=== PATIENT | female | born 1945 | race African-American/Black ===

== ENCOUNTER 2017-09-03 15:18 | Observation (INO) | payer OTHER ==
--- NOTE | 2017-09-03 15:23 | PDOC ---
Rapid Medical Evaluation Time Seen by Provider: 09/03/17 15:22 Medical Evaluation: Allergies Allergy/AdvReac Type Severity Reaction Status Date / Time morphine Allergy Verified 09/03/17 15:20 09/03/17 15:22 I have performed a brief in-person evaluation of this patient. The patient presents with a chief complaint of: slurred speech x 2 weeks? "but only early in the mornings when she jumps out of bed", no hx of stroke, PCP Neghassi Pertinent physical exam findings: A&O x 3, slightly slurred speech but acting at baseline per family I have ordered the following: labs The patient will proceed to the ED for further evaluation. Discharge Disposition - Diagnosis Slurred speech - Referrals - Patient Instructions - Post Discharge Activity
--- NOTE | 2017-09-03 15:45 | PDOC ---
History of Present Illness - General Chief Complaint: CVA/TIA Stated Complaint: FALL/ RT FOOT INJURY Time Seen by Provider: 09/03/17 15:22 - History of Present Illness Initial Comments: 09/03/17 16:14 Ms. Vaz is a 72 yo female w/ pmh of HTN and schizophrenia who presents for evaluation of 2 week history of slurred speech and increased falls. Per daughter who is with her there are no new changes in medications or supplements but patient has had recent unsteadyness and fallen twice. Denies any head injury but reports that she has had recent left leg weakness as well. 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 The patient denies chest pain, shortness of breath, headache and dizziness. Denies fever, chills, nausea, vomit, diarrhea and constipation. Denies dysuria, frequency, urgency and hematuria. Allergies: Morphine NIH Stroke Scale - Last Known Well Date/Time & Onset Date Last Known Well: 08/20/17 Time Last Known Well: 08:00 - Initial Evaluation Level of consciousness: Alert Ask patient the month and their age: Answers both correctly Ask patient to open & close eyes; make fist and let go: Obeys both correctly Best gaze (horizontal eye movement): Normal Visual field testing: No visual field loss Facial paresis (Show teeth/raise eyebrows/close eyes tight): Normal symmetrical movement Motor Function: Left Arm: Normal Motor Function: Right Arm: Normal (extends arm 90 (or 45) degrees for 10 seconds without drift Motor Function: Left Leg: Normal (extends leg 30 degrees for 5 seconds without drift) Motor Function: Right Leg: Drift Limb Ataxia: No ataxia Sensory(Use pinprick test arms,legs,trunk,face/side to side): Normal Best language (Describe picture, name items, read sentences): No Aphasia Dysarthria (read several words): Mild to moderate slurring of words Extinction and Inattention: No abnormality - Total Score NIH Stroke Scale Score: 2 Past History - Past Medical History Allergies/Adverse Reactions: Allergies Allergy/AdvReac Type Severity Reaction Status Date / Time morphine Allergy Verified 09/03/17 15:20 Home Medications: Ambulatory Orders Atenolol [Tenormin -] 25 mg PO DAILY 04/17/14 Haloperidol Decanoate [Haldol Decanoate (Long-Acting) -] 0 mg IM MONTHLY Hydrochlorothiazide [Hctz -] 25 mg PO DAILY 04/17/14 Quetiapine Fumarate [Seroquel -] 400 mg PO HS 04/17/14 COPD: No HTN: Yes Psychiatric Problems: Yes (ANXIETY) - Suicide/Smoking/Psychosocial Hx Smoking History: Current every day smoker Have you smoked in the past 12 months: Yes Number of Cigarettes Smoked Daily: 20 Information on smoking cessation initiated: Yes 'Breaking Loose' booklet given: 09/03/17 Hx Alcohol Use: No Drug/Substance Use Hx: No Substance Use Type: None Review of Systems - Review of Systems Comments:: 09/03/17 16:45 GENERAL/CONSTITUTIONAL: No fever or chills. No weakness. HEAD, EYES, EARS, NOSE AND THROAT: No change in vision. No ear pain or discharge. No sore throat. CARDIOVASCULAR: No chest pain or shortness of breath RESPIRATORY: No cough, wheezing, or hemoptysis. GASTROINTESTINAL: No nausea, vomiting, diarrhea or constipation. GENITOURINARY: No dysuria, frequency, or change in urination. MUSCULOSKELETAL: No joint or muscle swelling or pain. No neck or back pain. SKIN: No rash NEUROLOGIC: +Slurred speech with recent right leg weakness as described. No headache, vertigo, loss of consciousness ENDOCRINE: No increased thirst. No abnormal weight change HEMATOLOGIC/LYMPHATIC: No anemia, easy bleeding, or history of blood clots. ALLERGIC/IMMUNOLOGIC: No hives or skin allergy. *Physical Exam - Vital Signs Last Vital Signs Temp Pulse Resp BP Pulse Ox 98.1 F 62 18 103/64 100 09/03/17 15:22 09/03/17 15:22 09/03/17 15:22 09/03/17 15:22 09/03/17 15:22 - Physical Exam Comments: 09/03/17 16:45 GENERAL: Awake, alert, and fully oriented, in no acute distress HEAD: No signs of trauma, normocephalic, atraumatic EYES: PERRLA, EOMI, sclera anicteric, conjunctiva clear ENT: Auricles normal inspection, hearing grossly normal, nares patent, oropharynx clear without exudates. Moist mucosa NECK: Normal ROM, supple, no lymphadenopathy, JVD, or masses LUNGS: No distress, speaks full sentences, clear to auscultation bilaterally HEART: Regular rate and rhythm, normal S1 and S2, no murmurs, rubs or gallops, peripheral pulses normal and equal bilaterally. ABDOMEN: Soft, nontender, normoactive bowel sounds. No guarding, no rebound. No masses EXTREMITIES: Normal inspection, Normal range of motion, no edema. No clubbing or cyanosis. NEUROLOGICAL: +Speech slurred. Patient RLE weaker than left. Cranial nerves II through XII grossly intact. No focal sensorimotor deficits SKIN: Warm, Dry, normal turgor, no rashes or lesions noted. ED Treatment Course - LABORATORY CBC & Chemistry Diagram: 09/03/17 16:00 09/03/17 15:47 Medical Decision Making - Medical Decision Making 09/03/17 16:47 Ms. Vaz is a 72 yo female w/ pmh as described who presents for evaluation of slurred speech and right leg weakness. 09/03/17 18:23 Patient worked up as 2 week old stroke, labs/imaging drawn accordingly. Head CT negative, no concern for acute process at this time. Patient noted to have hypokalemia, acute renal failure, elevated troponins and elevated Creatinine kinase. Patient admitted to med/surg for further evaluation for ARF, hypokalemia , slurred speech. *DC/Admit/Observation/Transfer Diagnosis at time of Disposition: Slurred speech, Hypokalemia Acute renal failure Qualifiers: Acute renal failure type: unspecified Qualified Code(s): N17.9 - Acute kidney failure, unspecified - Discharge Dispostion Admit: Yes - Referrals Referrals: Vincent Saucedo MD [Primary Care Provider] - - Patient Instructions - Post Discharge Activity
[2017-09-03 16:05] LABS: INR 1.14 (0.82-1.09); PROTHROMBIN TIME (PATIENT) 12.9 SEC (9.98-11.88)
[2017-09-03 16:14] LABS: BASO % 1.5 % (0-2.0); EOS % 3.3 % (0-4.5); HEMATOCRIT 34.7 % (32.4-45.2); LYMPH % 21.3 % (8-40); MCH 32.6 pg (25.7-33.7); MCHC 34.6 g/dl (32.0-36.0); MEAN CELL VOLUME 94.2 fl (80-96); MEAN PLT VOLUME 8.4 fl (7.5-11.1); MONO % 6.8 % (3.8-10.2); NEUT % 67.1 % (42.8-82.8); PLATELET COUNT 238 K/MM3 (134-434); RBC 3.68 M/mm3 (3.60-5.2); WHITE BLOOD COUNT 6.4 K/mm3 (4.0-10.0)
[2017-09-03 16:26] LABS: ALBUMIN 3.3 g/dl (3.4-5.0); ANION GAP 4 (8-16); BILIRUBIN,TOTAL 0.2 mg/dL (0.2-1.0); BLOOD UREA NITROGEN 24 mg/dL (7-18); CALCIUM 8.8 mg/dL (8.5-10.1); CHLORIDE 109 mmol/L (98-107); CO2 27 mmol/L (21-32); CREATININE 1.6 mg/dL (0.55-1.02); GLUCOSE,RANDOM 141 mg/dL (74-106); POTASSIUM 3.3 mmol/L (3.5-5.1); SGOT/AST 26 U/L (15-37); SGPT/ALT 14 U/L (12-78); SODIUM 140 mmol/L (136-145); TOT PROT 6.8 g/dl (6.4-8.2)
[2017-09-03 16:27] LABS: ALK PHOS 71 U/L (45-117)
[2017-09-03] MEDS ORDERED: SODIUM CHLORIDE 1,000 ML IV SCH (16:30)
--- NOTE | 2017-09-03 16:44 | PDOC ---
Attending Attestation - Resident Resident Name: Christiano Munroe - ED Attending Attestation I have performed the following: I have examined & evaluated the patient, The case was reviewed & discussed with the resident, I agree w/resident's findings & plan, Exceptions are as noted - HPI HPI: 09/03/17 16:39 72 yo F with h/o DM, schizophrenia , htn here with c/o worsenin am slurring of speech x 2 weeks. thought maybe due to medication side effect. has had in the past when haldol or seroquel doses were too high. slurring in worse in am on awakening. but pt has had 2 falls in last week. now c/o mild right hip pain and right foot pain. was recommende to walk with a walker recently which she is here with today. additional history per her daughter at bedside who feels speech is currently at baseline, but has been worse last few mornings. pt andrey si hi or ah. no cp no f/c. no blair. no ho prior stroke. - Physicial Exam PE: 09/03/17 16:41 awake alert lungs clear bilaterally. heart rrr no mrg abd soft nt nd. skin warm and dry. nuero CN II - XII . upper ext strenth 5/5. lower ext 4/5 right leg , left leg 5/5. speech, mild slurring ends of word, pt is adentulous. - Medical Decision Making 09/03/17 16:43 differential: infection, electrolyte abnormality, anemia, ich or cva, toxic effect medications other tox causea ( pt denies etoh or other narcotic or drug use). plan ct head. xray foot and hip r//o traumatic injury, labs ekg, reassess. Heart Score/ECG Review #1 ECG reviewed & interpreted by me at: 16:55 General ECG Interpretation: Sinus Rhythm, Normal Intervals, No acute ischemic changes Compared to previous ECG there are: Other (sinus bradycardia 54 . no change comparison 04/17/14) NIH Stroke Scale - Initial Evaluation Level of consciousness: Alert Ask patient the month and their age: Answers both correctly Ask patient to open & close eyes; make fist and let go: Obeys both correctly Best gaze (horizontal eye movement): Normal Visual field testing: No visual field loss Facial paresis (Show teeth/raise eyebrows/close eyes tight): Normal symmetrical movement Motor Function: Left Arm: Normal Motor Function: Right Arm: Normal (extends arm 90 (or 45) degrees for 10 seconds without drift Motor Function: Left Leg: Normal (extends leg 30 degrees for 5 seconds without drift) Motor Function: Right Leg: Drift Limb Ataxia: No ataxia Sensory(Use pinprick test arms,legs,trunk,face/side to side): Normal Best language (Describe picture, name items, read sentences): No Aphasia Dysarthria (read several words): Mild to moderate slurring of words Extinction and Inattention: No abnormality - Total Score NIH Stroke Scale Score: 2
[2017-09-03 17:09] LABS: URINE APPEARANCE SLCLOUDY; URINE BILIRUBIN NEGATIVE (<2.0 mg/dL); URINE BLOOD NEGATIVE (NEGATIVE); URINE COLOR YELLOW; URINE GLUCOSE (UA) NEGATIVE (NEGATIVE); URINE KETONE NEGATIVE (NEGATIVE); URINE LEUK ESTERASE NEGATIVE (NEGATIVE); URINE NITRITE NEGATIVE (NEGATIVE); URINE PROTEIN NEGATIVE (NEGATIVE); URINE UROBILINOGEN NEGATIVE mg/dL (0.2-1.0)
[2017-09-03 17:35] LABS: ACETAMINOPHEN < 2.000 ug/mL; SALICYLATE 33.943 mg/dL
[2017-09-03 18:47] LABS: COCAINE, UR NEGATIVE ng/ml (CUTOFF=300); METHADONE, UR NEGATIVE ng/ml (CUTOFF=300); OPIATES, URI NEGATIVE ng/ml (CUTOFF=300); PHENCYCLIDINE,URINE NEGATIVE ng/ml (CUTOFF=25); URINE AMPHETAMINES NEGATIVE ng/ml (CUTOFF=500); URINE BARBITURATES NEGATIVE ng/ml (CUTOFF=200); URINE BENZODIAZEPINES NEGATIVE ng/ml (CUTOFF=200)
--- NOTE | 2017-09-03 19:52 | HP ---
CHIEF COMPLAINT: chronic pain and chronic weakness in right lower limb PCP: haile rubio [phone] HISTORY OF PRESENT ILLNESS: 72 y/o f with pmh of schizophrenia, htn, hld, came to hospital because of chronic pain in her right thigh and ankle( from 3 week). 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 They also did her blood work 2 week ago which showed increase creatinine ( patient aware of it) ask them to drink plenty of water and follow up on september 16. Patient also states that when some ones wakes her up in middle of her sleep she gets slurred speech but it gets better after few minutes. Patient also states that she has weakness in her right leg form 6-7 months. Denies any new numbness or weakness. Denies chest pain, sob, palpitations, headache. Denies abnormal body movements. denies seizure like activity Also reports that she use to walk with her back flexed because use to think some one is siting on her back. Patient reports X ray of her back was done in her doctor office which was normal and was advised to walk with walker. Denies change in weight. Does report when she stands suddenly she gets lightheaded In Er labs showed trponemia with red. Daughter states that patient is at her base line. Call was placed to Dr banuelos office, talked to web communications specialist doctor but he cannot access the record so don't know her base line creatinine. ER course was notable for: (1)cbc, cmp, hld (2)ekg bradycardia with first degree heart block. (3)ct head, xray of Recent Travel: no PAST MEDICAL HISTORY: schisophrenia, htn, hld PAST SURGICAL HISTORY:no Social History: Smoking:no Alcohol:no Drugs: no Family History: Allergies morphine Allergy (Verified 09/03/17 15:20) HOME MEDICATIONS: Home Medications Medication Instructions Recorded Atenolol [Tenormin -] 25 mg PO DAILY 04/17/14 Haloperidol Decanoate [Haldol 0 mg IM MONTHLY 04/17/14 Decanoate (Long-Acting) -] Hydrochlorothiazide [Hctz -] 25 mg PO DAILY 04/17/14 Quetiapine Fumarate [Seroquel -] 400 mg PO HS 04/17/14 REVIEW OF SYSTEMS CONSTITUTIONAL: Absent: fever, chills, diaphoresis, generalized weakness, malaise, loss of appetite, HEENT: Absent: rhinorrhea, nasal congestion, throat pain, throat swelling, difficulty swallowing, mouth swelling, ear pain, eye pain, visual changes CARDIOVASCULAR: Absent: chest pain, syncope, palpitations, irregular heart rate, lightheadedness , RESPIRATORY: Absent: cough, shortness of breath, dyspnea with exertion, orthopnea, wheezing, stridor, hemoptysis GASTROINTESTINAL: Absent: abdominal pain, abdominal distension, nausea, vomiting, diarrhea, constipation, melena, hematochezia GENITOURINARY: Absent: dysuria, frequency, urgency, hesitancy, hematuria, flank pain, genital pain MUSCULOSKELETAL: as above HEMATOLOGIC/IMMUNOLOGIC: Absent: easy bleeding, easy bruising, ENDOCRINE: Absent: unexplained weight gain, unexplained weight loss, NEUROLOGIC: Absent: headache, focal weakness or paresthesias, dizziness, unsteady gait, PSYCHIATRIC: Absent: anxiety, depression, suicidal or homicidal ideation, hallucinations. PHYSICAL EXAMINATION Vital Signs - 24 hr 09/03/17 15:22 Temperature 98.1 F Pulse Rate 62 Respiratory 18 Rate Blood Pressure 103/64 O2 Sat by Pulse 100 Oximetry (%) GENERAL: Awake, alert, and fully oriented, in no acute distress. HEAD: Normal with no signs of trauma. EYES: Pupils equal, round and reactive to light, extraocular movements intact, EARS, NOSE, THROAT:oropharynx clear without exudates. DRy mucous membranes. NECK: Normal range of motion, JVD, or masses. LUNGS: Breath sounds equal, clear to auscultation bilaterally. No wheezes, and no crackles. No accessory muscle use. HEART: Regular rate and rhythm, normal S1 and S2 without murmur, ABDOMEN: Soft, nontender, not distended, normoactive bowel sounds, no guarding, no rebound, no masses. MUSCULOSKELETAL: Normal range of motion at all joints. UPPER EXTREMITIES: 2+ pulses, warm, well-perfused. No cyanosis. No clubbing. No peripheral edema. LOWER EXTREMITIES: 2+ pulses, warm, well-perfused. No calf tenderness. mild edema on right ankle, tory present on right ankle, no tenderness on palpation. NEUROLOGICAL: Cranial nerves II-XII intact. Normal speech. power in b/l upper limb 5/5, power in left lower limb 5/5, power in right upper limb 5/5 ( but slightly lessss than left) PSYCHIATRIC: Cooperative. Good eye contact. SKIN: Warm, dry, Laboratory Results - last 24 hr 09/03/17 09/03/17 09/03/17 15:47 15:47 16:00 WBC 6.4 D RBC 3.68 D Hgb 12.0 D Hct 34.7 D MCV 94.2 MCH 32.6 MCHC 34.6 RDW 16.0 H D Plt Count 238 D MPV 8.4 Neutrophils % 67.1 Lymphocytes % 21.3 D Monocytes % 6.8 Eosinophils % 3.3 D Basophils % 1.5 PT with INR 12.90 H INR 1.14 Sodium 140 Potassium 3.3 L Chloride 109 H Carbon Dioxide 27 Anion Gap 4 L BUN 24 H Creatinine 1.6 H Creat Clearance w eGFR 31.60 Random Glucose 141 H Calcium 8.8 Total Bilirubin 0.2 D AST 26 ALT 14 Alkaline Phosphatase 71 Creatine Kinase Troponin I Total Protein 6.8 Albumin 3.3 L Triglycerides Cholesterol Total LDL Cholesterol HDL Cholesterol Urine Color Urine Appearance Urine pH Ur Specific [place] Urine Protein Urine Glucose (UA) Urine Ketones Urine Blood Urine Nitrite Urine Bilirubin Urine Urobilinogen Ur Leukocyte Esterase Salicylates Opiates Screen Methadone Screen Acetaminophen Barbiturate Screen Phencyclidine Screen Ur Amphetamines Screen MDMA (Ecstasy) Screen Benzodiazepines Screen Cocaine Screen U Marijuana (THC) Screen 09/03/17 09/03/17 09/03/17 16:25 16:28 16:28 WBC RBC Hgb Hct MCV MCH MCHC RDW Plt Count MPV Neutrophils % Lymphocytes % Monocytes % Eosinophils % Basophils % PT with INR INR Sodium Potassium Chloride Carbon Dioxide Anion Gap BUN Creatinine Creat Clearance w eGFR Random Glucose Calcium Total Bilirubin AST ALT Alkaline Phosphatase Creatine Kinase 235 H Troponin I 0.12 H Total Protein Albumin Triglycerides 145 Cholesterol 266 H Total LDL Cholesterol 193 H HDL Cholesterol 39 L Urine Color Yellow Urine Appearance Slcloudy Urine pH 5.0 Ur Specific [place] 1.023 Urine Protein Negative Urine Glucose (UA) Negative Urine Ketones Negative Urine Blood Negative Urine Nitrite Negative Urine Bilirubin Negative Urine Urobilinogen Negative Ur Leukocyte Esterase Negative Salicylates 33.943 Opiates Screen Methadone Screen Acetaminophen < 2.000 Barbiturate Screen Phencyclidine Screen Ur Amphetamines Screen MDMA (Ecstasy) Screen Benzodiazepines Screen Cocaine Screen U Marijuana (THC) Screen 09/03/17 16:45 WBC RBC Hgb Hct MCV MCH MCHC RDW Plt Count MPV Neutrophils % Lymphocytes % Monocytes % Eosinophils % Basophils % PT with INR INR Sodium Potassium Chloride Carbon Dioxide Anion Gap BUN Creatinine Creat Clearance w eGFR Random Glucose Calcium Total Bilirubin AST ALT Alkaline Phosphatase Creatine Kinase Troponin I Total Protein Albumin Triglycerides Cholesterol Total LDL Cholesterol HDL Cholesterol Urine Color Urine Appearance Urine pH Ur Specific [place] Urine Protein Urine Glucose (UA) Urine Ketones Urine Blood Urine Nitrite Urine Bilirubin Urine Urobilinogen Ur Leukocyte Esterase Salicylates Opiates Screen Negative Methadone Screen Negative Acetaminophen Barbiturate Screen Negative Phencyclidine Screen Negative Ur Amphetamines Screen Negative MDMA (Ecstasy) Screen Negative Benzodiazepines Screen Negative Cocaine Screen Negative U Marijuana (THC) Screen Negative ASSESSMENT/PLAN:72 y/o f with pmh of schizophrenia, htn, hld, came to hospital because of chronic pain in her right thigh and ankle( from 3 week). In hospital found to have troponemia and red. Troponemia likely demand ischemia, or decrease clearance because of red. trend troponin repeat ekg in morning. echo cardiac monitoring monitor vitals monitor electrolytes. started on aspirin 81mg daily. TIA ( less likely) has chronic slurred speech and weakness from 6 months. Daughter reported that she is at her base line. ECHO Carotid Doppler started on statin and aspirin. Repeated fall; likely due to orthostatic hypotension, or from abnormal walking posture. no weakness appreciated in b/l lower or upper limbs. recently started walking with walker physical therapy consult. Fall risk precautions. orthostatic vitals IV fluid. 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 pain control with tylenol. ct head; no acute pathology RED: likely prerenal patient is not on NSAID, use to take anacin( aspirin + caffein) IV fluid monitor creatnine avoid nephrotoxic drugs urine electrolytes, cr: pro, renal usg hold hydrochlorthiazide HLD daughter states she was started on medication in july but patient is not complaint. started on lipitor 40. HTN monitor. home meds. schizoprenia continue home meds Hypokalemia kcl 40meq po given repeat in am. fluid: NS 100ml/hr electrolyte; repeat in am nutrition low cholesterol diet. dvt pro; patinet ambulatory. Gi pro: not required medication list confirmed from [facility] haloperidol 100mg once a month IM dispo: tele obs Visit type - Emergency Visit Emergency Visit: Yes ED Registration Date: 09/03/17 Care time: The patient presented to the Emergency Department on the above date and was hospitalized for further evaluation of their emergent condition. - New Patient This patient is new to me today: Yes Date on this admission: 09/03/17 - Critical Care Critical Care patient: No Hospitalist Screening - Colonoscopy Questionnaire Colonoscopy Questionnaire: Colonoscopy Questionnaire - Patient: 50 - 75 years old and never had a screening colonoscopy: Unknown History of colon or rectal polyps, or CA: Unknown History of IBD, Crohn's disease or UC: Unknown History of abdominal radiation therapy as a child: Unknown - Relative: 1 with colon or rectal CA, or polyps at age 60 or younger: Unknown Colon or rectal CA diagnosed at age 45 or younger: Unknown Multiple relatives with colon or rectal CA: Unknown - Outcome: Screening Result: Negative Screen
[2017-09-03] MEDS: SODIUM CHLORIDE 1,000 ML IV SCH (20:00)
[2017-09-03] MEDS ORDERED: ACETAMINOPHEN 325 MG TABLET (FP) PO PRN (20:13)
[2017-09-03] MEDS ORDERED: POTASSIUM CHLORIDE ORAL LIQUID 20 MEQ/15 ML PO ONE (20:15)
[2017-09-03] MEDS ORDERED: POTASSIUM CHLORIDE ORAL LIQUID 20 MEQ/15 ML ONE (20:19)
--- NOTE | 2017-09-03 21:38 | PN ---
Teaching Attending Note Name of Resident: Avtar Hamilton ATTENDING PHYSICIAN STATEMENT I saw and evaluated the patient. Chart, data, imaging reviewed. I reviewed the resident's note and discussed the case with the resident. I agree with the resident's findings and plan as documented. SUBJECTIVE: 72 y/o f with pmh of schizophrenia, htn, hld, with history recent falls and newly acquired walker, comes to hospital after granddaughter noticed slurred speech and was concerned. 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 She c/o soreness in her thighs b/l. No dizziness, but does c/o some chronic numbness in her right fingers for several months. Head CT in ER was unremarkable for intracranial insults. She denied any chest pain or shortness of breath. OBJECTIVE: Last Vital Signs Temp Pulse Resp BP Pulse Ox 98.1 F 68 18 133/52 97 09/03/17 15:22 09/03/17 20:30 09/03/17 15:22 09/03/17 20:29 09/03/17 20:30 General -aaox3, nad, nontoxic, heent -at, CN 3-12 grossly intact , perrla neck -supple, no masses cv-s1+s2+ rrr chest- cta b/l ex - right ankle swollen, no tenderness on palpation, some ecchymosis Neuro- no focal weakness noted, moves all extremities Abnormal Lab Results 09/03/17 09/03/17 09/03/17 15:47 15:47 16:00 RDW 16.0 H D PT with INR 12.90 H Potassium 3.3 L Chloride 109 H Anion Gap 4 L BUN 24 H Creatinine 1.6 H Random Glucose 141 H Creatine Kinase Troponin I Albumin 3.3 L Cholesterol Total LDL Cholesterol HDL Cholesterol 09/03/17 16:28 RDW PT with INR Potassium Chloride Anion Gap BUN Creatinine Random Glucose Creatine Kinase 235 H Troponin I 0.12 H Albumin Cholesterol 266 H Total LDL Cholesterol 193 H HDL Cholesterol [address] -no acute intracranial insults EKG- 2st degree heart block, nsr ASSESSMENT AND PLAN: 72yo woman with slurred speech and right b/l thigh pain. R/o CVA, low likelihood. #TIA/ R/o CVA- right finger numbness, slurred speech - chronic, less likely CVA , head CT with no acute findings. -admit to tele/obs -transthoracic echo -b/l carotid duplex -ASA 81mg daily -statin -neuro evaluation -consider to repeat head CT in 24hrs #KAREN vs CKD- normal cr in 2013 -urine lyes -urine osm -serum osm -renal U/S -avoid nephrotoxic meds -i/o , daily weights #Right ankle swelling -will f/u xray report to r/o fracture #Elevated trop- unlikely acs, may be from karen, no chest pain or shortness of breath, EKG unremarkable -tele monitoring -trend trop -will f/u echo #frequent falls -bed rest -PT evaluation -DVT ppx- heparin sc
[2017-09-03] MEDS ORDERED: ATORVASTATIN CA 40 MG TABLET (FP) PO SCH (22:00)
[2017-09-03] MEDS ORDERED: ATORVASTATIN CA 80 MG TABLET (FP) PO SCH (22:00)
[2017-09-03] MEDS: ATORVASTATIN CA 40 MG TABLET (FP) PO SCH ×2 (23:00→23:35)
[2017-09-03] MEDS: QUEtiapine FUMARATE 200 MG TABLET PO SCH (23:35)
[2017-09-04 00:08] VITALS: BMI 35.9
[2017-09-04 08:30] LABS: RATIO URIN PROTEIN/URIN CREAT 0.1 MG/DL
[2017-09-04 08:51] LABS: ANION GAP 8 (8-16); BLOOD UREA NITROGEN 26 mg/dL (7-18); CALCIUM 9.1 mg/dL (8.5-10.1); CHLORIDE 108 mmol/L (98-107); CO2 26 mmol/L (21-32); CREATININE 1.6 mg/dL (0.55-1.02); GLUCOSE,RANDOM 115 mg/dL (74-106); POTASSIUM 3.3 mmol/L (3.5-5.1); SODIUM 142 mmol/L (136-145)
--- NOTE | 2017-09-04 09:50 | EKG ---
Test Reason : Blood Pressure : / mmHG Vent. Rate : 054 BPM Atrial Rate : 054 BPM P-R Int : 212 ms QRS Dur : 096 ms QT Int : 438 ms P-R-T Axes : 084 -08 -04 degrees QTc Int : 415 ms SINUS BRADYCARDIA WITH 1ST DEGREE A-V BLOCK OTHERWISE NORMAL ECG WHEN COMPARED WITH ECG OF 17-APR-2014 18:13, [place] INTERVAL HAS INCREASED VENT. RATE HAS DECREASED BY 68 BPM NON-SPECIFIC CHANGE IN ST SEGMENT IN LATERAL LEADS T WAVE AMPLITUDE HAS DECREASED IN ANTERIOR LEADS Confirmed by BRADLEY ANDUJAR, RUDI ([id number]) on 09/04/2017 9:49:59 AM Referred By: Confirmed By:RUDI HUERTA MD
[2017-09-04] MEDS: HEPARIN NA (PORCINE) 5,000 UNITS/ML 1ML VIAL SQ SCH ×2 (10:24→22:05)
[2017-09-04] MEDS: ASPIRIN 81 MG CHEWABLE TABLETS PO SCH (10:24)
[2017-09-04] MEDS: ATENOLOL 25 MG TABLET (FP) PO SCH ×2 (10:24→10:26)
[2017-09-04] MEDS ORDERED: POTASSIUM CHLORIDE ORAL LIQUID 20 MEQ/15 ML PO ONE (12:57)
--- NOTE | 2017-09-04 13:01 | PN ---
Progress Note (short form) - Note Progress Note: states she is fine and wants to go home. says her voice was slurred yesterday because she was sleeping when her daughter came over. that her speech has been slurred for 6 months ago. also states she has felt weak in the R side since then and may have caused her to fall a few weeks ago which she subsequently developed foot swelling. saw a assemblyman or woman which told her it was ok but no imaging was done. denies Cp, SOB, fever, chills, blurred vision or speech Current Medications Generic Name Dose Route Start Last Admin Trade Name Freq PRN Reason Stop Dose Admin Acetaminophen 650 mg 09/03/17 20:13 Tylenol - PO Q6H PRN PAIN LEVEL 1-5 Aspirin 81 mg 09/04/17 10:00 09/04/17 10:24 Asa - PO 81 mg DAILY GABY Administration Atenolol 25 mg 09/04/17 10:00 09/04/17 10:26 Tenormin - PO Not Given DAILY GABY Atorvastatin Calcium 40 mg 09/03/17 22:00 09/03/17 23:00 Lipitor - PO Not Given HS GABY Heparin Sodium (Porcine) 5,000 unit 09/04/17 10:00 09/04/17 10:24 Heparin - SQ Not Given BID GABY Sodium Chloride 1,000 mls @ 100 mls/hr 09/03/17 19:45 09/03/17 20:00 Normal Saline - IV 100 mls/hr ASDIR GABY Administration Quetiapine Fumarate 400 mg 09/03/17 22:00 09/03/17 23:35 Seroquel - PO 400 mg HS GABY Administration Last Vital Signs Temp Pulse Resp BP Pulse Ox 97.7 F 66 18 103/48 97 09/04/17 06:00 09/04/17 06:00 09/04/17 06:00 09/04/17 06:00 09/04/17 02:16 General NAD, slurred speech CV S1 S2 RRR no murmur/rub/gallop no carotid bruit Lungs CTA B/L no wheezing/rlaes/rhonchi Abdomen soft NT/ND Extremities swelling limited to R foot unable to move digits 2+ pulses Neuro slurred speech rest of CN II-XII grossly intact. no pronator drift. negative dysmetria. strength and sensation grossly intact B/L UE. 1/5 RLE 25 LLE sensation grossly intact. gait testing deferred CBCD WBC 6.4 K/mm3 (4.0-10.0) D 09/03/17 16:00 RBC 3.68 M/mm3 (3.60-5.2) D 09/03/17 16:00 Hgb 12.0 GM/dL (10.7-15.3) D 09/03/17 16:00 Hct 34.7 % (32.4-45.2) D 09/03/17 16:00 MCV 94.2 fl (80-96) 09/03/17 16:00 MCHC 34.6 g/dl (32.0-36.0) 09/03/17 16:00 RDW 16.0 % (11.6-15.6) H D 09/03/17 16:00 Plt Count 238 K/MM3 (134-434) D 09/03/17 16:00 MPV 8.4 fl (7.5-11.1) 09/03/17 16:00 CMP Sodium 142 mmol/L (136-145) 09/04/17 08:04 Potassium 3.3 mmol/L (3.5-5.1) L 09/04/17 08:04 Chloride 108 mmol/L (98-107) H 09/04/17 08:04 Carbon Dioxide 26 mmol/L (21-32) 09/04/17 08:04 Anion Gap 8 (8-16) 09/04/17 08:04 BUN 26 mg/dL (7-18) H 09/04/17 08:04 Creatinine 1.6 mg/dL (0.55-1.02) H 09/04/17 08:04 Creat Clearance w eGFR 31.60 (>60) 09/03/17 15:47 Calcium 9.1 mg/dL (8.5-10.1) 09/04/17 08:04 Total Bilirubin 0.2 mg/dL (0.2-1.0) D 09/03/17 15:47 AST 26 U/L (15-37) 09/03/17 15:47 ALT 14 U/L (12-78) 09/03/17 15:47 Alkaline Phosphatase 71 U/L (45-117) 09/03/17 15:47 Total Protein 6.8 g/dl (6.4-8.2) 09/03/17 15:47 Albumin 3.3 g/dl (3.4-5.0) L 09/03/17 15:47 A/P 72yo F wtih PMH schizophrenia, HTN and dyslipidemia presented to the Er wt slurred speech and also notes R foot pain after mechanical fall several days ago 1. slurred speech- reports happened [address] head negative. will obtain MRI to r/o subacute CVA. echo pending. carotid doppler with B/L 50-70% stenosis. will need repeat u/s in 6 months to evaluate if worsening. Neuro, speech and swallow and PT consulted. will hold on adding plavix at this time for secondary prevention until determined if +MRI. on a statin 2. R foot fracture- XR showing acute fracture in R foot 2nd-4th metatarsal. will need boot and PT. ortho consulted. NWB RLE till evaluated 3. RED- likely dehydration. FeNa <1. hold HCTZ. cont IVF. trend Cr. renal u/s unremarkable 4. Tropinemia- flat trend 0.12-0.13-0.12. likely due to RED. no reports of CP. echo pending 5. hypokalemia- replete. check Mg 6. Schizophrenia- no manic episodes. cont home medications 7. HTN- controlled. cont atenolol 8. dyslipidemia- statin 9. DVT ppx- will start hep sq as will be limited in activity given fracture 10. pt does NOT want to stay in the hospital because her problems are not new. explained to her concerns for CVA and need for PT assessment to evaluate if able to ambulate with fractures. explained risks if not appropriately worked up which can lead to permanent damage and . verbalized understanding or risks. agreeable to f/u with PMD on Wednesday if she does leave. States she will think about her choices and then make a decision. encouraged on staying Visit type - Emergency Visit Emergency Visit: Yes ED Registration Date: 09/03/17 Care time: The patient presented to the Emergency Department on the above date and was hospitalized for further evaluation of their emergent condition. - New Patient This patient is new to me today: Yes Date on this admission: 09/04/17 - Critical Care Critical Care patient: No - Discharge Referral Referred to [facility] No
[2017-09-04] MEDS ORDERED: PT OWN MED DRAWER 7, Y5N ONE ×2 (17:23→22:01)
[2017-09-04] MEDS: ATORVASTATIN CA 40 MG TABLET (FP) PO SCH (22:06)
[2017-09-04] MEDS: QUEtiapine FUMARATE 200 MG TABLET PO SCH (22:06)
[2017-09-05] MEDS: SODIUM CHLORIDE 1,000 ML IV SCH (01:49)
[2017-09-05 08:41] LABS: CHLORIDE 109 mmol/L (98-107); POTASSIUM 3.2 mmol/L (3.5-5.1); SODIUM 143 mmol/L (136-145)
[2017-09-05 08:44] LABS: ANION GAP 9 (8-16); BLOOD UREA NITROGEN 19 mg/dL (7-18); CO2 25 mmol/L (21-32); CREATININE 1.2 mg/dL (0.55-1.02); GLUCOSE,RANDOM 86 mg/dL (74-106); MAGNESIUM 2.3 mg/dL (1.8-2.4)
[2017-09-05] MEDS ORDERED: POTASSIUM CHLORIDE ORAL LIQUID 20 MEQ/15 ML PO ONE (09:41)
--- NOTE | 2017-09-05 09:42 | CON.NEURO ---
Consult - History of Present Illness History of Present Illness: 72 y/o with pmh of schizophrenia, htn, hld, came to hospital because of chronic pain in her right thigh and ankle( from 3 week). Patient reports that she had a fall like 3 weeks ago and after that she went to see her noc analyst who told them if pain doesn't get better that come for a visit but she came to hospital for pain. They also did her blood work 2 week ago which showed increase creatinine ( patient aware of it) ask them to drink plenty of water and follow up on september 16. Patient also states that when some ones wakes her up in middle of her sleep she gets slurred speech but it gets better after few minutes. Patient also states that she has weakness in her right leg form 6-7 months. Denies any new numbness or weakness. Denies chest pain, sob, palpitations, headache. Denies abnormal body movements. denies seizure like activity abs showed trponemia with karen. Daughter states that patient is at her base line. MRI BRAIN IMPRESSION: Generalized volume loss with multiple foci of a small vessel infarction in the periventricular white matter. There is no mass lesion acute infarction or hemorrhage. (to my eye no acute stroke , mild white matter changes, NO evidence of prior infraction) - Alcohol/Substance Use Hx Alcohol Use: No - Smoking History Smoking history: Current every day smoker Have you smoked in the past 12 months: Yes Aproximately how many cigarettes per day: 20 Home Medications - Allergies Allergies/Adverse Reactions: Allergies Allergy/AdvReac Type Severity Reaction Status Date / Time morphine Allergy Verified 09/03/17 15:20 - Home Medications Home Medications: Ambulatory Orders Atenolol [Tenormin -] 25 mg PO DAILY 04/17/14 Haloperidol Decanoate [Haldol Decanoate (Long-Acting) -] 100 mg IM MONTHLY 04/17 Hydrochlorothiazide [Hctz -] 25 mg PO DAILY 04/17/14 Quetiapine Fumarate [Seroquel -] 400 mg PO HS 04/17/14 Atorvastatin Calcium 40 mg PO 09/04/17 Physical Exam-Neuro Vital Signs: Vital Signs Temperature 97.3 F L 09/05/17 08:16 Pulse Rate 79 09/05/17 08:16 Respiratory Rate 20 09/05/17 08:16 Blood Pressure 122/56 09/05/17 08:16 O2 Sat by Pulse Oximetry (%) 97 09/05/17 08:16 Labs: CBC, BMP 09/03/17 16:00 09/05/17 06:00 INR, PTT INR 1.14 (0.82-1.09) 09/03/17 15:47 - Neuro Exam Level Of Consciousness: Yes: Alert (follows commands, no focal weakness in RLE - though does not always follow motor testing, tenderness R calve ) Assessment/Plan 72 y/o with pmh of schizophrenia, htn, hld, came to hospital because of chronic pain in her right thigh and ankle x 3 weeks. MRI BRAIN IMPRESSION: Generalized volume loss with multiple foci of a small vessel infarction in the periventricular white matter. There is no mass lesion acute infarction or hemorrhage. (to my eye no acute stroke , mild white matter changes, NO evidence of prior infraction) ? orthopedic vs vascular , no signs of a radiculopathy, myelopathy or stroke check Doppler LE- r/o DVT neuro cleared for Dc PT /rehab Dr Eubanks
[2017-09-05] MEDS: ATENOLOL 25 MG TABLET (FP) PO SCH (09:45)
[2017-09-05] MEDS: ASPIRIN 81 MG CHEWABLE TABLETS PO SCH (09:45)
[2017-09-05] MEDS: HEPARIN NA (PORCINE) 5,000 UNITS/ML 1ML VIAL SQ SCH (09:45)
--- NOTE | 2017-09-05 12:34 | PN ---
Progress Note (short form) - Note Progress Note: Pt seen and examined. She is a 72 yo F pt 1 day s/p twisting fall. Came into ER c/o pain in right foot. PE Right foot in post op shoe. Right foot NVI + mild swelling Good ROM throughout Xrays Show acute fractures of the right foot 2, 3, 4 Metatarsals Imp As above Rec No surgery needed Post op shoe, minimize activities, WBAT Can DC from an ortho pov F/U as an out pt in 7-10 days
--- NOTE | 2017-09-05 12:59 | PN ---
Teaching Attending Note Name of Resident: Marifer Merino ATTENDING PHYSICIAN STATEMENT I saw and evaluated the patient. I reviewed the resident's note and discussed the case with the resident. I agree with the resident's findings and plan as documented. SUBJECTIVE:asymptomatic.states pain in foot is well controlled. denies CP, SOB, fever, chills OBJECTIVE: Last Vital Signs Temp Pulse Resp BP Pulse Ox 97.3 F L 79 20 122/56 97 09/05/17 08:16 09/05/17 08:16 09/05/17 08:16 09/05/17 08:16 09/05/17 08:16 General NAD Extremities pittind edema to RLE Neuro slurred speech no neurological deficits appreciated ASSESSMENT AND PLAN: 72yo F wtih PMH schizophrenia, HTN and dyslipidemia presented to the Er wt slurred speech and also notes R foot pain after mechanical fall several days ago 1. slurred speech- reports happened 6 months ago. MRI/MRA negative. neuro evaluated. no signs of acute CVA. neuro f/u as outpatient 2. R foot fracture- XR showing acute fracture in R foot 2nd-4th metatarsal. surgical shoe on. awaiting PT evaluation. will need to f/u wt ortho as outpatient in 1 week. WBAT 3. RED- likely dehydration. FeNa <1. will hold HCTZ on discharge. Cr improving. renal u/s unremarkable 4. Tropinemia- flat trend 0.12-0.13-0.12. likely due to RED. no reports of CP. 5. hypokalemia- replete. will d/c with potassium x1 week and encourage repeat labs in a week to determine if necessary.encouraged to eat high potassium containing foods 6. Schizophrenia- no manic episodes. cont home medications 7. HTN- controlled. cont atenolol 8. dyslipidemia- statin 9. DVT ppx- will start hep sq as will be limited in activity given fracture 10. d/c home pending PT eval. encouraged PMD and ortho/neuro follow up.
[2017-09-05 14:36] VITALS: BP 123/57; PULSE 67; TEMP 98.4
--- NOTE | 2017-09-05 14:57 | DS ---
Physical Exam: SUBJECTIVE: Patient seen and examined OBJECTIVE: Vital Signs Period Temp Pulse Resp BP Sys/Starr Pulse Ox Last 24 Hr 97.3 F-99.5 F 67-80 18-20 114-137/55-67 97-97 PHYSICAL EXAM GENERAL: The patient is awake, alert, and fully oriented, in no acute distress. HEAD: Normal with no signs of trauma. EYES: PERRL, extraocular movements intact, sclera anicteric, conjunctiva clear. ENT: Ears normal, nares patent, oropharynx clear without exudates, moist mucous membranes. NECK: Trachea midline, full range of motion, supple. LUNGS: Breath sounds equal, clear to auscultation bilaterally, no wheezes, no crackles, no accessory muscle use. HEART: Regular rate and rhythm, S1, S2 without murmur, rub or gallop. ABDOMEN: Soft, nontender, nondistended, normoactive bowel sounds, no guarding, no rebound, no hepatosplenomegaly, no masses. EXTREMITIES: 2+ pulses, warm, well-perfused, no edema. NEUROLOGICAL: Cranial nerves II through XII grossly intact. Normal speech, gait not observed. PSYCH: Normal mood, normal affect. SKIN: Warm, dry, normal turgor, no rashes or lesions noted. LABS Laboratory Results - last 24 hr 09/05/17 09/05/17 05:51 06:00 Sodium 143 Potassium 3.2 L Chloride 109 H Carbon Dioxide 25 Anion Gap 9 BUN 19 H Creatinine 1.2 H POC Glucometer 92 Random Glucose 86 Calcium 9.0 Magnesium 2.3 HOSPITAL COURSE: Date of Admission:09/03/17 Date of Discharge: 09/05/17 Discharge Summary Reason For Visit: SLUURED SPEECH/ARF/HYPERKALEMIA Current Active Problems Metatarsal bone fracture (Acute) Troponin level elevated (Acute) Condition: Stable - Instructions Diet, Activity, Other Instructions: You were admitted to the hospital to further evaluate why your speech is slurred. You do not have a stroke. We did an Ultrasound of your Right leg, and no clots were found. You were also found to have multiple toe fractures in your Right foot. You were seen by an Orthopedist, who recommended that you wear the specialized boot. You can put weight on your Right foot as tolerated, but should limit your activities. Recommendations: -Eat food high in Potassium, such as beans and sweet potatoes. Refer to the educational pamphlet for additional information. Medications: Continue taking your regular home medications with following changes: 1) Stop taking HCTZ 2) Take Potassium Chloride 20mEq tablet one time per day for 1 week. Your first dose will be tomorrow (09/06), and your last dose will be on 09/11. Have your doctor check your Potassium levels in 1 week. 3) You can take Tylenol 650mg every 6 hours as needed for pain. Do not exceed more than 4 doses (2600mg) in one day. Follow-ups: -Please follow up with your primary care doctor in 1 week for post- hospitalization evaluation. You should have your Potassium levels checked in 1 week. You will also need a repeat carotid ultrasound to monitor the plaques seen in your arteries. If they continue to progress you may need surgery. -Please see the Orthopedist (Dr. Worrell or Dr. Cintron) in 7-10 days to evaluation how your foot fractures are healing and any additional recommendations. Please return to the hospital if your symptoms worsen. Referrals: Rodney Eubanks DO [Staff Physician] - Ritesh Worrell MD [Staff Physician] - (Follow-up appointment in 7-10 days) Vincent Saucedo MD [Primary Care Provider] - 1 Week (Follow-up in 1 week. Have your Potassium level checked in 1 week.) Disposition: HOME - Home Medications Comprehensive Discharge Medication List: Ambulatory Orders Atenolol [Tenormin -] 25 mg PO DAILY 04/17/14 Haloperidol Decanoate [Haldol Decanoate (Long-Acting) -] 100 mg IM MONTHLY 04/17 Quetiapine Fumarate [Seroquel -] 400 mg PO HS 04/17/14 Atorvastatin Calcium 40 mg PO 09/04/17 Acetaminophen [Tylenol .Regular Strength -] 650 mg PO Q6H PRN tablet 09/05/17 Potassium Chloride 20 meq PO DAILY #7 tablet.er 09/05/17 - Discharge Referral Referred to [facility] No
== END 2017-09-05 17:33 | disposition home or self-care (01) ==
LOC: JER 15:18 → JERBED 19:49 → J4W 23:15
PROVIDERS: ADMIT Internal Medicine; ATTEND Internal Medicine
PROC: 3E013GC Introduction of Other Therapeutic Substance into Subcutaneous Tissue, Percutaneous Approach (ICD-10-PCS; principal; 2017-09-03)
PROC: 3E0337Z Introduction of Electrolytic and Water Balance Substance into Peripheral Vein, Percutaneous Approach (ICD-10-PCS; 2017-09-03)
DX: R47.81 Slurred speech (principal); E87.6 Hypokalemia; N17.9 Acute kidney failure, unspecified; I10 Essential (primary) hypertension; F20.9 Schizophrenia, unspecified; F41.9 Anxiety disorder, unspecified; Z88.6 Allergy status to analgesic agent; F17.210 Nicotine dependence, cigarettes, uncomplicated; R79.89 Other specified abnormal findings of blood chemistry; R29.6 Repeated falls; M25.571 Pain in right ankle and joints of right foot; M79.651 Pain in right thigh; E78.5 Hyperlipidemia, unspecified; M25.471 Effusion, right ankle; R77.8 Other specified abnormalities of plasma proteins; S92.321A Displaced fracture of second metatarsal bone, right foot, initial encounter for closed fracture; S92.331A Displaced fracture of third metatarsal bone, right foot, initial encounter for closed fracture; S92.341A Displaced fracture of fourth metatarsal bone, right foot, initial encounter for closed fracture; W19.XXXA Unspecified fall, initial encounter; Z91.81 History of falling; Y93.9 Activity, unspecified; Y92.9 Unspecified place or not applicable
CPT/HCPCS: 36415; 70450-TC; 70544-TC; 70551-TC; 71045-TC-FY; 73523-TC-FY; 73610-TC-RT-FY; 73630-TC-RT-FY; 76775-TC; 80048; 80053; 80307; 81003; 82436; 82465; 82550; 82553; 82570; 82962; 83718; 83721; 83735; 83930; 83935; 84133; 84156; 84300; 84478; 84484; 85025; 85610; 86850; 86900; 86901; 87086; 93005; 93010; 93880-TC; 93971-TC; 96372; 97116-GP; 97161-GP; 99285-25; G0378; J1644; J7030

== ENCOUNTER 2022-07-22 14:00 | Inpatient (IN) | payer OTHER ==
[2022-07-22] MEDS ORDERED: RAPID SEQUENCE INTUBATION KIT NR ONE ×2 (15:03→15:11)
[2022-07-22] MEDS ORDERED: ROCURONIUM BROMIDE 50 MG/5 ML SYRINGE ONE ×2 (15:10)
[2022-07-22] MEDS ORDERED: NOREPINEPHRINE BITARTRATE 4 MG/4 ML ML IV ONE (15:12)
[2022-07-22] MEDS ORDERED: NOREPINEPHRINE 0.9 % NACL 8 MG/250 ML BAG IVPB SCH (15:15)
[2022-07-22 15:53] LABS: ARTERIAL BLD GAS O2 SATURATION 60.1 % (95-98); ARTERIAL BLOOD GAS BASE EXCESS -5.2 mmol/L (-2-2)
[2022-07-22 15:54] LABS: BASO % 0.7 % (0-2.0); EOS % 0.1 % (0-4.5); HEMATOCRIT 29.7 % (32.4-45.2); LYMPH % 5.2 % (8-40); MCH 25.8 pg (25.7-33.7); MCHC 30.2 g/dl (32.0-36.0); MEAN CELL VOLUME 85.4 fl (80-96); MEAN PLT VOLUME 8.1 fl (7.5-11.1); MONO % 4.7 % (3.8-10.2); NEUT % 89.3 % (42.8-82.8); PLATELET COUNT 440 10^3/uL (134-434); RBC 3.48 M/mm3 (3.60-5.2); RDW 16.5 % (11.6-15.6); WHITE BLOOD COUNT 14.1 K/mm3 (4.0-10.0)
[2022-07-22 15:55] LABS: ARTERIAL BLOOD GAS PO2 38.7 mmHg (80-100); ARTERIAL BLOOD GAS pH 7.195 (7.350-7.450)
[2022-07-22 16:03] LABS: INR 1.62 (0.83-1.09); PROTHROMBIN TIME (PATIENT) 18.7 SEC (9.7-13.0)
[2022-07-22 16:06] LABS: ACTIVATED PTT 32.2 SECONDS (25.2-36.5)
[2022-07-22 17:21] LABS: CHLORIDE 108 mmol/L (98-107); SODIUM 139 mmol/L (136-145)
[2022-07-22 17:23] LABS: ALBUMIN 2.6 g/dl (3.4-5.0); ANION GAP 5 MMOL/L (8-16); BLOOD UREA NITROGEN 14.4 mg/dL (7-18); CALCIUM 8.9 mg/dL (8.5-10.1); CO2 26 mmol/L (21-32); MAGNESIUM 1.6 mg/dL (1.8-2.4)
[2022-07-22 17:24] LABS: GLUCOSE,RANDOM 137 mg/dL (74-106)
[2022-07-22 17:26] LABS: CREATININE 0.9 mg/dL (0.55-1.3); SGOT/AST 8 U/L (15-37)
[2022-07-22 17:27] LABS: SGPT/ALT 10 U/L (13-61)
[2022-07-22 17:28] LABS: BILIRUBIN,TOTAL 0.2 mg/dL (0.2-1); TOT PROT 6.3 g/dl (6.4-8.2)
[2022-07-22 17:29] LABS: ALK PHOS 111 U/L (45-117)
[2022-07-22 17:32] LABS: N-TERMINAL BNP 2262.1 pg/ml (5-450)
[2022-07-22] MEDS ORDERED: MAGNESIUM SULF 50% (8.12 MEQ/2 ML-1 GM VIAL) IVPB ONE (17:37)
[2022-07-22] MEDS ORDERED: MAGNESIUM SULF 50% (8.12 MEQ/2 ML-1 GM VIAL) ONE (17:53)
[2022-07-22 17:58] LABS: ARTERIAL BLD GAS O2 SATURATION 98.9 % (95-98); ARTERIAL BLOOD GAS BASE EXCESS -4.2 mmol/L (-2-2); ARTERIAL BLOOD GAS PO2 171.5 mmHg (80-100); ARTERIAL BLOOD GAS pH 7.256 (7.350-7.450)
[2022-07-22 18:02] LABS: ALLENS TEST POSITIVE
[2022-07-22 19:19] LABS: ARTERIAL BLD GAS O2 SATURATION 99.7 % (95-98); ARTERIAL BLOOD GAS BASE EXCESS -3.1 mmol/L (-2-2); ARTERIAL BLOOD GAS PO2 319.1 mmHg (80-100); ARTERIAL BLOOD GAS pH 7.273 (7.350-7.450)
[2022-07-22 19:20] LABS: ALLENS TEST POSITIVE
[2022-07-22 19:21] LABS: VENT RATE 16
[2022-07-22] MEDS: PIPERACILLIN/TAZOB 3.375 GM 3.375 GM in DEXTROSE 5%-WATER - 50 ML IVPB SCH (20:31)
[2022-07-22] MEDS ORDERED: VANCOMYCIN/WATER 2 GM/400 ML PREMIX BAG IVPB SCH ×2 (22:00)
[2022-07-22] MEDS ORDERED: VANCOMYCIN/WATER 2 GRAMS 2,000 MG/400 ML PIGGYBACK IVPB ONE (22:00)
[2022-07-22] MEDS ORDERED: CHLORHEXIDINE GLUCONATE 4% CLEANSER FOR DECOLONIZATION TP SCH (22:00)
[2022-07-22] MEDS: MUPIROCIN 2% TOPICAL OINTMENT FOR DECOLONIZATION NS SCH (22:26)
[2022-07-22] MEDS: ENOXAPARIN NA (PORCINE) 100 MG/1 ML DISP.SYRIN SQ SCH (22:27)
[2022-07-22] MEDS ORDERED: ASPIRIN 325 MG ENTERIC COATED TABLET (FP) PO ONE (22:41)
[2022-07-22] MEDS ORDERED: ACETAMINOPHEN 325 MG TABLET (FP) ONE (22:59)
[2022-07-23] MEDS: PIPERACILLIN/TAZOB 3.375 GM 3.375 GM in DEXTROSE 5%-WATER - 50 ML IVPB SCH ×4 (01:37→13:45)
[2022-07-23 03:07] LABS: MAGNESIUM 1.7 mg/dL (1.8-2.4)
[2022-07-23 03:11] LABS: PHOSPHOROUS 3.9 mg/dL (2.5-4.9)
[2022-07-23] MEDS ORDERED: ACETAMINOPHEN 325 MG TABLET (FP) PO PRN ×2 (04:06→13:41)
[2022-07-23 07:39] LABS: INR 1.63 (0.83-1.09); PROTHROMBIN TIME (PATIENT) 18.8 SEC (9.7-13.0)
[2022-07-23 07:55] LABS: BASO % 0.7 % (0-2.0); EOS % 1.7 % (0-4.5); HEMOGLOBIN 7.3 GM/dL (10.7-15.3); LYMPH % 14.3 % (8-40); MCH 26.8 pg (25.7-33.7); MCHC 31.7 g/dl (32.0-36.0); MEAN CELL VOLUME 84.6 fl (80-96); MEAN PLT VOLUME 8.1 fl (7.5-11.1); MONO % 8.6 % (3.8-10.2); NEUT % 74.7 % (42.8-82.8); PLATELET COUNT 340 10^3/uL (134-434); RBC 2.72 M/mm3 (3.60-5.2); RDW 16.2 % (11.6-15.6); WHITE BLOOD COUNT 8.4 K/mm3 (4.0-10.0)
[2022-07-23] MEDS ORDERED: levETIRAcetam 500 MG/5 ML INJECTION VIAL IVPB SCH (10:00)
[2022-07-23] MEDS ORDERED: ASPIRIN COATED 81 MG TABLET.EC PO SCH (10:00)
[2022-07-23] MEDS ORDERED: PANTOPRAZOLE SODIUM 40 MG VIAL IVPUSH SCH (10:00)
[2022-07-23 10:19] LABS: CHLORIDE 108 mmol/L (98-107); SODIUM 139 mmol/L (136-145)
[2022-07-23 10:21] LABS: ALBUMIN 2.3 g/dl (3.4-5.0); ANION GAP 5 MMOL/L (8-16); BLOOD UREA NITROGEN 15.3 mg/dL (7-18); CALCIUM 8.6 mg/dL (8.5-10.1); CO2 25 mmol/L (21-32); GLUCOSE,RANDOM 95 mg/dL (74-106)
[2022-07-23 10:24] LABS: SGPT/ALT 9 U/L (13-61)
[2022-07-23 10:25] LABS: SGOT/AST 11 U/L (15-37)
[2022-07-23 10:26] LABS: BILIRUBIN,TOTAL 0.3 mg/dL (0.2-1); TOT PROT 5.2 g/dl (6.4-8.2)
[2022-07-23 10:27] LABS: ALK PHOS 85 U/L (45-117)
[2022-07-23] MEDS ORDERED: FUROSEMIDE 40 MG/4 ML INJECTABLE VIAL IVPUSH ONE (10:35)
[2022-07-23] MEDS: MUPIROCIN 2% TOPICAL OINTMENT FOR DECOLONIZATION NS SCH (10:58)
[2022-07-23] MEDS: ENOXAPARIN NA (PORCINE) 100 MG/1 ML DISP.SYRIN SQ SCH ×2 (10:58→21:54)
[2022-07-23] MEDS: ACETAMINOPHEN 325 MG TABLET (FP) PO PRN ×2 (15:42→22:01)
[2022-07-23] MEDS: CEFTRIAXONE 2 GM in DEXTROSE 5%-WATER 100 ML IVPB SCH (17:05)
[2022-07-23] MEDS ORDERED: VANCOMYCIN PREMIX 1.5 GM 1,500 MG/300 ML BAG IVPB SCH ×2 (22:00)
[2022-07-24] MEDS: levETIRAcetam 500 MG/5 ML INJECTION VIAL IVPB SCH (10:09)
[2022-07-24] MEDS: PANTOPRAZOLE SODIUM 40 MG VIAL IVPUSH SCH (10:09)
[2022-07-24] MEDS: ENOXAPARIN NA (PORCINE) 100 MG/1 ML DISP.SYRIN SQ SCH ×2 (10:10→21:53)
[2022-07-24] MEDS: ASPIRIN COATED 81 MG TABLET.EC PO SCH (10:10)
[2022-07-24] MEDS: CEFTRIAXONE 2 GM in DEXTROSE 5%-WATER 100 ML IVPB SCH (10:10)
[2022-07-24] MEDS: ACETAMINOPHEN 325 MG TABLET (FP) PO PRN ×2 (11:47→21:53)
[2022-07-24] MEDS ORDERED: FUROSEMIDE 40 MG/4 ML INJECTABLE VIAL IVPUSH ONE (23:03)
[2022-07-25 01:34] LABS: ARTERIAL BLD GAS O2 SATURATION 95.9 % (95-98); ARTERIAL BLOOD GAS BASE EXCESS -0.7 mmol/L (-2-2); ARTERIAL BLOOD GAS PO2 87.2 mmHg (80-100); ARTERIAL BLOOD GAS pH 7.329 (7.350-7.450)
[2022-07-25 01:35] LABS: ALLENS TEST POSITIVE
[2022-07-25 08:37] LABS: EOS % 7.2 % (0-4.5); HEMATOCRIT 28.9 % (32.4-45.2); HEMOGLOBIN 9.4 GM/dL (10.7-15.3); LYMPH % 14.7 % (8-40); MCH 27.4 pg (25.7-33.7); MCHC 32.5 g/dl (32.0-36.0); MEAN CELL VOLUME 84.2 fl (80-96); MONO % 9.7 % (3.8-10.2); NEUT % 67.4 % (42.8-82.8); PLATELET COUNT 364 10^3/uL (134-434); RBC 3.43 M/mm3 (3.60-5.2); RDW 15.8 % (11.6-15.6); WHITE BLOOD COUNT 9.3 K/mm3 (4.0-10.0)
[2022-07-25 09:12] LABS: ALBUMIN 2.4 g/dl (3.4-5.0); CALCIUM 8.9 mg/dL (8.5-10.1)
[2022-07-25 09:14] LABS: BLOOD UREA NITROGEN 12.6 mg/dL (7-18)
[2022-07-25 09:15] LABS: CREATININE 0.7 mg/dL (0.55-1.3)
[2022-07-25 09:16] LABS: BILIRUBIN,TOTAL 0.8 mg/dL (0.2-1)
[2022-07-25 09:17] LABS: TOT PROT 5.8 g/dl (6.4-8.2)
[2022-07-25] MEDS: CEFTRIAXONE 2 GM in DEXTROSE 5%-WATER 100 ML IVPB SCH (09:41)
[2022-07-25] MEDS: PANTOPRAZOLE SODIUM 40 MG VIAL IVPUSH SCH (09:41)
[2022-07-25] MEDS: ENOXAPARIN NA (PORCINE) 100 MG/1 ML DISP.SYRIN SQ SCH ×2 (09:41→21:46)
[2022-07-25] MEDS: ASPIRIN COATED 81 MG TABLET.EC PO SCH (09:41)
[2022-07-25] MEDS: levETIRAcetam 500 MG/5 ML INJECTION VIAL IVPB SCH (10:42)
[2022-07-25] MEDS: FUROSEMIDE 40 MG/4 ML INJECTABLE VIAL IVPUSH SCH (12:21)
[2022-07-25 12:50] LABS: MAGNESIUM 1.5 mg/dL (1.8-2.4)
[2022-07-25] MEDS ORDERED: MAGNESIUM 4GM/H20 - 4 GM/100 ML IVPB IVPB ONE (14:00)
[2022-07-25] MEDS ORDERED: PATIENT'S OWN MEDICATION (NON-FORMULARY) (Melatonin [Melatonin] 3 MG Tablet) PO PRN (21:03)
[2022-07-25] MEDS: MELATONIN 5 MG TABLETS PO PRN (21:44)
[2022-07-25] MEDS: ATORVASTATIN CA 40 MG TABLET (FP) PO SCH (21:44)
[2022-07-25] MEDS: METOPROLOL TARTRATE 25 MG TABLET (FP) PO SCH (21:44)
[2022-07-25] MEDS: ACETAMINOPHEN 325 MG TABLET (FP) PO PRN (21:45)
[2022-07-25] MEDS: HALOPERIDOL 5 MG TABLET PO SCH (21:46)
[2022-07-26] MEDS: FUROSEMIDE 40 MG/4 ML INJECTABLE VIAL IVPUSH SCH (09:48)
[2022-07-26] MEDS: METOPROLOL TARTRATE 25 MG TABLET (FP) PO SCH ×2 (09:48→22:07)
[2022-07-26] MEDS: CEFTRIAXONE 2 GM in DEXTROSE 5%-WATER 100 ML IVPB SCH (09:48)
[2022-07-26] MEDS: ASPIRIN COATED 81 MG TABLET.EC PO SCH (09:48)
[2022-07-26] MEDS: PANTOPRAZOLE SODIUM 40 MG VIAL IVPUSH SCH (09:48)
[2022-07-26] MEDS: LISINOPRIL 10 MG TABLET PO SCH (09:48)
[2022-07-26] MEDS: ENOXAPARIN NA (PORCINE) 100 MG/1 ML DISP.SYRIN SQ SCH ×2 (09:48→22:07)
[2022-07-26] MEDS: levETIRAcetam 500 MG TABLET (FP) PO SCH (09:48)
[2022-07-26] MEDS: amLODIPine BESYLATE 5 MG TABLET (FP) PO SCH (09:48)
[2022-07-26] MEDS ORDERED: FUROSEMIDE 40 MG TABLET (FP) PO SCH (10:00)
[2022-07-26] MEDS: HALOPERIDOL 5 MG TABLET PO SCH (22:06)
[2022-07-26] MEDS: ATORVASTATIN CA 40 MG TABLET (FP) PO SCH (22:07)
[2022-07-26] MEDS: MELATONIN 5 MG TABLETS PO PRN (22:08)
[2022-07-26] MEDS: ACETAMINOPHEN 325 MG TABLET (FP) PO PRN (22:10)
[2022-07-27] MEDS: ACETAMINOPHEN 325 MG TABLET (FP) PO PRN (05:59)
[2022-07-27 08:01] LABS: BASO % 1.6 % (0-2.0); EOS % 6.2 % (0-4.5); HEMATOCRIT 29.2 % (32.4-45.2); HEMOGLOBIN 9.3 GM/dL (10.7-15.3); LYMPH % 17.5 % (8-40); MCH 27.1 pg (25.7-33.7); MCHC 31.9 g/dl (32.0-36.0); MEAN CELL VOLUME 84.8 fl (80-96); MEAN PLT VOLUME 7.8 fl (7.5-11.1); MONO % 6.8 % (3.8-10.2); NEUT % 67.9 % (42.8-82.8); PLATELET COUNT 362 10^3/uL (134-434); RBC 3.44 M/mm3 (3.60-5.2); RDW 16.6 % (11.6-15.6); WHITE BLOOD COUNT 10.2 K/mm3 (4.0-10.0)
[2022-07-27 08:38] LABS: BILIRUBIN,TOTAL 0.3 mg/dL (0.2-1)
[2022-07-27 08:45] LABS: ALBUMIN 2.4 g/dl (3.4-5.0); CALCIUM 8.9 mg/dL (8.5-10.1)
[2022-07-27 08:46] LABS: BLOOD UREA NITROGEN 13.1 mg/dL (7-18)
[2022-07-27 08:48] LABS: CREATININE 0.9 mg/dL (0.55-1.3)
[2022-07-27 08:49] LABS: TOT PROT 5.8 g/dl (6.4-8.2)
[2022-07-27] MEDS ORDERED: LACTATED RINGERS SOLUTION 1000 ML INFUS.BAG IV ONE ×2 (10:59→11:45)
[2022-07-27] MEDS: ASPIRIN COATED 81 MG TABLET.EC PO SCH (11:19)
[2022-07-27] MEDS: PROPOFOL 1,000,000 MCG/100 ML VIAL IVPB SCH (11:53)
[2022-07-27] MEDS: FUROSEMIDE 40 MG/4 ML INJECTABLE VIAL IVPUSH SCH (11:58)
[2022-07-27] MEDS: METOPROLOL TARTRATE 25 MG TABLET (FP) PO SCH ×2 (11:58→21:02)
[2022-07-27] MEDS: LISINOPRIL 10 MG TABLET PO SCH (11:59)
[2022-07-27] MEDS: FENTANYL NS IVPB 500 MCG/100 ML BAG IVPB SCH (11:59)
[2022-07-27] MEDS: ENOXAPARIN NA (PORCINE) 100 MG/1 ML DISP.SYRIN SQ SCH ×2 (11:59→21:01)
[2022-07-27] MEDS: amLODIPine BESYLATE 5 MG TABLET (FP) PO SCH (11:59)
[2022-07-27] MEDS ORDERED: MIDAZOLAM HCL 2 MG/2 ML SINGLE DOSE VIAL IVPUSH ONE (12:50)
[2022-07-27] MEDS: PANTOPRAZOLE SODIUM 40 MG VIAL IVPUSH SCH (12:52)
[2022-07-27] MEDS: levETIRAcetam 500 MG/5 ML INJECTION VIAL IVPB SCH (12:52)
[2022-07-27] MEDS: PIPERACILLIN/TAZOB 3.375 GM 3.375 GM in DEXTROSE 5%-WATER - 50 ML IVPB SCH ×2 (12:52→17:23)
[2022-07-27] MEDS ORDERED: FENTANYL CITRATE/PF 50 MCG/ML VIAL IVPUSH ONE (13:00)
[2022-07-27] MEDS: CEFTRIAXONE 2 GM in DEXTROSE 5%-WATER 100 ML IVPB SCH (13:36)
[2022-07-27] MEDS: levETIRAcetam 500 MG TABLET (FP) PO SCH (13:36)
[2022-07-27] MEDS ORDERED: SODIUM CHLORIDE 500 ML IV STA (14:10)
[2022-07-27] MEDS: VASOPRESSIN 40 UNITS/100 ML BAG IV SCH (15:38)
[2022-07-27] MEDS: ATORVASTATIN CA 40 MG TABLET (FP) PO SCH (21:02)
[2022-07-27] MEDS: HALOPERIDOL 5 MG TABLET PO SCH (21:02)
[2022-07-28] MEDS: PIPERACILLIN/TAZOB 3.375 GM 3.375 GM in DEXTROSE 5%-WATER - 50 ML IVPB SCH ×3 (01:58→17:31)
[2022-07-28 08:10] LABS: ALBUMIN 2.2 g/dl (3.4-5.0); BLOOD UREA NITROGEN 20.8 mg/dL (7-18)
[2022-07-28 08:12] LABS: CREATININE 1.1 mg/dL (0.55-1.3)
[2022-07-28 08:13] LABS: HEMATOCRIT 25.7 % (32.4-45.2); HEMOGLOBIN 8.2 GM/dL (10.7-15.3); MCH 26.5 pg (25.7-33.7); MCHC 31.8 g/dl (32.0-36.0); MEAN CELL VOLUME 83.4 fl (80-96); PLATELET COUNT 268 10^3/uL (134-434); RBC 3.08 M/mm3 (3.60-5.2); RDW 16.7 % (11.6-15.6); WHITE BLOOD COUNT 9.3 K/mm3 (4.0-10.0)
[2022-07-28 08:14] LABS: BILIRUBIN,TOTAL 0.4 mg/dL (0.2-1); TOT PROT 5.2 g/dl (6.4-8.2)
[2022-07-28] MEDS: FENTANYL NS IVPB 500 MCG/100 ML BAG IVPB SCH ×2 (09:00→19:15)
[2022-07-28] MEDS: PROPOFOL 1,000,000 MCG/100 ML VIAL IVPB SCH (09:28)
[2022-07-28] MEDS: levETIRAcetam 500 MG/5 ML INJECTION VIAL IVPB SCH (09:29)
[2022-07-28] MEDS: PANTOPRAZOLE SODIUM 40 MG VIAL IVPUSH SCH (09:30)
[2022-07-28] MEDS: ENOXAPARIN NA (PORCINE) 100 MG/1 ML DISP.SYRIN SQ SCH ×2 (09:30→21:21)
[2022-07-28] MEDS: METOPROLOL TARTRATE 25 MG TABLET (FP) PO SCH ×2 (09:32→21:21)
[2022-07-28] MEDS: ASPIRIN COATED 81 MG TABLET.EC PO SCH (09:32)
[2022-07-28] MEDS: amLODIPine BESYLATE 5 MG TABLET (FP) PO SCH (09:32)
[2022-07-28] MEDS: LISINOPRIL 10 MG TABLET PO SCH (09:32)
[2022-07-28] MEDS ORDERED: LORazepam 2 MG/ML SDV VIAL IVPUSH ONE (11:18)
[2022-07-28] MEDS ORDERED: VANCOMYCIN/WATER 2 GRAMS 2,000 MG/400 ML PIGGYBACK IVPB ONE (11:30)
[2022-07-28 16:10] VITALS: BMI 41.5
[2022-07-28] MEDS: VASOPRESSIN 40 UNITS/100 ML BAG IV SCH (17:32)
[2022-07-28] MEDS: ATORVASTATIN CA 40 MG TABLET (FP) PO SCH (21:21)
[2022-07-28] MEDS: VANCOMYCIN PREMIX 1.5 GM 1,500 MG/300 ML BAG IVPB SCH (21:21)
[2022-07-28] MEDS: MELATONIN 5 MG TABLETS PO PRN (21:21)
[2022-07-28] MEDS: ACETAMINOPHEN 325 MG TABLET (FP) PO PRN (22:00)
[2022-07-29] MEDS: PIPERACILLIN/TAZOB 3.375 GM 3.375 GM in DEXTROSE 5%-WATER - 50 ML IVPB SCH ×3 (01:04→17:11)
[2022-07-29] MEDS ORDERED: RAPID SEQUENCE INTUBATION KIT NR ONE (06:28)
[2022-07-29 07:47] LABS: HEMATOCRIT 28.8 % (32.4-45.2); MCH 26.7 pg (25.7-33.7); MCHC 31.1 g/dl (32.0-36.0); MEAN CELL VOLUME 85.7 fl (80-96); PLATELET COUNT 325 10^3/uL (134-434); RBC 3.36 M/mm3 (3.60-5.2); RDW 17.6 % (11.6-15.6)
[2022-07-29 08:08] LABS: BLOOD UREA NITROGEN 22.2 mg/dL (7-18); CALCIUM 8.6 mg/dL (8.5-10.1)
[2022-07-29 08:09] LABS: ALBUMIN 2.3 g/dl (3.4-5.0); MAGNESIUM 1.7 mg/dL (1.8-2.4)
[2022-07-29 08:12] LABS: CREATININE 1.1 mg/dL (0.55-1.3); PHOSPHOROUS 5.2 mg/dL (2.5-4.9)
[2022-07-29 08:13] LABS: BILIRUBIN,TOTAL 0.7 mg/dL (0.2-1); TOT PROT 5.8 g/dl (6.4-8.2)
[2022-07-29] MEDS: VANCOMYCIN PREMIX 1.5 GM 1,500 MG/300 ML BAG IVPB SCH ×2 (08:55→21:06)
[2022-07-29] MEDS: PROPOFOL 1,000,000 MCG/100 ML VIAL IVPB SCH (08:57)
[2022-07-29] MEDS ORDERED: MAGNESIUM 2GM/50ML STERILE WATER IVPB IVPB ONE (09:00)
[2022-07-29] MEDS: ENOXAPARIN NA (PORCINE) 100 MG/1 ML DISP.SYRIN SQ SCH ×2 (09:01→21:12)
[2022-07-29] MEDS: ASPIRIN COATED 81 MG TABLET.EC PO SCH (09:01)
[2022-07-29] MEDS: PANTOPRAZOLE SODIUM 40 MG VIAL IVPUSH SCH (09:01)
[2022-07-29] MEDS: levETIRAcetam 500 MG/5 ML INJECTION VIAL IVPB SCH (09:01)
[2022-07-29 09:14] LABS: URINE APPEARANCE Cloudy; URINE BILIRUBIN 1+ (NEGATIVE); URINE COLOR Dark yellow; URINE GLUCOSE (UA) Negative (NEGATIVE); URINE KETONE Trace (NEGATIVE); URINE LEUK ESTERASE Trace (NEGATIVE); URINE NITRITE Positive (NEGATIVE); URINE PROTEIN 2+ (NEGATIVE); URINE UROBILINOGEN 0.2 mg/dL (0.2-1.0)
[2022-07-29] MEDS: VASOPRESSIN 40 UNITS/100 ML BAG IV SCH ×2 (09:23→16:06)
[2022-07-29 09:31] LABS: EPI CELLS 1+ /uL (0-25.1); URINE BACTERIA 2+ /uL (0-1359); URINE RBC 50-100 /uL (0-23.9)
[2022-07-29] MEDS ORDERED: DEXMEDETOMIDINE PREMIX 400 MCG/100 ML BAG IVPB ONE (10:18)
[2022-07-29 10:30] LABS: ARTERIAL BLOOD GAS BASE EXCESS -3.1 mmol/L (-2-2); ARTERIAL BLOOD GAS PO2 81.5 mmHg (80-100); ARTERIAL BLOOD GAS pH 7.313 (7.350-7.450)
[2022-07-29] MEDS ORDERED: DEXMEDETOMIDINE PREMIX 400 MCG/100 ML BAG IVPB SCH (10:30)
[2022-07-29] MEDS ORDERED: MIDAZOLAM HCL 2 MG/2 ML SINGLE DOSE VIAL IVPUSH ONE (10:31)
[2022-07-29 10:35] LABS: ALLENS TEST POSITIVE
[2022-07-29 10:36] LABS: VENT MODE A/C; VENT RATE 12
[2022-07-29] MEDS ORDERED: FUROSEMIDE 40 MG/4 ML INJECTABLE VIAL IVPUSH ONE (11:30)
[2022-07-29] MEDS: ALBUTEROL SO4 0.083% IH SOL 2.5 MG/3 ML VIAL.NEB. NEB PRN ×2 (13:59→20:35)
[2022-07-29] MEDS: ACETYLCYSTEINE 20% 200MG/ML 4 ML VIAL *FOR ORAL / INH USE ONLY NEB SCH ×2 (13:59→20:35)
[2022-07-29] MEDS: FENTANYL NS IVPB 500 MCG/100 ML BAG IVPB SCH (19:15)
[2022-07-29] MEDS: ATORVASTATIN CA 40 MG TABLET (FP) PO SCH (21:12)
[2022-07-29] MEDS: HALOPERIDOL 5 MG TABLET PO SCH (21:12)
[2022-07-29] MEDS: VANCOMYCIN HCL 1,500 MG in DEXTROSE 5%-WATER - 250 ML IVPB SCH (21:22)
[2022-07-30] MEDS: PIPERACILLIN/TAZOB 3.375 GM 3.375 GM in DEXTROSE 5%-WATER - 50 ML IVPB SCH ×3 (02:13→17:12)
[2022-07-30 07:21] LABS: HEMATOCRIT 25.4 % (32.4-45.2); HEMOGLOBIN 7.9 GM/dL (10.7-15.3); MCH 25.9 pg (25.7-33.7); MCHC 30.9 g/dl (32.0-36.0); MEAN CELL VOLUME 83.7 fl (80-96); MEAN PLT VOLUME 8.4 fl (7.5-11.1); PLATELET COUNT 253 10^3/uL (134-434); RBC 3.03 M/mm3 (3.60-5.2); RDW 17.8 % (11.6-15.6); WHITE BLOOD COUNT 12.1 K/mm3 (4.0-10.0)
[2022-07-30 07:51] LABS: ALBUMIN 2.3 g/dl (3.4-5.0); BLOOD UREA NITROGEN 22.8 mg/dL (7-18); CALCIUM 8.7 mg/dL (8.5-10.1); MAGNESIUM 2.1 mg/dL (1.8-2.4)
[2022-07-30 07:54] LABS: PHOSPHOROUS 4.1 mg/dL (2.5-4.9)
[2022-07-30 07:56] LABS: BILIRUBIN,TOTAL 0.7 mg/dL (0.2-1); TOT PROT 5.6 g/dl (6.4-8.2)
[2022-07-30] MEDS: ACETYLCYSTEINE 20% 200MG/ML 4 ML VIAL *FOR ORAL / INH USE ONLY NEB SCH ×3 (08:30→20:20)
[2022-07-30] MEDS: ALBUTEROL SO4 0.083% IH SOL 2.5 MG/3 ML VIAL.NEB. NEB PRN ×3 (08:30→20:20)
[2022-07-30] MEDS: ASPIRIN COATED 81 MG TABLET.EC PO SCH (10:21)
[2022-07-30] MEDS: levETIRAcetam 500 MG/5 ML INJECTION VIAL IVPB SCH (10:24)
[2022-07-30] MEDS: PANTOPRAZOLE SODIUM 40 MG VIAL IVPUSH SCH (10:24)
[2022-07-30] MEDS: ENOXAPARIN NA (PORCINE) 100 MG/1 ML DISP.SYRIN SQ SCH ×2 (10:24→22:01)
[2022-07-30] MEDS: DEXMEDETOMIDINE PREMIX 400 MCG/100 ML BAG IVPB SCH ×2 (11:40→17:11)
[2022-07-30] MEDS: ASPIRIN 81 MG CHEWABLE TABLETS PO SCH (12:56)
[2022-07-30] MEDS: NOREPINEPHRINE 0.9 % NACL 8 MG/250 ML BAG IVPB SCH (13:33)
[2022-07-30] MEDS ORDERED: PROPOFOL 1,000,000 MCG/100 ML VIAL ONE (13:40)
[2022-07-30] MEDS: PROPOFOL 1,000,000 MCG/100 ML VIAL IVPB SCH (14:39)
[2022-07-30 15:39] LABS: HEMATOCRIT 24.2 % (32.4-45.2); HEMOGLOBIN 7.5 GM/dL (10.7-15.3); MCH 25.7 pg (25.7-33.7); MCHC 30.8 g/dl (32.0-36.0); MEAN CELL VOLUME 83.5 fl (80-96); MEAN PLT VOLUME 7.9 fl (7.5-11.1); PLATELET COUNT 244 10^3/uL (134-434); RDW 18.1 % (11.6-15.6)
[2022-07-30] MEDS: VASOPRESSIN 40 UNITS/100 ML BAG IV SCH (15:54)
[2022-07-30] MEDS: FENTANYL NS IVPB 500 MCG/100 ML BAG IVPB SCH (19:15)
[2022-07-30] MEDS: HALOPERIDOL 5 MG TABLET PO SCH (22:01)
[2022-07-30] MEDS: ATORVASTATIN CA 40 MG TABLET (FP) PO SCH (22:01)
[2022-07-31] MEDS: PIPERACILLIN/TAZOB 3.375 GM 3.375 GM in DEXTROSE 5%-WATER - 50 ML IVPB SCH ×3 (01:38→18:04)
[2022-07-31] MEDS: ACETAMINOPHEN 325 MG TABLET (FP) PO PRN (05:27)
[2022-07-31] MEDS: ACETYLCYSTEINE 20% 200MG/ML 4 ML VIAL *FOR ORAL / INH USE ONLY NEB SCH ×3 (07:15→20:41)
[2022-07-31 07:32] LABS: HEMATOCRIT 26.3 % (32.4-45.2); HEMOGLOBIN 8.2 GM/dL (10.7-15.3); MCH 26.6 pg (25.7-33.7); MCHC 31.1 g/dl (32.0-36.0); MEAN CELL VOLUME 85.8 fl (80-96); MEAN PLT VOLUME 9.2 fl (7.5-11.1); PLATELET COUNT 259 10^3/uL (134-434); RBC 3.06 M/mm3 (3.60-5.2); RDW 17.9 % (11.6-15.6); WHITE BLOOD COUNT 13.5 K/mm3 (4.0-10.0)
[2022-07-31 08:20] LABS: ALBUMIN 2.4 g/dl (3.4-5.0); BLOOD UREA NITROGEN 26.5 mg/dL (7-18); CALCIUM 8.8 mg/dL (8.5-10.1); MAGNESIUM 2.1 mg/dL (1.8-2.4)
[2022-07-31 08:23] LABS: PHOSPHOROUS 3.3 mg/dL (2.5-4.9)
[2022-07-31 08:25] LABS: BILIRUBIN,TOTAL 0.8 mg/dL (0.2-1)
[2022-07-31] MEDS: ENOXAPARIN NA (PORCINE) 100 MG/1 ML DISP.SYRIN SQ SCH ×2 (11:32→21:17)
[2022-07-31] MEDS: FUROSEMIDE 40 MG/4 ML INJECTABLE VIAL IVPUSH SCH (11:32)
[2022-07-31] MEDS: PANTOPRAZOLE SODIUM 40 MG VIAL IVPUSH SCH (11:32)
[2022-07-31] MEDS: levETIRAcetam 500 MG/5 ML INJECTION VIAL IVPB SCH (11:32)
[2022-07-31] MEDS: ASPIRIN 81 MG CHEWABLE TABLETS PO SCH (11:32)
[2022-07-31] MEDS: LISINOPRIL 10 MG TABLET PO SCH (12:01)
[2022-07-31] MEDS: amLODIPine BESYLATE 5 MG TABLET (FP) PO SCH (12:01)
[2022-07-31] MEDS: METOPROLOL TARTRATE 25 MG TABLET (FP) PO SCH (12:01)
[2022-07-31] MEDS: PROPOFOL 1,000,000 MCG/100 ML VIAL IVPB SCH (13:32)
[2022-07-31] MEDS: DEXMEDETOMIDINE PREMIX 400 MCG/100 ML BAG IVPB SCH (13:32)
[2022-07-31] MEDS: ALBUTEROL SO4 0.083% IH SOL 2.5 MG/3 ML VIAL.NEB. NEB PRN ×2 (13:56→20:41)
[2022-07-31] MEDS: FENTANYL NS IVPB 500 MCG/100 ML BAG IVPB SCH (16:16)
[2022-07-31] MEDS: NOREPINEPHRINE 0.9 % NACL 8 MG/250 ML BAG IVPB SCH (16:17)
[2022-07-31 16:36] LABS: HEMATOCRIT 25.4 % (32.4-45.2); HEMOGLOBIN 7.8 GM/dL (10.7-15.3); MCH 26.1 pg (25.7-33.7); MCHC 30.8 g/dl (32.0-36.0); MEAN CELL VOLUME 84.8 fl (80-96); PLATELET COUNT 253 10^3/uL (134-434); RDW 18.1 % (11.6-15.6); WHITE BLOOD COUNT 13.6 K/mm3 (4.0-10.0)
[2022-07-31] MEDS: VASOPRESSIN 40 UNITS/100 ML BAG IV SCH (19:15)
[2022-07-31] MEDS: ATORVASTATIN CA 40 MG TABLET (FP) PO SCH (21:17)
[2022-07-31] MEDS: HALOPERIDOL 5 MG TABLET PO SCH (21:17)
[2022-08-01] MEDS: PIPERACILLIN/TAZOB 3.375 GM 3.375 GM in DEXTROSE 5%-WATER - 50 ML IVPB SCH ×3 (01:47→17:07)
[2022-08-01] MEDS: ALBUTEROL SO4 0.083% IH SOL 2.5 MG/3 ML VIAL.NEB. NEB PRN ×3 (07:15→20:29)
[2022-08-01] MEDS: ACETYLCYSTEINE 20% 200MG/ML 4 ML VIAL *FOR ORAL / INH USE ONLY NEB SCH ×3 (07:15→20:28)
[2022-08-01 07:19] LABS: HEMATOCRIT 24.4 % (32.4-45.2); HEMOGLOBIN 7.7 GM/dL (10.7-15.3); MCH 26.6 pg (25.7-33.7); MCHC 31.6 g/dl (32.0-36.0); MEAN PLT VOLUME 9.1 fl (7.5-11.1); PLATELET COUNT 222 10^3/uL (134-434); RBC 2.91 M/mm3 (3.60-5.2); RDW 18.4 % (11.6-15.6); WHITE BLOOD COUNT 12.5 K/mm3 (4.0-10.0)
[2022-08-01 07:25] LABS: ALBUMIN 2.2 g/dl (3.4-5.0); CALCIUM 8.4 mg/dL (8.5-10.1)
[2022-08-01 07:28] LABS: CREATININE 0.8 mg/dL (0.55-1.3); PHOSPHOROUS 2.4 mg/dL (2.5-4.9)
[2022-08-01 07:30] LABS: BILIRUBIN,TOTAL 0.5 mg/dL (0.2-1); TOT PROT 5.7 g/dl (6.4-8.2)
[2022-08-01] MEDS ORDERED: AMIODARONE IN DEXTROSE,ISO-OSM 360 MG/200 ML BAG IV SCH ×2 (07:30→13:30)
[2022-08-01] MEDS ORDERED: AMIODARONE IN DEXTROSE,ISO-OSM 150 MG/100 ML BAG IVPB ONE (07:30)
[2022-08-01] MEDS: AMINO ACIDS/PROTEIN HYDROLYS 30 ML LIQUID.PKT PO SCH (07:35)
[2022-08-01] MEDS: NOREPINEPHRINE 0.9 % NACL 8 MG/250 ML BAG IVPB SCH (07:35)
[2022-08-01] MEDS: DEXMEDETOMIDINE PREMIX 400 MCG/100 ML BAG IVPB SCH (07:57)
[2022-08-01] MEDS ORDERED: DEXMEDETOMIDINE PREMIX 400 MCG/100 ML BAG IVPB SCH (08:15)
[2022-08-01] MEDS: PROPOFOL 1,000,000 MCG/100 ML VIAL IVPB SCH ×2 (08:55→16:53)
[2022-08-01] MEDS: levETIRAcetam 500 MG/5 ML INJECTION VIAL IVPB SCH (09:03)
[2022-08-01] MEDS: PANTOPRAZOLE SODIUM 40 MG VIAL IVPUSH SCH (09:03)
[2022-08-01] MEDS: ENOXAPARIN NA (PORCINE) 100 MG/1 ML DISP.SYRIN SQ SCH ×2 (09:05→21:23)
[2022-08-01] MEDS: ASPIRIN 81 MG CHEWABLE TABLETS PO SCH (09:05)
[2022-08-01] MEDS: FUROSEMIDE 40 MG/4 ML INJECTABLE VIAL IVPUSH SCH (09:06)
[2022-08-01] MEDS: ACETAMINOPHEN 325 MG TABLET (FP) PO PRN (09:06)
[2022-08-01] MEDS ORDERED: ACETAMINOPHEN 1000 MG/100 ML BAG IVPB PRN (09:52)
[2022-08-01] MEDS: FENTANYL NS IVPB 500 MCG/100 ML BAG IVPB SCH (12:08)
[2022-08-01] MEDS: ATORVASTATIN CA 40 MG TABLET (FP) PO SCH (21:23)
[2022-08-02] MEDS: PROPOFOL 1,000,000 MCG/100 ML VIAL IVPB SCH ×4 (01:00→21:12)
[2022-08-02] MEDS: PIPERACILLIN/TAZOB 3.375 GM 3.375 GM in DEXTROSE 5%-WATER - 50 ML IVPB SCH ×3 (01:20→17:26)
[2022-08-02 07:08] LABS: HEMATOCRIT 23.6 % (32.4-45.2); HEMOGLOBIN 7.4 GM/dL (10.7-15.3); MCH 26.4 pg (25.7-33.7); MCHC 31.3 g/dl (32.0-36.0); MEAN CELL VOLUME 84.2 fl (80-96); MEAN PLT VOLUME 8.5 fl (7.5-11.1); PLATELET COUNT 267 10^3/uL (134-434); RBC 2.81 M/mm3 (3.60-5.2); RDW 18.5 % (11.6-15.6); WHITE BLOOD COUNT 13.6 K/mm3 (4.0-10.0)
[2022-08-02] MEDS: ACETYLCYSTEINE 20% 200MG/ML 4 ML VIAL *FOR ORAL / INH USE ONLY NEB SCH ×3 (07:15→20:10)
[2022-08-02] MEDS: ALBUTEROL SO4 0.083% IH SOL 2.5 MG/3 ML VIAL.NEB. NEB PRN ×3 (07:15→20:11)
[2022-08-02 07:27] LABS: CHLORIDE 113 mmol/L (98-107); SODIUM 145 mmol/L (136-145)
[2022-08-02 07:28] LABS: CALCIUM 8.1 mg/dL (8.5-10.1); CO2 24 mmol/L (21-32); GLUCOSE,RANDOM 179 mg/dL (74-106); MAGNESIUM 1.7 mg/dL (1.8-2.4)
[2022-08-02 07:29] LABS: BLOOD UREA NITROGEN 28.1 mg/dL (7-18)
[2022-08-02 07:32] LABS: CREATININE 0.8 mg/dL (0.55-1.3); PHOSPHOROUS 2.2 mg/dL (2.5-4.9)
[2022-08-02 07:39] LABS: ANION GAP 9 MMOL/L (8-16)
[2022-08-02] MEDS: NOREPINEPHRINE 0.9 % NACL 8 MG/250 ML BAG IVPB SCH (07:44)
[2022-08-02] MEDS: AMINO ACIDS/PROTEIN HYDROLYS 30 ML LIQUID.PKT PO SCH (07:46)
[2022-08-02] MEDS ORDERED: MAGNESIUM SULFATE IN WATER 2 GM/50 ML IVPB IVPB ONE (08:45)
[2022-08-02] MEDS ORDERED: POTASSIUM PHOSPHATE 30 MM in DEXTROSE 5%-WATER - 250 ML IVPB ONE (09:00)
[2022-08-02] MEDS: ASPIRIN 81 MG CHEWABLE TABLETS PO SCH (09:18)
[2022-08-02] MEDS: levETIRAcetam 500 MG/5 ML INJECTION VIAL IVPB SCH (09:18)
[2022-08-02] MEDS: ENOXAPARIN NA (PORCINE) 100 MG/1 ML DISP.SYRIN SQ SCH ×2 (09:18→21:13)
[2022-08-02] MEDS: KCL 20 MEQ PREMIX BAG 100 ML IVPB SCH ×2 (09:18→10:34)
[2022-08-02] MEDS: PANTOPRAZOLE SODIUM 40 MG VIAL IVPUSH SCH (09:18)
[2022-08-02] MEDS: FENTANYL NS IVPB 500 MCG/100 ML BAG IVPB SCH (10:34)
[2022-08-02] MEDS ORDERED: AMIODARONE IN DEXTROSE,ISO-OSM 360 MG/200 ML BAG ONE (11:42)
[2022-08-02] MEDS: AMIODARONE IN DEXTROSE,ISO-OSM 360 MG/200 ML BAG IV SCH (13:15)
[2022-08-02] MEDS ORDERED: FUROSEMIDE 40 MG/4 ML INJECTABLE VIAL IVPUSH ONE (18:01)
[2022-08-02] MEDS: ATORVASTATIN CA 40 MG TABLET (FP) PO SCH (21:14)
[2022-08-02 22:49] LABS: CALCIUM 8.2 mg/dL (8.5-10.1)
[2022-08-02 22:53] LABS: CREATININE 0.8 mg/dL (0.55-1.3)
[2022-08-02] MEDS ORDERED: KCL 20 MEQ PREMIX BAG 100 ML IVPB SCH (23:00)
[2022-08-03] MEDS: AMIODARONE IN DEXTROSE,ISO-OSM 360 MG/200 ML BAG IV SCH (00:13)
[2022-08-03] MEDS: PIPERACILLIN/TAZOB 3.375 GM 3.375 GM in DEXTROSE 5%-WATER - 50 ML IVPB SCH ×3 (02:59→17:05)
[2022-08-03] MEDS: PROPOFOL 1,000,000 MCG/100 ML VIAL IVPB SCH ×4 (06:07→23:38)
[2022-08-03] MEDS: NOREPINEPHRINE 0.9 % NACL 8 MG/250 ML BAG IVPB SCH (06:08)
[2022-08-03 07:12] LABS: MCH 27.1 pg (25.7-33.7); MCHC 32.4 g/dl (32.0-36.0); MEAN CELL VOLUME 83.7 fl (80-96); MEAN PLT VOLUME 9.4 fl (7.5-11.1); PLATELET COUNT 252 10^3/uL (134-434); RBC 2.51 M/mm3 (3.60-5.2); RDW 18.7 % (11.6-15.6); WHITE BLOOD COUNT 12.3 K/mm3 (4.0-10.0)
[2022-08-03] MEDS: AMINO ACIDS/PROTEIN HYDROLYS 30 ML LIQUID.PKT PO SCH (07:21)
[2022-08-03 07:34] LABS: HEMOGLOBIN 6.8 GM/dL (10.7-15.3)
[2022-08-03 07:36] LABS: CALCIUM 8.2 mg/dL (8.5-10.1)
[2022-08-03 07:37] LABS: BLOOD UREA NITROGEN 27.1 mg/dL (7-18)
[2022-08-03 07:40] LABS: CREATININE 0.9 mg/dL (0.55-1.3); PHOSPHOROUS 3.4 mg/dL (2.5-4.9)
[2022-08-03] MEDS: ACETYLCYSTEINE 20% 200MG/ML 4 ML VIAL *FOR ORAL / INH USE ONLY NEB SCH ×3 (07:40→20:18)
[2022-08-03] MEDS: ALBUTEROL SO4 0.083% IH SOL 2.5 MG/3 ML VIAL.NEB. NEB PRN ×3 (07:40→20:18)
[2022-08-03] MEDS: ASPIRIN 81 MG CHEWABLE TABLETS PO SCH (09:00)
[2022-08-03] MEDS ORDERED: DEXMEDETOMIDINE PREMIX 400 MCG/100 ML BAG IVPB SCH (09:00)
[2022-08-03] MEDS: PANTOPRAZOLE SODIUM 40 MG VIAL IVPUSH SCH (09:00)
[2022-08-03] MEDS: ENOXAPARIN NA (PORCINE) 100 MG/1 ML DISP.SYRIN SQ SCH ×2 (09:00→21:19)
[2022-08-03] MEDS: levETIRAcetam 500 MG/5 ML INJECTION VIAL IVPB SCH (09:00)
[2022-08-03] MEDS: FUROSEMIDE 40 MG/4 ML INJECTABLE VIAL IVPUSH SCH ×2 (09:31→13:12)
[2022-08-03] MEDS: METOPROLOL TARTRATE 25 MG TABLET (FP) PO SCH ×2 (09:40→21:19)
[2022-08-03 18:10] LABS: HEMATOCRIT 24.5 % (32.4-45.2); HEMOGLOBIN 7.6 GM/dL (10.7-15.3); MCH 26.2 pg (25.7-33.7); MCHC 31.2 g/dl (32.0-36.0); MEAN CELL VOLUME 84.1 fl (80-96); MEAN PLT VOLUME 9.1 fl (7.5-11.1); PLATELET COUNT 264 10^3/uL (134-434); RBC 2.91 M/mm3 (3.60-5.2); RDW 18.2 % (11.6-15.6); WHITE BLOOD COUNT 12.3 K/mm3 (4.0-10.0)
[2022-08-03] MEDS: ATORVASTATIN CA 40 MG TABLET (FP) PO SCH (21:19)
[2022-08-04] MEDS: PIPERACILLIN/TAZOB 3.375 GM 3.375 GM in DEXTROSE 5%-WATER - 50 ML IVPB SCH ×3 (01:31→18:26)
[2022-08-04] MEDS: FUROSEMIDE 40 MG/4 ML INJECTABLE VIAL IVPUSH SCH ×2 (06:53→15:24)
[2022-08-04] MEDS: NOREPINEPHRINE 0.9 % NACL 8 MG/250 ML BAG IVPB SCH (06:53)
[2022-08-04] MEDS: PROPOFOL 1,000,000 MCG/100 ML VIAL IVPB SCH ×3 (07:04→23:14)
[2022-08-04] MEDS: ACETYLCYSTEINE 20% 200MG/ML 4 ML VIAL *FOR ORAL / INH USE ONLY NEB SCH ×3 (07:40→20:08)
[2022-08-04 07:45] LABS: CALCIUM 8.3 mg/dL (8.5-10.1)
[2022-08-04] MEDS: ALBUTEROL SO4 0.083% IH SOL 2.5 MG/3 ML VIAL.NEB. NEB PRN ×3 (07:45→20:09)
[2022-08-04 07:46] LABS: BLOOD UREA NITROGEN 33.9 mg/dL (7-18); MAGNESIUM 2.1 mg/dL (1.8-2.4)
[2022-08-04 07:49] LABS: CREATININE 0.9 mg/dL (0.55-1.3)
[2022-08-04 07:50] LABS: BILIRUBIN,TOTAL 0.4 mg/dL (0.2-1); TOT PROT 5.6 g/dl (6.4-8.2)
[2022-08-04 07:54] LABS: HEMATOCRIT 23.6 % (32.4-45.2); HEMOGLOBIN 7.5 GM/dL (10.7-15.3); MCH 26.4 pg (25.7-33.7); MCHC 31.6 g/dl (32.0-36.0); MEAN CELL VOLUME 83.6 fl (80-96); MEAN PLT VOLUME 9.4 fl (7.5-11.1); PLATELET COUNT 269 10^3/uL (134-434); RBC 2.82 M/mm3 (3.60-5.2); RDW 18.5 % (11.6-15.6); WHITE BLOOD COUNT 12.5 K/mm3 (4.0-10.0)
[2022-08-04] MEDS ORDERED: POTASSIUM CHLORIDE ORAL LIQUID 20 MEQ/15 ML PO ONE ×2 (08:30→21:00)
[2022-08-04] MEDS ORDERED: FUROSEMIDE 40 MG/4 ML INJECTABLE VIAL IVPUSH ONE (09:42)
[2022-08-04] MEDS: AMINO ACIDS/PROTEIN HYDROLYS 30 ML LIQUID.PKT PO SCH (09:45)
[2022-08-04] MEDS: METOPROLOL TARTRATE 25 MG TABLET (FP) PO SCH ×2 (09:45→21:27)
[2022-08-04] MEDS: levETIRAcetam 500 MG/5 ML INJECTION VIAL IVPB SCH (09:45)
[2022-08-04] MEDS: PANTOPRAZOLE SODIUM 40 MG VIAL IVPUSH SCH (09:45)
[2022-08-04] MEDS: ASPIRIN 81 MG CHEWABLE TABLETS PO SCH (09:45)
[2022-08-04] MEDS: ENOXAPARIN NA (PORCINE) 100 MG/1 ML DISP.SYRIN SQ SCH ×2 (10:42→21:27)
[2022-08-04] MEDS: ATORVASTATIN CA 40 MG TABLET (FP) PO SCH (21:27)
[2022-08-05] MEDS: PIPERACILLIN/TAZOB 3.375 GM 3.375 GM in DEXTROSE 5%-WATER - 50 ML IVPB SCH ×3 (01:07→18:29)
[2022-08-05] MEDS: PROPOFOL 1,000,000 MCG/100 ML VIAL IVPB SCH ×3 (04:50→20:52)
[2022-08-05] MEDS: FUROSEMIDE 40 MG/4 ML INJECTABLE VIAL IVPUSH SCH ×2 (05:37→13:56)
[2022-08-05] MEDS: NOREPINEPHRINE 0.9 % NACL 8 MG/250 ML BAG IVPB SCH (06:24)
[2022-08-05 07:37] LABS: HEMATOCRIT 24.8 % (32.4-45.2); HEMOGLOBIN 7.8 GM/dL (10.7-15.3); MCH 26.6 pg (25.7-33.7); MCHC 31.6 g/dl (32.0-36.0); PLATELET COUNT 313 10^3/uL (134-434); RBC 2.95 M/mm3 (3.60-5.2); RDW 18.4 % (11.6-15.6); WHITE BLOOD COUNT 13.1 K/mm3 (4.0-10.0)
[2022-08-05 07:58] LABS: ALBUMIN 2.2 g/dl (3.4-5.0)
[2022-08-05 07:59] LABS: CALCIUM 8.7 mg/dL (8.5-10.1); MAGNESIUM 1.9 mg/dL (1.8-2.4)
[2022-08-05 08:01] LABS: PHOSPHOROUS 2.8 mg/dL (2.5-4.9)
[2022-08-05 08:03] LABS: BILIRUBIN,TOTAL 0.5 mg/dL (0.2-1); TOT PROT 6.1 g/dl (6.4-8.2)
[2022-08-05] MEDS: ACETYLCYSTEINE 20% 200MG/ML 4 ML VIAL *FOR ORAL / INH USE ONLY NEB SCH ×3 (08:34→20:18)
[2022-08-05] MEDS: ALBUTEROL SO4 0.083% IH SOL 2.5 MG/3 ML VIAL.NEB. NEB PRN ×3 (08:34→20:18)
[2022-08-05] MEDS: ASPIRIN 81 MG CHEWABLE TABLETS PO SCH (09:26)
[2022-08-05] MEDS: METOPROLOL TARTRATE 25 MG TABLET (FP) PO SCH ×2 (09:26→21:16)
[2022-08-05] MEDS: AMINO ACIDS/PROTEIN HYDROLYS 30 ML LIQUID.PKT PO SCH (09:26)
[2022-08-05] MEDS: ENOXAPARIN NA (PORCINE) 100 MG/1 ML DISP.SYRIN SQ SCH ×2 (09:27→21:16)
[2022-08-05] MEDS: PANTOPRAZOLE SODIUM 40 MG VIAL IVPUSH SCH (09:27)
[2022-08-05] MEDS: levETIRAcetam 500 MG/5 ML INJECTION VIAL IVPB SCH (09:27)
[2022-08-05] MEDS: ATORVASTATIN CA 40 MG TABLET (FP) PO SCH (21:16)
[2022-08-06] MEDS: PIPERACILLIN/TAZOB 3.375 GM 3.375 GM in DEXTROSE 5%-WATER - 50 ML IVPB SCH ×3 (01:27→18:50)
[2022-08-06] MEDS: PROPOFOL 1,000,000 MCG/100 ML VIAL IVPB SCH ×3 (04:08→21:39)
[2022-08-06] MEDS: FUROSEMIDE 40 MG/4 ML INJECTABLE VIAL IVPUSH SCH ×3 (05:23→21:39)
[2022-08-06 06:47] LABS: HEMATOCRIT 23.7 % (32.4-45.2); HEMOGLOBIN 7.3 GM/dL (10.7-15.3); MCH 26.3 pg (25.7-33.7); MCHC 30.9 g/dl (32.0-36.0); MEAN CELL VOLUME 85.2 fl (80-96); MEAN PLT VOLUME 8.9 fl (7.5-11.1); PLATELET COUNT 329 10^3/uL (134-434); RBC 2.78 M/mm3 (3.60-5.2); RDW 18.1 % (11.6-15.6); WHITE BLOOD COUNT 11.1 K/mm3 (4.0-10.0)
[2022-08-06] MEDS: NOREPINEPHRINE 0.9 % NACL 8 MG/250 ML BAG IVPB SCH (07:02)
[2022-08-06 07:07] LABS: ALBUMIN 2.1 g/dl (3.4-5.0); CALCIUM 8.9 mg/dL (8.5-10.1)
[2022-08-06 07:13] LABS: BILIRUBIN,TOTAL 0.4 mg/dL (0.2-1)
[2022-08-06] MEDS: ACETYLCYSTEINE 20% 200MG/ML 4 ML VIAL *FOR ORAL / INH USE ONLY NEB SCH ×3 (07:15→20:14)
[2022-08-06] MEDS: ALBUTEROL SO4 0.083% IH SOL 2.5 MG/3 ML VIAL.NEB. NEB PRN ×3 (07:15→20:14)
[2022-08-06] MEDS: ENOXAPARIN NA (PORCINE) 100 MG/1 ML DISP.SYRIN SQ SCH ×2 (09:18→21:40)
[2022-08-06] MEDS: levETIRAcetam 500 MG/5 ML INJECTION VIAL IVPB SCH (09:18)
[2022-08-06] MEDS: PANTOPRAZOLE SODIUM 40 MG VIAL IVPUSH SCH (09:20)
[2022-08-06] MEDS: METOPROLOL TARTRATE 25 MG TABLET (FP) PO SCH ×2 (09:22→21:39)
[2022-08-06] MEDS: AMINO ACIDS/PROTEIN HYDROLYS 30 ML LIQUID.PKT PO SCH (09:22)
[2022-08-06] MEDS: ASPIRIN 81 MG CHEWABLE TABLETS PO SCH (09:23)
[2022-08-06] MEDS: SCOPOLAMINE HYDROBROMIDE 1 PATCH PATCH.TD72 TD SCH (17:22)
[2022-08-06] MEDS: ATORVASTATIN CA 40 MG TABLET (FP) PO SCH (21:40)
[2022-08-07] MEDS: PIPERACILLIN/TAZOB 3.375 GM 3.375 GM in DEXTROSE 5%-WATER - 50 ML IVPB SCH ×2 (01:34→09:02)
[2022-08-07] MEDS: PROPOFOL 1,000,000 MCG/100 ML VIAL IVPB SCH ×2 (04:03→16:43)
[2022-08-07] MEDS: FUROSEMIDE 40 MG/4 ML INJECTABLE VIAL IVPUSH SCH ×3 (05:53→22:50)
[2022-08-07 07:04] LABS: ALBUMIN 2.1 g/dl (3.4-5.0); BLOOD UREA NITROGEN 35.8 mg/dL (7-18)
[2022-08-07 07:06] LABS: PHOSPHOROUS 3.1 mg/dL (2.5-4.9)
[2022-08-07 07:07] LABS: CREATININE 0.9 mg/dL (0.55-1.3)
[2022-08-07 07:08] LABS: BILIRUBIN,TOTAL 0.5 mg/dL (0.2-1); TOT PROT 6.1 g/dl (6.4-8.2)
[2022-08-07 07:27] LABS: HEMATOCRIT 25.1 % (32.4-45.2); MCHC 31.7 g/dl (32.0-36.0); MEAN CELL VOLUME 85.1 fl (80-96); MEAN PLT VOLUME 9.3 fl (7.5-11.1); PLATELET COUNT 390 10^3/uL (134-434); RBC 2.94 M/mm3 (3.60-5.2); RDW 18.7 % (11.6-15.6); WHITE BLOOD COUNT 11.8 K/mm3 (4.0-10.0)
[2022-08-07] MEDS: ACETYLCYSTEINE 20% 200MG/ML 4 ML VIAL *FOR ORAL / INH USE ONLY NEB SCH ×3 (07:31→20:30)
[2022-08-07] MEDS: ALBUTEROL SO4 0.083% IH SOL 2.5 MG/3 ML VIAL.NEB. NEB PRN ×3 (07:31→20:30)
[2022-08-07] MEDS ORDERED: POTASSIUM CHLORIDE ORAL LIQUID 20 MEQ/15 ML NGT ONE (07:58)
[2022-08-07] MEDS: ENOXAPARIN NA (PORCINE) 100 MG/1 ML DISP.SYRIN SQ SCH ×2 (09:01→21:55)
[2022-08-07] MEDS: AMINO ACIDS/PROTEIN HYDROLYS 30 ML LIQUID.PKT PO SCH (09:01)
[2022-08-07] MEDS: METOPROLOL TARTRATE 25 MG TABLET (FP) PO SCH ×2 (09:01→21:55)
[2022-08-07] MEDS: levETIRAcetam 500 MG/5 ML INJECTION VIAL IVPB SCH (09:01)
[2022-08-07] MEDS: ASPIRIN 81 MG CHEWABLE TABLETS PO SCH (09:02)
[2022-08-07] MEDS: PANTOPRAZOLE SODIUM 40 MG VIAL IVPUSH SCH (09:02)
[2022-08-07] MEDS ORDERED: METOLAZONE 2.5 MG TABLET (FP) NGT ONE (20:03)
[2022-08-07] MEDS: ATORVASTATIN CA 40 MG TABLET (FP) PO SCH (21:55)
[2022-08-08] MEDS: FUROSEMIDE 40 MG/4 ML INJECTABLE VIAL IVPUSH SCH ×3 (05:53→21:31)
[2022-08-08] MEDS: PROPOFOL 1,000,000 MCG/100 ML VIAL IVPB SCH ×3 (05:54→21:00)
[2022-08-08 07:47] LABS: HEMATOCRIT 26.1 % (32.4-45.2); HEMOGLOBIN 8.2 GM/dL (10.7-15.3); MCH 26.6 pg (25.7-33.7); MCHC 31.3 g/dl (32.0-36.0); MEAN PLT VOLUME 9.6 fl (7.5-11.1); PLATELET COUNT 443 10^3/uL (134-434); RBC 3.07 M/mm3 (3.60-5.2); RDW 18.8 % (11.6-15.6); WHITE BLOOD COUNT 13.3 K/mm3 (4.0-10.0)
[2022-08-08 07:53] LABS: CALCIUM 9.5 mg/dL (8.5-10.1)
[2022-08-08 07:54] LABS: ALBUMIN 2.2 g/dl (3.4-5.0); BLOOD UREA NITROGEN 38.4 mg/dL (7-18); MAGNESIUM 1.9 mg/dL (1.8-2.4)
[2022-08-08 07:58] LABS: BILIRUBIN,TOTAL 0.4 mg/dL (0.2-1); PHOSPHOROUS 3.9 mg/dL (2.5-4.9); TOT PROT 6.5 g/dl (6.4-8.2)
[2022-08-08] MEDS: ACETYLCYSTEINE 20% 200MG/ML 4 ML VIAL *FOR ORAL / INH USE ONLY NEB SCH ×3 (08:10→20:38)
[2022-08-08] MEDS: METOPROLOL TARTRATE 25 MG TABLET (FP) PO SCH ×3 (09:17→21:34)
[2022-08-08] MEDS: levETIRAcetam 500 MG/5 ML INJECTION VIAL IVPB SCH (09:17)
[2022-08-08] MEDS: ASPIRIN 81 MG CHEWABLE TABLETS PO SCH (09:17)
[2022-08-08] MEDS: PANTOPRAZOLE SODIUM 40 MG VIAL IVPUSH SCH (09:18)
[2022-08-08] MEDS: ENOXAPARIN NA (PORCINE) 100 MG/1 ML DISP.SYRIN SQ SCH ×2 (09:18→21:32)
[2022-08-08] MEDS: AMINO ACIDS/PROTEIN HYDROLYS 30 ML LIQUID.PKT PO SCH (09:18)
[2022-08-08] MEDS ORDERED: POTASSIUM CHLORIDE ORAL LIQUID 20 MEQ/15 ML PO ONE (10:50)
[2022-08-08] MEDS ORDERED: FUROSEMIDE 40 MG/4 ML INJECTABLE VIAL IVPUSH ONE (10:51)
[2022-08-08] MEDS: ALBUTEROL SO4 0.083% IH SOL 2.5 MG/3 ML VIAL.NEB. NEB PRN ×2 (13:59→20:38)
[2022-08-08] MEDS: ATORVASTATIN CA 40 MG TABLET (FP) PO SCH (21:34)
[2022-08-09] MEDS: PROPOFOL 1,000,000 MCG/100 ML VIAL IVPB SCH ×2 (04:00→14:14)
[2022-08-09] MEDS: FUROSEMIDE 40 MG/4 ML INJECTABLE VIAL IVPUSH SCH ×3 (05:56→22:09)
[2022-08-09 08:12] LABS: HEMATOCRIT 27.2 % (32.4-45.2); HEMOGLOBIN 8.5 GM/dL (10.7-15.3); MCH 26.4 pg (25.7-33.7); MCHC 31.2 g/dl (32.0-36.0); MEAN CELL VOLUME 84.5 fl (80-96); MEAN PLT VOLUME 8.9 fl (7.5-11.1); PLATELET COUNT 476 10^3/uL (134-434); RBC 3.22 M/mm3 (3.60-5.2); RDW 18.6 % (11.6-15.6)
[2022-08-09 08:17] LABS: CALCIUM 9.7 mg/dL (8.5-10.1); MAGNESIUM 2.1 mg/dL (1.8-2.4)
[2022-08-09 08:19] LABS: CREATININE 0.9 mg/dL (0.55-1.3); PHOSPHOROUS 4.5 mg/dL (2.5-4.9)
[2022-08-09] MEDS: ACETYLCYSTEINE 20% 200MG/ML 4 ML VIAL *FOR ORAL / INH USE ONLY NEB SCH ×3 (08:50→20:35)
[2022-08-09] MEDS: ALBUTEROL SO4 0.083% IH SOL 2.5 MG/3 ML VIAL.NEB. NEB PRN ×2 (08:50→20:35)
[2022-08-09] MEDS: ASPIRIN 81 MG CHEWABLE TABLETS PO SCH (09:43)
[2022-08-09] MEDS: AMINO ACIDS/PROTEIN HYDROLYS 30 ML LIQUID.PKT PO SCH (09:43)
[2022-08-09] MEDS: levETIRAcetam 500 MG/5 ML INJECTION VIAL IVPB SCH (09:43)
[2022-08-09] MEDS: PANTOPRAZOLE SODIUM 40 MG VIAL IVPUSH SCH (09:43)
[2022-08-09] MEDS: ENOXAPARIN NA (PORCINE) 100 MG/1 ML DISP.SYRIN SQ SCH ×2 (09:43→22:09)
[2022-08-09] MEDS: METOPROLOL TARTRATE 25 MG TABLET (FP) PO SCH ×2 (09:44→22:09)
[2022-08-09] MEDS: SCOPOLAMINE HYDROBROMIDE 1 PATCH PATCH.TD72 TD SCH (16:19)
[2022-08-09] MEDS: ATORVASTATIN CA 40 MG TABLET (FP) PO SCH (22:09)
[2022-08-10] MEDS: PROPOFOL 1,000,000 MCG/100 ML VIAL IVPB SCH (02:52)
[2022-08-10] MEDS: FUROSEMIDE 40 MG/4 ML INJECTABLE VIAL IVPUSH SCH ×3 (05:27→21:24)
[2022-08-10] MEDS: ALBUTEROL SO4 0.083% IH SOL 2.5 MG/3 ML VIAL.NEB. NEB PRN ×3 (07:20→20:41)
[2022-08-10] MEDS: ACETYLCYSTEINE 20% 200MG/ML 4 ML VIAL *FOR ORAL / INH USE ONLY NEB SCH ×3 (07:20→20:41)
[2022-08-10] MEDS: METOPROLOL TARTRATE 25 MG TABLET (FP) PO SCH (09:34)
[2022-08-10] MEDS: levETIRAcetam 500 MG/5 ML INJECTION VIAL IVPB SCH (09:34)
[2022-08-10] MEDS: AMINO ACIDS/PROTEIN HYDROLYS 30 ML LIQUID.PKT PO SCH (09:34)
[2022-08-10] MEDS: ASPIRIN 81 MG CHEWABLE TABLETS PO SCH (09:34)
[2022-08-10] MEDS: PANTOPRAZOLE SODIUM 40 MG VIAL IVPUSH SCH (09:34)
[2022-08-10] MEDS: ENOXAPARIN NA (PORCINE) 100 MG/1 ML DISP.SYRIN SQ SCH ×2 (09:37→21:27)
[2022-08-10] MEDS ORDERED: METOPROLOL TARTRATE 5 MG/5 ML VIAL IVPUSH SCH (11:45)
[2022-08-10] MEDS ORDERED: METOPROLOL TARTRATE 5 MG/5 ML VIAL IVPB SCH (11:58)
[2022-08-10 14:54] LABS: ARTERIAL BLD GAS O2 SATURATION 98.8 % (95-98); ARTERIAL BLOOD GAS BASE EXCESS 13.4 mmol/L (-2-2); ARTERIAL BLOOD GAS PO2 138.6 mmHg (80-100); ARTERIAL BLOOD GAS pH 7.451 (7.350-7.450)
[2022-08-10 14:55] LABS: ALLENS TEST POSITIVE
[2022-08-10 14:56] LABS: VENT MODE S/T; VENT RATE 14
[2022-08-10] MEDS: METOPROLOL TARTRATE 5 MG/5 ML VIAL IVPB SCH ×2 (17:57→21:25)
[2022-08-11] MEDS: METOPROLOL TARTRATE 5 MG/5 ML VIAL IVPB SCH ×4 (01:06→21:32)
[2022-08-11] MEDS: FUROSEMIDE 40 MG/4 ML INJECTABLE VIAL IVPUSH SCH (05:31)
[2022-08-11 07:11] LABS: BASO % 0.8 % (0-2.0); EOS % 6.3 % (0-4.5); HEMOGLOBIN 8.2 GM/dL (10.7-15.3); LYMPH % 11.6 % (8-40); MCH 26.2 pg (25.7-33.7); MCHC 31.4 g/dl (32.0-36.0); MEAN CELL VOLUME 83.4 fl (80-96); MEAN PLT VOLUME 8.3 fl (7.5-11.1); MONO % 4.9 % (3.8-10.2); NEUT % 76.4 % (42.8-82.8); PLATELET COUNT 544 10^3/uL (134-434); RBC 3.11 M/mm3 (3.60-5.2); WHITE BLOOD COUNT 13.9 K/mm3 (4.0-10.0)
[2022-08-11 07:40] LABS: ALBUMIN 2.4 g/dl (3.4-5.0); CALCIUM 9.4 mg/dL (8.5-10.1)
[2022-08-11 07:41] LABS: BLOOD UREA NITROGEN 62.8 mg/dL (7-18); MAGNESIUM 2.1 mg/dL (1.8-2.4)
[2022-08-11 07:44] LABS: CREATININE 1.1 mg/dL (0.55-1.3); PHOSPHOROUS 4.2 mg/dL (2.5-4.9)
[2022-08-11 07:45] LABS: TOT PROT 6.8 g/dl (6.4-8.2)
[2022-08-11 07:47] LABS: BILIRUBIN,TOTAL 0.6 mg/dL (0.2-1)
[2022-08-11] MEDS: ACETYLCYSTEINE 20% 200MG/ML 4 ML VIAL *FOR ORAL / INH USE ONLY NEB SCH ×3 (08:01→20:37)
[2022-08-11] MEDS: ALBUTEROL SO4 0.083% IH SOL 2.5 MG/3 ML VIAL.NEB. NEB PRN ×3 (08:02→20:36)
[2022-08-11] MEDS ORDERED: FUROSEMIDE 40 MG/4 ML INJECTABLE VIAL IVPUSH ONE (09:09)
[2022-08-11] MEDS: KCL 10 MEQ IVPB 10 MEQ/100 ML INFUS.BAG IVPB SCH ×3 (09:17→11:55)
[2022-08-11] MEDS: ENOXAPARIN NA (PORCINE) 100 MG/1 ML DISP.SYRIN SQ SCH ×2 (09:18→21:33)
[2022-08-11] MEDS: levETIRAcetam 500 MG/5 ML INJECTION VIAL IVPB SCH (09:18)
[2022-08-11] MEDS: PANTOPRAZOLE SODIUM 40 MG VIAL IVPUSH SCH (09:18)
[2022-08-11] MEDS ORDERED: FUROSEMIDE 40 MG/4 ML INJECTABLE VIAL IVPUSH SCH (10:00)
[2022-08-11] MEDS: AMINO ACIDS 4.25%/D5W 1,000 ML IV SCH (11:55)
[2022-08-12] MEDS: METOPROLOL TARTRATE 5 MG/5 ML VIAL IVPB SCH ×4 (03:17→21:58)
[2022-08-12 07:58] LABS: BASO % 1.1 % (0-2.0); HEMATOCRIT 26.1 % (32.4-45.2); HEMOGLOBIN 8.2 GM/dL (10.7-15.3); LYMPH % 13.5 % (8-40); MCH 26.5 pg (25.7-33.7); MCHC 31.4 g/dl (32.0-36.0); MEAN CELL VOLUME 84.3 fl (80-96); MEAN PLT VOLUME 8.4 fl (7.5-11.1); MONO % 4.8 % (3.8-10.2); NEUT % 74.6 % (42.8-82.8); PLATELET COUNT 571 10^3/uL (134-434); RDW 18.3 % (11.6-15.6); WHITE BLOOD COUNT 12.2 K/mm3 (4.0-10.0)
[2022-08-12] MEDS: ACETYLCYSTEINE 20% 200MG/ML 4 ML VIAL *FOR ORAL / INH USE ONLY NEB SCH ×3 (08:22→21:20)
[2022-08-12 08:37] LABS: CALCIUM 9.8 mg/dL (8.5-10.1)
[2022-08-12 08:38] LABS: BLOOD UREA NITROGEN 68.2 mg/dL (7-18); MAGNESIUM 2.5 mg/dL (1.8-2.4)
[2022-08-12 08:40] LABS: ALBUMIN 2.5 g/dl (3.4-5.0)
[2022-08-12 08:42] LABS: BILIRUBIN,TOTAL 0.5 mg/dL (0.2-1); TOT PROT 7.1 g/dl (6.4-8.2)
[2022-08-12] MEDS: KCL 10 MEQ IVPB 10 MEQ/100 ML INFUS.BAG IVPB SCH ×3 (09:26→12:33)
[2022-08-12] MEDS: levETIRAcetam 500 MG/5 ML INJECTION VIAL IVPB SCH (09:27)
[2022-08-12] MEDS: ENOXAPARIN NA (PORCINE) 100 MG/1 ML DISP.SYRIN SQ SCH ×2 (09:28→22:01)
[2022-08-12] MEDS: PANTOPRAZOLE SODIUM 40 MG VIAL IVPUSH SCH (09:29)
[2022-08-12] MEDS: AMINO ACIDS 4.25%/D5W 1,000 ML IV SCH ×2 (09:30→19:13)
[2022-08-12] MEDS ORDERED: FUROSEMIDE 40 MG/4 ML INJECTABLE VIAL IVPUSH ONE (10:00)
[2022-08-12] MEDS: ALBUTEROL SO4 0.083% IH SOL 2.5 MG/3 ML VIAL.NEB. NEB PRN (13:28)
[2022-08-12] MEDS: SCOPOLAMINE HYDROBROMIDE 1 PATCH PATCH.TD72 TD SCH (17:30)
[2022-08-12] MEDS: ALBUTEROL SO4 0.042% IH SOL 1.25 MG/3 ML VIAL.NEB NEB PRN (21:19)
[2022-08-13] MEDS: METOPROLOL TARTRATE 5 MG/5 ML VIAL IVPB SCH ×4 (02:54→21:14)
[2022-08-13] MEDS: ACETYLCYSTEINE 20% 200MG/ML 4 ML VIAL *FOR ORAL / INH USE ONLY NEB SCH ×3 (07:38→20:36)
[2022-08-13] MEDS: ALBUTEROL SO4 0.042% IH SOL 1.25 MG/3 ML VIAL.NEB NEB PRN ×3 (07:38→20:36)
[2022-08-13 09:09] LABS: BASO % 0.9 % (0-2.0); HEMATOCRIT 27.9 % (32.4-45.2); HEMOGLOBIN 8.8 GM/dL (10.7-15.3); LYMPH % 9.2 % (8-40); MCH 26.1 pg (25.7-33.7); MCHC 31.3 g/dl (32.0-36.0); MEAN CELL VOLUME 83.3 fl (80-96); MEAN PLT VOLUME 8.8 fl (7.5-11.1); NEUT % 80.9 % (42.8-82.8); PLATELET COUNT 615 10^3/uL (134-434); RBC 3.35 M/mm3 (3.60-5.2); RDW 17.9 % (11.6-15.6); WHITE BLOOD COUNT 13.5 K/mm3 (4.0-10.0)
[2022-08-13 09:43] LABS: ALBUMIN 2.7 g/dl (3.4-5.0); BILIRUBIN,TOTAL 0.5 mg/dL (0.2-1); TOT PROT 7.4 g/dl (6.4-8.2)
[2022-08-13] MEDS: AMINO ACIDS 4.25%/D5W 1,000 ML IV SCH (09:45)
[2022-08-13 09:46] LABS: CREATININE 0.9 mg/dL (0.55-1.3); PHOSPHOROUS 2.2 mg/dL (2.5-4.9)
[2022-08-13] MEDS: levETIRAcetam 500 MG/5 ML INJECTION VIAL IVPB SCH (09:47)
[2022-08-13] MEDS: PANTOPRAZOLE SODIUM 40 MG VIAL IVPUSH SCH (09:48)
[2022-08-13] MEDS: ENOXAPARIN NA (PORCINE) 100 MG/1 ML DISP.SYRIN SQ SCH ×2 (09:49→21:20)
[2022-08-13] MEDS: ASPIRIN 81 MG CHEWABLE TABLETS GT SCH (09:50)
[2022-08-13 09:53] LABS: BLOOD UREA NITROGEN 58.9 mg/dL (7-18)
[2022-08-13 09:56] LABS: CALCIUM 10.8 mg/dL (8.5-10.1)
[2022-08-13 09:57] LABS: MAGNESIUM 2.6 mg/dL (1.8-2.4)
[2022-08-13] MEDS: KCL 10 MEQ IVPB 10 MEQ/100 ML INFUS.BAG IVPB SCH ×2 (16:34→17:08)
[2022-08-13] MEDS: POTASSIUM CHLORIDE 10 MEQ in AMINO ACIDS 4.25%/D5W 1,000 ML IV SCH (17:08)
[2022-08-14] MEDS: METOPROLOL TARTRATE 5 MG/5 ML VIAL IVPB SCH ×4 (02:32→22:32)
[2022-08-14 07:29] LABS: BASO % 0.8 % (0-2.0); EOS % 6.8 % (0-4.5); HEMATOCRIT 25.7 % (32.4-45.2); HEMOGLOBIN 8.3 GM/dL (10.7-15.3); LYMPH % 15.6 % (8-40); MCH 27.1 pg (25.7-33.7); MCHC 32.4 g/dl (32.0-36.0); MEAN CELL VOLUME 83.4 fl (80-96); MEAN PLT VOLUME 8.5 fl (7.5-11.1); MONO % 6.8 % (3.8-10.2); PLATELET COUNT 528 10^3/uL (134-434); RBC 3.08 M/mm3 (3.60-5.2); RDW 17.8 % (11.6-15.6); WHITE BLOOD COUNT 11.5 K/mm3 (4.0-10.0)
[2022-08-14] MEDS: ACETYLCYSTEINE 20% 200MG/ML 4 ML VIAL *FOR ORAL / INH USE ONLY NEB SCH ×3 (07:40→20:05)
[2022-08-14] MEDS: ALBUTEROL SO4 0.042% IH SOL 1.25 MG/3 ML VIAL.NEB NEB PRN ×2 (07:40→13:40)
[2022-08-14 07:47] LABS: CALCIUM 9.7 mg/dL (8.5-10.1)
[2022-08-14 07:48] LABS: ALBUMIN 2.5 g/dl (3.4-5.0); BLOOD UREA NITROGEN 59.5 mg/dL (7-18); MAGNESIUM 2.6 mg/dL (1.8-2.4)
[2022-08-14 07:50] LABS: CREATININE 0.9 mg/dL (0.55-1.3)
[2022-08-14 07:51] LABS: BILIRUBIN,TOTAL 0.5 mg/dL (0.2-1); PHOSPHOROUS 2.3 mg/dL (2.5-4.9); TOT PROT 6.9 g/dl (6.4-8.2)
[2022-08-14] MEDS: POTASSIUM CHLORIDE 10 MEQ in AMINO ACIDS 4.25%/D5W 1,000 ML IV SCH (10:05)
[2022-08-14] MEDS: ASPIRIN 81 MG CHEWABLE TABLETS GT SCH (10:14)
[2022-08-14] MEDS: levETIRAcetam 500 MG/5 ML INJECTION VIAL IVPB SCH (10:16)
[2022-08-14] MEDS: PANTOPRAZOLE SODIUM 40 MG VIAL IVPUSH SCH (10:20)
[2022-08-14] MEDS: ENOXAPARIN NA (PORCINE) 100 MG/1 ML DISP.SYRIN SQ SCH ×2 (13:46→22:33)
[2022-08-14] MEDS: POTASSIUM CHLORIDE 20 MEQ in AMINO ACIDS 4.25%/D5W 1,000 ML IV SCH (18:09)
[2022-08-14] MEDS: DEXTROSE 5%-WATER - 1,000 ML IV SCH (18:10)
[2022-08-15] MEDS: METOPROLOL TARTRATE 5 MG/5 ML VIAL IVPB SCH ×4 (02:47→20:46)
[2022-08-15] MEDS: POTASSIUM CHLORIDE 20 MEQ in AMINO ACIDS 4.25%/D5W 1,000 ML IV SCH ×2 (05:10→18:16)
[2022-08-15] MEDS: ACETYLCYSTEINE 20% 200MG/ML 4 ML VIAL *FOR ORAL / INH USE ONLY NEB SCH ×3 (08:02→20:27)
[2022-08-15] MEDS: ASPIRIN 81 MG CHEWABLE TABLETS GT SCH (09:32)
[2022-08-15] MEDS: ENOXAPARIN NA (PORCINE) 100 MG/1 ML DISP.SYRIN SQ SCH ×2 (09:35→21:59)
[2022-08-15] MEDS: levETIRAcetam 500 MG/5 ML INJECTION VIAL IVPB SCH (09:35)
[2022-08-15] MEDS: PANTOPRAZOLE SODIUM 40 MG VIAL IVPUSH SCH (09:35)
[2022-08-15 09:36] LABS: BASO % 1.4 % (0-2.0); EOS % 5.4 % (0-4.5); HEMATOCRIT 27.2 % (32.4-45.2); HEMOGLOBIN 8.4 GM/dL (10.7-15.3); LYMPH % 16.5 % (8-40); MCH 25.9 pg (25.7-33.7); MEAN CELL VOLUME 83.7 fl (80-96); MEAN PLT VOLUME 8.1 fl (7.5-11.1); MONO % 5.1 % (3.8-10.2); NEUT % 71.6 % (42.8-82.8); PLATELET COUNT 493 10^3/uL (134-434); RBC 3.25 M/mm3 (3.60-5.2); RDW 17.9 % (11.6-15.6)
[2022-08-15 09:55] LABS: CALCIUM 9.9 mg/dL (8.5-10.1)
[2022-08-15 09:56] LABS: ALBUMIN 2.5 g/dl (3.4-5.0); BLOOD UREA NITROGEN 48.9 mg/dL (7-18); MAGNESIUM 2.3 mg/dL (1.8-2.4)
[2022-08-15 09:59] LABS: CREATININE 0.8 mg/dL (0.55-1.3); PHOSPHOROUS 1.6 mg/dL (2.5-4.9)
[2022-08-15 10:00] LABS: BILIRUBIN,TOTAL 0.5 mg/dL (0.2-1)
[2022-08-15 10:04] LABS: TOT PROT 6.8 g/dl (6.4-8.2)
[2022-08-15] MEDS ORDERED: POTASSIUM PHOSPHATE 30 MM in DEXTROSE 5%-WATER - 500 ML IVPB ONE (12:30)
[2022-08-15] MEDS: SCOPOLAMINE HYDROBROMIDE 1 PATCH PATCH.TD72 TD SCH (18:16)
[2022-08-15] MEDS: DEXTROSE 5%-WATER - 1,000 ML IV SCH (18:17)
[2022-08-15] MEDS: ALBUTEROL SO4 0.042% IH SOL 1.25 MG/3 ML VIAL.NEB NEB PRN (20:27)
[2022-08-16] MEDS: METOPROLOL TARTRATE 5 MG/5 ML VIAL IVPB SCH ×4 (03:16→21:24)
[2022-08-16] MEDS: POTASSIUM CHLORIDE 20 MEQ in AMINO ACIDS 4.25%/D5W 1,000 ML IV SCH ×2 (05:44→20:12)
[2022-08-16] MEDS: ALBUTEROL SO4 0.042% IH SOL 1.25 MG/3 ML VIAL.NEB NEB PRN ×3 (07:45→20:40)
[2022-08-16] MEDS: ACETYLCYSTEINE 20% 200MG/ML 4 ML VIAL *FOR ORAL / INH USE ONLY NEB SCH ×3 (07:45→20:40)
[2022-08-16 08:53] LABS: BASO % 0.9 % (0-2.0); EOS % 7.2 % (0-4.5); HEMATOCRIT 27.1 % (32.4-45.2); HEMOGLOBIN 8.5 GM/dL (10.7-15.3); LYMPH % 15.2 % (8-40); MCH 26.2 pg (25.7-33.7); MCHC 31.3 g/dl (32.0-36.0); MEAN CELL VOLUME 83.7 fl (80-96); MEAN PLT VOLUME 8.3 fl (7.5-11.1); MONO % 4.7 % (3.8-10.2); PLATELET COUNT 443 10^3/uL (134-434); RBC 3.24 M/mm3 (3.60-5.2); RDW 18.1 % (11.6-15.6); WHITE BLOOD COUNT 11.6 K/mm3 (4.0-10.0)
[2022-08-16 09:07] LABS: CALCIUM 9.1 mg/dL (8.5-10.1)
[2022-08-16 09:08] LABS: ALBUMIN 2.5 g/dl (3.4-5.0); BLOOD UREA NITROGEN 40.4 mg/dL (7-18); MAGNESIUM 1.8 mg/dL (1.8-2.4)
[2022-08-16 09:11] LABS: CREATININE 0.8 mg/dL (0.55-1.3); PHOSPHOROUS 2.5 mg/dL (2.5-4.9)
[2022-08-16 09:12] LABS: TOT PROT 6.6 g/dl (6.4-8.2)
[2022-08-16 09:13] LABS: BILIRUBIN,TOTAL 0.5 mg/dL (0.2-1)
[2022-08-16] MEDS: levETIRAcetam 500 MG/5 ML INJECTION VIAL IVPB SCH (10:01)
[2022-08-16] MEDS: ASPIRIN 81 MG CHEWABLE TABLETS GT SCH (10:01)
[2022-08-16] MEDS: ENOXAPARIN NA (PORCINE) 100 MG/1 ML DISP.SYRIN SQ SCH ×2 (10:02→21:24)
[2022-08-16] MEDS: PANTOPRAZOLE SODIUM 40 MG VIAL IVPUSH SCH (10:04)
[2022-08-16] MEDS: DEXTROSE 5%-WATER - 1,000 ML IV SCH (15:58)
[2022-08-17] MEDS: METOPROLOL TARTRATE 5 MG/5 ML VIAL IVPB SCH ×4 (02:39→22:18)
[2022-08-17] MEDS: ACETYLCYSTEINE 20% 200MG/ML 4 ML VIAL *FOR ORAL / INH USE ONLY NEB SCH ×2 (07:35→14:58)
[2022-08-17] MEDS: ALBUTEROL SO4 0.042% IH SOL 1.25 MG/3 ML VIAL.NEB NEB PRN ×2 (07:35→14:58)
[2022-08-17 09:00] LABS: BLOOD UREA NITROGEN 39.8 mg/dL (7-18); CALCIUM 9.3 mg/dL (8.5-10.1)
[2022-08-17 09:01] LABS: ALBUMIN 2.3 g/dl (3.4-5.0)
[2022-08-17 09:04] LABS: CREATININE 0.7 mg/dL (0.55-1.3)
[2022-08-17 09:05] LABS: BILIRUBIN,TOTAL 0.4 mg/dL (0.2-1); TOT PROT 6.3 g/dl (6.4-8.2)
[2022-08-17] MEDS: POTASSIUM CHLORIDE 20 MEQ in AMINO ACIDS 4.25%/D5W 1,000 ML IV SCH ×2 (09:27→18:41)
[2022-08-17] MEDS: levETIRAcetam 500 MG/5 ML INJECTION VIAL IVPB SCH (09:29)
[2022-08-17] MEDS: ENOXAPARIN NA (PORCINE) 100 MG/1 ML DISP.SYRIN SQ SCH ×2 (09:29→22:18)
[2022-08-17] MEDS: ASPIRIN 81 MG CHEWABLE TABLETS GT SCH (09:29)
[2022-08-17] MEDS: PANTOPRAZOLE SODIUM 40 MG VIAL IVPUSH SCH (09:29)
[2022-08-18] MEDS: POTASSIUM CHLORIDE 20 MEQ in AMINO ACIDS 4.25%/D5W 1,000 ML IV SCH (06:24)
[2022-08-18] MEDS: levETIRAcetam 500 MG TABLET (FP) PO SCH ×2 (11:35→21:07)
[2022-08-18] MEDS: PANTOPRAZOLE 40 MG TABLET PO SCH (11:35)
[2022-08-18] MEDS: ASPIRIN COATED 81 MG TABLET.EC PO SCH (11:35)
[2022-08-18] MEDS: METOPROLOL TARTRATE 25 MG TABLET (FP) PO SCH ×2 (11:35→21:07)
[2022-08-18] MEDS: APIXABAN 5 MG TABLET PO SCH ×2 (11:36→21:07)
[2022-08-18] MEDS: SCOPOLAMINE HYDROBROMIDE 1 PATCH PATCH.TD72 TD SCH (16:18)
[2022-08-18] MEDS: AMINO ACIDS/PROTEIN HYDROLYS 30 ML LIQUID.PKT PO SCH (18:40)
[2022-08-18] MEDS ORDERED: ALBUTEROL SULFATE 0.021% (0.63 MG/3 ML) VIAL.NEB NEB ONE (21:51)
[2022-08-18] MEDS ORDERED: ALBUTEROL SO4 0.042% IH SOL 1.25 MG/3 ML VIAL.NEB NEB PRN (22:06)
[2022-08-19 07:52] LABS: CALCIUM 9.4 mg/dL (8.5-10.1)
[2022-08-19 07:53] LABS: ALBUMIN 2.4 g/dl (3.4-5.0); BLOOD UREA NITROGEN 36.3 mg/dL (7-18)
[2022-08-19 07:56] LABS: CREATININE 0.7 mg/dL (0.55-1.3)
[2022-08-19 07:57] LABS: TOT PROT 6.2 g/dl (6.4-8.2)
[2022-08-19 07:58] LABS: BILIRUBIN,TOTAL 0.4 mg/dL (0.2-1)
[2022-08-19] MEDS: AMINO ACIDS/PROTEIN HYDROLYS 30 ML LIQUID.PKT PO SCH ×3 (08:53→17:07)
[2022-08-19] MEDS: ASPIRIN COATED 81 MG TABLET.EC PO SCH (09:57)
[2022-08-19] MEDS: APIXABAN 5 MG TABLET PO SCH ×2 (09:57→21:15)
[2022-08-19] MEDS: levETIRAcetam 500 MG TABLET (FP) PO SCH ×2 (09:57→21:16)
[2022-08-19] MEDS: PANTOPRAZOLE 40 MG TABLET PO SCH (09:57)
[2022-08-19] MEDS: METOPROLOL TARTRATE 25 MG TABLET (FP) PO SCH ×2 (09:58→21:15)
[2022-08-19] MEDS: ACETAMINOPHEN 325 MG TABLET (FP) PO PRN (18:57)
[2022-08-19] MEDS ORDERED: FUROSEMIDE 20 MG TABLET (FP) PO ONE (20:52)
[2022-08-20] MEDS: ACETAMINOPHEN 325 MG TABLET (FP) PO PRN ×2 (02:26→09:12)
[2022-08-20 07:55] LABS: EOS % 6.6 % (0-4.5); HEMATOCRIT 24.8 % (32.4-45.2); HEMOGLOBIN 7.8 GM/dL (10.7-15.3); LYMPH % 15.8 % (8-40); MCH 26.2 pg (25.7-33.7); MCHC 31.3 g/dl (32.0-36.0); MEAN CELL VOLUME 83.8 fl (80-96); MEAN PLT VOLUME 8.6 fl (7.5-11.1); MONO % 8.4 % (3.8-10.2); NEUT % 68.2 % (42.8-82.8); PLATELET COUNT 335 10^3/uL (134-434); RBC 2.96 M/mm3 (3.60-5.2); RDW 19.3 % (11.6-15.6); WHITE BLOOD COUNT 8.7 K/mm3 (4.0-10.0)
[2022-08-20] MEDS: AMINO ACIDS/PROTEIN HYDROLYS 30 ML LIQUID.PKT PO SCH ×3 (08:07→17:25)
[2022-08-20 08:13] LABS: ALBUMIN 2.6 g/dl (3.4-5.0); BLOOD UREA NITROGEN 36.8 mg/dL (7-18)
[2022-08-20 08:16] LABS: CREATININE 0.8 mg/dL (0.55-1.3)
[2022-08-20 08:17] LABS: BILIRUBIN,TOTAL 0.5 mg/dL (0.2-1)
[2022-08-20 08:18] LABS: TOT PROT 6.7 g/dl (6.4-8.2)
[2022-08-20] MEDS: PANTOPRAZOLE 40 MG TABLET PO SCH (09:11)
[2022-08-20] MEDS: levETIRAcetam 500 MG TABLET (FP) PO SCH (09:11)
[2022-08-20] MEDS: APIXABAN 5 MG TABLET PO SCH (09:11)
[2022-08-20] MEDS: ASPIRIN COATED 81 MG TABLET.EC PO SCH (09:11)
[2022-08-20] MEDS: METOPROLOL TARTRATE 25 MG TABLET (FP) PO SCH (09:11)
[2022-08-20] MEDS: VANCOMYCIN 250 MG/5 ML ORAL SOLUTION PO SCH (17:25)
[2022-08-21] MEDS: levETIRAcetam 500 MG TABLET (FP) PO SCH ×3 (00:06→21:29)
[2022-08-21] MEDS: METOPROLOL TARTRATE 25 MG TABLET (FP) PO SCH ×3 (00:06→21:29)
[2022-08-21] MEDS: APIXABAN 5 MG TABLET PO SCH ×3 (00:06→21:29)
[2022-08-21] MEDS: VANCOMYCIN 250 MG/5 ML ORAL SOLUTION PO SCH ×4 (00:06→17:07)
[2022-08-21] MEDS: PANTOPRAZOLE 40 MG TABLET PO SCH (09:23)
[2022-08-21] MEDS: ASPIRIN COATED 81 MG TABLET.EC PO SCH (09:23)
[2022-08-21] MEDS: AMINO ACIDS/PROTEIN HYDROLYS 30 ML LIQUID.PKT PO SCH ×3 (09:23→16:38)
[2022-08-21] MEDS: SCOPOLAMINE HYDROBROMIDE 1 PATCH PATCH.TD72 TD SCH (16:38)
[2022-08-21] MEDS: ACETAMINOPHEN 325 MG TABLET (FP) PO PRN (18:29)
[2022-08-22] MEDS: VANCOMYCIN 250 MG/5 ML ORAL SOLUTION PO SCH ×5 (00:26→23:15)
[2022-08-22] MEDS: ACETAMINOPHEN 325 MG TABLET (FP) PO PRN (01:18)
[2022-08-22] MEDS: AMINO ACIDS/PROTEIN HYDROLYS 30 ML LIQUID.PKT PO SCH ×3 (08:26→17:40)
[2022-08-22] MEDS: METOPROLOL TARTRATE 25 MG TABLET (FP) PO SCH ×2 (10:40→21:49)
[2022-08-22] MEDS: ASPIRIN COATED 81 MG TABLET.EC PO SCH (10:40)
[2022-08-22] MEDS: levETIRAcetam 500 MG TABLET (FP) PO SCH ×2 (10:40→21:49)
[2022-08-22] MEDS: PANTOPRAZOLE 40 MG TABLET PO SCH (10:40)
[2022-08-22] MEDS: APIXABAN 5 MG TABLET PO SCH ×2 (10:40→21:49)
[2022-08-23] MEDS: VANCOMYCIN 250 MG/5 ML ORAL SOLUTION PO SCH ×4 (05:52→23:09)
[2022-08-23] MEDS: APIXABAN 5 MG TABLET PO SCH ×2 (09:14→21:12)
[2022-08-23] MEDS: PANTOPRAZOLE 40 MG TABLET PO SCH (09:14)
[2022-08-23] MEDS: ASPIRIN COATED 81 MG TABLET.EC PO SCH (09:14)
[2022-08-23] MEDS: levETIRAcetam 500 MG TABLET (FP) PO SCH ×2 (09:14→21:12)
[2022-08-23] MEDS: METOPROLOL TARTRATE 25 MG TABLET (FP) PO SCH ×2 (09:14→21:12)
[2022-08-23] MEDS: AMINO ACIDS/PROTEIN HYDROLYS 30 ML LIQUID.PKT PO SCH ×3 (09:14→17:06)
[2022-08-24] MEDS: VANCOMYCIN 250 MG/5 ML ORAL SOLUTION PO SCH ×3 (06:04→17:49)
[2022-08-24] MEDS: ASPIRIN COATED 81 MG TABLET.EC PO SCH (09:04)
[2022-08-24] MEDS: levETIRAcetam 500 MG TABLET (FP) PO SCH ×2 (09:04→21:33)
[2022-08-24] MEDS: AMINO ACIDS/PROTEIN HYDROLYS 30 ML LIQUID.PKT PO SCH ×4 (09:04→17:49)
[2022-08-24] MEDS: PANTOPRAZOLE 40 MG TABLET PO SCH (09:05)
[2022-08-24] MEDS: APIXABAN 5 MG TABLET PO SCH ×2 (09:05→21:33)
[2022-08-24] MEDS: METOPROLOL TARTRATE 25 MG TABLET (FP) PO SCH ×2 (09:05→21:33)
[2022-08-24 13:13] LABS: BASO % 1.2 % (0-2.0); EOS % 7.4 % (0-4.5); HEMATOCRIT 26.2 % (32.4-45.2); HEMOGLOBIN 8.3 GM/dL (10.7-15.3); LYMPH % 22.3 % (8-40); MCH 25.7 pg (25.7-33.7); MCHC 31.5 g/dl (32.0-36.0); MEAN CELL VOLUME 81.6 fl (80-96); MEAN PLT VOLUME 8.8 fl (7.5-11.1); MONO % 7.4 % (3.8-10.2); NEUT % 61.7 % (42.8-82.8); PLATELET COUNT 327 10^3/uL (134-434); RBC 3.21 M/mm3 (3.60-5.2); RDW 19.3 % (11.6-15.6); WHITE BLOOD COUNT 7.1 K/mm3 (4.0-10.0)
[2022-08-24 13:32] LABS: CALCIUM 9.6 mg/dL (8.5-10.1)
[2022-08-24 13:33] LABS: ALBUMIN 2.5 g/dl (3.4-5.0); BLOOD UREA NITROGEN 23.5 mg/dL (7-18)
[2022-08-24 13:36] LABS: CREATININE 0.7 mg/dL (0.55-1.3)
[2022-08-24 13:37] LABS: BILIRUBIN,TOTAL 0.4 mg/dL (0.2-1); TOT PROT 6.7 g/dl (6.4-8.2)
[2022-08-24] MEDS: ACETAMINOPHEN 325 MG TABLET (FP) PO PRN (14:58)
[2022-08-24] MEDS ORDERED: IRON SUCROSE INJECTION 200 MG in SODIUM CHLORIDE 90 ML IVPB ONE (16:48)
[2022-08-24] MEDS: SCOPOLAMINE HYDROBROMIDE 1 PATCH PATCH.TD72 TD SCH (17:48)
[2022-08-25] MEDS: VANCOMYCIN 250 MG/5 ML ORAL SOLUTION PO SCH ×5 (00:32→23:05)
[2022-08-25 08:46] LABS: HEMATOCRIT 26.5 % (32.4-45.2); HEMOGLOBIN 8.4 GM/dL (10.7-15.3); MCH 26.2 pg (25.7-33.7); MCHC 31.8 g/dl (32.0-36.0); MEAN CELL VOLUME 82.6 fl (80-96); MEAN PLT VOLUME 9.2 fl (7.5-11.1); PLATELET COUNT 280 10^3/uL (134-434); RBC 3.21 M/mm3 (3.60-5.2); RDW 18.5 % (11.6-15.6); WHITE BLOOD COUNT 6.3 K/mm3 (4.0-10.0)
[2022-08-25 09:16] LABS: ALBUMIN 2.5 g/dl (3.4-5.0); CALCIUM 9.7 mg/dL (8.5-10.1)
[2022-08-25 09:19] LABS: CREATININE 0.7 mg/dL (0.55-1.3)
[2022-08-25 09:21] LABS: BILIRUBIN,TOTAL 0.4 mg/dL (0.2-1); TOT PROT 6.2 g/dl (6.4-8.2)
[2022-08-25] MEDS: AMINO ACIDS/PROTEIN HYDROLYS 30 ML LIQUID.PKT PO SCH ×4 (09:22→17:28)
[2022-08-25] MEDS: METOPROLOL TARTRATE 25 MG TABLET (FP) PO SCH ×2 (09:23→21:27)
[2022-08-25] MEDS: APIXABAN 5 MG TABLET PO SCH ×2 (09:23→21:27)
[2022-08-25] MEDS: ASPIRIN COATED 81 MG TABLET.EC PO SCH (09:23)
[2022-08-25] MEDS: PANTOPRAZOLE 40 MG TABLET PO SCH (09:23)
[2022-08-25] MEDS: levETIRAcetam 500 MG TABLET (FP) PO SCH ×2 (09:23→21:27)
[2022-08-25] MEDS ORDERED: REGADENOSON 0.4 MG/5 ML PRE-FILLED SYRINGE IVPUSH ONE ×2 (09:34→10:15)
[2022-08-25] MEDS: ACETAMINOPHEN 325 MG TABLET (FP) PO PRN (14:51)
[2022-08-26] MEDS: ACETAMINOPHEN 325 MG TABLET (FP) PO PRN (03:51)
[2022-08-26] MEDS: VANCOMYCIN 250 MG/5 ML ORAL SOLUTION PO SCH ×4 (06:08→23:12)
[2022-08-26] MEDS: AMINO ACIDS/PROTEIN HYDROLYS 30 ML LIQUID.PKT PO SCH ×3 (08:56→18:00)
[2022-08-26] MEDS: PANTOPRAZOLE 40 MG TABLET PO SCH (10:38)
[2022-08-26] MEDS: levETIRAcetam 500 MG TABLET (FP) PO SCH ×2 (10:38→22:06)
[2022-08-26] MEDS: APIXABAN 5 MG TABLET PO SCH ×2 (10:38→22:06)
[2022-08-26] MEDS: ASPIRIN COATED 81 MG TABLET.EC PO SCH (10:38)
[2022-08-26] MEDS: METOPROLOL TARTRATE 25 MG TABLET (FP) PO SCH ×2 (10:38→22:06)
[2022-08-27] MEDS: VANCOMYCIN 250 MG/5 ML ORAL SOLUTION PO SCH ×2 (06:03→11:08)
[2022-08-27] MEDS: METOPROLOL TARTRATE 25 MG TABLET (FP) PO SCH (10:14)
[2022-08-27] MEDS: ASPIRIN COATED 81 MG TABLET.EC PO SCH (10:14)
[2022-08-27] MEDS: APIXABAN 5 MG TABLET PO SCH (10:14)
[2022-08-27] MEDS: levETIRAcetam 500 MG TABLET (FP) PO SCH (10:14)
[2022-08-27] MEDS: AMINO ACIDS/PROTEIN HYDROLYS 30 ML LIQUID.PKT PO SCH ×3 (10:14→16:44)
[2022-08-27] MEDS: PANTOPRAZOLE 40 MG TABLET PO SCH (10:14)
[2022-08-27] MEDS: ACETAMINOPHEN 325 MG TABLET (FP) PO PRN (11:27)
[2022-08-27 13:26] LABS: ALBUMIN 2.6 g/dl (3.4-5.0); BLOOD UREA NITROGEN 16.5 mg/dL (7-18); CALCIUM 9.6 mg/dL (8.5-10.1)
[2022-08-27 13:29] LABS: CREATININE 0.8 mg/dL (0.55-1.3)
[2022-08-27 13:32] LABS: BILIRUBIN,TOTAL 0.4 mg/dL (0.2-1); TOT PROT 6.5 g/dl (6.4-8.2)
[2022-08-27 14:13] VITALS: TEMP 98.4
[2022-08-27] MEDS: SCOPOLAMINE HYDROBROMIDE 1 PATCH PATCH.TD72 TD SCH (16:03)
[2022-08-27 18:59] VITALS: BP 109/52; PULSE 76; RESP 20
== END 2022-08-27 19:55 | disposition home or self-care (01) | DRG 207 ==
LOC: JER 14:00 → JERBED 16:37 → JICU 18:31 → J4W 07-23 12:46 → JICU 07-27 09:08 → J4S 08-12 18:39
PROVIDERS: ADMIT Internal Medicine; ATTEND Internal Medicine
PROC: 30233N1 Transfusion of Nonautologous Red Blood Cells into Peripheral Vein, Percutaneous Approach (ICD-10-PCS; 2022-07-24)
PROC: 0DH67UZ Insertion of Feeding Device into Stomach, Via Natural or Artificial Opening (ICD-10-PCS; 2022-07-28)
PROC: 3E0G76Z Introduction of Nutritional Substance into Upper GI, Via Natural or Artificial Opening (ICD-10-PCS; 2022-07-28)
PROC: 05HM33Z Insertion of Infusion Device into Right Internal Jugular Vein, Percutaneous Approach (ICD-10-PCS; 2022-07-28)
PROC: B543ZZA Ultrasonography of Right Jugular Veins, Guidance (ICD-10-PCS; 2022-07-28)
PROC: 5A1955Z Respiratory Ventilation, Greater than 96 Consecutive Hours (ICD-10-PCS; principal; 2022-07-29)
PROC: 0BH17EZ Insertion of Endotracheal Airway into Trachea, Via Natural or Artificial Opening (ICD-10-PCS; 2022-07-29)
PROC: 05HC33Z Insertion of Infusion Device into Left Basilic Vein, Percutaneous Approach (ICD-10-PCS; 2022-08-08)
PROC: 05HD33Z Insertion of Infusion Device into Right Cephalic Vein, Percutaneous Approach (ICD-10-PCS; 2022-08-09)
DX: J96.02 Acute respiratory failure with hypercapnia (principal); J69.0 Pneumonitis due to inhalation of food and vomit; I50.33 Acute on chronic diastolic (congestive) heart failure; A41.9 Sepsis, unspecified organism; R65.21 Severe sepsis with septic shock; E87.20 Acidosis, unspecified; I24.8 Other forms of acute ischemic heart disease; E87.0 Hyperosmolality and hypernatremia; R47.01 Aphasia; I69.351 Hemiplegia and hemiparesis following cerebral infarction affecting right dominant side; N39.0 Urinary tract infection, site not specified; I11.0 Hypertensive heart disease with heart failure; J96.01 Acute respiratory failure with hypoxia; I48.0 Paroxysmal atrial fibrillation; I95.9 Hypotension, unspecified; D64.9 Anemia, unspecified; E78.5 Hyperlipidemia, unspecified; E87.6 Hypokalemia; E66.9 Obesity, unspecified; Z68.36 Body mass index [BMI] 36.0-36.9, adult; R19.7 Diarrhea, unspecified; I25.119 Atherosclerotic heart disease of native coronary artery with unspecified angina pectoris; E87.70 Fluid overload, unspecified; F17.210 Nicotine dependence, cigarettes, uncomplicated; D72.829 Elevated white blood cell count, unspecified
CPT/HCPCS: 0241U-QW; 36415; 36430; 36511; 36600; 71045-TC-FY; 74018-TC-FY; 74230-TC-FY; 76604; 78452-TC; 80048; 80053; 81003; 82272; 82436; 82550; 82570; 82803; 82962; 83735; 83880; 83993; 84100; 84133; 84156; 84300; 84443; 84484; 85025; 85027; 85610; 85730; 86850; 86900; 86901; 86922; 87040; 87045; 87046; 87070; 87086; 87186; 87205; 87209; 87324; 87449; 92611-GN; 93005; 93010; 93017; 93306-TC; 93308; 93970-TC; 94002; 94640; 94660; 94761; 97116-GP; 97162-GP; 99285-25; A9502; G0480; J0282; J1756; J2785; J3490; P9038; P9058

== ENCOUNTER 2022-09-10 21:41 | Inpatient (IN) | payer OTHER ==
[2022-09-10 23:46] LABS: BASO % 2.3 % (0-2.0); EOS % 8.2 % (0-4.5); HEMATOCRIT 29.2 % (32.4-45.2); HEMOGLOBIN 9.3 GM/dL (10.7-15.3); LYMPH % 22.7 % (8-40); MCH 26.5 pg (25.7-33.7); MEAN CELL VOLUME 82.8 fl (80-96); MEAN PLT VOLUME 9.3 fl (7.5-11.1); MONO % 9.1 % (3.8-10.2); NEUT % 57.7 % (42.8-82.8); PLATELET COUNT 245 10^3/uL (134-434); RBC 3.53 M/mm3 (3.60-5.2); RDW 19.5 % (11.6-15.6)
[2022-09-11 00:05] LABS: POTASSIUM 4.3 mmol/L (3.5-5.1)
[2022-09-11 00:07] LABS: BLOOD UREA NITROGEN 10.3 mg/dL (7-18); CALCIUM 8.9 mg/dL (8.5-10.1)
[2022-09-11 00:08] LABS: ALBUMIN 2.6 g/dl (3.4-5.0)
[2022-09-11 00:12] LABS: BILIRUBIN,TOTAL 0.4 mg/dL (0.2-1); TOT PROT 6.1 g/dl (6.4-8.2)
[2022-09-11 00:25] LABS: INR 2.95 (0.83-1.09); PROTHROMBIN TIME (PATIENT) 33.9 SEC (9.7-13.0)
[2022-09-11 00:28] LABS: ACTIVATED PTT 36.7 SECONDS (25.2-36.5)
[2022-09-11 03:34] LABS: EPI CELLS >36 /uL (0-25.1); HYALINE CASTS 13 /uL (0-3.1); URINE APPEARANCE CLEAR; URINE BACTERIA 2 /uL (0-1359); URINE BILIRUBIN NEGATIVE (NEGATIVE); URINE COLOR YELLOW; URINE GLUCOSE (UA) NEGATIVE (NEGATIVE); URINE KETONE TRACE (NEGATIVE); URINE LEUK ESTERASE NEGATIVE (NEGATIVE); URINE NITRITE NEGATIVE (NEGATIVE); URINE PROTEIN 1+ (NEGATIVE); URINE RBC 17 /uL (0-23.9); URINE UROBILINOGEN 0.2 mg/dL (0.2-1.0)
[2022-09-11] MEDS ORDERED: ACETAMINOPHEN 500 MG TABLET (FP) PO PRN (06:20)
[2022-09-11] MEDS ORDERED: ALBUTEROL SO4 2.5/IPRATROPIUM 0.5 INH SOL 3 ML VIAL.NEB. NEB PRN (06:20)
[2022-09-11] MEDS ORDERED: FUROSEMIDE 40 MG/4 ML INJECTABLE VIAL IVPUSH SCH (08:08)
[2022-09-11] MEDS ORDERED: LACTOBACILLUS ACIDOPHILUS 1 TABLET PO SCH (10:00)
[2022-09-11] MEDS ORDERED: SCOPOLAMINE HYDROBROMIDE 1 PATCH PATCH.TD72 TD SCH (10:00)
[2022-09-11] MEDS ORDERED: PANTOPRAZOLE 40 MG TABLET PO SCH (10:00)
[2022-09-11] MEDS ORDERED: ENOXAPARIN NA (PORCINE) 40 MG/0.4 ML DISP.SYRIN SQ SCH (10:00)
[2022-09-11] MEDS: METOPROLOL TARTRATE 25 MG TABLET (FP) PO SCH ×2 (10:13→21:08)
[2022-09-11] MEDS ORDERED: PANTOPRAZOLE 40 MG TABLET PO ONE (10:14)
[2022-09-11] MEDS ORDERED: APIXABAN 5 MG TABLET ONE (10:14)
[2022-09-11] MEDS ORDERED: levETIRAcetam 500 MG TABLET (FP) PO ONE (10:14)
[2022-09-11] MEDS: levETIRAcetam 500 MG TABLET (FP) PO SCH ×2 (10:20→21:08)
[2022-09-11] MEDS: APIXABAN 5 MG TABLET PO SCH ×2 (10:20→21:07)
[2022-09-11] MEDS ORDERED: FAMOTIDINE 20 MG TABLET PO SCH (22:00)
[2022-09-11] MEDS ORDERED: ATORVASTATIN CA 40 MG TABLET (FP) PO SCH (22:00)
[2022-09-12] MEDS ORDERED: ALBUTEROL SO4 2.5/IPRATROPIUM 0.5 INH SOL 3 ML VIAL.NEB. NEB PRN (07:38)
[2022-09-12 09:20] LABS: INR 2.45 (0.83-1.09); PROTHROMBIN TIME (PATIENT) 28.2 SEC (9.7-13.0)
[2022-09-12 09:43] LABS: POTASSIUM 3.9 mmol/L (3.5-5.1)
[2022-09-12 09:51] LABS: CALCIUM 8.8 mg/dL (8.5-10.1); HEMATOCRIT 29.4 % (32.4-45.2); HEMOGLOBIN 9.4 GM/dL (10.7-15.3); MCH 26.8 pg (25.7-33.7); MEAN CELL VOLUME 83.8 fl (80-96); MEAN PLT VOLUME 9.5 fl (7.5-11.1); PLATELET COUNT 239 10^3/uL (134-434); RDW 19.2 % (11.6-15.6); WHITE BLOOD COUNT 5.4 K/mm3 (4.0-10.0)
[2022-09-12 09:52] LABS: ALBUMIN 2.4 g/dl (3.4-5.0); MAGNESIUM 1.6 mg/dL (1.8-2.4)
[2022-09-12 09:54] LABS: PHOSPHOROUS 3.6 mg/dL (2.5-4.9)
[2022-09-12 09:55] LABS: CREATININE 0.8 mg/dL (0.55-1.3)
[2022-09-12 09:56] LABS: BILIRUBIN,TOTAL 0.6 mg/dL (0.2-1)
[2022-09-12 09:57] LABS: TOT PROT 5.7 g/dl (6.4-8.2)
[2022-09-12] MEDS: levETIRAcetam 500 MG TABLET (FP) PO SCH ×2 (10:09→22:22)
[2022-09-12] MEDS: PANTOPRAZOLE 40 MG TABLET PO SCH (10:09)
[2022-09-12] MEDS: METOPROLOL TARTRATE 25 MG TABLET (FP) PO SCH ×2 (10:09→22:21)
[2022-09-12] MEDS: APIXABAN 5 MG TABLET PO SCH ×2 (10:10→22:21)
[2022-09-12] MEDS: LACTOBACILLUS ACIDOPHILUS 1 TABLET PO SCH (10:10)
[2022-09-12] MEDS: ACETAMINOPHEN 500 MG TABLET (FP) PO PRN ×2 (14:16→19:51)
[2022-09-12 16:12] LABS: N-TERMINAL BNP 1472.2 pg/ml (5-450)
[2022-09-12] MEDS: ATORVASTATIN CA 40 MG TABLET (FP) PO SCH (22:21)
[2022-09-12] MEDS: FAMOTIDINE 20 MG TABLET PO SCH (22:21)
[2022-09-12] MEDS: MAGNESIUM OXIDE 400 MG TABLET (FP) PO SCH (22:21)
[2022-09-13 09:25] LABS: BASO % 0.7 % (0-2.0); EOS % 7.1 % (0-4.5); HEMATOCRIT 30.2 % (32.4-45.2); HEMOGLOBIN 9.3 GM/dL (10.7-15.3); LYMPH % 20.4 % (8-40); MCH 25.8 pg (25.7-33.7); MCHC 30.8 g/dl (32.0-36.0); MEAN CELL VOLUME 83.8 fl (80-96); MEAN PLT VOLUME 8.9 fl (7.5-11.1); MONO % 7.6 % (3.8-10.2); NEUT % 64.2 % (42.8-82.8); PLATELET COUNT 233 10^3/uL (134-434); RDW 19.4 % (11.6-15.6); WHITE BLOOD COUNT 5.8 K/mm3 (4.0-10.0)
[2022-09-13 09:43] LABS: POTASSIUM 3.9 mmol/L (3.5-5.1)
[2022-09-13 09:45] LABS: CALCIUM 8.8 mg/dL (8.5-10.1)
[2022-09-13] MEDS: APIXABAN 5 MG TABLET PO SCH ×2 (09:45→21:57)
[2022-09-13] MEDS: LACTOBACILLUS ACIDOPHILUS 1 TABLET PO SCH (09:45)
[2022-09-13 09:46] LABS: ALBUMIN 2.4 g/dl (3.4-5.0); BLOOD UREA NITROGEN 6.5 mg/dL (7-18); MAGNESIUM 1.7 mg/dL (1.8-2.4)
[2022-09-13] MEDS: PANTOPRAZOLE 40 MG TABLET PO SCH (09:46)
[2022-09-13] MEDS: MAGNESIUM OXIDE 400 MG TABLET (FP) PO SCH ×2 (09:46→21:57)
[2022-09-13] MEDS: levETIRAcetam 500 MG TABLET (FP) PO SCH ×2 (09:46→21:57)
[2022-09-13] MEDS: METOPROLOL TARTRATE 25 MG TABLET (FP) PO SCH ×2 (09:46→21:56)
[2022-09-13 09:49] LABS: CREATININE 0.7 mg/dL (0.55-1.3)
[2022-09-13 09:51] LABS: BILIRUBIN,TOTAL 0.4 mg/dL (0.2-1); TOT PROT 5.7 g/dl (6.4-8.2)
[2022-09-13] MEDS: ACETAMINOPHEN 500 MG TABLET (FP) PO PRN ×3 (10:27→21:56)
[2022-09-13] MEDS ORDERED: SODIUM CHLORIDE 1,000 ML IV SCH (12:15)
[2022-09-13] MEDS: FAMOTIDINE 20 MG TABLET PO SCH (21:55)
[2022-09-13] MEDS: ATORVASTATIN CA 40 MG TABLET (FP) PO SCH (21:57)
[2022-09-13] MEDS: BENZTROPINE MESYLATE 0.5 MG TABLET (FP) PO SCH (22:43)
[2022-09-14] MEDS ORDERED: ALBUTEROL SO4 2.5/IPRATROPIUM 0.5 INH SOL 3 ML VIAL.NEB. NEB ONE (08:39)
[2022-09-14] MEDS ORDERED: methylPREDNISolone NA SUCC 40 MG/1 ML VIAL IVPUSH ONE (08:42)
[2022-09-14] MEDS ORDERED: methylPREDNISolone NA SUCC 125 MG/2 ML VIAL ONE (08:43)
[2022-09-14] MEDS ORDERED: PIPERACILLIN/TAZOB 3.375 GM 3.375 GM in DEXTROSE 5%-WATER - 50 ML IVPB ONE (09:02)
[2022-09-14] MEDS ORDERED: FUROSEMIDE 40 MG/4 ML INJECTABLE VIAL IVPUSH ONE (09:05)
[2022-09-14] MEDS ORDERED: FUROSEMIDE 40 MG/4 ML INJECTABLE VIAL ONE (09:07)
[2022-09-14 09:29] LABS: BASO % 0.2 % (0-2.0); EOS % 5.7 % (0-4.5); HEMOGLOBIN 11.1 GM/dL (10.7-15.3); LYMPH % 41.3 % (8-40); MCH 26.1 pg (25.7-33.7); MEAN PLT VOLUME 8.7 fl (7.5-11.1); MONO % 7.6 % (3.8-10.2); NEUT % 45.2 % (42.8-82.8); PLATELET COUNT 351 10^3/uL (134-434); RBC 4.25 M/mm3 (3.60-5.2); RDW 19.7 % (11.6-15.6); WHITE BLOOD COUNT 12.5 K/mm3 (4.0-10.0)
[2022-09-14 09:36] LABS: INR 2.09 (0.83-1.09); PROTHROMBIN TIME (PATIENT) 24.1 SEC (9.7-13.0)
[2022-09-14 09:39] LABS: ACTIVATED PTT 34.5 SECONDS (25.2-36.5)
[2022-09-14 09:40] LABS: ARTERIAL BLD GAS O2 SATURATION 78.2 % (95-98); ARTERIAL BLOOD GAS BASE EXCESS -9.9 mmol/L (-2-2); ARTERIAL BLOOD GAS PO2 59.3 mmHg (80-100)
[2022-09-14 09:45] LABS: ALLENS TEST POSITIVE; ARTERIAL BLOOD GAS pH 7.071 (7.350-7.450)
[2022-09-14 09:48] LABS: CALCIUM 9.2 mg/dL (8.5-10.1)
[2022-09-14 09:49] LABS: ALBUMIN 2.8 g/dl (3.4-5.0); BLOOD UREA NITROGEN 5.8 mg/dL (7-18); MAGNESIUM 1.9 mg/dL (1.8-2.4)
[2022-09-14 09:51] LABS: CREATININE 1.1 mg/dL (0.55-1.3)
[2022-09-14 09:53] LABS: BILIRUBIN,TOTAL 0.5 mg/dL (0.2-1)
[2022-09-14] MEDS ORDERED: PROPOFOL 1,000,000 MCG/100 ML VIAL ONE (10:04)
[2022-09-14] MEDS ORDERED: SODIUM CHLORIDE 1,000 ML IV STA (10:25)
[2022-09-14 10:31] LABS: LACTIC ACID 5.8 mmol/L (0.4-2.0)
[2022-09-14] MEDS ORDERED: PIPERACILLIN/TAZOB 4.5 GM 4.5 GM in DEXTROSE 5%-WATER 100 ML IVPB ONE (10:51)
[2022-09-14 12:25] LABS: ARTERIAL BLD GAS O2 SATURATION 98.9 % (95-98); ARTERIAL BLOOD GAS BASE EXCESS -5.4 mmol/L (-2-2); ARTERIAL BLOOD GAS PO2 152.9 mmHg (80-100); ARTERIAL BLOOD GAS pH 7.351 (7.350-7.450)
[2022-09-14 12:28] LABS: ALLENS TEST POSITIVE; VENT MODE AC; VENT RATE 26
[2022-09-14] MEDS ORDERED: VANCOMYCIN/WATER FOR INJ (PEG) 1,000 MG/200 ML BAG IVPB ONE (15:41)
[2022-09-14 16:20] LABS: ARTERIAL BLD GAS O2 SATURATION 98.7 % (95-98); ARTERIAL BLOOD GAS BASE EXCESS 0 mmol/L (-2-2); ARTERIAL BLOOD GAS PO2 133.3 mmHg (80-100)
[2022-09-14 16:28] LABS: ALLENS TEST POSITIVE
[2022-09-14 16:29] LABS: VENT RATE 16
[2022-09-14] MEDS ORDERED: MIDAZOLAM IN 0.9 % SOD.CHLORID 1 MG/1 ML PLAST..BAG ONE (18:30)
[2022-09-14] MEDS ORDERED: ROCURONIUM BROMIDE 50 MG/5 ML VIAL IV ONE (18:40)
[2022-09-14] MEDS ORDERED: MIDAZOLAM HCL 5 MG/1 ML Single Dose Vial IVPUSH ONE (18:40)
[2022-09-14] MEDS ORDERED: PROPOFOL 200 MG/20 ML VIAL IVPUSH ONE ×2 (18:40→18:43)
[2022-09-14] MEDS ORDERED: MIDAZOLAM 100 MG in SODIUM CHLORIDE 100 ML IVPB SCH (18:45)
[2022-09-14] MEDS ORDERED: MIDAZOLAM IN 0.9 % SOD.CHLORID 100 MG/100 ML PLAST..BAG IVPB SCH (19:00)
[2022-09-14 19:05] LABS: LACTIC ACID 2.6 mmol/L (0.4-2.0)
[2022-09-14] MEDS: BENZTROPINE MESYLATE 0.5 MG TABLET (FP) PO SCH ×2 (19:13→21:50)
[2022-09-14] MEDS: APIXABAN 5 MG TABLET PO SCH ×2 (19:13→21:51)
[2022-09-14] MEDS: LACTOBACILLUS ACIDOPHILUS 1 TABLET PO SCH (19:13)
[2022-09-14] MEDS: levETIRAcetam 500 MG TABLET (FP) PO SCH ×2 (19:13→21:51)
[2022-09-14] MEDS: METOPROLOL TARTRATE 25 MG TABLET (FP) PO SCH ×2 (19:14→21:51)
[2022-09-14] MEDS: MAGNESIUM OXIDE 400 MG TABLET (FP) PO SCH ×2 (19:14→21:51)
[2022-09-14] MEDS: PANTOPRAZOLE 40 MG TABLET PO SCH (19:15)
[2022-09-14] MEDS: PIPERACILLIN/TAZOB 4.5 GM 4.5 GM in DEXTROSE 5%-WATER 100 ML IVPB SCH (19:16)
[2022-09-14] MEDS: methylPREDNISolone NA SUCC 40 MG/1 ML VIAL IVPUSH SCH ×3 (19:16→21:51)
[2022-09-14] MEDS: PROPOFOL 1,000,000 MCG/100 ML VIAL IVPB SCH (19:20)
[2022-09-14] MEDS: ATORVASTATIN CA 40 MG TABLET (FP) PO SCH (21:51)
[2022-09-14] MEDS: FAMOTIDINE 20 MG TABLET PO SCH (21:51)
[2022-09-15] MEDS: PIPERACILLIN/TAZOB 4.5 GM 4.5 GM in DEXTROSE 5%-WATER 100 ML IVPB SCH ×3 (01:26→17:29)
[2022-09-15] MEDS: methylPREDNISolone NA SUCC 40 MG/1 ML VIAL IVPUSH SCH ×3 (02:41→17:30)
[2022-09-15 06:20] LABS: ARTERIAL BLD GAS O2 SATURATION 99.4 % (95-98); ARTERIAL BLOOD GAS BASE EXCESS -0.4 mmol/L (-2-2); ARTERIAL BLOOD GAS PO2 194.9 mmHg (80-100); ARTERIAL BLOOD GAS pH 7.485 (7.350-7.450)
[2022-09-15 06:22] LABS: ALLENS TEST POSITIVE; VENT MODE V-A/C; VENT RATE 16
[2022-09-15 07:13] LABS: BASO % 0.5 % (0-2.0); EOS % 0.1 % (0-4.5); HEMATOCRIT 33.1 % (32.4-45.2); HEMOGLOBIN 11.3 GM/dL (10.7-15.3); LYMPH % 7.8 % (8-40); MCH 28.3 pg (25.7-33.7); MCHC 34.1 g/dl (32.0-36.0); MEAN CELL VOLUME 82.9 fl (80-96); MEAN PLT VOLUME 9.1 fl (7.5-11.1); MONO % 1.3 % (3.8-10.2); NEUT % 90.3 % (42.8-82.8); PLATELET COUNT 262 10^3/uL (134-434); RBC 3.99 M/mm3 (3.60-5.2); RDW 19.7 % (11.6-15.6); WHITE BLOOD COUNT 9.8 K/mm3 (4.0-10.0)
[2022-09-15 07:35] LABS: POTASSIUM 4.2 mmol/L (3.5-5.1)
[2022-09-15 07:38] LABS: ALBUMIN 2.4 g/dl (3.4-5.0); CALCIUM 8.1 mg/dL (8.5-10.1); MAGNESIUM 1.5 mg/dL (1.8-2.4)
[2022-09-15 07:41] LABS: CREATININE 1.2 mg/dL (0.55-1.3)
[2022-09-15] MEDS: PROPOFOL 1,000,000 MCG/100 ML VIAL IVPB SCH ×6 (07:54→16:49)
[2022-09-15 08:19] LABS: BLOOD UREA NITROGEN 11.1 mg/dL (7-18); TOT PROT 6.2 g/dl (6.4-8.2)
[2022-09-15] MEDS ORDERED: MAGNESIUM SULF 50% (8.12 MEQ/2 ML-1 GM VIAL) IVPB ONE (09:00)
[2022-09-15] MEDS: PANTOPRAZOLE 40 MG TABLET PO SCH (09:29)
[2022-09-15] MEDS: LACTOBACILLUS ACIDOPHILUS 1 TABLET PO SCH (09:29)
[2022-09-15] MEDS: levETIRAcetam 500 MG TABLET (FP) PO SCH (09:30)
[2022-09-15] MEDS: MAGNESIUM OXIDE 400 MG TABLET (FP) PO SCH ×2 (09:30→22:05)
[2022-09-15] MEDS: APIXABAN 5 MG TABLET PO SCH ×2 (09:30→22:05)
[2022-09-15] MEDS: BENZTROPINE MESYLATE 0.5 MG TABLET (FP) PO SCH ×2 (09:31→22:10)
[2022-09-15] MEDS: METOPROLOL TARTRATE 25 MG TABLET (FP) PO SCH ×2 (09:31→22:04)
[2022-09-15] MEDS ORDERED: FUROSEMIDE 40 MG/4 ML INJECTABLE VIAL IVPUSH ONE (10:47)
[2022-09-15] MEDS: FAMOTIDINE 20 MG/50 ML IVPB 20 MG/50 ML MG IVPB SCH (22:10)
[2022-09-15] MEDS: levETIRAcetam 500 MG/5 ML INJECTION VIAL IVPB SCH (22:10)
[2022-09-15] MEDS: ATORVASTATIN CA 40 MG TABLET (FP) PO SCH (23:05)
[2022-09-16] MEDS: PROPOFOL 1,000,000 MCG/100 ML VIAL IVPB SCH (01:23)
[2022-09-16] MEDS: methylPREDNISolone NA SUCC 40 MG/1 ML VIAL IVPUSH SCH ×3 (01:25→17:49)
[2022-09-16] MEDS: PIPERACILLIN/TAZOB 4.5 GM 4.5 GM in DEXTROSE 5%-WATER 100 ML IVPB SCH ×3 (01:26→17:49)
[2022-09-16 06:03] LABS: ARTERIAL BLD GAS O2 SATURATION 99.1 % (95-98); ARTERIAL BLOOD GAS BASE EXCESS 0.2 mmol/L (-2-2); ARTERIAL BLOOD GAS PO2 148.5 mmHg (80-100); ARTERIAL BLOOD GAS pH 7.468 (7.350-7.450)
[2022-09-16 06:04] LABS: ALLENS TEST POSITIVE; VENT MODE A/C; VENT RATE 14
[2022-09-16] MEDS ORDERED: MIDAZOLAM IN 0.9 % SOD.CHLORID 100 MG/100 ML PLAST..BAG IVPB SCH (07:00)
[2022-09-16 07:21] LABS: BASO % 0.1 % (0-2.0); EOS % 0.6 % (0-4.5); HEMATOCRIT 26.5 % (32.4-45.2); HEMOGLOBIN 8.4 GM/dL (10.7-15.3); LYMPH % 5.7 % (8-40); MCH 27.7 pg (25.7-33.7); MCHC 31.8 g/dl (32.0-36.0); MEAN CELL VOLUME 87.1 fl (80-96); MEAN PLT VOLUME 10.1 fl (7.5-11.1); MONO % 3.6 % (3.8-10.2); PLATELET COUNT 214 10^3/uL (134-434); RBC 3.04 M/mm3 (3.60-5.2); RDW 20.1 % (11.6-15.6)
[2022-09-16 07:35] LABS: CHLORIDE 89 mmol/L (98-107); SODIUM 132 mmol/L (136-145)
[2022-09-16 07:39] LABS: BLOOD UREA NITROGEN 15.8 mg/dL (7-18); CO2 18 mmol/L (21-32); MAGNESIUM 1.3 mg/dL (1.8-2.4)
[2022-09-16 07:41] LABS: CREATININE 1.4 mg/dL (0.55-1.3); PHOSPHOROUS 2.5 mg/dL (2.5-4.9); SGOT/AST 8 U/L (15-37); SGPT/ALT 9 U/L (13-61)
[2022-09-16 07:43] LABS: BILIRUBIN,TOTAL 0.4 mg/dL (0.2-1)
[2022-09-16 07:51] LABS: ALBUMIN 1.4 g/dl (3.4-5.0); ALK PHOS 50 U/L (45-117); ANION GAP 26 MMOL/L (8-16); CALCIUM 5.6 mg/dL (8.5-10.1); GLUCOSE,RANDOM 960 mg/dL (74-106); POTASSIUM 2.5 mmol/L (3.5-5.1)
[2022-09-16] MEDS: LACTOBACILLUS ACIDOPHILUS 1 TABLET PO SCH (09:24)
[2022-09-16] MEDS: MAGNESIUM OXIDE 400 MG TABLET (FP) PO SCH ×2 (09:24→21:29)
[2022-09-16] MEDS: levETIRAcetam 500 MG/5 ML INJECTION VIAL IVPB SCH ×2 (09:24→21:29)
[2022-09-16] MEDS: FAMOTIDINE 20 MG/50 ML IVPB 20 MG/50 ML MG IVPB SCH ×2 (09:25→21:30)
[2022-09-16] MEDS: METOPROLOL TARTRATE 25 MG TABLET (FP) PO SCH ×2 (09:25→21:30)
[2022-09-16] MEDS: APIXABAN 5 MG TABLET PO SCH ×2 (09:25→21:30)
[2022-09-16] MEDS: LACTATED RINGERS SOLUTION 1,000 ML/1,000 ML INFUS.BAG IV SCH (09:25)
[2022-09-16] MEDS: BENZTROPINE MESYLATE 0.5 MG TABLET (FP) PO SCH ×2 (09:38→21:29)
[2022-09-16 11:22] LABS: POTASSIUM 3.9 mmol/L (3.5-5.1)
[2022-09-16 11:25] LABS: BLOOD UREA NITROGEN 21.9 mg/dL (7-18)
[2022-09-16 11:27] LABS: CREATININE 1.6 mg/dL (0.55-1.3)
[2022-09-16 11:29] LABS: BILIRUBIN,TOTAL 0.5 mg/dL (0.2-1); TOT PROT 5.4 g/dl (6.4-8.2)
[2022-09-16 11:33] LABS: ALBUMIN 2.1 g/dl (3.4-5.0); CALCIUM 8.8 mg/dL (8.5-10.1)
[2022-09-16 13:03] LABS: BASO % 0.2 % (0-2.0); HEMATOCRIT 34.9 % (32.4-45.2); HEMOGLOBIN 10.9 GM/dL (10.7-15.3); LYMPH % 8.9 % (8-40); MCH 25.8 pg (25.7-33.7); MCHC 31.4 g/dl (32.0-36.0); MEAN CELL VOLUME 82.4 fl (80-96); MEAN PLT VOLUME 9.1 fl (7.5-11.1); MONO % 4.6 % (3.8-10.2); NEUT % 86.3 % (42.8-82.8); PLATELET COUNT 253 10^3/uL (134-434); RBC 4.24 M/mm3 (3.60-5.2); RDW 20.2 % (11.6-15.6)
[2022-09-16 13:20] LABS: WHITE BLOOD COUNT 9.5 K/mm3 (4.0-10.0)
[2022-09-16] MEDS ORDERED: PROPOFOL 1,000,000 MCG/100 ML VIAL ONE (15:15)
[2022-09-16] MEDS: ATORVASTATIN CA 40 MG TABLET (FP) PO SCH (21:29)
[2022-09-17] MEDS: PIPERACILLIN/TAZOB 4.5 GM 4.5 GM in DEXTROSE 5%-WATER 100 ML IVPB SCH ×3 (02:05→17:13)
[2022-09-17] MEDS: methylPREDNISolone NA SUCC 40 MG/1 ML VIAL IVPUSH SCH ×3 (02:05→17:14)
[2022-09-17] MEDS: PROPOFOL 1,000,000 MCG/100 ML VIAL IVPB SCH ×2 (02:12→17:14)
[2022-09-17] MEDS: LACTATED RINGERS SOLUTION 1,000 ML/1,000 ML INFUS.BAG IV SCH (02:31)
[2022-09-17 07:06] LABS: HEMATOCRIT 33.1 % (32.4-45.2); HEMOGLOBIN 10.6 GM/dL (10.7-15.3); MCHC 32.1 g/dl (32.0-36.0); MEAN PLT VOLUME 9.8 fl (7.5-11.1); PLATELET COUNT 261 10^3/uL (134-434); RBC 4.09 M/mm3 (3.60-5.2); RDW 19.8 % (11.6-15.6); WHITE BLOOD COUNT 9.2 K/mm3 (4.0-10.0)
[2022-09-17 07:29] LABS: POTASSIUM 3.7 mmol/L (3.5-5.1)
[2022-09-17 07:31] LABS: ALBUMIN 2.3 g/dl (3.4-5.0); CALCIUM 8.6 mg/dL (8.5-10.1)
[2022-09-17 07:34] LABS: CREATININE 1.3 mg/dL (0.55-1.3); PHOSPHOROUS 2.6 mg/dL (2.5-4.9)
[2022-09-17 07:36] LABS: BILIRUBIN,TOTAL 0.5 mg/dL (0.2-1); TOT PROT 5.7 g/dl (6.4-8.2)
[2022-09-17] MEDS: MAGNESIUM OXIDE 400 MG TABLET (FP) PO SCH ×2 (09:22→21:25)
[2022-09-17] MEDS: METOPROLOL TARTRATE 25 MG TABLET (FP) PO SCH ×3 (09:22→21:31)
[2022-09-17] MEDS: APIXABAN 5 MG TABLET PO SCH ×2 (09:22→21:25)
[2022-09-17] MEDS: LACTOBACILLUS ACIDOPHILUS 1 TABLET PO SCH (09:22)
[2022-09-17] MEDS: BENZTROPINE MESYLATE 0.5 MG TABLET (FP) PO SCH ×2 (09:22→21:26)
[2022-09-17] MEDS: levETIRAcetam 500 MG/5 ML INJECTION VIAL IVPB SCH ×2 (09:22→21:25)
[2022-09-17] MEDS: FAMOTIDINE 20 MG/50 ML IVPB 20 MG/50 ML MG IVPB SCH ×2 (09:23→21:25)
[2022-09-17] MEDS ORDERED: LACTATED RINGERS SOLUTION 1,000 ML/1,000 ML INFUS.BAG IV SCH (13:15)
[2022-09-17 19:23] LABS: EPI CELLS >36 /uL (0-25.1); HYALINE CASTS 3 /uL (0-3.1); PH,URINE 5.5 (5.0-8.0); URINE APPEARANCE TURBID; URINE BACTERIA 26 /uL (0-1359); URINE BILIRUBIN 1+ (NEGATIVE); URINE COLOR RED; URINE GLUCOSE (UA) NEGATIVE (NEGATIVE); URINE KETONE NEGATIVE (NEGATIVE); URINE LEUK ESTERASE 2+ (NEGATIVE); URINE NITRITE NEGATIVE (NEGATIVE); URINE PROTEIN 2+ (NEGATIVE); URINE RBC 50764 /uL (0-23.9); URINE UROBILINOGEN 0.2 mg/dL (0.2-1.0); URINE WBC 136 /uL (0-25.8)
[2022-09-17 20:44] LABS: BASO % 0.5 % (0-2.0); HEMATOCRIT 29.5 % (32.4-45.2); HEMOGLOBIN 9.5 GM/dL (10.7-15.3); MCH 26.2 pg (25.7-33.7); MCHC 32.1 g/dl (32.0-36.0); MEAN CELL VOLUME 81.5 fl (80-96); MEAN PLT VOLUME 9.3 fl (7.5-11.1); MONO % 5.8 % (3.8-10.2); NEUT % 86.7 % (42.8-82.8); PLATELET COUNT 246 10^3/uL (134-434); RBC 3.62 M/mm3 (3.60-5.2); WHITE BLOOD COUNT 9.1 K/mm3 (4.0-10.0)
[2022-09-17 20:54] LABS: INR 1.49 (0.83-1.09); PROTHROMBIN TIME (PATIENT) 17.2 SEC (9.7-13.0)
[2022-09-17 20:57] LABS: ACTIVATED PTT 25.3 SECONDS (25.2-36.5)
[2022-09-17] MEDS: ATORVASTATIN CA 40 MG TABLET (FP) PO SCH (21:25)
[2022-09-18] MEDS: methylPREDNISolone NA SUCC 40 MG/1 ML VIAL IVPUSH SCH ×2 (01:05→09:10)
[2022-09-18] MEDS: PROPOFOL 1,000,000 MCG/100 ML VIAL IVPB SCH (01:15)
[2022-09-18 05:57] LABS: ARTERIAL BLD GAS O2 SATURATION 99.2 % (95-98); ARTERIAL BLOOD GAS BASE EXCESS 0 mmol/L (-2-2); ARTERIAL BLOOD GAS pH 7.473 (7.350-7.450)
[2022-09-18] MEDS ORDERED: FUROSEMIDE 40 MG/4 ML INJECTABLE VIAL IVPUSH ONE (05:57)
[2022-09-18 05:58] LABS: ALLENS TEST POSITIVE; VENT MODE A/C; VENT RATE 14
[2022-09-18 06:38] LABS: BASO % 0.1 % (0-2.0); EOS % 0.1 % (0-4.5); HEMOGLOBIN 10.5 GM/dL (10.7-15.3); LYMPH % 8.7 % (8-40); MCH 26.7 pg (25.7-33.7); MCHC 32.8 g/dl (32.0-36.0); MEAN CELL VOLUME 81.4 fl (80-96); MEAN PLT VOLUME 9.8 fl (7.5-11.1); MONO % 4.6 % (3.8-10.2); NEUT % 86.5 % (42.8-82.8); PLATELET COUNT 259 10^3/uL (134-434); RBC 3.93 M/mm3 (3.60-5.2); RDW 19.5 % (11.6-15.6); WHITE BLOOD COUNT 7.8 K/mm3 (4.0-10.0)
[2022-09-18 06:57] LABS: ALBUMIN 2.3 g/dl (3.4-5.0); BLOOD UREA NITROGEN 27.8 mg/dL (7-18); CALCIUM 8.4 mg/dL (8.5-10.1); MAGNESIUM 2.3 mg/dL (1.8-2.4)
[2022-09-18 06:59] LABS: CREATININE 1.1 mg/dL (0.55-1.3); PHOSPHOROUS 2.3 mg/dL (2.5-4.9)
[2022-09-18 07:01] LABS: BILIRUBIN,TOTAL 0.3 mg/dL (0.2-1); TOT PROT 5.8 g/dl (6.4-8.2)
[2022-09-18] MEDS: LACTOBACILLUS ACIDOPHILUS 1 TABLET PO SCH (09:10)
[2022-09-18] MEDS: MAGNESIUM OXIDE 400 MG TABLET (FP) PO SCH ×2 (09:10→21:06)
[2022-09-18] MEDS: FAMOTIDINE 20 MG/50 ML IVPB 20 MG/50 ML MG IVPB SCH ×2 (09:10→21:06)
[2022-09-18] MEDS: levETIRAcetam 500 MG/5 ML INJECTION VIAL IVPB SCH ×2 (09:10→21:06)
[2022-09-18] MEDS: APIXABAN 5 MG TABLET PO SCH ×2 (09:10→21:06)
[2022-09-18] MEDS: CEFTRIAXONE 2 GM in DEXTROSE 5%-WATER 100 ML IVPB SCH (09:10)
[2022-09-18] MEDS: BENZTROPINE MESYLATE 0.5 MG TABLET (FP) PO SCH (09:11)
[2022-09-18] MEDS: METOPROLOL TARTRATE 25 MG TABLET (FP) PO SCH ×3 (09:11→21:06)
[2022-09-18] MEDS ORDERED: POTASSIUM CHLORIDE ORAL LIQUID 20 MEQ/15 ML PO ONE (12:04)
[2022-09-18 15:49] VITALS: BMI 35.5
[2022-09-18] MEDS: ATORVASTATIN CA 40 MG TABLET (FP) PO SCH (21:06)
[2022-09-19] MEDS: PROPOFOL 1,000,000 MCG/100 ML VIAL IVPB SCH (04:27)
[2022-09-19 07:01] LABS: BASO % 0.3 % (0-2.0); HEMATOCRIT 33.4 % (32.4-45.2); HEMOGLOBIN 10.8 GM/dL (10.7-15.3); LYMPH % 11.6 % (8-40); MCH 26.4 pg (25.7-33.7); MCHC 32.3 g/dl (32.0-36.0); MEAN CELL VOLUME 81.8 fl (80-96); MEAN PLT VOLUME 9.4 fl (7.5-11.1); MONO % 9.1 % (3.8-10.2); PLATELET COUNT 270 10^3/uL (134-434); RBC 4.09 M/mm3 (3.60-5.2); RDW 19.3 % (11.6-15.6)
[2022-09-19 07:16] LABS: POTASSIUM 3.2 mmol/L (3.5-5.1)
[2022-09-19 07:19] LABS: ALBUMIN 2.6 g/dl (3.4-5.0); BLOOD UREA NITROGEN 26.7 mg/dL (7-18); MAGNESIUM 2.2 mg/dL (1.8-2.4)
[2022-09-19 07:24] LABS: BILIRUBIN,TOTAL 0.6 mg/dL (0.2-1); TOT PROT 6.2 g/dl (6.4-8.2)
[2022-09-19] MEDS: POTASSIUM CHLORIDE ORAL LIQUID 20 MEQ/15 ML PO SCH ×2 (09:10→11:45)
[2022-09-19] MEDS: levETIRAcetam 500 MG/5 ML INJECTION VIAL IVPB SCH ×2 (09:10→21:06)
[2022-09-19] MEDS: CEFTRIAXONE 2 GM in DEXTROSE 5%-WATER 100 ML IVPB SCH (09:10)
[2022-09-19] MEDS: METOPROLOL TARTRATE 25 MG TABLET (FP) PO SCH ×2 (09:11→21:06)
[2022-09-19] MEDS: LACTOBACILLUS ACIDOPHILUS 1 TABLET PO SCH (09:11)
[2022-09-19] MEDS: FAMOTIDINE 20 MG/50 ML IVPB 20 MG/50 ML MG IVPB SCH ×2 (09:11→21:06)
[2022-09-19] MEDS: MAGNESIUM OXIDE 400 MG TABLET (FP) PO SCH ×2 (09:11→21:06)
[2022-09-19] MEDS: APIXABAN 5 MG TABLET PO SCH ×2 (09:11→21:06)
[2022-09-19] MEDS ORDERED: FUROSEMIDE 40 MG TABLET (FP) PO SCH (10:00)
[2022-09-19] MEDS ORDERED: ALBUTEROL SO4 2.5/IPRATROPIUM 0.5 INH SOL 3 ML VIAL.NEB. NEB PRN (19:04)
[2022-09-19] MEDS: ATORVASTATIN CA 40 MG TABLET (FP) PO SCH (21:06)
[2022-09-20 07:16] LABS: HEMATOCRIT 30.2 % (32.4-45.2); HEMOGLOBIN 9.6 GM/dL (10.7-15.3); MCH 26.2 pg (25.7-33.7); MCHC 31.8 g/dl (32.0-36.0); MEAN CELL VOLUME 82.5 fl (80-96); MEAN PLT VOLUME 9.1 fl (7.5-11.1); PLATELET COUNT 237 10^3/uL (134-434); RBC 3.67 M/mm3 (3.60-5.2); RDW 19.2 % (11.6-15.6); WHITE BLOOD COUNT 13.9 K/mm3 (4.0-10.0)
[2022-09-20 07:23] LABS: POTASSIUM 3.5 mmol/L (3.5-5.1)
[2022-09-20 07:26] LABS: BLOOD UREA NITROGEN 23.1 mg/dL (7-18)
[2022-09-20 07:29] LABS: CREATININE 0.8 mg/dL (0.55-1.3); PHOSPHOROUS 1.3 mg/dL (2.5-4.9)
[2022-09-20 07:43] LABS: CALCIUM 8.4 mg/dL (8.5-10.1)
[2022-09-20 07:44] LABS: MAGNESIUM 2.2 mg/dL (1.8-2.4)
[2022-09-20] MEDS: CEFTRIAXONE 2 GM in DEXTROSE 5%-WATER 100 ML IVPB SCH (09:57)
[2022-09-20] MEDS: FAMOTIDINE 20 MG/50 ML IVPB 20 MG/50 ML MG IVPB SCH ×2 (09:58→21:24)
[2022-09-20] MEDS: levETIRAcetam 500 MG/5 ML INJECTION VIAL IVPB SCH ×2 (09:58→21:23)
[2022-09-20] MEDS: FUROSEMIDE 40 MG TABLET (FP) PO SCH (09:59)
[2022-09-20] MEDS: METOPROLOL TARTRATE 25 MG TABLET (FP) PO SCH ×2 (09:59→21:24)
[2022-09-20] MEDS: MAGNESIUM OXIDE 400 MG TABLET (FP) PO SCH ×2 (09:59→21:24)
[2022-09-20] MEDS: APIXABAN 5 MG TABLET PO SCH ×2 (09:59→21:23)
[2022-09-20] MEDS: LACTOBACILLUS ACIDOPHILUS 1 TABLET PO SCH (10:00)
[2022-09-20] MEDS ORDERED: POTASSIUM PHOSPHATE 30 MM in DEXTROSE 5%-WATER - 500 ML IVPB ONE (13:00)
[2022-09-20] MEDS: ATORVASTATIN CA 40 MG TABLET (FP) PO SCH (21:23)
[2022-09-20] MEDS: ACETAMINOPHEN 500 MG TABLET (FP) PO PRN (22:56)
[2022-09-21 06:53] LABS: POTASSIUM 3.6 mmol/L (3.5-5.1)
[2022-09-21 06:55] LABS: BLOOD UREA NITROGEN 20.1 mg/dL (7-18); MAGNESIUM 2.1 mg/dL (1.8-2.4)
[2022-09-21 06:59] LABS: CREATININE 0.8 mg/dL (0.55-1.3); PHOSPHOROUS 2.1 mg/dL (2.5-4.9)
[2022-09-21 07:08] LABS: HEMOGLOBIN 8.1 GM/dL (10.7-15.3); MCH 25.7 pg (25.7-33.7); MCHC 31.3 g/dl (32.0-36.0); MEAN CELL VOLUME 81.9 fl (80-96); MEAN PLT VOLUME 9.4 fl (7.5-11.1); PLATELET COUNT 199 10^3/uL (134-434); RBC 3.17 M/mm3 (3.60-5.2); RDW 19.2 % (11.6-15.6); WHITE BLOOD COUNT 12.8 K/mm3 (4.0-10.0)
[2022-09-21] MEDS: CEFTRIAXONE 2 GM in DEXTROSE 5%-WATER 100 ML IVPB SCH (09:51)
[2022-09-21] MEDS: levETIRAcetam 500 MG/5 ML INJECTION VIAL IVPB SCH ×2 (09:51→21:42)
[2022-09-21] MEDS: FAMOTIDINE 20 MG/50 ML IVPB 20 MG/50 ML MG IVPB SCH ×2 (09:51→21:45)
[2022-09-21] MEDS: METOPROLOL TARTRATE 25 MG TABLET (FP) PO SCH ×2 (09:52→21:45)
[2022-09-21] MEDS: MAGNESIUM OXIDE 400 MG TABLET (FP) PO SCH ×2 (09:52→21:45)
[2022-09-21] MEDS: FUROSEMIDE 40 MG TABLET (FP) PO SCH (09:52)
[2022-09-21] MEDS: LACTOBACILLUS ACIDOPHILUS 1 TABLET PO SCH (09:52)
[2022-09-21] MEDS ORDERED: NAPH,MB-DB/K PH,MBDB POWDER PACKET NGT ONE (10:00)
[2022-09-21 19:07] LABS: HEMATOCRIT 27.3 % (32.4-45.2); HEMOGLOBIN 8.4 GM/dL (10.7-15.3); MCH 25.4 pg (25.7-33.7); MCHC 30.9 g/dl (32.0-36.0); MEAN CELL VOLUME 82.3 fl (80-96); MEAN PLT VOLUME 9.1 fl (7.5-11.1); PLATELET COUNT 195 10^3/uL (134-434); RBC 3.32 M/mm3 (3.60-5.2); RDW 19.4 % (11.6-15.6); WHITE BLOOD COUNT 13.2 K/mm3 (4.0-10.0)
[2022-09-21] MEDS: ATORVASTATIN CA 40 MG TABLET (FP) PO SCH (21:45)
[2022-09-21] MEDS: ENOXAPARIN NA (PORCINE) 100 MG/1 ML DISP.SYRIN SQ SCH (21:45)
[2022-09-22 06:35] LABS: HEMATOCRIT 26.4 % (32.4-45.2); HEMOGLOBIN 8.4 GM/dL (10.7-15.3); MCH 26.3 pg (25.7-33.7); PLATELET COUNT 200 10^3/uL (134-434); RBC 3.21 M/mm3 (3.60-5.2); RDW 19.5 % (11.6-15.6); WHITE BLOOD COUNT 12.7 K/mm3 (4.0-10.0)
[2022-09-22 07:03] LABS: POTASSIUM 3.7 mmol/L (3.5-5.1)
[2022-09-22 07:05] LABS: ALBUMIN 2.2 g/dl (3.4-5.0); CALCIUM 8.3 mg/dL (8.5-10.1); MAGNESIUM 1.9 mg/dL (1.8-2.4)
[2022-09-22 07:08] LABS: PHOSPHOROUS 1.8 mg/dL (2.5-4.9)
[2022-09-22 07:09] LABS: CREATININE 0.6 mg/dL (0.55-1.3)
[2022-09-22 07:10] LABS: BILIRUBIN,TOTAL 0.5 mg/dL (0.2-1); TOT PROT 5.1 g/dl (6.4-8.2)
[2022-09-22] MEDS ORDERED: POTASSIUM PHOSPHATE 30 MM in DEXTROSE 5%-WATER - 500 ML IVPB ONE (08:30)
[2022-09-22] MEDS: levETIRAcetam 500 MG/5 ML INJECTION VIAL IVPB SCH ×2 (09:58→21:40)
[2022-09-22] MEDS: LACTOBACILLUS ACIDOPHILUS 1 TABLET PO SCH (09:58)
[2022-09-22] MEDS: METOPROLOL TARTRATE 25 MG TABLET (FP) PO SCH ×2 (09:58→21:41)
[2022-09-22] MEDS: CEFTRIAXONE 2 GM in DEXTROSE 5%-WATER 100 ML IVPB SCH (09:58)
[2022-09-22] MEDS: MAGNESIUM OXIDE 400 MG TABLET (FP) PO SCH ×2 (09:59→21:41)
[2022-09-22] MEDS: FAMOTIDINE 20 MG/50 ML IVPB 20 MG/50 ML MG IVPB SCH ×2 (09:59→21:41)
[2022-09-22] MEDS: ENOXAPARIN NA (PORCINE) 100 MG/1 ML DISP.SYRIN SQ SCH (10:01)
[2022-09-22] MEDS: APIXABAN 5 MG TABLET PO SCH (21:40)
[2022-09-22] MEDS: ATORVASTATIN CA 40 MG TABLET (FP) PO SCH (21:41)
[2022-09-23 07:41] LABS: HEMATOCRIT 26.2 % (32.4-45.2); HEMOGLOBIN 8.4 GM/dL (10.7-15.3); MCH 26.6 pg (25.7-33.7); MCHC 32.3 g/dl (32.0-36.0); MEAN CELL VOLUME 82.4 fl (80-96); PLATELET COUNT 207 10^3/uL (134-434); RBC 3.17 M/mm3 (3.60-5.2); RDW 19.5 % (11.6-15.6); WHITE BLOOD COUNT 9.4 K/mm3 (4.0-10.0)
[2022-09-23 07:58] LABS: POTASSIUM 4.1 mmol/L (3.5-5.1)
[2022-09-23 08:01] LABS: BLOOD UREA NITROGEN 11.5 mg/dL (7-18); CALCIUM 8.6 mg/dL (8.5-10.1)
[2022-09-23 08:02] LABS: ALBUMIN 2.2 g/dl (3.4-5.0); MAGNESIUM 1.9 mg/dL (1.8-2.4)
[2022-09-23 08:04] LABS: PHOSPHOROUS 2.5 mg/dL (2.5-4.9)
[2022-09-23 08:05] LABS: CREATININE 0.6 mg/dL (0.55-1.3)
[2022-09-23 08:06] LABS: BILIRUBIN,TOTAL 0.4 mg/dL (0.2-1); TOT PROT 5.1 g/dl (6.4-8.2)
[2022-09-23] MEDS: LACTOBACILLUS ACIDOPHILUS 1 TABLET PO SCH (09:28)
[2022-09-23] MEDS: METOPROLOL TARTRATE 25 MG TABLET (FP) PO SCH ×2 (09:28→21:32)
[2022-09-23] MEDS: FAMOTIDINE 20 MG/50 ML IVPB 20 MG/50 ML MG IVPB SCH ×2 (09:28→21:33)
[2022-09-23] MEDS: APIXABAN 5 MG TABLET PO SCH ×2 (09:28→21:32)
[2022-09-23] MEDS: MAGNESIUM OXIDE 400 MG TABLET (FP) PO SCH ×2 (09:29→21:33)
[2022-09-23] MEDS: levETIRAcetam 500 MG/5 ML INJECTION VIAL IVPB SCH ×2 (09:30→21:32)
[2022-09-23] MEDS: CEFTRIAXONE 2 GM in DEXTROSE 5%-WATER 100 ML IVPB SCH (10:01)
[2022-09-23] MEDS: OCULAR LUBRICANT OPHTHALMIC OINTMENT 7 GM TUBE OU SCH (21:32)
[2022-09-23] MEDS: ATORVASTATIN CA 40 MG TABLET (FP) PO SCH (21:32)
[2022-09-23] MEDS: LIDOCAINE 5% TOPICAL PATCH TP SCH (21:32)
[2022-09-23] MEDS: LIDOCAINE PATCH REMOVAL MC SCH (21:33)
[2022-09-24 09:30] LABS: HEMATOCRIT 30.2 % (32.4-45.2); HEMOGLOBIN 9.6 GM/dL (10.7-15.3); MCH 26.5 pg (25.7-33.7); MCHC 31.8 g/dl (32.0-36.0); MEAN CELL VOLUME 83.2 fl (80-96); MEAN PLT VOLUME 9.8 fl (7.5-11.1); PLATELET COUNT 248 10^3/uL (134-434); RBC 3.63 M/mm3 (3.60-5.2); RDW 18.7 % (11.6-15.6); WHITE BLOOD COUNT 8.4 K/mm3 (4.0-10.0)
[2022-09-24] MEDS: levETIRAcetam 500 MG/5 ML INJECTION VIAL IVPB SCH (09:39)
[2022-09-24] MEDS: FAMOTIDINE 20 MG/50 ML IVPB 20 MG/50 ML MG IVPB SCH (09:39)
[2022-09-24] MEDS: MAGNESIUM OXIDE 400 MG TABLET (FP) PO SCH (09:41)
[2022-09-24] MEDS: METOPROLOL TARTRATE 25 MG TABLET (FP) PO SCH (09:41)
[2022-09-24] MEDS: APIXABAN 5 MG TABLET PO SCH (09:41)
[2022-09-24] MEDS: LACTOBACILLUS ACIDOPHILUS 1 TABLET PO SCH (09:41)
[2022-09-24] MEDS: OCULAR LUBRICANT OPHTHALMIC OINTMENT 7 GM TUBE OU SCH (09:42)
[2022-09-24] MEDS: LIDOCAINE 5% TOPICAL PATCH TP SCH (09:42)
[2022-09-24 09:52] LABS: POTASSIUM 4.2 mmol/L (3.5-5.1)
[2022-09-24 09:54] LABS: ALBUMIN 2.4 g/dl (3.4-5.0); BLOOD UREA NITROGEN 10.2 mg/dL (7-18); CALCIUM 8.9 mg/dL (8.5-10.1)
[2022-09-24 09:55] LABS: MAGNESIUM 1.8 mg/dL (1.8-2.4)
[2022-09-24 09:57] LABS: PHOSPHOROUS 2.8 mg/dL (2.5-4.9)
[2022-09-24 09:58] LABS: CREATININE 0.6 mg/dL (0.55-1.3)
[2022-09-24 09:59] LABS: BILIRUBIN,TOTAL 0.4 mg/dL (0.2-1); TOT PROT 5.5 g/dl (6.4-8.2)
[2022-09-24] MEDS: ACETAMINOPHEN 500 MG TABLET (FP) PO PRN (15:29)
[2022-09-25] MEDS: ATORVASTATIN CA 40 MG TABLET (FP) PO SCH ×2 (00:25→23:17)
[2022-09-25] MEDS: APIXABAN 5 MG TABLET PO SCH ×3 (00:25→23:17)
[2022-09-25] MEDS: METOPROLOL TARTRATE 25 MG TABLET (FP) PO SCH ×3 (00:25→23:17)
[2022-09-25] MEDS: MAGNESIUM OXIDE 400 MG TABLET (FP) PO SCH ×3 (00:25→23:16)
[2022-09-25] MEDS: FAMOTIDINE 20 MG/50 ML IVPB 20 MG/50 ML MG IVPB SCH ×3 (00:25→23:16)
[2022-09-25] MEDS: OCULAR LUBRICANT OPHTHALMIC OINTMENT 7 GM TUBE OU SCH ×4 (00:26→23:31)
[2022-09-25] MEDS: levETIRAcetam 500 MG/5 ML INJECTION VIAL IVPB SCH ×2 (00:26→10:35)
[2022-09-25] MEDS: LIDOCAINE PATCH REMOVAL MC SCH ×2 (00:26→23:27)
[2022-09-25] MEDS ORDERED: FUROSEMIDE 40 MG TABLET (FP) PO SCH (10:00)
[2022-09-25] MEDS: LACTOBACILLUS ACIDOPHILUS 1 TABLET PO SCH (10:35)
[2022-09-25] MEDS: LIDOCAINE 5% TOPICAL PATCH TP SCH (12:42)
[2022-09-26] MEDS: levETIRAcetam 500 MG/5 ML INJECTION VIAL IVPB SCH ×3 (00:53→21:35)
[2022-09-26] MEDS: ACETAMINOPHEN 500 MG TABLET (FP) PO PRN (00:53)
[2022-09-26] MEDS: MAGNESIUM OXIDE 400 MG TABLET (FP) PO SCH ×2 (10:53→21:34)
[2022-09-26] MEDS: LIDOCAINE 5% TOPICAL PATCH TP SCH (10:53)
[2022-09-26] MEDS: FAMOTIDINE 20 MG/50 ML IVPB 20 MG/50 ML MG IVPB SCH ×2 (10:53→21:35)
[2022-09-26] MEDS: APIXABAN 5 MG TABLET PO SCH ×2 (10:53→21:34)
[2022-09-26] MEDS: METOPROLOL TARTRATE 25 MG TABLET (FP) PO SCH ×2 (10:53→21:34)
[2022-09-26] MEDS: LACTOBACILLUS ACIDOPHILUS 1 TABLET PO SCH (10:53)
[2022-09-26] MEDS: OCULAR LUBRICANT OPHTHALMIC OINTMENT 7 GM TUBE OU SCH ×2 (10:54→21:38)
[2022-09-26] MEDS ORDERED: FUROSEMIDE 40 MG/4 ML INJECTABLE VIAL IVPUSH ONE (14:31)
[2022-09-26] MEDS ORDERED: ACETAMINOPHEN 500 MG TABLET (FP) PO PRN (20:11)
[2022-09-26] MEDS: ATORVASTATIN CA 40 MG TABLET (FP) PO SCH (21:34)
[2022-09-26] MEDS: LIDOCAINE PATCH REMOVAL MC SCH (21:38)
[2022-09-27] MEDS: MAGNESIUM OXIDE 400 MG TABLET (FP) PO SCH ×2 (09:57→21:46)
[2022-09-27] MEDS: APIXABAN 5 MG TABLET PO SCH ×2 (09:57→21:47)
[2022-09-27] MEDS: LACTOBACILLUS ACIDOPHILUS 1 TABLET PO SCH (09:57)
[2022-09-27] MEDS: METOPROLOL TARTRATE 25 MG TABLET (FP) PO SCH ×2 (09:57→21:47)
[2022-09-27] MEDS: LIDOCAINE 5% TOPICAL PATCH TP SCH (09:58)
[2022-09-27] MEDS: levETIRAcetam 500 MG/5 ML INJECTION VIAL IVPB SCH ×2 (09:58→21:47)
[2022-09-27] MEDS: OCULAR LUBRICANT OPHTHALMIC OINTMENT 7 GM TUBE OU SCH ×2 (10:10→21:51)
[2022-09-27] MEDS: FAMOTIDINE 20 MG/50 ML IVPB 20 MG/50 ML MG IVPB SCH ×2 (10:38→21:47)
[2022-09-27] MEDS: ALBUTEROL SO4 2.5/IPRATROPIUM 0.5 INH SOL 3 ML VIAL.NEB. NEB PRN (19:43)
[2022-09-27] MEDS: ATORVASTATIN CA 40 MG TABLET (FP) PO SCH (21:46)
[2022-09-27] MEDS: LIDOCAINE PATCH REMOVAL MC SCH (21:51)
[2022-09-28] MEDS: ALBUTEROL SO4 2.5/IPRATROPIUM 0.5 INH SOL 3 ML VIAL.NEB. NEB PRN ×2 (05:02→11:20)
[2022-09-28] MEDS ORDERED: METOPROLOL TARTRATE 5 MG/5 ML VIAL IVPUSH ONE (05:35)
[2022-09-28] MEDS ORDERED: methylPREDNISolone NA SUCC 40 MG/1 ML VIAL IVPUSH ONE (05:38)
[2022-09-28] MEDS ORDERED: ALBUTEROL SO4 2.5/IPRATROPIUM 0.5 INH SOL 3 ML VIAL.NEB. NEB ONE (05:39)
[2022-09-28] MEDS ORDERED: FUROSEMIDE 40 MG/4 ML INJECTABLE VIAL IVPUSH ONE (05:55)
[2022-09-28 06:36] LABS: ARTERIAL BLD GAS O2 SATURATION 91.8 % (95-98); ARTERIAL BLOOD GAS BASE EXCESS -3.8 mmol/L (-2-2); ARTERIAL BLOOD GAS PO2 82.9 mmHg (80-100)
[2022-09-28 06:43] LABS: ALLENS TEST POSITIVE
[2022-09-28 06:47] LABS: ARTERIAL BLOOD GAS pH 7.128 (7.350-7.450)
[2022-09-28] MEDS: levETIRAcetam 500 MG/5 ML INJECTION VIAL IVPB SCH ×2 (09:06→21:23)
[2022-09-28] MEDS: LACTOBACILLUS ACIDOPHILUS 1 TABLET PO SCH (09:07)
[2022-09-28] MEDS: METOPROLOL TARTRATE 25 MG TABLET (FP) PO SCH ×2 (09:07→21:24)
[2022-09-28] MEDS: MAGNESIUM OXIDE 400 MG TABLET (FP) PO SCH ×2 (09:07→21:24)
[2022-09-28] MEDS: APIXABAN 5 MG TABLET PO SCH ×2 (09:07→21:24)
[2022-09-28] MEDS: OCULAR LUBRICANT OPHTHALMIC OINTMENT 7 GM TUBE OU SCH ×2 (09:07→21:35)
[2022-09-28] MEDS: LIDOCAINE 5% TOPICAL PATCH TP SCH (09:08)
[2022-09-28 09:33] LABS: ARTERIAL BLOOD GAS BASE EXCESS 3.6 mmol/L (-2-2); ARTERIAL BLOOD GAS pH 7.345 (7.350-7.450)
[2022-09-28 09:34] LABS: ALLENS TEST POSITIVE
[2022-09-28 09:35] LABS: VENT MODE 16; VENT RATE 14
[2022-09-28] MEDS: FAMOTIDINE 20 MG/50 ML IVPB 20 MG/50 ML MG IVPB SCH ×2 (09:47→21:23)
[2022-09-28 11:21] LABS: HEMATOCRIT 27.6 % (32.4-45.2); HEMOGLOBIN 8.7 GM/dL (10.7-15.3); MCH 26.5 pg (25.7-33.7); MCHC 31.6 g/dl (32.0-36.0); MEAN CELL VOLUME 84.1 fl (80-96); MEAN PLT VOLUME 9.3 fl (7.5-11.1); PLATELET COUNT 269 10^3/uL (134-434); RBC 3.28 M/mm3 (3.60-5.2); WHITE BLOOD COUNT 14.8 K/mm3 (4.0-10.0)
[2022-09-28 11:31] LABS: POTASSIUM 4.6 mmol/L (3.5-5.1)
[2022-09-28 11:32] LABS: CALCIUM 9.2 mg/dL (8.5-10.1)
[2022-09-28 11:33] LABS: MAGNESIUM 1.9 mg/dL (1.8-2.4)
[2022-09-28 11:36] LABS: CREATININE 0.8 mg/dL (0.55-1.3); PHOSPHOROUS 3.2 mg/dL (2.5-4.9)
[2022-09-28 11:41] LABS: N-TERMINAL BNP 5226.7 pg/ml (5-450)
[2022-09-28] MEDS ORDERED: VANCOMYCIN 1 GM/200 ML PREMIX BAG (RESTRICTED TO ID ONLY) IVPB ONE (15:30)
[2022-09-28] MEDS ORDERED: PIPERACILLIN/TAZOB 3.375 GM 3.375 GM in DEXTROSE 5%-WATER - 50 ML IVPB ONE (15:30)
[2022-09-28] MEDS: PIPERACILLIN/TAZOB 4.5 GM 4.5 GM in DEXTROSE 5%-WATER 100 ML IVPB SCH (17:09)
[2022-09-28] MEDS: LIDOCAINE PATCH REMOVAL MC SCH (21:24)
[2022-09-28] MEDS: ATORVASTATIN CA 40 MG TABLET (FP) PO SCH (21:24)
[2022-09-29] MEDS: PIPERACILLIN/TAZOB 4.5 GM 4.5 GM in DEXTROSE 5%-WATER 100 ML IVPB SCH ×3 (01:36→15:31)
[2022-09-29 08:27] LABS: ARTERIAL BLD GAS O2 SATURATION 97.5 % (95-98); ARTERIAL BLOOD GAS PO2 102.6 mmHg (80-100); ARTERIAL BLOOD GAS pH 7.381 (7.350-7.450)
[2022-09-29 08:28] LABS: ALLENS TEST POSITIVE
[2022-09-29 08:29] LABS: VENT MODE 16; VENT RATE 14
[2022-09-29] MEDS ORDERED: methylPREDNISolone NA SUCC 40 MG/1 ML VIAL IVPUSH ONE (08:35)
[2022-09-29] MEDS ORDERED: FUROSEMIDE 40 MG/4 ML INJECTABLE VIAL IVPUSH ONE (08:36)
[2022-09-29 08:42] LABS: HEMATOCRIT 28.2 % (32.4-45.2); HEMOGLOBIN 8.8 GM/dL (10.7-15.3); MCH 26.3 pg (25.7-33.7); MCHC 31.1 g/dl (32.0-36.0); MEAN CELL VOLUME 84.6 fl (80-96); PLATELET COUNT 279 10^3/uL (134-434); RBC 3.34 M/mm3 (3.60-5.2); RDW 19.3 % (11.6-15.6); WHITE BLOOD COUNT 12.7 K/mm3 (4.0-10.0)
[2022-09-29] MEDS: LIDOCAINE 5% TOPICAL PATCH TP SCH (08:59)
[2022-09-29 09:00] LABS: POTASSIUM 4.2 mmol/L (3.5-5.1)
[2022-09-29] MEDS: levETIRAcetam 500 MG/5 ML INJECTION VIAL IVPB SCH ×2 (09:00→22:08)
[2022-09-29] MEDS: FAMOTIDINE 20 MG/50 ML IVPB 20 MG/50 ML MG IVPB SCH ×2 (09:00→22:08)
[2022-09-29] MEDS: OCULAR LUBRICANT OPHTHALMIC OINTMENT 7 GM TUBE OU SCH ×2 (09:01→22:10)
[2022-09-29] MEDS: LACTOBACILLUS ACIDOPHILUS 1 TABLET PO SCH (09:02)
[2022-09-29] MEDS: METOPROLOL TARTRATE 25 MG TABLET (FP) PO SCH ×2 (09:02→22:09)
[2022-09-29] MEDS: MAGNESIUM OXIDE 400 MG TABLET (FP) PO SCH ×2 (09:03→22:09)
[2022-09-29] MEDS: ENOXAPARIN NA (PORCINE) 100 MG/1 ML DISP.SYRIN SQ SCH ×2 (09:03→22:07)
[2022-09-29 09:04] LABS: CALCIUM 9.6 mg/dL (8.5-10.1)
[2022-09-29 09:05] LABS: BLOOD UREA NITROGEN 13.1 mg/dL (7-18)
[2022-09-29 09:08] LABS: CREATININE 1.1 mg/dL (0.55-1.3)
[2022-09-29] MEDS ORDERED: hydrALAZINE HCL 20 MG/ML VIAL IVPUSH ONE (10:35)
[2022-09-29] MEDS ORDERED: hydrALAZINE HCL 20 MG/ML VIAL IVPUSH PRN (12:28)
[2022-09-29] MEDS ORDERED: METOPROLOL TARTRATE 5 MG/5 ML VIAL IVPUSH PRN (12:29)
[2022-09-29 12:30] LABS: ARTERIAL BLD GAS O2 SATURATION 98.5 % (95-98); ARTERIAL BLOOD GAS BASE EXCESS 2.1 mmol/L (-2-2); ARTERIAL BLOOD GAS PO2 119.5 mmHg (80-100); ARTERIAL BLOOD GAS pH 7.438 (7.350-7.450)
[2022-09-29 12:31] LABS: ALLENS TEST POSITIVE
[2022-09-29 12:32] LABS: VENT MODE 16; VENT RATE 14
[2022-09-29] MEDS ORDERED: LORazepam 2 MG/ML SDV VIAL IVPUSH PRN (12:45)
[2022-09-29] MEDS ORDERED: HALOPERIDOL LACTATE 5 MG/ML IM ONE (12:45)
[2022-09-29] MEDS ORDERED: dilTIAZem HCL 50 MG/10 ML - 10 ML VIAL IVPUSH ONE (12:45)
[2022-09-29 12:59] LABS: MAGNESIUM 1.8 mg/dL (1.8-2.4)
[2022-09-29] MEDS ORDERED: METOPROLOL TARTRATE 5 MG/5 ML VIAL IVPUSH SCH (13:00)
[2022-09-29 13:02] LABS: PHOSPHOROUS 3.5 mg/dL (2.5-4.9)
[2022-09-29] MEDS: FUROSEMIDE 40 MG/4 ML INJECTABLE VIAL IVPUSH SCH (13:10)
[2022-09-29] MEDS ORDERED: DEXTROSE 5%-0.45% SALINE 1,000 ML IV SCH (15:15)
[2022-09-29] MEDS: METOPROLOL TARTRATE 5 MG/5 ML VIAL IVPUSH SCH ×2 (17:05→22:07)
[2022-09-29] MEDS: LIDOCAINE PATCH REMOVAL MC SCH (22:09)
[2022-09-30] MEDS: PIPERACILLIN/TAZOB 4.5 GM 4.5 GM in DEXTROSE 5%-WATER 100 ML IVPB SCH ×3 (00:12→16:01)
[2022-09-30] MEDS: METOPROLOL TARTRATE 5 MG/5 ML VIAL IVPUSH SCH ×6 (01:08→22:00)
[2022-09-30] MEDS: FUROSEMIDE 40 MG/4 ML INJECTABLE VIAL IVPUSH SCH ×2 (06:01→13:24)
[2022-09-30 06:54] LABS: ARTERIAL BLD GAS O2 SATURATION 99.3 % (95-98); ARTERIAL BLOOD GAS BASE EXCESS 4.9 mmol/L (-2-2); ARTERIAL BLOOD GAS PO2 171.9 mmHg (80-100); ARTERIAL BLOOD GAS pH 7.477 (7.350-7.450)
[2022-09-30 06:59] LABS: HEMATOCRIT 25.2 % (32.4-45.2); MCH 26.5 pg (25.7-33.7); MCHC 31.6 g/dl (32.0-36.0); MEAN CELL VOLUME 83.9 fl (80-96); MEAN PLT VOLUME 8.6 fl (7.5-11.1); PLATELET COUNT 251 10^3/uL (134-434); RBC 3.01 M/mm3 (3.60-5.2); RDW 19.6 % (11.6-15.6); WHITE BLOOD COUNT 8.3 K/mm3 (4.0-10.0)
[2022-09-30 07:20] LABS: POTASSIUM 3.8 mmol/L (3.5-5.1)
[2022-09-30 07:24] LABS: BLOOD UREA NITROGEN 17.1 mg/dL (7-18); CALCIUM 9.3 mg/dL (8.5-10.1); MAGNESIUM 1.6 mg/dL (1.8-2.4)
[2022-09-30 07:28] LABS: CREATININE 1.1 mg/dL (0.55-1.3); PHOSPHOROUS 3.6 mg/dL (2.5-4.9)
[2022-09-30 07:32] LABS: ALLENS TEST POSITIVE
[2022-09-30] MEDS: LACTOBACILLUS ACIDOPHILUS 1 TABLET PO SCH (09:39)
[2022-09-30] MEDS: LIDOCAINE 5% TOPICAL PATCH TP SCH (09:39)
[2022-09-30] MEDS: ENOXAPARIN NA (PORCINE) 100 MG/1 ML DISP.SYRIN SQ SCH ×2 (09:40→22:49)
[2022-09-30] MEDS: levETIRAcetam 500 MG/5 ML INJECTION VIAL IVPB SCH ×2 (09:40→22:49)
[2022-09-30] MEDS: METOPROLOL TARTRATE 25 MG TABLET (FP) PO SCH ×2 (09:41→22:27)
[2022-09-30] MEDS: MAGNESIUM OXIDE 400 MG TABLET (FP) PO SCH ×2 (09:41→22:28)
[2022-09-30] MEDS: OCULAR LUBRICANT OPHTHALMIC OINTMENT 7 GM TUBE OU SCH ×2 (09:41→22:49)
[2022-09-30] MEDS: FAMOTIDINE 20 MG/50 ML IVPB 20 MG/50 ML MG IVPB SCH ×2 (09:41→22:49)
[2022-09-30] MEDS ORDERED: MAGNESIUM 2GM/50ML STERILE WATER IVPB IVPB ONE (16:31)
[2022-09-30 18:42] LABS: ARTERIAL BLD GAS O2 SATURATION 98.2 % (95-98); ARTERIAL BLOOD GAS BASE EXCESS 6.7 mmol/L (-2-2); ARTERIAL BLOOD GAS PO2 110.2 mmHg (80-100); ARTERIAL BLOOD GAS pH 7.462 (7.350-7.450)
[2022-09-30 18:44] LABS: ALLENS TEST POSITIVE
[2022-09-30 18:45] LABS: VENT MODE S/T; VENT RATE 14
[2022-09-30] MEDS ORDERED: DEXTROSE 5%-0.45% SALINE 1,000 ML IV SCH (19:30)
[2022-09-30] MEDS: ALBUTEROL SO4 2.5/IPRATROPIUM 0.5 INH SOL 3 ML VIAL.NEB. NEB PRN (20:32)
[2022-09-30] MEDS: LIDOCAINE PATCH REMOVAL MC SCH (22:49)
[2022-10-01] MEDS: PIPERACILLIN/TAZOB 4.5 GM 4.5 GM in DEXTROSE 5%-WATER 100 ML IVPB SCH ×4 (00:28→23:55)
[2022-10-01] MEDS: METOPROLOL TARTRATE 5 MG/5 ML VIAL IVPUSH SCH ×7 (01:00→23:55)
[2022-10-01 06:35] LABS: HEMATOCRIT 26.7 % (32.4-45.2); HEMOGLOBIN 8.8 GM/dL (10.7-15.3); MCH 27.4 pg (25.7-33.7); MCHC 33.1 g/dl (32.0-36.0); MEAN CELL VOLUME 82.8 fl (80-96); MEAN PLT VOLUME 8.7 fl (7.5-11.1); PLATELET COUNT 245 10^3/uL (134-434); RBC 3.22 M/mm3 (3.60-5.2); RDW 19.5 % (11.6-15.6); WHITE BLOOD COUNT 6.9 K/mm3 (4.0-10.0)
[2022-10-01] MEDS: FUROSEMIDE 40 MG/4 ML INJECTABLE VIAL IVPUSH SCH ×2 (06:40→13:00)
[2022-10-01 07:32] LABS: ALBUMIN 2.4 g/dl (3.4-5.0); BILIRUBIN,TOTAL 0.7 mg/dL (0.2-1); CALCIUM 8.9 mg/dL (8.5-10.1); MAGNESIUM 1.8 mg/dL (1.8-2.4); POTASSIUM 3.2 mmol/L (3.5-5.1); TOT PROT 5.6 g/dl (6.4-8.2)
[2022-10-01] MEDS ORDERED: DEXTROSE 5%-WATER - 1,000 ML IV SCH (09:00)
[2022-10-01] MEDS: levETIRAcetam 500 MG/5 ML INJECTION VIAL IVPB SCH ×2 (09:03→21:20)
[2022-10-01] MEDS: FAMOTIDINE 20 MG/50 ML IVPB 20 MG/50 ML MG IVPB SCH ×2 (09:03→21:20)
[2022-10-01] MEDS: OCULAR LUBRICANT OPHTHALMIC OINTMENT 7 GM TUBE OU SCH ×2 (09:04→21:21)
[2022-10-01] MEDS: LIDOCAINE 5% TOPICAL PATCH TP SCH (09:04)
[2022-10-01] MEDS ORDERED: POTASSIUM PHOSPHATE 15 MM in DEXTROSE 5%-WATER - 250 ML IVPB ONE (09:22)
[2022-10-01] MEDS ORDERED: DEXTROSE 5%-WATER - 1,000 ML with POTASSIUM CHLORIDE 20 MEQ IV SCH (14:12)
[2022-10-01] MEDS ORDERED: LORazepam 2 MG/ML SDV VIAL IVPUSH ONE (14:37)
[2022-10-01] MEDS ORDERED: POTASSIUM CHLORIDE 20 MEQ in DEXTROSE 5%-WATER - 1,000 ML IV SCH (16:04)
[2022-10-01] MEDS ORDERED: ACETAMINOPHEN 1000 MG/100 ML BAG IVPB ONE (16:22)
[2022-10-01] MEDS ORDERED: ACETAMINOPHEN INJECTION 100 ML IVPB ONE (16:23)
[2022-10-01 19:44] LABS: POTASSIUM 3.4 mmol/L (3.5-5.1)
[2022-10-01 19:45] LABS: CALCIUM 8.8 mg/dL (8.5-10.1)
[2022-10-01 19:46] LABS: BLOOD UREA NITROGEN 11.6 mg/dL (7-18)
[2022-10-01 19:49] LABS: CREATININE 0.9 mg/dL (0.55-1.3)
[2022-10-01] MEDS: LIDOCAINE PATCH REMOVAL MC SCH (21:21)
[2022-10-01] MEDS ORDERED: ACETAMINOPHEN 1000 MG/100 ML BAG IVPB PRN (23:00)
[2022-10-02] MEDS: METOPROLOL TARTRATE 5 MG/5 ML VIAL IVPUSH SCH ×3 (06:30→13:39)
[2022-10-02] MEDS: FUROSEMIDE 40 MG/4 ML INJECTABLE VIAL IVPUSH SCH ×2 (06:30→13:39)
[2022-10-02] MEDS: KCL 10 MEQ IVPB 10 MEQ/100 ML INFUS.BAG IVPB SCH ×2 (07:00→08:12)
[2022-10-02 07:14] LABS: HEMATOCRIT 24.9 % (32.4-45.2); HEMOGLOBIN 8.1 GM/dL (10.7-15.3); MCH 27.1 pg (25.7-33.7); MCHC 32.7 g/dl (32.0-36.0); MEAN CELL VOLUME 83.1 fl (80-96); MEAN PLT VOLUME 9.2 fl (7.5-11.1); PLATELET COUNT 221 10^3/uL (134-434); RDW 19.1 % (11.6-15.6); WHITE BLOOD COUNT 6.3 K/mm3 (4.0-10.0)
[2022-10-02 07:40] LABS: MAGNESIUM 1.5 mg/dL (1.8-2.4)
[2022-10-02 07:44] LABS: PHOSPHOROUS 3.5 mg/dL (2.5-4.9)
[2022-10-02] MEDS ORDERED: POTASSIUM CHLORIDE 20 MEQ in DEXTROSE 5%-WATER - 1,000 ML IV SCH (07:53)
[2022-10-02] MEDS ORDERED: MAGNESIUM SULF 50% (8.12 MEQ/2 ML-1 GM VIAL) IVPB ONE (07:56)
[2022-10-02] MEDS: PIPERACILLIN/TAZOB 4.5 GM 4.5 GM in DEXTROSE 5%-WATER 100 ML IVPB SCH (08:29)
[2022-10-02] MEDS: LIDOCAINE 5% TOPICAL PATCH TP SCH (09:04)
[2022-10-02] MEDS: levETIRAcetam 500 MG/5 ML INJECTION VIAL IVPB SCH ×2 (09:04→21:21)
[2022-10-02 09:05] LABS: BF WBC & OTHER NUCLEATED CELLS 190 /mm3
[2022-10-02] MEDS: OCULAR LUBRICANT OPHTHALMIC OINTMENT 7 GM TUBE OU SCH ×2 (09:05→21:22)
[2022-10-02] MEDS: FAMOTIDINE 20 MG/50 ML IVPB 20 MG/50 ML MG IVPB SCH ×2 (09:05→21:21)
[2022-10-02 09:44] LABS: BODY FLUID MESOTHELIAL 2 %; BODY FLUID MONOCYTE 23 %
[2022-10-02] MEDS ORDERED: METOPROLOL TARTRATE 5 MG/5 ML VIAL IVPUSH PRN (13:39)
[2022-10-02] MEDS ORDERED: ACETAMINOPHEN 1000 MG/100 ML BAG IVPB ONE (18:05)
[2022-10-02 19:59] LABS: BF WBC & OTHER NUCLEATED CELLS 175 /mm3
[2022-10-02 20:03] LABS: BODY FLUID MESOTHELIAL 4 %; BODYL FLD EOSINOPHIL 66 %
[2022-10-02] MEDS: LIDOCAINE PATCH REMOVAL MC SCH (21:22)
[2022-10-02] MEDS: METOPROLOL TARTRATE 25 MG TABLET (FP) PO SCH (21:23)
[2022-10-02] MEDS ORDERED: METOPROLOL TARTRATE 25 MG TABLET (FP) PO SCH (22:00)
[2022-10-03] MEDS: ACETAMINOPHEN 1000 MG/100 ML BAG IVPB PRN (03:52)
[2022-10-03 07:41] LABS: HEMOGLOBIN 8.3 GM/dL (10.7-15.3); MCH 26.6 pg (25.7-33.7); MCHC 32.1 g/dl (32.0-36.0); MEAN PLT VOLUME 9.2 fl (7.5-11.1); PLATELET COUNT 213 10^3/uL (134-434); RBC 3.13 M/mm3 (3.60-5.2); RDW 18.9 % (11.6-15.6); WHITE BLOOD COUNT 6.2 K/mm3 (4.0-10.0)
[2022-10-03 08:03] LABS: POTASSIUM 3.3 mmol/L (3.5-5.1)
[2022-10-03 08:04] LABS: CALCIUM 8.3 mg/dL (8.5-10.1)
[2022-10-03 08:05] LABS: BLOOD UREA NITROGEN 11.9 mg/dL (7-18)
[2022-10-03 08:08] LABS: CREATININE 0.8 mg/dL (0.55-1.3)
[2022-10-03] MEDS ORDERED: POTASSIUM CHLORIDE ORAL LIQUID 20 MEQ/15 ML PO ONE (09:16)
[2022-10-03] MEDS ORDERED: FUROSEMIDE 40 MG/4 ML INJECTABLE VIAL IVPUSH SCH (10:00)
[2022-10-03] MEDS: LIDOCAINE 5% TOPICAL PATCH TP SCH (10:18)
[2022-10-03] MEDS: levETIRAcetam 500 MG/5 ML INJECTION VIAL IVPB SCH (10:18)
[2022-10-03] MEDS: FAMOTIDINE 20 MG/50 ML IVPB 20 MG/50 ML MG IVPB SCH (10:18)
[2022-10-03] MEDS: METOPROLOL TARTRATE 25 MG TABLET (FP) PO SCH ×2 (10:19→21:24)
[2022-10-03] MEDS: OCULAR LUBRICANT OPHTHALMIC OINTMENT 7 GM TUBE OU SCH ×2 (10:21→21:35)
[2022-10-03] MEDS: ENOXAPARIN NA (PORCINE) 100 MG/1 ML DISP.SYRIN SQ SCH ×2 (10:27→21:24)
[2022-10-03 15:07] LABS: BODY FLUID ALBUMIN 0.7 g/dL (Not Estab.)
[2022-10-03] MEDS: levETIRAcetam 500 MG TABLET (FP) PO SCH (21:22)
[2022-10-03] MEDS: LIDOCAINE PATCH REMOVAL MC SCH (21:35)
[2022-10-04] MEDS: ACETAMINOPHEN 1000 MG/100 ML BAG IVPB PRN (00:13)
[2022-10-04 07:43] LABS: POTASSIUM 3.9 mmol/L (3.5-5.1)
[2022-10-04 07:45] LABS: BLOOD UREA NITROGEN 9.3 mg/dL (7-18); CALCIUM 8.9 mg/dL (8.5-10.1); MAGNESIUM 1.7 mg/dL (1.8-2.4)
[2022-10-04 07:48] LABS: CREATININE 0.7 mg/dL (0.55-1.3)
[2022-10-04] MEDS ORDERED: MAGNESIUM 1GM/D5W 100ML - 100 ML IVPB IVPB ONE (07:55)
[2022-10-04 09:04] LABS: TOT PROT 5.2 g/dl (6.4-8.2)
[2022-10-04] MEDS: LIDOCAINE 5% TOPICAL PATCH TP SCH (09:42)
[2022-10-04] MEDS: ENOXAPARIN NA (PORCINE) 100 MG/1 ML DISP.SYRIN SQ SCH ×2 (09:43→21:24)
[2022-10-04] MEDS: METOPROLOL TARTRATE 25 MG TABLET (FP) PO SCH ×2 (09:43→21:24)
[2022-10-04] MEDS: OCULAR LUBRICANT OPHTHALMIC OINTMENT 7 GM TUBE OU SCH ×2 (09:43→21:25)
[2022-10-04] MEDS: levETIRAcetam 500 MG TABLET (FP) PO SCH ×2 (09:43→21:24)
[2022-10-04] MEDS: FAMOTIDINE 20 MG TABLET PO SCH (10:07)
[2022-10-04] MEDS: ACETAMINOPHEN 325 MG TABLET (FP) PO PRN ×2 (17:34→22:01)
[2022-10-04] MEDS: LIDOCAINE PATCH REMOVAL MC SCH (21:25)
[2022-10-05 07:24] LABS: ALBUMIN 2.2 g/dl (3.4-5.0); CALCIUM 9.2 mg/dL (8.5-10.1); MAGNESIUM 2.1 mg/dL (1.8-2.4)
[2022-10-05 07:25] LABS: BLOOD UREA NITROGEN 6.9 mg/dL (7-18)
[2022-10-05 07:28] LABS: CREATININE 0.7 mg/dL (0.55-1.3)
[2022-10-05 07:30] LABS: BILIRUBIN,TOTAL 0.5 mg/dL (0.2-1); TOT PROT 5.7 g/dl (6.4-8.2)
[2022-10-05 07:33] LABS: N-TERMINAL BNP 1575.2 pg/ml (5-450)
[2022-10-05] MEDS: LIDOCAINE 5% TOPICAL PATCH TP SCH (09:22)
[2022-10-05] MEDS: levETIRAcetam 500 MG TABLET (FP) PO SCH ×2 (09:29→21:17)
[2022-10-05] MEDS: FAMOTIDINE 20 MG TABLET PO SCH (09:29)
[2022-10-05] MEDS: ENOXAPARIN NA (PORCINE) 100 MG/1 ML DISP.SYRIN SQ SCH ×2 (09:29→21:17)
[2022-10-05] MEDS: METOPROLOL TARTRATE 25 MG TABLET (FP) PO SCH ×2 (09:29→21:17)
[2022-10-05] MEDS: OCULAR LUBRICANT OPHTHALMIC OINTMENT 7 GM TUBE OU SCH ×2 (09:29→21:18)
[2022-10-05] MEDS: ALBUTEROL SO4 2.5/IPRATROPIUM 0.5 INH SOL 3 ML VIAL.NEB. NEB PRN (20:34)
[2022-10-05] MEDS: ACETAMINOPHEN 325 MG TABLET (FP) PO PRN (21:17)
[2022-10-05] MEDS: LIDOCAINE PATCH REMOVAL MC SCH (21:18)
[2022-10-06 09:10] LABS: HEMATOCRIT 28.9 % (32.4-45.2); HEMOGLOBIN 9.2 GM/dL (10.7-15.3); MCH 26.4 pg (25.7-33.7); MCHC 31.9 g/dl (32.0-36.0); MEAN CELL VOLUME 82.9 fl (80-96); MEAN PLT VOLUME 9.6 fl (7.5-11.1); PLATELET COUNT 311 10^3/uL (134-434); RBC 3.49 M/mm3 (3.60-5.2); RDW 19.6 % (11.6-15.6); WHITE BLOOD COUNT 6.3 K/mm3 (4.0-10.0)
[2022-10-06 09:23] LABS: POTASSIUM 3.6 mmol/L (3.5-5.1)
[2022-10-06 09:28] LABS: CALCIUM 9.1 mg/dL (8.5-10.1)
[2022-10-06 09:32] LABS: CREATININE 0.6 mg/dL (0.55-1.3)
[2022-10-06] MEDS: levETIRAcetam 500 MG TABLET (FP) PO SCH ×2 (10:44→21:07)
[2022-10-06] MEDS: FAMOTIDINE 20 MG TABLET PO SCH (10:44)
[2022-10-06] MEDS: METOPROLOL TARTRATE 25 MG TABLET (FP) PO SCH ×2 (10:44→21:08)
[2022-10-06] MEDS: LIDOCAINE 5% TOPICAL PATCH TP SCH (10:44)
[2022-10-06] MEDS: ENOXAPARIN NA (PORCINE) 100 MG/1 ML DISP.SYRIN SQ SCH ×2 (10:44→21:08)
[2022-10-06] MEDS: OCULAR LUBRICANT OPHTHALMIC OINTMENT 7 GM TUBE OU SCH ×2 (10:45→21:09)
[2022-10-06] MEDS ORDERED: FUROSEMIDE 40 MG TABLET (FP) PO ONE (12:02)
[2022-10-06 16:43] LABS: ARTERIAL BLD GAS O2 SATURATION 98.9 % (95-98); ARTERIAL BLOOD GAS BASE EXCESS 5.9 mmol/L (-2-2); ARTERIAL BLOOD GAS PO2 146.5 mmHg (80-100); ARTERIAL BLOOD GAS pH 7.434 (7.350-7.450)
[2022-10-06 16:49] LABS: ALLENS TEST POSITIVE
[2022-10-06] MEDS: ACETAMINOPHEN 325 MG TABLET (FP) PO PRN (21:08)
[2022-10-06] MEDS: LIDOCAINE PATCH REMOVAL MC SCH (21:09)
[2022-10-07] MEDS ORDERED: FUROSEMIDE 40 MG TABLET (FP) PO SCH (10:00)
[2022-10-07] MEDS: LIDOCAINE 5% TOPICAL PATCH TP SCH ×2 (10:00→10:51)
[2022-10-07] MEDS: levETIRAcetam 500 MG TABLET (FP) PO SCH ×2 (10:51→21:25)
[2022-10-07] MEDS: METOPROLOL TARTRATE 25 MG TABLET (FP) PO SCH ×2 (10:51→21:25)
[2022-10-07] MEDS: FAMOTIDINE 20 MG TABLET PO SCH (10:51)
[2022-10-07] MEDS: ENOXAPARIN NA (PORCINE) 100 MG/1 ML DISP.SYRIN SQ SCH ×2 (10:52→21:25)
[2022-10-07] MEDS: FUROSEMIDE 40 MG TABLET (FP) PO SCH (21:25)
[2022-10-07] MEDS: ACETAMINOPHEN 325 MG TABLET (FP) PO PRN (21:26)
[2022-10-07] MEDS: OCULAR LUBRICANT OPHTHALMIC OINTMENT 7 GM TUBE OU SCH (21:27)
[2022-10-07] MEDS: LIDOCAINE PATCH REMOVAL MC SCH (21:27)
[2022-10-08 06:49] LABS: POTASSIUM 3.5 mmol/L (3.5-5.1)
[2022-10-08 06:56] LABS: BLOOD UREA NITROGEN 6.7 mg/dL (7-18)
[2022-10-08 06:59] LABS: CREATININE 0.8 mg/dL (0.55-1.3)
[2022-10-08] MEDS: FAMOTIDINE 20 MG TABLET PO SCH (10:30)
[2022-10-08] MEDS: ENOXAPARIN NA (PORCINE) 100 MG/1 ML DISP.SYRIN SQ SCH ×2 (10:30→21:46)
[2022-10-08] MEDS: METOPROLOL TARTRATE 25 MG TABLET (FP) PO SCH ×2 (10:30→21:45)
[2022-10-08] MEDS: FUROSEMIDE 40 MG TABLET (FP) PO SCH ×2 (10:30→21:45)
[2022-10-08] MEDS: levETIRAcetam 500 MG TABLET (FP) PO SCH ×2 (10:30→21:46)
[2022-10-08] MEDS: OCULAR LUBRICANT OPHTHALMIC OINTMENT 7 GM TUBE OU SCH ×2 (10:31→21:46)
[2022-10-08] MEDS: LIDOCAINE 5% TOPICAL PATCH TP SCH (10:32)
[2022-10-08 16:08] LABS: BODY FLUID ALBUMIN 0.6 g/dL (Not Estab.)
[2022-10-08] MEDS: ACETAMINOPHEN 325 MG TABLET (FP) PO PRN (21:45)
[2022-10-08] MEDS: LIDOCAINE PATCH REMOVAL MC SCH (21:46)
[2022-10-09] MEDS: METOPROLOL TARTRATE 25 MG TABLET (FP) PO SCH ×2 (11:56→22:37)
[2022-10-09] MEDS: levETIRAcetam 500 MG TABLET (FP) PO SCH ×2 (11:56→22:34)
[2022-10-09] MEDS: LIDOCAINE 5% TOPICAL PATCH TP SCH (11:56)
[2022-10-09] MEDS: FAMOTIDINE 20 MG TABLET PO SCH (11:56)
[2022-10-09] MEDS: FUROSEMIDE 40 MG TABLET (FP) PO SCH ×2 (11:56→22:37)
[2022-10-09] MEDS: OCULAR LUBRICANT OPHTHALMIC OINTMENT 7 GM TUBE OU SCH ×2 (11:57→22:36)
[2022-10-09] MEDS: LIDOCAINE PATCH REMOVAL MC SCH (21:12)
[2022-10-09] MEDS: ENOXAPARIN NA (PORCINE) 100 MG/1 ML DISP.SYRIN SQ SCH (22:32)
[2022-10-09] MEDS: ACETAMINOPHEN 325 MG TABLET (FP) PO PRN (22:34)
[2022-10-10 08:04] LABS: HEMATOCRIT 29.4 % (32.4-45.2); HEMOGLOBIN 9.5 GM/dL (10.7-15.3); MCH 26.8 pg (25.7-33.7); MCHC 32.3 g/dl (32.0-36.0); MEAN CELL VOLUME 83.2 fl (80-96); MEAN PLT VOLUME 9.3 fl (7.5-11.1); PLATELET COUNT 308 10^3/uL (134-434); RBC 3.53 M/mm3 (3.60-5.2); RDW 19.6 % (11.6-15.6); WHITE BLOOD COUNT 4.6 K/mm3 (4.0-10.0)
[2022-10-10 08:20] LABS: POTASSIUM 3.8 mmol/L (3.5-5.1)
[2022-10-10 08:21] LABS: CALCIUM 8.6 mg/dL (8.5-10.1)
[2022-10-10 08:22] LABS: BLOOD UREA NITROGEN 7.3 mg/dL (7-18)
[2022-10-10 08:25] LABS: CREATININE 0.7 mg/dL (0.55-1.3)
[2022-10-10] MEDS: ENOXAPARIN NA (PORCINE) 100 MG/1 ML DISP.SYRIN SQ SCH ×2 (10:44→21:22)
[2022-10-10] MEDS: METOPROLOL TARTRATE 25 MG TABLET (FP) PO SCH ×2 (10:45→21:22)
[2022-10-10] MEDS: FAMOTIDINE 20 MG TABLET PO SCH (10:45)
[2022-10-10] MEDS: FUROSEMIDE 40 MG TABLET (FP) PO SCH ×2 (10:45→21:21)
[2022-10-10] MEDS: LIDOCAINE 5% TOPICAL PATCH TP SCH (10:45)
[2022-10-10] MEDS: levETIRAcetam 500 MG TABLET (FP) PO SCH ×2 (10:45→21:22)
[2022-10-10] MEDS: OCULAR LUBRICANT OPHTHALMIC OINTMENT 7 GM TUBE OU SCH ×2 (10:47→21:29)
[2022-10-10] MEDS: LIDOCAINE PATCH REMOVAL MC SCH ×2 (21:22→22:30)
[2022-10-11 07:55] LABS: BASO % 2.1 % (0-2.0); EOS % 6.6 % (0-4.5); HEMATOCRIT 28.1 % (32.4-45.2); LYMPH % 32.2 % (8-40); MCH 26.8 pg (25.7-33.7); MEAN CELL VOLUME 83.7 fl (80-96); MEAN PLT VOLUME 9.8 fl (7.5-11.1); MONO % 12.1 % (3.8-10.2); PLATELET COUNT 289 10^3/uL (134-434); RBC 3.35 M/mm3 (3.60-5.2); RDW 19.5 % (11.6-15.6); WHITE BLOOD COUNT 5.2 K/mm3 (4.0-10.0)
[2022-10-11 08:21] LABS: POTASSIUM 3.7 mmol/L (3.5-5.1)
[2022-10-11 08:29] LABS: BLOOD UREA NITROGEN 7.3 mg/dL (7-18); CALCIUM 8.3 mg/dL (8.5-10.1)
[2022-10-11 08:33] LABS: CREATININE 0.7 mg/dL (0.55-1.3)
[2022-10-11] MEDS: ENOXAPARIN NA (PORCINE) 100 MG/1 ML DISP.SYRIN SQ SCH ×2 (09:25→21:32)
[2022-10-11] MEDS: OCULAR LUBRICANT OPHTHALMIC OINTMENT 7 GM TUBE OU SCH ×2 (09:25→21:34)
[2022-10-11] MEDS: METOPROLOL TARTRATE 25 MG TABLET (FP) PO SCH ×2 (09:25→21:33)
[2022-10-11] MEDS: levETIRAcetam 500 MG TABLET (FP) PO SCH ×2 (09:25→21:32)
[2022-10-11] MEDS: FAMOTIDINE 20 MG TABLET PO SCH (09:25)
[2022-10-11] MEDS: VALSARTAN 40 MG TABLET PO SCH (09:25)
[2022-10-11] MEDS: FUROSEMIDE 40 MG TABLET (FP) PO SCH ×2 (09:25→21:32)
[2022-10-11] MEDS: LIDOCAINE 5% TOPICAL PATCH TP SCH (09:25)
[2022-10-11] MEDS: ACETAMINOPHEN 325 MG TABLET (FP) PO PRN ×2 (13:50→23:06)
[2022-10-11] MEDS: LIDOCAINE PATCH REMOVAL MC SCH (21:33)
[2022-10-12 07:18] LABS: BASO % 0.7 % (0-2.0); EOS % 4.9 % (0-4.5); HEMOGLOBIN 9.7 GM/dL (10.7-15.3); MCH 27.2 pg (25.7-33.7); MCHC 32.4 g/dl (32.0-36.0); MEAN CELL VOLUME 83.7 fl (80-96); MEAN PLT VOLUME 9.3 fl (7.5-11.1); MONO % 10.5 % (3.8-10.2); NEUT % 57.9 % (42.8-82.8); PLATELET COUNT 268 10^3/uL (134-434); RBC 3.58 M/mm3 (3.60-5.2); RDW 19.5 % (11.6-15.6); WHITE BLOOD COUNT 5.6 K/mm3 (4.0-10.0)
[2022-10-12 07:35] LABS: POTASSIUM 3.7 mmol/L (3.5-5.1)
[2022-10-12 07:37] LABS: CALCIUM 8.5 mg/dL (8.5-10.1)
[2022-10-12 07:38] LABS: BLOOD UREA NITROGEN 9.3 mg/dL (7-18); MAGNESIUM 1.4 mg/dL (1.8-2.4)
[2022-10-12 07:41] LABS: PHOSPHOROUS 3.8 mg/dL (2.5-4.9)
[2022-10-12 07:42] LABS: BILIRUBIN,TOTAL 0.4 mg/dL (0.2-1); TOT PROT 5.4 g/dl (6.4-8.2)
[2022-10-12] MEDS: LIDOCAINE 5% TOPICAL PATCH TP SCH (09:01)
[2022-10-12] MEDS: ENOXAPARIN NA (PORCINE) 100 MG/1 ML DISP.SYRIN SQ SCH ×2 (09:01→21:28)
[2022-10-12] MEDS: FAMOTIDINE 20 MG TABLET PO SCH (09:01)
[2022-10-12] MEDS: METOPROLOL TARTRATE 25 MG TABLET (FP) PO SCH ×2 (09:01→21:27)
[2022-10-12] MEDS: levETIRAcetam 500 MG TABLET (FP) PO SCH ×2 (09:01→21:24)
[2022-10-12] MEDS: VALSARTAN 40 MG TABLET PO SCH (09:01)
[2022-10-12] MEDS: OCULAR LUBRICANT OPHTHALMIC OINTMENT 7 GM TUBE OU SCH ×2 (09:02→21:26)
[2022-10-12] MEDS: FUROSEMIDE 40 MG TABLET (FP) PO SCH (09:02)
[2022-10-12] MEDS ORDERED: FUROSEMIDE 40 MG TABLET (FP) PO SCH (10:00)
[2022-10-12] MEDS: ACETAMINOPHEN 325 MG TABLET (FP) PO PRN ×2 (14:30→22:38)
[2022-10-12] MEDS: LIDOCAINE PATCH REMOVAL MC SCH (21:26)
[2022-10-13 06:47] LABS: BASO % 2.1 % (0-2.0); EOS % 6.5 % (0-4.5); HEMATOCRIT 30.9 % (32.4-45.2); MCH 26.7 pg (25.7-33.7); MCHC 32.3 g/dl (32.0-36.0); MEAN CELL VOLUME 82.5 fl (80-96); MEAN PLT VOLUME 9.2 fl (7.5-11.1); MONO % 12.3 % (3.8-10.2); NEUT % 46.1 % (42.8-82.8); PLATELET COUNT 286 10^3/uL (134-434); RBC 3.75 M/mm3 (3.60-5.2); RDW 19.6 % (11.6-15.6); WHITE BLOOD COUNT 5.2 K/mm3 (4.0-10.0)
[2022-10-13 07:13] LABS: POTASSIUM 4.1 mmol/L (3.5-5.1)
[2022-10-13 07:18] LABS: CALCIUM 8.8 mg/dL (8.5-10.1)
[2022-10-13 07:19] LABS: BLOOD UREA NITROGEN 10.5 mg/dL (7-18)
[2022-10-13 07:21] LABS: CREATININE 0.9 mg/dL (0.55-1.3)
[2022-10-13] MEDS: FAMOTIDINE 20 MG TABLET PO SCH (10:18)
[2022-10-13] MEDS: levETIRAcetam 500 MG TABLET (FP) PO SCH ×2 (10:18→21:02)
[2022-10-13] MEDS: METOPROLOL TARTRATE 25 MG TABLET (FP) PO SCH ×2 (10:18→21:04)
[2022-10-13] MEDS: LIDOCAINE 5% TOPICAL PATCH TP SCH (10:18)
[2022-10-13] MEDS: FUROSEMIDE 40 MG TABLET (FP) PO SCH (10:18)
[2022-10-13] MEDS: OCULAR LUBRICANT OPHTHALMIC OINTMENT 7 GM TUBE OU SCH ×2 (10:18→21:05)
[2022-10-13] MEDS: VALSARTAN 40 MG TABLET PO SCH (10:18)
[2022-10-13] MEDS: ACETAMINOPHEN 325 MG TABLET (FP) PO PRN (21:01)
[2022-10-13] MEDS: LIDOCAINE PATCH REMOVAL MC SCH (21:05)
[2022-10-14 06:44] LABS: HEMATOCRIT 30.1 % (32.4-45.2); HEMOGLOBIN 9.8 GM/dL (10.7-15.3); MCH 27.3 pg (25.7-33.7); MCHC 32.7 g/dl (32.0-36.0); MEAN CELL VOLUME 83.4 fl (80-96); MEAN PLT VOLUME 9.1 fl (7.5-11.1); PLATELET COUNT 265 10^3/uL (134-434); RBC 3.61 M/mm3 (3.60-5.2); RDW 19.8 % (11.6-15.6)
[2022-10-14 07:01] LABS: INR 1.22 (0.83-1.09); PROTHROMBIN TIME (PATIENT) 14.1 SEC (9.7-13.0)
[2022-10-14 07:03] LABS: ACTIVATED PTT 32.9 SECONDS (25.2-36.5)
[2022-10-14 07:05] LABS: POTASSIUM 3.9 mmol/L (3.5-5.1)
[2022-10-14 07:13] LABS: CALCIUM 8.7 mg/dL (8.5-10.1)
[2022-10-14 07:14] LABS: BLOOD UREA NITROGEN 10.6 mg/dL (7-18); MAGNESIUM 1.3 mg/dL (1.8-2.4)
[2022-10-14 07:16] LABS: PHOSPHOROUS 3.7 mg/dL (2.5-4.9)
[2022-10-14 07:17] LABS: CREATININE 0.9 mg/dL (0.55-1.3)
[2022-10-14] MEDS ORDERED: MAGNESIUM SULF 50% (8.12 MEQ/2 ML-1 GM VIAL) IVPB ONE ×2 (07:49→20:00)
[2022-10-14] MEDS: METOPROLOL TARTRATE 25 MG TABLET (FP) PO SCH ×2 (09:22→21:35)
[2022-10-14] MEDS: FAMOTIDINE 20 MG TABLET PO SCH (09:22)
[2022-10-14] MEDS: FUROSEMIDE 40 MG TABLET (FP) PO SCH (09:22)
[2022-10-14] MEDS: OCULAR LUBRICANT OPHTHALMIC OINTMENT 7 GM TUBE OU SCH ×2 (09:22→21:07)
[2022-10-14] MEDS: levETIRAcetam 500 MG TABLET (FP) PO SCH ×2 (09:22→21:08)
[2022-10-14] MEDS: LIDOCAINE 5% TOPICAL PATCH TP SCH (09:22)
[2022-10-14] MEDS: VALSARTAN 40 MG TABLET PO SCH (09:22)
[2022-10-14] MEDS: ACETAMINOPHEN 325 MG TABLET (FP) PO PRN (20:34)
[2022-10-14] MEDS: LIDOCAINE PATCH REMOVAL MC SCH (21:35)
[2022-10-14] MEDS: ENOXAPARIN NA (PORCINE) 100 MG/1 ML DISP.SYRIN SQ SCH (21:36)
[2022-10-15] MEDS: ACETAMINOPHEN 325 MG TABLET (FP) PO PRN ×2 (05:41→18:52)
[2022-10-15 06:20] LABS: HEMATOCRIT 29.3 % (32.4-45.2); HEMOGLOBIN 9.3 GM/dL (10.7-15.3); MCH 26.4 pg (25.7-33.7); MCHC 31.6 g/dl (32.0-36.0); MEAN CELL VOLUME 83.7 fl (80-96); MEAN PLT VOLUME 9.1 fl (7.5-11.1); PLATELET COUNT 255 10^3/uL (134-434); WHITE BLOOD COUNT 5.4 K/mm3 (4.0-10.0)
[2022-10-15 06:40] LABS: POTASSIUM 3.8 mmol/L (3.5-5.1)
[2022-10-15 06:41] LABS: CALCIUM 8.9 mg/dL (8.5-10.1); MAGNESIUM 2.3 mg/dL (1.8-2.4)
[2022-10-15 06:42] LABS: BLOOD UREA NITROGEN 11.6 mg/dL (7-18)
[2022-10-15 06:45] LABS: CREATININE 0.8 mg/dL (0.55-1.3); PHOSPHOROUS 3.3 mg/dL (2.5-4.9)
[2022-10-15] MEDS: FUROSEMIDE 40 MG TABLET (FP) PO SCH (09:05)
[2022-10-15] MEDS: levETIRAcetam 500 MG TABLET (FP) PO SCH ×2 (09:05→21:20)
[2022-10-15] MEDS: METOPROLOL TARTRATE 25 MG TABLET (FP) PO SCH ×2 (09:05→21:20)
[2022-10-15] MEDS: VALSARTAN 40 MG TABLET PO SCH (09:05)
[2022-10-15] MEDS: OCULAR LUBRICANT OPHTHALMIC OINTMENT 7 GM TUBE OU SCH ×2 (09:05→21:23)
[2022-10-15] MEDS: FAMOTIDINE 20 MG TABLET PO SCH (09:05)
[2022-10-15] MEDS: LIDOCAINE 5% TOPICAL PATCH TP SCH (09:06)
[2022-10-15] MEDS: LIDOCAINE PATCH REMOVAL MC SCH (21:20)
[2022-10-16] MEDS: FUROSEMIDE 40 MG TABLET (FP) PO SCH (09:32)
[2022-10-16] MEDS: VALSARTAN 40 MG TABLET PO SCH (09:32)
[2022-10-16] MEDS: FAMOTIDINE 20 MG TABLET PO SCH (09:32)
[2022-10-16] MEDS: LIDOCAINE 5% TOPICAL PATCH TP SCH (09:32)
[2022-10-16] MEDS: levETIRAcetam 500 MG TABLET (FP) PO SCH ×2 (09:32→21:46)
[2022-10-16] MEDS: METOPROLOL TARTRATE 25 MG TABLET (FP) PO SCH ×2 (09:32→21:43)
[2022-10-16] MEDS: OCULAR LUBRICANT OPHTHALMIC OINTMENT 7 GM TUBE OU SCH ×2 (09:34→21:51)
[2022-10-16] MEDS ORDERED: LACTATED RINGERS SOLUTION 1000 ML INFUS.BAG IV ONE ×4 (13:24→19:38)
[2022-10-16] MEDS ORDERED: LIDOCAINE 5% TOPICAL PATCH TP ONE (13:34)
[2022-10-16] MEDS: ENOXAPARIN NA (PORCINE) 100 MG/1 ML DISP.SYRIN SQ SCH (21:45)
[2022-10-16] MEDS: ACETAMINOPHEN 325 MG TABLET (FP) PO PRN (21:46)
[2022-10-16] MEDS: LIDOCAINE PATCH REMOVAL MC SCH (21:51)
[2022-10-16] MEDS ORDERED: LIDOCAINE PATCH REMOVAL MC ONE (22:00)
[2022-10-17 07:25] LABS: HEMATOCRIT 25.1 % (32.4-45.2); HEMOGLOBIN 8.2 GM/dL (10.7-15.3); MCH 27.2 pg (25.7-33.7); MCHC 32.7 g/dl (32.0-36.0); MEAN CELL VOLUME 83.1 fl (80-96); MEAN PLT VOLUME 9.5 fl (7.5-11.1); PLATELET COUNT 213 10^3/uL (134-434); RBC 3.02 M/mm3 (3.60-5.2); RDW 19.5 % (11.6-15.6); WHITE BLOOD COUNT 5.1 K/mm3 (4.0-10.0)
[2022-10-17 07:44] LABS: CALCIUM 8.6 mg/dL (8.5-10.1)
[2022-10-17 07:45] LABS: BLOOD UREA NITROGEN 9.9 mg/dL (7-18); MAGNESIUM 1.8 mg/dL (1.8-2.4)
[2022-10-17 07:48] LABS: CREATININE 0.7 mg/dL (0.55-1.3); PHOSPHOROUS 3.2 mg/dL (2.5-4.9)
[2022-10-17] MEDS: ENOXAPARIN NA (PORCINE) 100 MG/1 ML DISP.SYRIN SQ SCH (10:25)
[2022-10-17] MEDS: FAMOTIDINE 20 MG TABLET PO SCH (10:51)
[2022-10-17] MEDS: levETIRAcetam 500 MG TABLET (FP) PO SCH ×2 (10:51→21:12)
[2022-10-17] MEDS: METOPROLOL TARTRATE 25 MG TABLET (FP) PO SCH ×2 (10:51→21:12)
[2022-10-17] MEDS: LIDOCAINE 5% TOPICAL PATCH TP SCH (10:51)
[2022-10-17] MEDS: ACETAMINOPHEN 325 MG TABLET (FP) PO PRN ×2 (11:11→20:30)
[2022-10-17] MEDS: OCULAR LUBRICANT OPHTHALMIC OINTMENT 7 GM TUBE OU SCH ×2 (11:14→21:12)
[2022-10-17] MEDS: APIXABAN 5 MG TABLET PO SCH (21:11)
[2022-10-17] MEDS: LIDOCAINE PATCH REMOVAL MC SCH (21:12)
[2022-10-18] MEDS: ACETAMINOPHEN 325 MG TABLET (FP) PO PRN (01:00)
[2022-10-18 07:29] LABS: HEMATOCRIT 25.4 % (32.4-45.2); HEMOGLOBIN 8.5 GM/dL (10.7-15.3); MCHC 33.6 g/dl (32.0-36.0); MEAN CELL VOLUME 83.2 fl (80-96); MEAN PLT VOLUME 9.3 fl (7.5-11.1); PLATELET COUNT 210 10^3/uL (134-434); RBC 3.05 M/mm3 (3.60-5.2); RDW 20.1 % (11.6-15.6); WHITE BLOOD COUNT 4.6 K/mm3 (4.0-10.0)
[2022-10-18 08:00] LABS: CALCIUM 8.7 mg/dL (8.5-10.1); POTASSIUM 4.2 mmol/L (3.5-5.1)
[2022-10-18 08:02] LABS: BLOOD UREA NITROGEN 8.3 mg/dL (7-18); MAGNESIUM 1.6 mg/dL (1.8-2.4)
[2022-10-18 08:05] LABS: CREATININE 0.8 mg/dL (0.55-1.3); PHOSPHOROUS 3.6 mg/dL (2.5-4.9)
[2022-10-18] MEDS ORDERED: ACETAMINOPHEN 1000 MG/100 ML BAG IVPB ONE (08:36)
[2022-10-18] MEDS: levETIRAcetam 500 MG TABLET (FP) PO SCH ×2 (09:37→21:54)
[2022-10-18] MEDS: METOPROLOL TARTRATE 25 MG TABLET (FP) PO SCH ×2 (09:37→21:54)
[2022-10-18] MEDS: APIXABAN 5 MG TABLET PO SCH ×2 (09:37→21:54)
[2022-10-18] MEDS: FAMOTIDINE 20 MG TABLET PO SCH (09:37)
[2022-10-18] MEDS: LIDOCAINE 5% TOPICAL PATCH TP SCH (09:37)
[2022-10-18] MEDS: OCULAR LUBRICANT OPHTHALMIC OINTMENT 7 GM TUBE OU SCH ×2 (10:34→23:52)
[2022-10-18] MEDS ORDERED: FUROSEMIDE 40 MG/4 ML INJECTABLE VIAL IVPUSH ONE (11:23)
[2022-10-18] MEDS ORDERED: MAGNESIUM SULF 50% (8.12 MEQ/2 ML-1 GM VIAL) IVPB ONE (18:07)
[2022-10-18] MEDS: FUROSEMIDE 40 MG TABLET (FP) PO SCH (18:29)
[2022-10-18] MEDS: LIDOCAINE PATCH REMOVAL MC SCH (21:54)
[2022-10-19] MEDS: ACETAMINOPHEN 325 MG TABLET (FP) PO PRN ×2 (02:30→21:27)
[2022-10-19 07:39] LABS: POTASSIUM 4.2 mmol/L (3.5-5.1)
[2022-10-19 07:44] LABS: ALBUMIN 1.8 g/dl (3.4-5.0); CALCIUM 8.7 mg/dL (8.5-10.1)
[2022-10-19 07:45] LABS: BLOOD UREA NITROGEN 7.6 mg/dL (7-18); MAGNESIUM 1.5 mg/dL (1.8-2.4)
[2022-10-19 07:47] LABS: CREATININE 0.8 mg/dL (0.55-1.3); PHOSPHOROUS 3.8 mg/dL (2.5-4.9)
[2022-10-19 07:49] LABS: BILIRUBIN,TOTAL 0.3 mg/dL (0.2-1); TOT PROT 5.2 g/dl (6.4-8.2)
[2022-10-19] MEDS: LIDOCAINE 5% TOPICAL PATCH TP SCH (09:28)
[2022-10-19] MEDS: METOPROLOL TARTRATE 25 MG TABLET (FP) PO SCH ×2 (09:28→21:28)
[2022-10-19] MEDS: APIXABAN 5 MG TABLET PO SCH (09:28)
[2022-10-19] MEDS: levETIRAcetam 500 MG TABLET (FP) PO SCH ×2 (09:28→21:28)
[2022-10-19] MEDS: FAMOTIDINE 20 MG TABLET PO SCH (09:28)
[2022-10-19] MEDS: FUROSEMIDE 40 MG TABLET (FP) PO SCH ×2 (09:28→09:39)
[2022-10-19] MEDS: OCULAR LUBRICANT OPHTHALMIC OINTMENT 7 GM TUBE OU SCH ×2 (09:28→21:28)
[2022-10-19] MEDS ORDERED: LIDOCAINE 5% TOPICAL PATCH TP ONE (15:30)
[2022-10-19] MEDS ORDERED: MAGNESIUM SULF 50% (8.12 MEQ/2 ML-1 GM VIAL) IVPB ONE (16:00)
[2022-10-19] MEDS: LIDOCAINE PATCH REMOVAL MC SCH (21:28)
[2022-10-19] MEDS: ENOXAPARIN NA (PORCINE) 100 MG/1 ML DISP.SYRIN SQ SCH (21:30)
[2022-10-19] MEDS ORDERED: LIDOCAINE PATCH REMOVAL MC SCH (22:00)
[2022-10-20 07:02] LABS: HEMATOCRIT 28.9 % (32.4-45.2); MCH 26.6 pg (25.7-33.7); MEAN CELL VOLUME 85.8 fl (80-96); MEAN PLT VOLUME 9.5 fl (7.5-11.1); PLATELET COUNT 228 10^3/uL (134-434); RBC 3.37 M/mm3 (3.60-5.2); WHITE BLOOD COUNT 5.7 K/mm3 (4.0-10.0)
[2022-10-20 07:49] LABS: BLOOD UREA NITROGEN 7.2 mg/dL (7-18); CALCIUM 8.8 mg/dL (8.5-10.1); MAGNESIUM 1.8 mg/dL (1.8-2.4)
[2022-10-20 07:52] LABS: CREATININE 0.6 mg/dL (0.55-1.3); PHOSPHOROUS 3.5 mg/dL (2.5-4.9)
[2022-10-20] MEDS: LIDOCAINE 5% TOPICAL PATCH TP SCH (09:26)
[2022-10-20] MEDS: ENOXAPARIN NA (PORCINE) 100 MG/1 ML DISP.SYRIN SQ SCH ×2 (09:27→21:10)
[2022-10-20] MEDS: OCULAR LUBRICANT OPHTHALMIC OINTMENT 7 GM TUBE OU SCH ×2 (09:27→21:17)
[2022-10-20] MEDS: levETIRAcetam 500 MG TABLET (FP) PO SCH ×2 (09:27→21:09)
[2022-10-20] MEDS: FUROSEMIDE 40 MG TABLET (FP) PO SCH (09:27)
[2022-10-20] MEDS: FAMOTIDINE 20 MG TABLET PO SCH (09:27)
[2022-10-20] MEDS: METOPROLOL TARTRATE 25 MG TABLET (FP) PO SCH ×2 (09:27→21:09)
[2022-10-20] MEDS: ACETAMINOPHEN 325 MG TABLET (FP) PO PRN ×2 (15:37→21:09)
[2022-10-20] MEDS ORDERED: FUROSEMIDE 40 MG/4 ML INJECTABLE VIAL IVPUSH ONE (16:00)
[2022-10-20] MEDS: LIDOCAINE PATCH REMOVAL MC SCH (21:17)
[2022-10-21] MEDS: LIDOCAINE 5% TOPICAL PATCH TP SCH (09:38)
[2022-10-21] MEDS: OCULAR LUBRICANT OPHTHALMIC OINTMENT 7 GM TUBE OU SCH ×2 (09:40→21:17)
[2022-10-21] MEDS: levETIRAcetam 500 MG TABLET (FP) PO SCH ×2 (09:40→21:09)
[2022-10-21] MEDS: ENOXAPARIN NA (PORCINE) 100 MG/1 ML DISP.SYRIN SQ SCH ×2 (09:40→21:10)
[2022-10-21] MEDS: METOPROLOL TARTRATE 25 MG TABLET (FP) PO SCH ×2 (09:41→21:09)
[2022-10-21] MEDS: ACETAMINOPHEN 325 MG TABLET (FP) PO PRN ×2 (09:41→21:09)
[2022-10-21] MEDS: FAMOTIDINE 20 MG TABLET PO SCH (09:41)
[2022-10-21] MEDS: FUROSEMIDE 40 MG/4 ML INJECTABLE VIAL IVPUSH SCH (13:08)
[2022-10-21] MEDS: LIDOCAINE PATCH REMOVAL MC SCH (21:10)
[2022-10-22] MEDS: ACETAMINOPHEN 325 MG TABLET (FP) PO PRN ×3 (01:49→22:14)
[2022-10-22] MEDS: LIDOCAINE 5% TOPICAL PATCH TP SCH (09:51)
[2022-10-22] MEDS: METOPROLOL TARTRATE 25 MG TABLET (FP) PO SCH ×2 (09:52→22:15)
[2022-10-22] MEDS: levETIRAcetam 500 MG TABLET (FP) PO SCH ×2 (09:52→22:15)
[2022-10-22] MEDS: ENOXAPARIN NA (PORCINE) 100 MG/1 ML DISP.SYRIN SQ SCH ×2 (09:52→22:14)
[2022-10-22] MEDS: FUROSEMIDE 40 MG/4 ML INJECTABLE VIAL IVPUSH SCH (09:52)
[2022-10-22] MEDS: OCULAR LUBRICANT OPHTHALMIC OINTMENT 7 GM TUBE OU SCH ×2 (09:53→22:15)
[2022-10-22] MEDS: FAMOTIDINE 20 MG TABLET PO SCH (09:53)
[2022-10-22 13:41] LABS: POTASSIUM 4.2 mmol/L (3.5-5.1)
[2022-10-22 13:44] LABS: CALCIUM 9.2 mg/dL (8.5-10.1); MAGNESIUM 1.5 mg/dL (1.8-2.4)
[2022-10-22 13:45] LABS: BLOOD UREA NITROGEN 7.8 mg/dL (7-18)
[2022-10-22 13:48] LABS: CREATININE 0.8 mg/dL (0.55-1.3)
[2022-10-22] MEDS ORDERED: MAGNESIUM 2GM/50ML STERILE WATER IVPB IVPB ONE (14:30)
[2022-10-22] MEDS: LIDOCAINE PATCH REMOVAL MC SCH (22:15)
[2022-10-23] MEDS: FUROSEMIDE 40 MG/4 ML INJECTABLE VIAL IVPUSH SCH (10:33)
[2022-10-23] MEDS: levETIRAcetam 500 MG TABLET (FP) PO SCH ×2 (10:34→21:18)
[2022-10-23] MEDS: METOPROLOL TARTRATE 25 MG TABLET (FP) PO SCH ×2 (10:34→21:19)
[2022-10-23] MEDS: ENOXAPARIN NA (PORCINE) 100 MG/1 ML DISP.SYRIN SQ SCH ×2 (10:34→21:19)
[2022-10-23] MEDS: FAMOTIDINE 20 MG TABLET PO SCH (10:34)
[2022-10-23] MEDS: OCULAR LUBRICANT OPHTHALMIC OINTMENT 7 GM TUBE OU SCH ×2 (10:36→21:19)
[2022-10-23] MEDS: LIDOCAINE 5% TOPICAL PATCH TP SCH (10:37)
[2022-10-23] MEDS: LIDOCAINE PATCH REMOVAL MC SCH (21:19)
[2022-10-23] MEDS: ACETAMINOPHEN 325 MG TABLET (FP) PO PRN (21:26)
[2022-10-24] MEDS: ACETAMINOPHEN 325 MG TABLET (FP) PO PRN ×2 (02:00→21:18)
[2022-10-24 08:32] LABS: HEMATOCRIT 28.8 % (32.4-45.2); HEMOGLOBIN 9.1 GM/dL (10.7-15.3); MCH 27.1 pg (25.7-33.7); MCHC 31.5 g/dl (32.0-36.0); MEAN PLT VOLUME 9.1 fl (7.5-11.1); PLATELET COUNT 214 10^3/uL (134-434); RBC 3.35 M/mm3 (3.60-5.2); RDW 20.2 % (11.6-15.6); WHITE BLOOD COUNT 5.4 K/mm3 (4.0-10.0)
[2022-10-24 08:48] LABS: POTASSIUM 3.9 mmol/L (3.5-5.1)
[2022-10-24 08:51] LABS: CALCIUM 8.7 mg/dL (8.5-10.1)
[2022-10-24 08:55] LABS: CREATININE 0.7 mg/dL (0.55-1.3)
[2022-10-24] MEDS ORDERED: FUROSEMIDE 40 MG TABLET (FP) PO ONE (09:55)
[2022-10-24] MEDS: ENOXAPARIN NA (PORCINE) 100 MG/1 ML DISP.SYRIN SQ SCH ×2 (09:56→21:11)
[2022-10-24] MEDS: LIDOCAINE 5% TOPICAL PATCH TP SCH (09:56)
[2022-10-24] MEDS: levETIRAcetam 500 MG TABLET (FP) PO SCH ×2 (09:57→21:13)
[2022-10-24] MEDS: METOPROLOL TARTRATE 25 MG TABLET (FP) PO SCH ×2 (09:57→21:12)
[2022-10-24] MEDS: FAMOTIDINE 20 MG TABLET PO SCH (09:57)
[2022-10-24] MEDS: OCULAR LUBRICANT OPHTHALMIC OINTMENT 7 GM TUBE OU SCH ×2 (10:00→21:13)
[2022-10-24] MEDS: FUROSEMIDE 40 MG/4 ML INJECTABLE VIAL IVPUSH SCH (10:01)
[2022-10-24] MEDS: FUROSEMIDE 40 MG TABLET (FP) PO SCH (15:13)
[2022-10-24] MEDS: LIDOCAINE PATCH REMOVAL MC SCH (21:13)
[2022-10-25] MEDS: ACETAMINOPHEN 325 MG TABLET (FP) PO PRN (01:40)
[2022-10-25] MEDS: FUROSEMIDE 40 MG TABLET (FP) PO SCH ×2 (05:53→15:00)
[2022-10-25 07:35] LABS: POTASSIUM 3.9 mmol/L (3.5-5.1)
[2022-10-25 07:38] LABS: CALCIUM 8.5 mg/dL (8.5-10.1)
[2022-10-25 07:39] LABS: BLOOD UREA NITROGEN 7.6 mg/dL (7-18); MAGNESIUM 1.4 mg/dL (1.8-2.4)
[2022-10-25 07:41] LABS: CREATININE 0.8 mg/dL (0.55-1.3); PHOSPHOROUS 3.5 mg/dL (2.5-4.9)
[2022-10-25 07:58] LABS: BASO % 0.8 % (0-2.0); EOS % 4.8 % (0-4.5); HEMATOCRIT 28.8 % (32.4-45.2); HEMOGLOBIN 8.9 GM/dL (10.7-15.3); LYMPH % 19.8 % (8-40); MCH 26.9 pg (25.7-33.7); MCHC 31.1 g/dl (32.0-36.0); MEAN CELL VOLUME 86.4 fl (80-96); MEAN PLT VOLUME 9.6 fl (7.5-11.1); NEUT % 64.6 % (42.8-82.8); PLATELET COUNT 214 10^3/uL (134-434); RBC 3.33 M/mm3 (3.60-5.2); RDW 20.5 % (11.6-15.6); WHITE BLOOD COUNT 5.1 K/mm3 (4.0-10.0)
[2022-10-25 10:05] LABS: ANISOCYTOSIS 1+; MACROCYTOSIS 0
[2022-10-25] MEDS: ENOXAPARIN NA (PORCINE) 100 MG/1 ML DISP.SYRIN SQ SCH (10:25)
[2022-10-25] MEDS: FAMOTIDINE 20 MG TABLET PO SCH (10:26)
[2022-10-25] MEDS: LIDOCAINE 5% TOPICAL PATCH TP SCH (10:26)
[2022-10-25] MEDS: METOPROLOL TARTRATE 25 MG TABLET (FP) PO SCH ×2 (10:26→21:43)
[2022-10-25] MEDS: OCULAR LUBRICANT OPHTHALMIC OINTMENT 7 GM TUBE OU SCH ×2 (10:26→21:45)
[2022-10-25] MEDS: levETIRAcetam 500 MG TABLET (FP) PO SCH ×2 (10:26→21:44)
[2022-10-25] MEDS ORDERED: MAGNESIUM 2GM/50ML STERILE WATER IVPB IVPB ONE (12:45)
[2022-10-25] MEDS ORDERED: MAGNESIUM SULF 50% (8.12 MEQ/2 ML-1 GM VIAL) ONE (16:54)
[2022-10-25] MEDS: LIDOCAINE PATCH REMOVAL MC SCH (21:43)
[2022-10-25] MEDS: APIXABAN 5 MG TABLET PO SCH (21:44)
[2022-10-26] MEDS: FUROSEMIDE 40 MG TABLET (FP) PO SCH ×2 (06:02→13:29)
[2022-10-26] MEDS: FAMOTIDINE 20 MG TABLET PO SCH (09:37)
[2022-10-26] MEDS: OCULAR LUBRICANT OPHTHALMIC OINTMENT 7 GM TUBE OU SCH ×2 (09:37→21:14)
[2022-10-26] MEDS: METOPROLOL TARTRATE 25 MG TABLET (FP) PO SCH ×2 (09:37→21:13)
[2022-10-26] MEDS: LIDOCAINE 5% TOPICAL PATCH TP SCH (09:37)
[2022-10-26] MEDS: APIXABAN 5 MG TABLET PO SCH ×2 (09:37→21:13)
[2022-10-26] MEDS: levETIRAcetam 500 MG TABLET (FP) PO SCH ×2 (09:37→21:13)
[2022-10-26] MEDS: ACETAMINOPHEN 325 MG TABLET (FP) PO PRN (21:13)
[2022-10-26] MEDS: LIDOCAINE PATCH REMOVAL MC SCH (21:14)
[2022-10-27] MEDS: FUROSEMIDE 40 MG TABLET (FP) PO SCH ×2 (05:50→13:07)
[2022-10-27] MEDS: levETIRAcetam 500 MG TABLET (FP) PO SCH (09:30)
[2022-10-27] MEDS: OCULAR LUBRICANT OPHTHALMIC OINTMENT 7 GM TUBE OU SCH (09:30)
[2022-10-27] MEDS: FAMOTIDINE 20 MG TABLET PO SCH (09:30)
[2022-10-27] MEDS: METOPROLOL TARTRATE 25 MG TABLET (FP) PO SCH (09:30)
[2022-10-27] MEDS: APIXABAN 5 MG TABLET PO SCH (09:30)
[2022-10-27] MEDS: LIDOCAINE 5% TOPICAL PATCH TP SCH (09:32)
[2022-10-27 14:58] VITALS: PULSE 62
[2022-10-27 18:22] VITALS: BP 104/68; RESP 20; TEMP 98
== END 2022-10-27 18:31 | disposition home or self-care (01) | DRG 207 ==
LOC: JER 21:41 → INTOOBSV 09-11 04:02 → JERBED 09-11 04:02 → UNDOADMOB 09-11 04:02 → JERBED 09-11 11:37 → J8W 09-11 16:56 → JICU 09-14 10:00 → OBSVTOIN 09-14 10:15 → J2W 09-19 17:47 → J6S 09-24 21:31 → J2W 09-28 06:53
PROVIDERS: ADMIT Internal Medicine; ATTEND Internal Medicine
PROC: 0BH17EZ Insertion of Endotracheal Airway into Trachea, Via Natural or Artificial Opening (ICD-10-PCS; principal; 2022-09-14)
PROC: 5A1955Z Respiratory Ventilation, Greater than 96 Consecutive Hours (ICD-10-PCS; 2022-09-14)
PROC: 05HF33Z Insertion of Infusion Device into Left Cephalic Vein, Percutaneous Approach (ICD-10-PCS; 2022-09-20)
PROC: B54NZZA Ultrasonography of Left Upper Extremity Veins, Guidance (ICD-10-PCS; 2022-09-20)
PROC: 0W9B30Z Drainage of Left Pleural Cavity with Drainage Device, Percutaneous Approach (ICD-10-PCS; 2022-10-01)
PROC: 0W9930Z Drainage of Right Pleural Cavity with Drainage Device, Percutaneous Approach (ICD-10-PCS; 2022-10-02)
DX: J96.21 Acute and chronic respiratory failure with hypoxia (principal); J69.0 Pneumonitis due to inhalation of food and vomit; G93.41 Metabolic encephalopathy; I50.33 Acute on chronic diastolic (congestive) heart failure; I69.351 Hemiplegia and hemiparesis following cerebral infarction affecting right dominant side; G24.09 Other drug induced dystonia; N17.9 Acute kidney failure, unspecified; E87.0 Hyperosmolality and hypernatremia; J44.1 Chronic obstructive pulmonary disease with (acute) exacerbation; J90 Pleural effusion, not elsewhere classified; J96.22 Acute and chronic respiratory failure with hypercapnia; R41.82 Altered mental status, unspecified; R34 Anuria and oliguria; G40.909 Epilepsy, unspecified, not intractable, without status epilepticus; E78.5 Hyperlipidemia, unspecified; I48.91 Unspecified atrial fibrillation; F20.9 Schizophrenia, unspecified; F03.90 Unspecified dementia, unspecified severity, without behavioral disturbance, psychotic disturbance, mood disturbance, and anxiety; I11.0 Hypertensive heart disease with heart failure; I25.10 Atherosclerotic heart disease of native coronary artery without angina pectoris; Z99.81 Dependence on supplemental oxygen; D64.9 Anemia, unspecified; T50.995A Adverse effect of other drugs, medicaments and biological substances, initial encounter; I34.0 Nonrheumatic mitral (valve) insufficiency; E87.6 Hypokalemia; E66.9 Obesity, unspecified; Z68.35 Body mass index [BMI] 35.0-35.9, adult; E83.42 Hypomagnesemia; R13.10 Dysphagia, unspecified; E87.70 Fluid overload, unspecified; G47.30 Sleep apnea, unspecified; R91.8 Other nonspecific abnormal finding of lung field
CPT/HCPCS: 32557; 36415; 36600; 70450-TC; 71045-TC-FY; 71250-TC; 76604-TC; 76775-TC; 80048; 80053; 80061; 81003; 82042; 82150; 82272; 82465; 82607; 82746; 82803; 82945; 82962; 83036; 83605; 83615; 83735; 83880; 83986; 84100; 84155; 84157; 84478; 84484; 85025; 85027; 85610; 85730; 86780; 86922; 87040; 87070; 87075; 87081; 87086; 87102; 87116; 87205; 87206; 87210; 88108; 88305-TC; 93005; 93010; 93971-TC; 94002; 94640; 94660; 94761; 97161-GP; 99285-25; C9803-CS; G0378; U0003; U0005

== ENCOUNTER 2022-12-16 10:16 | Inpatient (IN) | payer OTHER ==
[2022-12-16] MEDS ORDERED: ASPIRIN 81 MG CHEWABLE TABLETS PO ONE (10:34)
[2022-12-16 10:46] VITALS: BMI 33.9
[2022-12-16 10:46] LABS: VENOUS BASE EXCESS -6.1 mmol/L (-2-2); VENOUS O2 SATURATION 78.6 % (70-80)
[2022-12-16] MEDS ORDERED: ASPIRIN 81 MG CHEWABLE TABLETS ONE (10:47)
[2022-12-16 10:49] LABS: VENOUS PH 7.069 (7.310-7.410)
[2022-12-16 10:52] LABS: BASO % 0.4 % (0-2.0); HEMATOCRIT 32.2 % (32.4-45.2); HEMOGLOBIN 10.4 GM/dL (10.7-15.3); INR 1.98 (0.83-1.09); LYMPH % 38.5 % (8-40); MCH 29.4 pg (25.7-33.7); MCHC 32.3 g/dl (32.0-36.0); MEAN CELL VOLUME 91.3 fl (80-96); MEAN PLT VOLUME 9.4 fl (7.5-11.1); MONO % 4.8 % (3.8-10.2); NEUT % 52.3 % (42.8-82.8); PLATELET COUNT 283 10^3/uL (134-434); PROTHROMBIN TIME (PATIENT) 22.8 SEC (9.7-13.0); RBC 3.52 M/mm3 (3.60-5.2); RDW 18.6 % (11.6-15.6); WHITE BLOOD COUNT 15.7 K/mm3 (4.0-10.0)
[2022-12-16 10:55] LABS: ACTIVATED PTT 35.4 SECONDS (25.2-36.5)
[2022-12-16 11:05] LABS: CHLORIDE 106 mmol/L (98-107); POTASSIUM 3.7 mmol/L (3.5-5.1); SODIUM 143 mmol/L (136-145)
[2022-12-16 11:07] LABS: CALCIUM 8.9 mg/dL (8.5-10.1)
[2022-12-16 11:08] LABS: ALBUMIN 2.7 g/dl (3.4-5.0); ANION GAP 10 MMOL/L (8-16); BLOOD UREA NITROGEN 12.4 mg/dL (7-18); CO2 27 mmol/L (21-32); GLUCOSE,RANDOM 230 mg/dL (74-106); MAGNESIUM 1.8 mg/dL (1.8-2.4)
[2022-12-16 11:11] LABS: CREATININE 1.1 mg/dL (0.55-1.3); SGOT/AST 22 U/L (15-37); SGPT/ALT 18 U/L (13-61)
[2022-12-16 11:13] LABS: BILIRUBIN,TOTAL 0.3 mg/dL (0.2-1); TOT PROT 6.5 g/dl (6.4-8.2)
[2022-12-16 11:14] LABS: ALK PHOS 92 U/L (45-117)
[2022-12-16 11:31] LABS: LACTIC ACID 5.4 mmol/L (0.4-2.0)
[2022-12-16] MEDS ORDERED: FUROSEMIDE 40 MG/4 ML INJECTABLE VIAL IVPUSH ONE ×2 (12:19→21:00)
[2022-12-16] MEDS ORDERED: FUROSEMIDE 40 MG/4 ML INJECTABLE VIAL ONE (13:05)
[2022-12-16 13:29] LABS: VENOUS BASE EXCESS -0.1 mmol/L (-2-2); VENOUS O2 SATURATION 47.5 % (70-80); VENOUS PCO2 59.8 mmHg (38-52); VENOUS PH 7.279 (7.310-7.410)
[2022-12-16 13:59] LABS: LACTIC ACID 2.2 mmol/L (0.4-2.0)
[2022-12-16 14:54] LABS: EPI CELLS 23 /uL (0-25.1); HYALINE CASTS 7 /uL (0-3.1); URINE APPEARANCE CLOUDY; URINE BACTERIA 3746 /uL (0-1359); URINE BILIRUBIN NEGATIVE (NEGATIVE); URINE COLOR YELLOW; URINE GLUCOSE (UA) NEGATIVE (NEGATIVE); URINE KETONE NEGATIVE (NEGATIVE); URINE LEUK ESTERASE 2+ (NEGATIVE); URINE NITRITE NEGATIVE (NEGATIVE); URINE PROTEIN 1+ (NEGATIVE); URINE RBC 37 /uL (0-23.9); URINE UROBILINOGEN 0.2 mg/dL (0.2-1.0); URINE WBC 893 /uL (0-25.8)
[2022-12-16 15:16] LABS: URINE CRYSTALS FEW CA OXALATE /hpf
[2022-12-16] MEDS ORDERED: methylPREDNISolone NA SUCC 40 MG/1 ML VIAL IVPUSH SCH (15:30)
[2022-12-16] MEDS ORDERED: ALBUTEROL SO4 2.5/IPRATROPIUM 0.5 INH SOL 3 ML VIAL.NEB. NEB ONE (15:36)
[2022-12-16] MEDS ORDERED: methylPREDNISolone NA SUCC 40 MG/1 ML VIAL ONE (15:37)
[2022-12-16] MEDS: ALBUTEROL SO4 2.5/IPRATROPIUM 0.5 INH SOL 3 ML VIAL.NEB. NEB SCH ×2 (15:48→20:12)
[2022-12-16] MEDS: ATORVASTATIN CA 40 MG TABLET (FP) PO SCH (21:20)
[2022-12-16] MEDS: levETIRAcetam 500 MG TABLET (FP) PO SCH (21:21)
[2022-12-16] MEDS: APIXABAN 5 MG TABLET PO SCH (23:00)
[2022-12-16] MEDS: METOPROLOL TARTRATE 25 MG TABLET (FP) PO SCH (23:26)
[2022-12-17] MEDS: FUROSEMIDE 40 MG/4 ML INJECTABLE VIAL IVPUSH SCH ×2 (06:16→14:42)
[2022-12-17] MEDS: ALBUTEROL SO4 2.5/IPRATROPIUM 0.5 INH SOL 3 ML VIAL.NEB. NEB SCH ×4 (07:47→20:32)
[2022-12-17 08:46] LABS: BASO % 0.3 % (0-2.0); HEMATOCRIT 29.6 % (32.4-45.2); HEMOGLOBIN 9.8 GM/dL (10.7-15.3); LYMPH % 11.1 % (8-40); MCH 29.4 pg (25.7-33.7); MCHC 33.2 g/dl (32.0-36.0); MEAN CELL VOLUME 88.4 fl (80-96); MEAN PLT VOLUME 9.2 fl (7.5-11.1); MONO % 4.7 % (3.8-10.2); NEUT % 83.9 % (42.8-82.8); PLATELET COUNT 223 10^3/uL (134-434); RBC 3.35 M/mm3 (3.60-5.2); RDW 18.7 % (11.6-15.6); WHITE BLOOD COUNT 10.7 K/mm3 (4.0-10.0)
[2022-12-17 09:03] LABS: POTASSIUM 3.2 mmol/L (3.5-5.1)
[2022-12-17 09:08] LABS: CALCIUM 8.9 mg/dL (8.5-10.1)
[2022-12-17 09:09] LABS: ALBUMIN 2.6 g/dl (3.4-5.0); BLOOD UREA NITROGEN 15.6 mg/dL (7-18); MAGNESIUM 1.3 mg/dL (1.8-2.4)
[2022-12-17 09:12] LABS: CREATININE 1.1 mg/dL (0.55-1.3); PHOSPHOROUS 3.5 mg/dL (2.5-4.9)
[2022-12-17 09:13] LABS: BILIRUBIN,TOTAL 0.6 mg/dL (0.2-1); TOT PROT 6.3 g/dl (6.4-8.2)
[2022-12-17] MEDS: predniSONE 20 MG TABLET (UD) PO SCH (10:33)
[2022-12-17] MEDS: APIXABAN 5 MG TABLET PO SCH ×2 (10:33→21:39)
[2022-12-17] MEDS: ASPIRIN COATED 81 MG TABLET.EC PO SCH (10:33)
[2022-12-17] MEDS: PANTOPRAZOLE 40 MG TABLET PO SCH (10:33)
[2022-12-17] MEDS: levETIRAcetam 500 MG TABLET (FP) PO SCH ×2 (10:33→21:38)
[2022-12-17] MEDS: METOPROLOL TARTRATE 25 MG TABLET (FP) PO SCH ×2 (10:33→21:39)
[2022-12-17] MEDS ORDERED: MAGNESIUM SULF 50% (8.12 MEQ/2 ML-1 GM VIAL) IVPB ONE (11:55)
[2022-12-17] MEDS ORDERED: POTASSIUM CHLORIDE ORAL LIQUID 20 MEQ/15 ML PO ONE (11:58)
[2022-12-17 13:43] LABS: EPI CELLS 32 /uL (0-25.1); HYALINE CASTS 1 /uL (0-3.1); PH,URINE 5.5 (5.0-8.0); URINE APPEARANCE CLEAR; URINE BACTERIA 31 /uL (0-1359); URINE BILIRUBIN NEGATIVE (NEGATIVE); URINE COLOR YELLOW; URINE GLUCOSE (UA) NEGATIVE (NEGATIVE); URINE KETONE TRACE (NEGATIVE); URINE LEUK ESTERASE 2+ (NEGATIVE); URINE NITRITE NEGATIVE (NEGATIVE); URINE PROTEIN 3+ (NEGATIVE); URINE RBC 5478 /uL (0-23.9); URINE WBC 113 /uL (0-25.8)
[2022-12-17 14:28] LABS: ARTERIAL BLOOD GAS BASE EXCESS 0.5 mmol/L (-2-2); ARTERIAL BLOOD GAS PO2 63.3 mmHg (80-100)
[2022-12-17 14:29] LABS: ALLENS TEST POSITIVE
[2022-12-17] MEDS ORDERED: ACETAMINOPHEN 325 MG TABLET (FP) PO ONE (17:10)
[2022-12-17] MEDS: ATORVASTATIN CA 40 MG TABLET (FP) PO SCH (21:38)
[2022-12-18] MEDS: AUSTEDO 24 MG PO SCH ×2 (00:33→22:02)
[2022-12-18] MEDS: FUROSEMIDE 40 MG/4 ML INJECTABLE VIAL IVPUSH SCH ×2 (05:19→14:21)
[2022-12-18] MEDS: ALBUTEROL SO4 2.5/IPRATROPIUM 0.5 INH SOL 3 ML VIAL.NEB. NEB SCH ×4 (08:35→20:30)
[2022-12-18 08:46] LABS: BASO % 0.3 % (0-2.0); EOS % 0.1 % (0-4.5); HEMATOCRIT 27.9 % (32.4-45.2); HEMOGLOBIN 8.9 GM/dL (10.7-15.3); LYMPH % 11.8 % (8-40); MCH 28.7 pg (25.7-33.7); MEAN CELL VOLUME 89.7 fl (80-96); MEAN PLT VOLUME 9.6 fl (7.5-11.1); MONO % 8.1 % (3.8-10.2); NEUT % 79.7 % (42.8-82.8); PLATELET COUNT 218 10^3/uL (134-434); RDW 19.1 % (11.6-15.6); WHITE BLOOD COUNT 11.9 K/mm3 (4.0-10.0)
[2022-12-18 09:14] LABS: POTASSIUM 3.6 mmol/L (3.5-5.1)
[2022-12-18 09:19] LABS: ALBUMIN 2.8 g/dl (3.4-5.0); BLOOD UREA NITROGEN 14.3 mg/dL (7-18); CALCIUM 9.1 mg/dL (8.5-10.1); MAGNESIUM 1.9 mg/dL (1.8-2.4)
[2022-12-18 09:22] LABS: CREATININE 1.1 mg/dL (0.55-1.3); PHOSPHOROUS 3.1 mg/dL (2.5-4.9)
[2022-12-18 09:24] LABS: BILIRUBIN,TOTAL 0.8 mg/dL (0.2-1); TOT PROT 6.3 g/dl (6.4-8.2)
[2022-12-18] MEDS: GABAPENTIN 400 MG CAPSULE PO SCH (11:47)
[2022-12-18] MEDS: predniSONE 20 MG TABLET (UD) PO SCH (11:48)
[2022-12-18] MEDS: levETIRAcetam 500 MG TABLET (FP) PO SCH ×2 (11:48→22:02)
[2022-12-18] MEDS: PANTOPRAZOLE 40 MG TABLET PO SCH (11:48)
[2022-12-18] MEDS: ASPIRIN COATED 81 MG TABLET.EC PO SCH (11:48)
[2022-12-18] MEDS: APIXABAN 5 MG TABLET PO SCH ×2 (11:48→22:02)
[2022-12-18] MEDS ORDERED: LIDOCAINE 5% TOPICAL PATCH TP ONE ×3 (11:52→13:45)
[2022-12-18] MEDS: METOPROLOL TARTRATE 25 MG TABLET (FP) PO SCH ×2 (11:56→22:02)
[2022-12-18] MEDS: ACETAMINOPHEN 325 MG TABLET (FP) PO PRN (14:23)
[2022-12-18] MEDS: LIDOCAINE PATCH REMOVAL MC SCH ×2 (22:02)
[2022-12-18] MEDS: ATORVASTATIN CA 40 MG TABLET (FP) PO SCH (22:02)
[2022-12-19] MEDS: FUROSEMIDE 40 MG/4 ML INJECTABLE VIAL IVPUSH SCH (06:25)
[2022-12-19 07:27] LABS: BASO % 0.9 % (0-2.0); EOS % 4.3 % (0-4.5); HEMATOCRIT 26.4 % (32.4-45.2); HEMOGLOBIN 8.6 GM/dL (10.7-15.3); LYMPH % 23.8 % (8-40); MCH 29.4 pg (25.7-33.7); MCHC 32.5 g/dl (32.0-36.0); MEAN CELL VOLUME 90.5 fl (80-96); MEAN PLT VOLUME 9.5 fl (7.5-11.1); MONO % 9.3 % (3.8-10.2); NEUT % 61.7 % (42.8-82.8); PLATELET COUNT 213 10^3/uL (134-434); RBC 2.92 M/mm3 (3.60-5.2); WHITE BLOOD COUNT 8.3 K/mm3 (4.0-10.0)
[2022-12-19 07:56] LABS: POTASSIUM 4.1 mmol/L (3.5-5.1)
[2022-12-19 08:00] LABS: ALBUMIN 2.5 g/dl (3.4-5.0); BLOOD UREA NITROGEN 15.5 mg/dL (7-18); MAGNESIUM 1.8 mg/dL (1.8-2.4)
[2022-12-19 08:03] LABS: CREATININE 1.4 mg/dL (0.55-1.3); PHOSPHOROUS 3.3 mg/dL (2.5-4.9)
[2022-12-19 08:05] LABS: BILIRUBIN,TOTAL 0.5 mg/dL (0.2-1); TOT PROT 5.5 g/dl (6.4-8.2)
[2022-12-19] MEDS: ALBUTEROL SO4 2.5/IPRATROPIUM 0.5 INH SOL 3 ML VIAL.NEB. NEB SCH ×4 (08:47→20:39)
[2022-12-19] MEDS: levETIRAcetam 500 MG TABLET (FP) PO SCH ×2 (09:47→22:08)
[2022-12-19] MEDS: ASPIRIN COATED 81 MG TABLET.EC PO SCH (09:47)
[2022-12-19] MEDS: PANTOPRAZOLE 40 MG TABLET PO SCH (09:47)
[2022-12-19] MEDS: APIXABAN 5 MG TABLET PO SCH ×2 (09:47→22:08)
[2022-12-19] MEDS: GABAPENTIN 400 MG CAPSULE PO SCH (09:47)
[2022-12-19] MEDS: METOPROLOL TARTRATE 25 MG TABLET (FP) PO SCH ×2 (09:48→22:11)
[2022-12-19] MEDS ORDERED: SODIUM CHLORIDE 1,000 ML IV SCH (12:30)
[2022-12-19] MEDS: SODIUM CHLORIDE 1,000 ML IV SCH (12:47)
[2022-12-19] MEDS: LIDOCAINE 5% TOPICAL PATCH TP SCH ×2 (15:13→15:14)
[2022-12-19 16:49] LABS: CREATININE 1.4 mg/dL (0.55-1.3)
[2022-12-19] MEDS ORDERED: SODIUM CHLORIDE 250 ML IV STA (17:58)
[2022-12-19] MEDS: ACETAMINOPHEN 325 MG TABLET (FP) PO PRN (18:28)
[2022-12-19] MEDS: ATORVASTATIN CA 40 MG TABLET (FP) PO SCH (22:08)
[2022-12-19] MEDS: AUSTEDO 24 MG PO SCH (22:08)
[2022-12-19] MEDS: LIDOCAINE PATCH REMOVAL MC SCH ×2 (22:09)
[2022-12-20] MEDS: ACETAMINOPHEN 325 MG TABLET (FP) PO PRN ×2 (00:44→19:10)
[2022-12-20] MEDS: ALBUTEROL SO4 2.5/IPRATROPIUM 0.5 INH SOL 3 ML VIAL.NEB. NEB SCH ×4 (07:29→20:19)
[2022-12-20 08:50] LABS: BASO % 0.6 % (0-2.0); EOS % 4.7 % (0-4.5); HEMATOCRIT 29.1 % (32.4-45.2); HEMOGLOBIN 9.2 GM/dL (10.7-15.3); LYMPH % 19.2 % (8-40); MCH 29.1 pg (25.7-33.7); MCHC 31.7 g/dl (32.0-36.0); MEAN CELL VOLUME 91.8 fl (80-96); MEAN PLT VOLUME 9.7 fl (7.5-11.1); MONO % 8.6 % (3.8-10.2); NEUT % 66.9 % (42.8-82.8); PLATELET COUNT 247 10^3/uL (134-434); RBC 3.17 M/mm3 (3.60-5.2); RDW 18.7 % (11.6-15.6); WHITE BLOOD COUNT 9.9 K/mm3 (4.0-10.0)
[2022-12-20 09:02] LABS: POTASSIUM 3.9 mmol/L (3.5-5.1)
[2022-12-20 09:05] LABS: ALBUMIN 2.6 g/dl (3.4-5.0); BLOOD UREA NITROGEN 14.9 mg/dL (7-18); CALCIUM 8.6 mg/dL (8.5-10.1)
[2022-12-20 09:06] LABS: MAGNESIUM 1.6 mg/dL (1.8-2.4)
[2022-12-20 09:08] LABS: CREATININE 1.1 mg/dL (0.55-1.3); PHOSPHOROUS 3.5 mg/dL (2.5-4.9)
[2022-12-20 09:10] LABS: BILIRUBIN,TOTAL 0.6 mg/dL (0.2-1); TOT PROT 5.9 g/dl (6.4-8.2)
[2022-12-20] MEDS: levETIRAcetam 500 MG TABLET (FP) PO SCH ×2 (10:01→22:06)
[2022-12-20] MEDS: ASPIRIN COATED 81 MG TABLET.EC PO SCH (10:01)
[2022-12-20] MEDS: GABAPENTIN 400 MG CAPSULE PO SCH (10:01)
[2022-12-20] MEDS: METOPROLOL TARTRATE 25 MG TABLET (FP) PO SCH ×2 (10:02→22:06)
[2022-12-20] MEDS: PANTOPRAZOLE 40 MG TABLET PO SCH (10:02)
[2022-12-20] MEDS: LIDOCAINE 5% TOPICAL PATCH TP SCH ×2 (10:03→10:36)
[2022-12-20] MEDS: APIXABAN 5 MG TABLET PO SCH ×2 (10:03→22:06)
[2022-12-20] MEDS ORDERED: MAGNESIUM SULF 50% (8.12 MEQ/2 ML-1 GM VIAL) IVPB ONE (16:32)
[2022-12-20] MEDS: SODIUM CHLORIDE 1,000 ML IV SCH (16:34)
[2022-12-20] MEDS: AUSTEDO 24 MG PO SCH (22:05)
[2022-12-20] MEDS: ATORVASTATIN CA 40 MG TABLET (FP) PO SCH (22:06)
[2022-12-20] MEDS: LIDOCAINE PATCH REMOVAL MC SCH ×2 (22:07)
[2022-12-21] MEDS: ALBUTEROL SO4 2.5/IPRATROPIUM 0.5 INH SOL 3 ML VIAL.NEB. NEB SCH ×4 (08:25→20:44)
[2022-12-21 09:38] LABS: BASO % 0.4 % (0-2.0); EOS % 2.3 % (0-4.5); HEMATOCRIT 29.2 % (32.4-45.2); HEMOGLOBIN 9.3 GM/dL (10.7-15.3); LYMPH % 12.7 % (8-40); MCH 28.8 pg (25.7-33.7); MCHC 31.8 g/dl (32.0-36.0); MEAN CELL VOLUME 90.7 fl (80-96); MEAN PLT VOLUME 8.9 fl (7.5-11.1); MONO % 8.6 % (3.8-10.2); PLATELET COUNT 234 10^3/uL (134-434); RBC 3.22 M/mm3 (3.60-5.2); RDW 18.7 % (11.6-15.6); WHITE BLOOD COUNT 11.8 K/mm3 (4.0-10.0)
[2022-12-21 09:55] LABS: POTASSIUM 4.7 mmol/L (3.5-5.1)
[2022-12-21 09:56] LABS: CALCIUM 9.2 mg/dL (8.5-10.1)
[2022-12-21 09:58] LABS: ALBUMIN 2.7 g/dl (3.4-5.0); BLOOD UREA NITROGEN 16.6 mg/dL (7-18); MAGNESIUM 2.4 mg/dL (1.8-2.4)
[2022-12-21 10:00] LABS: CREATININE 0.9 mg/dL (0.55-1.3); PHOSPHOROUS 3.3 mg/dL (2.5-4.9)
[2022-12-21] MEDS: ACETAMINOPHEN 325 MG TABLET (FP) PO PRN ×2 (10:00→21:15)
[2022-12-21 10:01] LABS: BILIRUBIN,TOTAL 0.6 mg/dL (0.2-1); TOT PROT 6.1 g/dl (6.4-8.2)
[2022-12-21] MEDS: APIXABAN 5 MG TABLET PO SCH ×2 (10:06→21:12)
[2022-12-21] MEDS: ASPIRIN COATED 81 MG TABLET.EC PO SCH (10:06)
[2022-12-21] MEDS: GABAPENTIN 400 MG CAPSULE PO SCH (10:06)
[2022-12-21] MEDS: PANTOPRAZOLE 40 MG TABLET PO SCH (10:06)
[2022-12-21] MEDS: METOPROLOL TARTRATE 25 MG TABLET (FP) PO SCH ×2 (10:06→21:13)
[2022-12-21] MEDS: levETIRAcetam 500 MG TABLET (FP) PO SCH ×2 (10:07→21:12)
[2022-12-21] MEDS: LIDOCAINE 5% TOPICAL PATCH TP SCH ×2 (10:08)
[2022-12-21] MEDS: LIDOCAINE PATCH REMOVAL MC SCH ×2 (21:12)
[2022-12-21] MEDS: ATORVASTATIN CA 40 MG TABLET (FP) PO SCH (21:12)
[2022-12-21] MEDS: AUSTEDO 24 MG PO SCH (21:12)
[2022-12-22] MEDS: ACETAMINOPHEN 325 MG TABLET (FP) PO PRN ×3 (05:19→19:05)
[2022-12-22] MEDS: FUROSEMIDE 40 MG/4 ML INJECTABLE VIAL IVPUSH SCH ×2 (05:34→13:57)
[2022-12-22] MEDS: ALBUTEROL SO4 2.5/IPRATROPIUM 0.5 INH SOL 3 ML VIAL.NEB. NEB SCH ×4 (07:50→21:00)
[2022-12-22 08:58] LABS: POTASSIUM 5.2 mmol/L (3.5-5.1)
[2022-12-22 09:12] LABS: ALBUMIN 2.7 g/dl (3.4-5.0); BLOOD UREA NITROGEN 19.3 mg/dL (7-18); CALCIUM 9.6 mg/dL (8.5-10.1); MAGNESIUM 2.4 mg/dL (1.8-2.4)
[2022-12-22 09:14] LABS: CREATININE 0.9 mg/dL (0.55-1.3); PHOSPHOROUS 3.1 mg/dL (2.5-4.9)
[2022-12-22 09:15] LABS: BILIRUBIN,TOTAL 0.6 mg/dL (0.2-1); TOT PROT 6.2 g/dl (6.4-8.2)
[2022-12-22 09:27] LABS: EOS % 3.6 % (0-4.5); HEMATOCRIT 28.5 % (32.4-45.2); HEMOGLOBIN 9.2 GM/dL (10.7-15.3); LYMPH % 14.3 % (8-40); MCH 28.8 pg (25.7-33.7); MCHC 32.2 g/dl (32.0-36.0); MEAN CELL VOLUME 89.4 fl (80-96); MEAN PLT VOLUME 9.8 fl (7.5-11.1); MONO % 6.3 % (3.8-10.2); NEUT % 73.8 % (42.8-82.8); PLATELET COUNT 172 10^3/uL (134-434); RBC 3.19 M/mm3 (3.60-5.2); RDW 18.7 % (11.6-15.6); WHITE BLOOD COUNT 12.4 K/mm3 (4.0-10.0)
[2022-12-22] MEDS: PANTOPRAZOLE 40 MG TABLET PO SCH (09:32)
[2022-12-22] MEDS: ASPIRIN COATED 81 MG TABLET.EC PO SCH (09:32)
[2022-12-22] MEDS: METOPROLOL TARTRATE 25 MG TABLET (FP) PO SCH ×2 (09:32→21:45)
[2022-12-22] MEDS: levETIRAcetam 500 MG TABLET (FP) PO SCH ×2 (09:32→21:45)
[2022-12-22] MEDS: GABAPENTIN 400 MG CAPSULE PO SCH (09:33)
[2022-12-22] MEDS: APIXABAN 5 MG TABLET PO SCH ×2 (09:33→21:45)
[2022-12-22] MEDS: LIDOCAINE 5% TOPICAL PATCH TP SCH ×2 (09:33)
[2022-12-22] MEDS ORDERED: SODIUM ZIRCONIUM CYCLOSILICATE (LOKELMA) 5 GM PACKET PO SCH (14:00)
[2022-12-22] MEDS ORDERED: SODIUM ZIRCONIUM CYCLOSILICATE (LOKELMA) 5 GM PACKET PO ONE ×2 (21:24→22:00)
[2022-12-22] MEDS: AUSTEDO 24 MG PO SCH (21:45)
[2022-12-22] MEDS: LIDOCAINE PATCH REMOVAL MC SCH ×2 (21:45)
[2022-12-22] MEDS: ATORVASTATIN CA 40 MG TABLET (FP) PO SCH (21:45)
[2022-12-23] MEDS: FUROSEMIDE 40 MG/4 ML INJECTABLE VIAL IVPUSH SCH ×2 (06:30→14:23)
[2022-12-23 06:54] LABS: POTASSIUM 5.1 mmol/L (3.5-5.1)
[2022-12-23 06:56] LABS: ALBUMIN 2.4 g/dl (3.4-5.0); BLOOD UREA NITROGEN 21.7 mg/dL (7-18); CALCIUM 9.3 mg/dL (8.5-10.1)
[2022-12-23 06:58] LABS: BASO % 0.9 % (0-2.0); EOS % 4.6 % (0-4.5); HEMATOCRIT 26.4 % (32.4-45.2); HEMOGLOBIN 8.5 GM/dL (10.7-15.3); LYMPH % 15.1 % (8-40); MCH 29.1 pg (25.7-33.7); MCHC 32.3 g/dl (32.0-36.0); MEAN CELL VOLUME 89.9 fl (80-96); MEAN PLT VOLUME 8.7 fl (7.5-11.1); MONO % 8.1 % (3.8-10.2); NEUT % 71.3 % (42.8-82.8); PLATELET COUNT 215 10^3/uL (134-434); RBC 2.93 M/mm3 (3.60-5.2); RDW 18.5 % (11.6-15.6); WHITE BLOOD COUNT 10.6 K/mm3 (4.0-10.0)
[2022-12-23 06:59] LABS: CREATININE 0.9 mg/dL (0.55-1.3); PHOSPHOROUS 3.9 mg/dL (2.5-4.9)
[2022-12-23] MEDS: ACETAMINOPHEN 325 MG TABLET (FP) PO PRN ×3 (06:59→21:53)
[2022-12-23 07:01] LABS: BILIRUBIN,TOTAL 0.6 mg/dL (0.2-1); TOT PROT 5.6 g/dl (6.4-8.2)
[2022-12-23] MEDS: ASPIRIN COATED 81 MG TABLET.EC PO SCH (09:57)
[2022-12-23] MEDS: APIXABAN 5 MG TABLET PO SCH ×2 (09:58→21:53)
[2022-12-23] MEDS: METOPROLOL TARTRATE 25 MG TABLET (FP) PO SCH ×2 (09:58→21:57)
[2022-12-23] MEDS: LIDOCAINE 5% TOPICAL PATCH TP SCH ×2 (09:58→09:59)
[2022-12-23] MEDS: levETIRAcetam 500 MG TABLET (FP) PO SCH ×2 (09:58→21:53)
[2022-12-23] MEDS: GABAPENTIN 400 MG CAPSULE PO SCH (09:58)
[2022-12-23] MEDS: PANTOPRAZOLE 40 MG TABLET PO SCH (09:58)
[2022-12-23] MEDS: ALBUTEROL SO4 2.5/IPRATROPIUM 0.5 INH SOL 3 ML VIAL.NEB. NEB SCH ×4 (10:01→20:29)
[2022-12-23] MEDS ORDERED: CELECOXIB 200 MG CAPSULE PO SCH (13:00)
[2022-12-23] MEDS: ATORVASTATIN CA 40 MG TABLET (FP) PO SCH (21:53)
[2022-12-23] MEDS: LIDOCAINE PATCH REMOVAL MC SCH ×2 (21:56)
[2022-12-23] MEDS: AUSTEDO 24 MG PO SCH (21:56)
[2022-12-23] MEDS: METHYL SALICYLATE/MENTHOL OINT 30 GM TUBE TP SCH (21:56)
[2022-12-24] MEDS: ACETAMINOPHEN 325 MG TABLET (FP) PO PRN ×3 (06:29→22:30)
[2022-12-24] MEDS: FUROSEMIDE 40 MG/4 ML INJECTABLE VIAL IVPUSH SCH ×2 (06:29→15:04)
[2022-12-24] MEDS: ALBUTEROL SO4 2.5/IPRATROPIUM 0.5 INH SOL 3 ML VIAL.NEB. NEB SCH ×4 (07:59→19:30)
[2022-12-24] MEDS: PANTOPRAZOLE 40 MG TABLET PO SCH (10:50)
[2022-12-24] MEDS: ASPIRIN COATED 81 MG TABLET.EC PO SCH (10:50)
[2022-12-24] MEDS: LIDOCAINE 5% TOPICAL PATCH TP SCH ×2 (10:50→11:22)
[2022-12-24] MEDS: GABAPENTIN 400 MG CAPSULE PO SCH (10:50)
[2022-12-24] MEDS: APIXABAN 5 MG TABLET PO SCH ×2 (10:50→22:30)
[2022-12-24] MEDS: METOPROLOL TARTRATE 25 MG TABLET (FP) PO SCH ×2 (10:50→22:30)
[2022-12-24] MEDS: levETIRAcetam 500 MG TABLET (FP) PO SCH ×2 (10:50→22:30)
[2022-12-24] MEDS: METHYL SALICYLATE/MENTHOL OINT 30 GM TUBE TP SCH (11:23)
[2022-12-24] MEDS: ATORVASTATIN CA 40 MG TABLET (FP) PO SCH (22:30)
[2022-12-24] MEDS: AUSTEDO 24 MG PO SCH (22:30)
[2022-12-24] MEDS: LIDOCAINE PATCH REMOVAL MC SCH ×2 (22:30)
[2022-12-25] MEDS: FUROSEMIDE 40 MG/4 ML INJECTABLE VIAL IVPUSH SCH ×2 (06:21→13:51)
[2022-12-25] MEDS: ALBUTEROL SO4 0.083% IH SOL 2.5 MG/3 ML VIAL.NEB. NEB PRN (06:42)
[2022-12-25] MEDS: ALBUTEROL SO4 2.5/IPRATROPIUM 0.5 INH SOL 3 ML VIAL.NEB. NEB SCH ×4 (07:50→20:05)
[2022-12-25] MEDS: LIDOCAINE 5% TOPICAL PATCH TP SCH ×2 (09:45)
[2022-12-25] MEDS: APIXABAN 5 MG TABLET PO SCH ×2 (09:46→21:32)
[2022-12-25] MEDS: PANTOPRAZOLE 40 MG TABLET PO SCH (09:46)
[2022-12-25] MEDS: METOPROLOL TARTRATE 25 MG TABLET (FP) PO SCH ×2 (09:46→21:32)
[2022-12-25] MEDS: ASPIRIN COATED 81 MG TABLET.EC PO SCH (09:46)
[2022-12-25] MEDS: GABAPENTIN 400 MG CAPSULE PO SCH (09:46)
[2022-12-25] MEDS: levETIRAcetam 500 MG TABLET (FP) PO SCH ×2 (09:46→21:32)
[2022-12-25] MEDS: ACETAMINOPHEN 325 MG TABLET (FP) PO PRN ×2 (09:47→18:32)
[2022-12-25] MEDS: METHYL SALICYLATE/MENTHOL OINT 30 GM TUBE TP SCH ×2 (09:47→09:56)
[2022-12-25] MEDS: ATORVASTATIN CA 40 MG TABLET (FP) PO SCH (21:32)
[2022-12-25] MEDS: AUSTEDO 24 MG PO SCH (21:34)
[2022-12-25] MEDS: LIDOCAINE PATCH REMOVAL MC SCH ×2 (21:46→21:47)
[2022-12-25] MEDS ORDERED: SODIUM CHLORIDE 250 ML IV STA (23:54)
[2022-12-26] MEDS: ALBUTEROL SO4 2.5/IPRATROPIUM 0.5 INH SOL 3 ML VIAL.NEB. NEB SCH ×4 (07:10→20:29)
[2022-12-26] MEDS: ASPIRIN COATED 81 MG TABLET.EC PO SCH (10:20)
[2022-12-26] MEDS: levETIRAcetam 500 MG TABLET (FP) PO SCH ×2 (10:20→21:03)
[2022-12-26] MEDS: GABAPENTIN 400 MG CAPSULE PO SCH (10:20)
[2022-12-26] MEDS: APIXABAN 5 MG TABLET PO SCH ×2 (10:20→21:03)
[2022-12-26] MEDS: LIDOCAINE 5% TOPICAL PATCH TP SCH ×4 (10:21→10:35)
[2022-12-26] MEDS: PANTOPRAZOLE 40 MG TABLET PO SCH (10:21)
[2022-12-26] MEDS: METOPROLOL TARTRATE 25 MG TABLET (FP) PO SCH ×2 (10:23→21:05)
[2022-12-26] MEDS: METHYL SALICYLATE/MENTHOL OINT 30 GM TUBE TP SCH (10:24)
[2022-12-26] MEDS: ACETAMINOPHEN 325 MG TABLET (FP) PO PRN ×2 (11:41→20:24)
[2022-12-26] MEDS: AUSTEDO 24 MG PO SCH (21:03)
[2022-12-26] MEDS: ATORVASTATIN CA 40 MG TABLET (FP) PO SCH (21:03)
[2022-12-26] MEDS: LIDOCAINE PATCH REMOVAL MC SCH ×2 (21:16)
[2022-12-27] MEDS: FUROSEMIDE 40 MG/4 ML INJECTABLE VIAL IVPUSH SCH ×2 (05:20→15:01)
[2022-12-27] MEDS: ACETAMINOPHEN 325 MG TABLET (FP) PO PRN ×3 (06:35→22:23)
[2022-12-27] MEDS: ALBUTEROL SO4 2.5/IPRATROPIUM 0.5 INH SOL 3 ML VIAL.NEB. NEB SCH ×4 (07:48→20:50)
[2022-12-27] MEDS: METHYL SALICYLATE/MENTHOL OINT 30 GM TUBE TP SCH (09:16)
[2022-12-27] MEDS: APIXABAN 5 MG TABLET PO SCH ×2 (09:16→22:22)
[2022-12-27] MEDS: ASPIRIN COATED 81 MG TABLET.EC PO SCH (09:16)
[2022-12-27] MEDS: GABAPENTIN 400 MG CAPSULE PO SCH (09:16)
[2022-12-27] MEDS: levETIRAcetam 500 MG TABLET (FP) PO SCH ×2 (09:16→22:23)
[2022-12-27] MEDS: PANTOPRAZOLE 40 MG TABLET PO SCH (09:16)
[2022-12-27] MEDS: METOPROLOL TARTRATE 25 MG TABLET (FP) PO SCH ×2 (09:17→22:23)
[2022-12-27] MEDS: LIDOCAINE 5% TOPICAL PATCH TP SCH ×2 (09:31)
[2022-12-27] MEDS ORDERED: FUROSEMIDE 40 MG/4 ML INJECTABLE VIAL IVPUSH ONE (10:15)
[2022-12-27 12:59] LABS: EOS % 2.7 % (0-4.5); HEMATOCRIT 22.5 % (32.4-45.2); HEMOGLOBIN 7.1 GM/dL (10.7-15.3); LYMPH % 13.5 % (8-40); MCH 29.1 pg (25.7-33.7); MCHC 31.8 g/dl (32.0-36.0); MEAN CELL VOLUME 91.8 fl (80-96); MEAN PLT VOLUME 8.6 fl (7.5-11.1); MONO % 7.4 % (3.8-10.2); NEUT % 75.4 % (42.8-82.8); PLATELET COUNT 243 10^3/uL (134-434); RBC 2.45 M/mm3 (3.60-5.2); RDW 18.2 % (11.6-15.6); WHITE BLOOD COUNT 9.8 K/mm3 (4.0-10.0)
[2022-12-27 13:28] LABS: POTASSIUM 4.4 mmol/L (3.5-5.1)
[2022-12-27 13:31] LABS: ALBUMIN 2.6 g/dl (3.4-5.0); BLOOD UREA NITROGEN 24.4 mg/dL (7-18); CALCIUM 8.8 mg/dL (8.5-10.1)
[2022-12-27 13:34] LABS: CREATININE 1.1 mg/dL (0.55-1.3); PHOSPHOROUS 4.2 mg/dL (2.5-4.9)
[2022-12-27 13:36] LABS: BILIRUBIN,TOTAL 0.4 mg/dL (0.2-1); TOT PROT 5.9 g/dl (6.4-8.2)
[2022-12-27 13:37] LABS: ERYTHROCYTE SEDIMENTATION RATE 90 mm/hr (0-30)
[2022-12-27] MEDS: ATORVASTATIN CA 40 MG TABLET (FP) PO SCH (22:22)
[2022-12-27] MEDS: AUSTEDO 24 MG PO SCH (22:23)
[2022-12-27] MEDS: LIDOCAINE PATCH REMOVAL MC SCH ×2 (22:24)
[2022-12-28] MEDS: ALBUTEROL SO4 0.083% IH SOL 2.5 MG/3 ML VIAL.NEB. NEB PRN (01:56)
[2022-12-28] MEDS: FUROSEMIDE 40 MG/4 ML INJECTABLE VIAL IVPUSH SCH ×2 (06:35→16:10)
[2022-12-28] MEDS: ACETAMINOPHEN 325 MG TABLET (FP) PO PRN ×2 (06:36→21:53)
[2022-12-28] MEDS: ALBUTEROL SO4 2.5/IPRATROPIUM 0.5 INH SOL 3 ML VIAL.NEB. NEB SCH ×4 (07:45→19:40)
[2022-12-28 09:21] LABS: EPI CELLS 22 /uL (0-25.1); HYALINE CASTS 1 /uL (0-3.1); URINE APPEARANCE CLEAR; URINE BACTERIA 187 /uL (0-1359); URINE BILIRUBIN NEGATIVE (NEGATIVE); URINE COLOR YELLOW; URINE GLUCOSE (UA) NEGATIVE (NEGATIVE); URINE KETONE NEGATIVE (NEGATIVE); URINE LEUK ESTERASE 3+ (NEGATIVE); URINE NITRITE NEGATIVE (NEGATIVE); URINE PROTEIN NEGATIVE (NEGATIVE); URINE RBC 11 /uL (0-23.9); URINE UROBILINOGEN 0.2 mg/dL (0.2-1.0); URINE WBC 399 /uL (0-25.8)
[2022-12-28] MEDS: LIDOCAINE 5% TOPICAL PATCH TP SCH ×2 (10:44→10:49)
[2022-12-28] MEDS: METOPROLOL TARTRATE 25 MG TABLET (FP) PO SCH ×2 (10:44→21:53)
[2022-12-28] MEDS: PANTOPRAZOLE 40 MG TABLET PO SCH (10:45)
[2022-12-28] MEDS: APIXABAN 5 MG TABLET PO SCH ×2 (10:45→21:53)
[2022-12-28] MEDS: levETIRAcetam 500 MG TABLET (FP) PO SCH ×2 (10:45→21:53)
[2022-12-28] MEDS: ASPIRIN COATED 81 MG TABLET.EC PO SCH (10:45)
[2022-12-28] MEDS: METHYL SALICYLATE/MENTHOL OINT 30 GM TUBE TP SCH (10:47)
[2022-12-28] MEDS: GABAPENTIN 100 MG CAPSULE PO SCH (21:52)
[2022-12-28] MEDS: ATORVASTATIN CA 40 MG TABLET (FP) PO SCH (21:53)
[2022-12-28] MEDS: AUSTEDO 24 MG PO SCH (21:53)
[2022-12-28] MEDS: LIDOCAINE PATCH REMOVAL MC SCH ×2 (21:54)
[2022-12-29] MEDS: ALBUTEROL SO4 0.083% IH SOL 2.5 MG/3 ML VIAL.NEB. NEB PRN ×2 (04:24→23:15)
[2022-12-29] MEDS: FUROSEMIDE 40 MG/4 ML INJECTABLE VIAL IVPUSH SCH ×2 (06:00→14:56)
[2022-12-29] MEDS: ACETAMINOPHEN 325 MG TABLET (FP) PO PRN ×2 (06:01→22:34)
[2022-12-29 08:22] LABS: HEMATOCRIT 22.7 % (32.4-45.2); HEMOGLOBIN 7.1 GM/dL (10.7-15.3); MCH 29.2 pg (25.7-33.7); MCHC 31.2 g/dl (32.0-36.0); MEAN CELL VOLUME 93.6 fl (80-96); MEAN PLT VOLUME 8.9 fl (7.5-11.1); PLATELET COUNT 299 10^3/uL (134-434); RBC 2.42 M/mm3 (3.60-5.2); RDW 18.2 % (11.6-15.6); WHITE BLOOD COUNT 11.8 K/mm3 (4.0-10.0)
[2022-12-29 08:46] LABS: POTASSIUM 4.3 mmol/L (3.5-5.1)
[2022-12-29 08:48] LABS: BLOOD UREA NITROGEN 25.3 mg/dL (7-18); CALCIUM 8.8 mg/dL (8.5-10.1)
[2022-12-29 08:49] LABS: ALBUMIN 2.6 g/dl (3.4-5.0)
[2022-12-29 08:51] LABS: CREATININE 1.2 mg/dL (0.55-1.3); PHOSPHOROUS 4.2 mg/dL (2.5-4.9)
[2022-12-29 08:53] LABS: BILIRUBIN,TOTAL 0.5 mg/dL (0.2-1); TOT PROT 5.9 g/dl (6.4-8.2)
[2022-12-29] MEDS: ALBUTEROL SO4 2.5/IPRATROPIUM 0.5 INH SOL 3 ML VIAL.NEB. NEB SCH ×4 (08:55→20:21)
[2022-12-29] MEDS: METOPROLOL TARTRATE 25 MG TABLET (FP) PO SCH ×2 (10:33→21:49)
[2022-12-29] MEDS: APIXABAN 5 MG TABLET PO SCH ×2 (10:33→21:49)
[2022-12-29] MEDS: ASPIRIN COATED 81 MG TABLET.EC PO SCH (10:33)
[2022-12-29] MEDS: LIDOCAINE 5% TOPICAL PATCH TP SCH ×2 (10:34→10:35)
[2022-12-29] MEDS: PANTOPRAZOLE 40 MG TABLET PO SCH (10:34)
[2022-12-29] MEDS: levETIRAcetam 500 MG TABLET (FP) PO SCH ×2 (10:34→21:50)
[2022-12-29] MEDS: MULTIVIT-MINERALS ORAL LIQUID PO SCH (10:34)
[2022-12-29] MEDS: METHYL SALICYLATE/MENTHOL OINT 30 GM TUBE TP SCH (10:35)
[2022-12-29] MEDS: GABAPENTIN 100 MG CAPSULE PO SCH (21:49)
[2022-12-29] MEDS: ATORVASTATIN CA 40 MG TABLET (FP) PO SCH (21:50)
[2022-12-29] MEDS: AUSTEDO 24 MG PO SCH (21:51)
[2022-12-29] MEDS: LIDOCAINE PATCH REMOVAL MC SCH ×2 (21:51)
[2022-12-30] MEDS: FUROSEMIDE 40 MG/4 ML INJECTABLE VIAL IVPUSH SCH ×2 (05:45→13:58)
[2022-12-30] MEDS: ALBUTEROL SO4 2.5/IPRATROPIUM 0.5 INH SOL 3 ML VIAL.NEB. NEB SCH ×4 (07:42→19:53)
[2022-12-30] MEDS: METOPROLOL TARTRATE 25 MG TABLET (FP) PO SCH ×2 (10:00→21:58)
[2022-12-30] MEDS: levETIRAcetam 500 MG TABLET (FP) PO SCH ×2 (10:08→21:58)
[2022-12-30] MEDS: METHYL SALICYLATE/MENTHOL OINT 30 GM TUBE TP SCH (10:08)
[2022-12-30] MEDS: APIXABAN 5 MG TABLET PO SCH ×2 (10:08→21:58)
[2022-12-30] MEDS: PANTOPRAZOLE 40 MG TABLET PO SCH (10:08)
[2022-12-30] MEDS: ASPIRIN COATED 81 MG TABLET.EC PO SCH (10:08)
[2022-12-30] MEDS: LIDOCAINE 5% TOPICAL PATCH TP SCH ×2 (10:09→10:12)
[2022-12-30] MEDS: MULTIVIT-MINERALS ORAL LIQUID PO SCH (10:10)
[2022-12-30 11:30] LABS: HEMOGLOBIN 7.1 GM/dL (10.7-15.3); MCH 29.1 pg (25.7-33.7); MCHC 30.9 g/dl (32.0-36.0); MEAN CELL VOLUME 94.4 fl (80-96); MEAN PLT VOLUME 8.9 fl (7.5-11.1); PLATELET COUNT 343 10^3/uL (134-434); RBC 2.43 M/mm3 (3.60-5.2); RDW 18.5 % (11.6-15.6); WHITE BLOOD COUNT 13.6 K/mm3 (4.0-10.0)
[2022-12-30 12:00] LABS: POTASSIUM 4.4 mmol/L (3.5-5.1)
[2022-12-30 12:11] LABS: PHOSPHOROUS 4.2 mg/dL (2.5-4.9)
[2022-12-30 12:12] LABS: CREATININE 1.3 mg/dL (0.55-1.3)
[2022-12-30 12:13] LABS: BILIRUBIN,TOTAL 0.6 mg/dL (0.2-1); TOT PROT 6.6 g/dl (6.4-8.2)
[2022-12-30 12:14] LABS: BLOOD UREA NITROGEN 30.3 mg/dL (7-18)
[2022-12-30 12:16] LABS: ALBUMIN 2.8 g/dl (3.4-5.0)
[2022-12-30 12:19] LABS: CALCIUM 9.3 mg/dL (8.5-10.1)
[2022-12-30] MEDS: POLYETHYLENE GLYCOL (HEALTHYLAX) 3350 17 GM PACKET PO SCH ×3 (14:40→21:58)
[2022-12-30] MEDS ORDERED: IRON SUCROSE INJECTION 200 MG in SODIUM CHLORIDE 90 ML IVPB ONE (17:00)
[2022-12-30] MEDS ORDERED: BENZOCAINE 28 GM HEMORRHOIDAL OINTMENT RC PRN (18:17)
[2022-12-30] MEDS: GABAPENTIN 100 MG CAPSULE PO SCH (21:58)
[2022-12-30] MEDS: ACETAMINOPHEN 325 MG TABLET (FP) PO PRN (21:58)
[2022-12-30] MEDS: ATORVASTATIN CA 40 MG TABLET (FP) PO SCH (21:58)
[2022-12-30] MEDS: LIDOCAINE PATCH REMOVAL MC SCH ×2 (22:00)
[2022-12-30] MEDS: AUSTEDO 24 MG PO SCH (22:10)
[2022-12-31] MEDS: POLYETHYLENE GLYCOL (HEALTHYLAX) 3350 17 GM PACKET PO SCH ×3 (06:01→22:13)
[2022-12-31] MEDS: FUROSEMIDE 40 MG/4 ML INJECTABLE VIAL IVPUSH SCH ×2 (06:01→14:04)
[2022-12-31] MEDS: ALBUTEROL SO4 2.5/IPRATROPIUM 0.5 INH SOL 3 ML VIAL.NEB. NEB SCH ×4 (08:53→20:05)
[2022-12-31] MEDS ORDERED: IRON SUCROSE INJECTION 200 MG in SODIUM CHLORIDE 90 ML IVPB ONE (10:00)
[2022-12-31] MEDS: APIXABAN 5 MG TABLET PO SCH ×2 (10:49→22:13)
[2022-12-31] MEDS: METOPROLOL TARTRATE 25 MG TABLET (FP) PO SCH ×2 (10:49→22:17)
[2022-12-31] MEDS: LIDOCAINE 5% TOPICAL PATCH TP SCH ×2 (10:49→11:43)
[2022-12-31] MEDS: levETIRAcetam 500 MG TABLET (FP) PO SCH ×2 (10:49→22:13)
[2022-12-31] MEDS: ASPIRIN COATED 81 MG TABLET.EC PO SCH (10:50)
[2022-12-31] MEDS: PANTOPRAZOLE 40 MG TABLET PO SCH (10:50)
[2022-12-31] MEDS: MULTIVIT-MINERALS ORAL LIQUID PO SCH (10:53)
[2022-12-31] MEDS: METHYL SALICYLATE/MENTHOL OINT 30 GM TUBE TP SCH (10:54)
[2022-12-31] MEDS: ACETAMINOPHEN 325 MG TABLET (FP) PO PRN (15:53)
[2022-12-31] MEDS: GABAPENTIN 100 MG CAPSULE PO SCH (22:13)
[2022-12-31] MEDS: ATORVASTATIN CA 40 MG TABLET (FP) PO SCH (22:13)
[2022-12-31] MEDS: AUSTEDO 24 MG PO SCH (22:16)
[2022-12-31] MEDS: LIDOCAINE PATCH REMOVAL MC SCH ×2 (22:18)
[2023-01-01] MEDS: POLYETHYLENE GLYCOL (HEALTHYLAX) 3350 17 GM PACKET PO SCH ×3 (05:40→22:03)
[2023-01-01] MEDS: FUROSEMIDE 40 MG/4 ML INJECTABLE VIAL IVPUSH SCH ×2 (05:40→14:24)
[2023-01-01] MEDS: ACETAMINOPHEN 325 MG TABLET (FP) PO PRN ×2 (05:43→22:07)
[2023-01-01] MEDS: ALBUTEROL SO4 2.5/IPRATROPIUM 0.5 INH SOL 3 ML VIAL.NEB. NEB SCH ×4 (07:54→20:21)
[2023-01-01 08:06] LABS: HEMATOCRIT 21.3 % (32.4-45.2); MCH 28.6 pg (25.7-33.7); MCHC 29.7 g/dl (32.0-36.0); MEAN CELL VOLUME 96.1 fl (80-96); MEAN PLT VOLUME 8.8 fl (7.5-11.1); PLATELET COUNT 326 10^3/uL (134-434); RBC 2.22 M/mm3 (3.60-5.2); WHITE BLOOD COUNT 14.8 K/mm3 (4.0-10.0)
[2023-01-01 08:12] LABS: HEMOGLOBIN 6.3 GM/dL (10.7-15.3)
[2023-01-01 08:24] LABS: POTASSIUM 4.6 mmol/L (3.5-5.1)
[2023-01-01 08:27] LABS: BLOOD UREA NITROGEN 31.9 mg/dL (7-18); CALCIUM 9.1 mg/dL (8.5-10.1)
[2023-01-01 08:28] LABS: ALBUMIN 2.7 g/dl (3.4-5.0)
[2023-01-01 08:30] LABS: PHOSPHOROUS 3.6 mg/dL (2.5-4.9)
[2023-01-01 08:31] LABS: CREATININE 1.4 mg/dL (0.55-1.3)
[2023-01-01 08:32] LABS: BILIRUBIN,TOTAL 0.6 mg/dL (0.2-1); TOT PROT 5.9 g/dl (6.4-8.2)
[2023-01-01] MEDS: levETIRAcetam 500 MG TABLET (FP) PO SCH ×2 (09:31→21:57)
[2023-01-01] MEDS: ASPIRIN COATED 81 MG TABLET.EC PO SCH (09:31)
[2023-01-01] MEDS: METOPROLOL TARTRATE 25 MG TABLET (FP) PO SCH ×2 (09:31→21:57)
[2023-01-01] MEDS: PANTOPRAZOLE 40 MG TABLET PO SCH (09:31)
[2023-01-01] MEDS: LIDOCAINE 5% TOPICAL PATCH TP SCH ×2 (09:32)
[2023-01-01] MEDS: MULTIVIT-MINERALS ORAL LIQUID PO SCH (09:33)
[2023-01-01] MEDS ORDERED: IRON SUCROSE INJECTION 200 MG in SODIUM CHLORIDE 90 ML IVPB ONE (10:00)
[2023-01-01] MEDS: METHYL SALICYLATE/MENTHOL OINT 30 GM TUBE TP SCH (12:10)
[2023-01-01] MEDS ORDERED: FUROSEMIDE 40 MG/4 ML INJECTABLE VIAL IVPUSH ONE (15:29)
[2023-01-01 16:40] LABS: HEMATOCRIT 23.1 % (32.4-45.2); MCH 28.9 pg (25.7-33.7); MCHC 29.1 g/dl (32.0-36.0); MEAN CELL VOLUME 99.3 fl (80-96); MEAN PLT VOLUME 8.5 fl (7.5-11.1); PLATELET COUNT 322 10^3/uL (134-434); RBC 2.33 M/mm3 (3.60-5.2); RDW 19.1 % (11.6-15.6); WHITE BLOOD COUNT 13.7 K/mm3 (4.0-10.0)
[2023-01-01 16:54] LABS: HEMOGLOBIN 6.7 GM/dL (10.7-15.3)
[2023-01-01] MEDS: GABAPENTIN 100 MG CAPSULE PO SCH (21:57)
[2023-01-01] MEDS: ATORVASTATIN CA 40 MG TABLET (FP) PO SCH (21:57)
[2023-01-01] MEDS: LIDOCAINE PATCH REMOVAL MC SCH ×2 (22:03)
[2023-01-01] MEDS: AUSTEDO 24 MG PO SCH (22:03)
[2023-01-02] MEDS: POLYETHYLENE GLYCOL (HEALTHYLAX) 3350 17 GM PACKET PO SCH ×3 (05:46→22:39)
[2023-01-02] MEDS: FUROSEMIDE 40 MG/4 ML INJECTABLE VIAL IVPUSH SCH (05:46)
[2023-01-02] MEDS: ALBUTEROL SO4 2.5/IPRATROPIUM 0.5 INH SOL 3 ML VIAL.NEB. NEB SCH ×4 (07:46→20:37)
[2023-01-02] MEDS: LIDOCAINE 5% TOPICAL PATCH TP SCH ×2 (09:09→09:10)
[2023-01-02] MEDS: levETIRAcetam 500 MG TABLET (FP) PO SCH ×2 (09:10→22:39)
[2023-01-02] MEDS: METOPROLOL TARTRATE 25 MG TABLET (FP) PO SCH ×2 (09:10→22:40)
[2023-01-02] MEDS: ACETAMINOPHEN 325 MG TABLET (FP) PO PRN ×2 (09:10→16:43)
[2023-01-02] MEDS: ASPIRIN COATED 81 MG TABLET.EC PO SCH (09:10)
[2023-01-02] MEDS: PANTOPRAZOLE 40 MG TABLET PO SCH (09:10)
[2023-01-02] MEDS: METHYL SALICYLATE/MENTHOL OINT 30 GM TUBE TP SCH (09:11)
[2023-01-02] MEDS: MULTIVIT-MINERALS ORAL LIQUID PO SCH (09:11)
[2023-01-02 11:13] LABS: HEMATOCRIT 28.8 % (32.4-45.2); HEMOGLOBIN 8.9 GM/dL (10.7-15.3); MCH 29.5 pg (25.7-33.7); MCHC 30.9 g/dl (32.0-36.0); MEAN CELL VOLUME 95.4 fl (80-96); MEAN PLT VOLUME 8.4 fl (7.5-11.1); PLATELET COUNT 326 10^3/uL (134-434); RBC 3.01 M/mm3 (3.60-5.2); RDW 17.7 % (11.6-15.6); WHITE BLOOD COUNT 16.6 K/mm3 (4.0-10.0)
[2023-01-02 11:18] LABS: POTASSIUM 4.2 mmol/L (3.5-5.1)
[2023-01-02 11:20] LABS: BLOOD UREA NITROGEN 36.6 mg/dL (7-18); CALCIUM 9.5 mg/dL (8.5-10.1); MAGNESIUM 2.2 mg/dL (1.8-2.4)
[2023-01-02 11:23] LABS: PHOSPHOROUS 4.2 mg/dL (2.5-4.9)
[2023-01-02 11:24] LABS: CREATININE 1.8 mg/dL (0.55-1.3)
[2023-01-02] MEDS: AUSTEDO 24 MG PO SCH (22:31)
[2023-01-02] MEDS: GABAPENTIN 100 MG CAPSULE PO SCH (22:39)
[2023-01-02] MEDS: LIDOCAINE PATCH REMOVAL MC SCH ×2 (22:40)
[2023-01-02] MEDS: HEPARIN NA (PORCINE) 5,000 UNITS/ML 1ML VIAL SQ SCH (22:40)
[2023-01-02] MEDS: ATORVASTATIN CA 40 MG TABLET (FP) PO SCH (22:40)
[2023-01-03] MEDS: POLYETHYLENE GLYCOL (HEALTHYLAX) 3350 17 GM PACKET PO SCH ×3 (05:52→22:02)
[2023-01-03] MEDS: HEPARIN NA (PORCINE) 5,000 UNITS/ML 1ML VIAL SQ SCH ×3 (05:53→22:03)
[2023-01-03] MEDS: ALBUTEROL SO4 2.5/IPRATROPIUM 0.5 INH SOL 3 ML VIAL.NEB. NEB SCH ×4 (07:54→20:12)
[2023-01-03] MEDS: LIDOCAINE 5% TOPICAL PATCH TP SCH ×3 (09:57)
[2023-01-03] MEDS: METOPROLOL TARTRATE 25 MG TABLET (FP) PO SCH ×4 (09:57→22:04)
[2023-01-03] MEDS: PANTOPRAZOLE 40 MG TABLET PO SCH (09:58)
[2023-01-03] MEDS: MULTIVIT-MINERALS ORAL LIQUID PO SCH (09:58)
[2023-01-03] MEDS: levETIRAcetam 500 MG TABLET (FP) PO SCH ×2 (09:58→22:03)
[2023-01-03] MEDS: ACETAMINOPHEN 325 MG TABLET (FP) PO PRN ×2 (09:58→22:09)
[2023-01-03] MEDS: ASPIRIN COATED 81 MG TABLET.EC PO SCH (09:58)
[2023-01-03] MEDS: METHYL SALICYLATE/MENTHOL OINT 30 GM TUBE TP SCH (09:59)
[2023-01-03] MEDS ORDERED: FUROSEMIDE 40 MG TABLET (FP) PO SCH (10:00)
[2023-01-03] MEDS ORDERED: LACTATED RINGERS SOLUTION 1000 ML INFUS.BAG IV ONE (20:10)
[2023-01-03] MEDS: AUSTEDO 24 MG PO SCH (22:02)
[2023-01-03] MEDS: ATORVASTATIN CA 40 MG TABLET (FP) PO SCH (22:03)
[2023-01-03] MEDS: LIDOCAINE PATCH REMOVAL MC SCH ×2 (22:03)
[2023-01-03] MEDS: GABAPENTIN 100 MG CAPSULE PO SCH (22:04)
[2023-01-04] MEDS: HEPARIN NA (PORCINE) 5,000 UNITS/ML 1ML VIAL SQ SCH ×3 (05:34→21:16)
[2023-01-04] MEDS: POLYETHYLENE GLYCOL (HEALTHYLAX) 3350 17 GM PACKET PO SCH ×3 (05:35→21:16)
[2023-01-04] MEDS: ACETAMINOPHEN 325 MG TABLET (FP) PO PRN (05:35)
[2023-01-04] MEDS: ALBUTEROL SO4 2.5/IPRATROPIUM 0.5 INH SOL 3 ML VIAL.NEB. NEB SCH ×4 (07:40→20:15)
[2023-01-04 08:43] LABS: HEMATOCRIT 27.3 % (32.4-45.2); HEMOGLOBIN 8.3 GM/dL (10.7-15.3); MCH 30.8 pg (25.7-33.7); MCHC 30.4 g/dl (32.0-36.0); MEAN CELL VOLUME 101.4 fl (80-96); MEAN PLT VOLUME 8.9 fl (7.5-11.1); PLATELET COUNT 320 10^3/uL (134-434); RBC 2.69 M/mm3 (3.60-5.2); RDW 18.5 % (11.6-15.6); WHITE BLOOD COUNT 11.2 K/mm3 (4.0-10.0)
[2023-01-04 09:08] LABS: MAGNESIUM 2.2 mg/dL (1.8-2.4)
[2023-01-04] MEDS ORDERED: SODIUM CHLORIDE 250 ML IV STA (09:10)
[2023-01-04 09:12] LABS: CREATININE 2.7 mg/dL (0.55-1.3); PHOSPHOROUS 5.2 mg/dL (2.5-4.9)
[2023-01-04] MEDS: LIDOCAINE 5% TOPICAL PATCH TP SCH ×2 (10:05→10:07)
[2023-01-04] MEDS: ASPIRIN COATED 81 MG TABLET.EC PO SCH (10:07)
[2023-01-04] MEDS: levETIRAcetam 500 MG TABLET (FP) PO SCH ×2 (10:07→21:17)
[2023-01-04] MEDS: PANTOPRAZOLE 40 MG TABLET PO SCH (10:08)
[2023-01-04] MEDS: METOPROLOL TARTRATE 25 MG TABLET (FP) PO SCH ×2 (10:08→21:17)
[2023-01-04] MEDS: METHYL SALICYLATE/MENTHOL OINT 30 GM TUBE TP SCH (10:08)
[2023-01-04] MEDS: MULTIVIT-MINERALS ORAL LIQUID PO SCH (10:08)
[2023-01-04 10:33] LABS: ARTERIAL BLD GAS O2 SATURATION 96.5 % (95-98); ARTERIAL BLOOD GAS BASE EXCESS 1.1 mmol/L (-2-2); ARTERIAL BLOOD GAS PO2 91.2 mmHg (80-100); ARTERIAL BLOOD GAS pH 7.346 (7.350-7.450)
[2023-01-04 10:34] LABS: ALLENS TEST POSITIVE
[2023-01-04] MEDS ORDERED: SODIUM CHLORIDE 500 ML IV STA (11:22)
[2023-01-04] MEDS: AMINO ACIDS/PROTEIN HYDROLYS 30 ML LIQUID.PKT PO SCH (16:30)
[2023-01-04] MEDS: ATORVASTATIN CA 40 MG TABLET (FP) PO SCH (21:18)
[2023-01-04] MEDS: GABAPENTIN 100 MG CAPSULE PO SCH (21:18)
[2023-01-04] MEDS: LIDOCAINE PATCH REMOVAL MC SCH ×2 (21:19)
[2023-01-04] MEDS: AUSTEDO 24 MG PO SCH (21:20)
[2023-01-05] MEDS: HEPARIN NA (PORCINE) 5,000 UNITS/ML 1ML VIAL SQ SCH ×3 (05:49→21:42)
[2023-01-05] MEDS: POLYETHYLENE GLYCOL (HEALTHYLAX) 3350 17 GM PACKET PO SCH ×3 (05:49→21:47)
[2023-01-05] MEDS: ALBUTEROL SO4 2.5/IPRATROPIUM 0.5 INH SOL 3 ML VIAL.NEB. NEB SCH ×4 (07:04→20:05)
[2023-01-05] MEDS: PANTOPRAZOLE 40 MG TABLET PO SCH (10:03)
[2023-01-05] MEDS: LIDOCAINE 5% TOPICAL PATCH TP SCH ×2 (10:03)
[2023-01-05] MEDS: levETIRAcetam 500 MG TABLET (FP) PO SCH ×2 (10:03→21:42)
[2023-01-05] MEDS: MULTIVIT-MINERALS ORAL LIQUID PO SCH (10:04)
[2023-01-05] MEDS: METOPROLOL TARTRATE 25 MG TABLET (FP) PO SCH ×2 (10:04→21:59)
[2023-01-05] MEDS: METHYL SALICYLATE/MENTHOL OINT 30 GM TUBE TP SCH (10:04)
[2023-01-05] MEDS: AMINO ACIDS/PROTEIN HYDROLYS 30 ML LIQUID.PKT PO SCH ×2 (10:04→17:09)
[2023-01-05] MEDS: ASPIRIN COATED 81 MG TABLET.EC PO SCH (10:04)
[2023-01-05 13:51] LABS: POTASSIUM 4.4 mmol/L (3.5-5.1)
[2023-01-05 13:53] LABS: CALCIUM 8.9 mg/dL (8.5-10.1)
[2023-01-05 13:54] LABS: ALBUMIN 2.8 g/dl (3.4-5.0); BLOOD UREA NITROGEN 44.4 mg/dL (7-18); MAGNESIUM 2.2 mg/dL (1.8-2.4)
[2023-01-05 13:57] LABS: PHOSPHOROUS 5.6 mg/dL (2.5-4.9)
[2023-01-05 13:58] LABS: BILIRUBIN,TOTAL 0.6 mg/dL (0.2-1); TOT PROT 6.3 g/dl (6.4-8.2)
[2023-01-05 17:37] LABS: EPI CELLS 23 /uL (0-25.1); HYALINE CASTS 2 /uL (0-3.1); PH,URINE 7.5 (5.0-8.0); URINE APPEARANCE TURBID; URINE BACTERIA >9,000 /uL (0-1359); URINE BILIRUBIN NEGATIVE (NEGATIVE); URINE COLOR DK YELLOW; URINE GLUCOSE (UA) NEGATIVE (NEGATIVE); URINE KETONE TRACE (NEGATIVE); URINE LEUK ESTERASE TRACE (NEGATIVE); URINE NITRITE NEGATIVE (NEGATIVE); URINE PROTEIN 1+ (NEGATIVE); URINE UROBILINOGEN 0.2 mg/dL (0.2-1.0); URINE WBC 31 /uL (0-25.8)
[2023-01-05 20:27] LABS: URINE RBC 547 /uL (0-23.9)
[2023-01-05] MEDS: AUSTEDO 24 MG PO SCH (21:39)
[2023-01-05] MEDS: GABAPENTIN 100 MG CAPSULE PO SCH (21:40)
[2023-01-05] MEDS: ATORVASTATIN CA 40 MG TABLET (FP) PO SCH (21:42)
[2023-01-05] MEDS: ACETAMINOPHEN 325 MG TABLET (FP) PO PRN (21:42)
[2023-01-05] MEDS: LIDOCAINE PATCH REMOVAL MC SCH ×2 (23:14)
[2023-01-06] MEDS: HEPARIN NA (PORCINE) 5,000 UNITS/ML 1ML VIAL SQ SCH ×3 (06:26→21:56)
[2023-01-06] MEDS: POLYETHYLENE GLYCOL (HEALTHYLAX) 3350 17 GM PACKET PO SCH ×4 (06:27→22:26)
[2023-01-06] MEDS: ALBUTEROL SO4 2.5/IPRATROPIUM 0.5 INH SOL 3 ML VIAL.NEB. NEB SCH ×4 (08:08→20:22)
[2023-01-06] MEDS: METOPROLOL TARTRATE 25 MG TABLET (FP) PO SCH ×2 (10:29→22:26)
[2023-01-06] MEDS: PANTOPRAZOLE 40 MG TABLET PO SCH (10:29)
[2023-01-06] MEDS: LIDOCAINE 5% TOPICAL PATCH TP SCH ×2 (10:29→10:30)
[2023-01-06] MEDS: ASPIRIN COATED 81 MG TABLET.EC PO SCH (10:29)
[2023-01-06] MEDS: levETIRAcetam 500 MG TABLET (FP) PO SCH ×2 (10:29→22:02)
[2023-01-06] MEDS: AMINO ACIDS/PROTEIN HYDROLYS 30 ML LIQUID.PKT PO SCH ×2 (10:29→17:16)
[2023-01-06] MEDS: MULTIVIT-MINERALS ORAL LIQUID PO SCH (10:31)
[2023-01-06] MEDS: METHYL SALICYLATE/MENTHOL OINT 30 GM TUBE TP SCH (10:31)
[2023-01-06] MEDS ORDERED: SODIUM CHLORIDE 0.45% 1,000 ML IV SCH (11:30)
[2023-01-06 14:04] LABS: BASO % 0.8 % (0-2.0); EOS % 5.3 % (0-4.5); HEMATOCRIT 26.3 % (32.4-45.2); HEMOGLOBIN 7.9 GM/dL (10.7-15.3); LYMPH % 12.1 % (8-40); MCH 30.8 pg (25.7-33.7); MEAN CELL VOLUME 102.5 fl (80-96); MEAN PLT VOLUME 9.1 fl (7.5-11.1); MONO % 6.3 % (3.8-10.2); NEUT % 75.5 % (42.8-82.8); PLATELET COUNT 291 10^3/uL (134-434); RBC 2.56 M/mm3 (3.60-5.2); RDW 21.6 % (11.6-15.6); WHITE BLOOD COUNT 8.6 K/mm3 (4.0-10.0)
[2023-01-06 14:28] LABS: POTASSIUM 4.1 mmol/L (3.5-5.1)
[2023-01-06 14:37] LABS: ALBUMIN 2.9 g/dl (3.4-5.0); BLOOD UREA NITROGEN 48.1 mg/dL (7-18); CREATININE 3.2 mg/dL (0.55-1.3)
[2023-01-06 14:38] LABS: BILIRUBIN,TOTAL 0.7 mg/dL (0.2-1)
[2023-01-06 14:39] LABS: CALCIUM 8.7 mg/dL (8.5-10.1)
[2023-01-06 14:59] LABS: ANISOCYTOSIS 1+; MACROCYTOSIS 1+; OVALOCYTE 1+
[2023-01-06] MEDS: AUSTEDO 24 MG PO SCH (21:55)
[2023-01-06] MEDS: GABAPENTIN 100 MG CAPSULE PO SCH (21:57)
[2023-01-06] MEDS: ATORVASTATIN CA 40 MG TABLET (FP) PO SCH (22:02)
[2023-01-06] MEDS: ACETAMINOPHEN 325 MG TABLET (FP) PO PRN (22:02)
[2023-01-06] MEDS: LIDOCAINE PATCH REMOVAL MC SCH ×2 (22:03)
[2023-01-07] MEDS: HEPARIN NA (PORCINE) 5,000 UNITS/ML 1ML VIAL SQ SCH ×3 (06:24→22:40)
[2023-01-07] MEDS: POLYETHYLENE GLYCOL (HEALTHYLAX) 3350 17 GM PACKET PO SCH ×2 (06:25→15:54)
[2023-01-07 07:18] LABS: HEMATOCRIT 26.2 % (32.4-45.2); HEMOGLOBIN 8.2 GM/dL (10.7-15.3); MCH 32.1 pg (25.7-33.7); MCHC 31.3 g/dl (32.0-36.0); MEAN CELL VOLUME 102.7 fl (80-96); PLATELET COUNT 279 10^3/uL (134-434); RBC 2.55 M/mm3 (3.60-5.2); RDW 23.5 % (11.6-15.6); WHITE BLOOD COUNT 8.8 K/mm3 (4.0-10.0)
[2023-01-07] MEDS: ALBUTEROL SO4 2.5/IPRATROPIUM 0.5 INH SOL 3 ML VIAL.NEB. NEB SCH ×4 (07:48→19:52)
[2023-01-07 07:51] LABS: CALCIUM 8.7 mg/dL (8.5-10.1)
[2023-01-07 07:52] LABS: BLOOD UREA NITROGEN 56.2 mg/dL (7-18); MAGNESIUM 2.1 mg/dL (1.8-2.4)
[2023-01-07 08:04] LABS: BILIRUBIN,TOTAL 0.8 mg/dL (0.2-1); PHOSPHOROUS 6.2 mg/dL (2.5-4.9); TOT PROT 6.5 g/dl (6.4-8.2)
[2023-01-07 08:20] LABS: CREATININE 3.4 mg/dL (0.55-1.3)
[2023-01-07] MEDS: METOPROLOL TARTRATE 25 MG TABLET (FP) PO SCH ×2 (09:59→22:41)
[2023-01-07] MEDS: AMINO ACIDS/PROTEIN HYDROLYS 30 ML LIQUID.PKT PO SCH ×2 (09:59→17:49)
[2023-01-07] MEDS: ASPIRIN COATED 81 MG TABLET.EC PO SCH (09:59)
[2023-01-07] MEDS: PANTOPRAZOLE 40 MG TABLET PO SCH (09:59)
[2023-01-07] MEDS: LIDOCAINE 5% TOPICAL PATCH TP SCH ×2 (10:00→10:01)
[2023-01-07] MEDS: MULTIVIT-MINERALS ORAL LIQUID PO SCH (10:00)
[2023-01-07] MEDS: levETIRAcetam 500 MG TABLET (FP) PO SCH ×2 (10:00→22:40)
[2023-01-07] MEDS: METHYL SALICYLATE/MENTHOL OINT 30 GM TUBE TP SCH (11:33)
[2023-01-07] MEDS ORDERED: POLYETHYLENE GLYCOL (HEALTHYLAX) 3350 17 GM PACKET PO PRN (18:03)
[2023-01-07] MEDS: AUSTEDO 24 MG PO SCH (22:40)
[2023-01-07] MEDS: GABAPENTIN 100 MG CAPSULE PO SCH (22:40)
[2023-01-07] MEDS: ATORVASTATIN CA 40 MG TABLET (FP) PO SCH (22:41)
[2023-01-07] MEDS: LIDOCAINE PATCH REMOVAL MC SCH ×2 (22:43)
[2023-01-07] MEDS: ACETAMINOPHEN 325 MG TABLET (FP) PO PRN (23:34)
[2023-01-08] MEDS: HEPARIN NA (PORCINE) 5,000 UNITS/ML 1ML VIAL SQ SCH ×3 (06:44→22:44)
[2023-01-08] MEDS: ALBUTEROL SO4 2.5/IPRATROPIUM 0.5 INH SOL 3 ML VIAL.NEB. NEB SCH ×4 (07:36→20:08)
[2023-01-08 08:11] LABS: HEMATOCRIT 25.1 % (32.4-45.2); HEMOGLOBIN 7.7 GM/dL (10.7-15.3); MCH 31.8 pg (25.7-33.7); MCHC 30.6 g/dl (32.0-36.0); MEAN CELL VOLUME 103.9 fl (80-96); PLATELET COUNT 250 10^3/uL (134-434); RBC 2.41 M/mm3 (3.60-5.2); RDW 23.4 % (11.6-15.6); WHITE BLOOD COUNT 8.2 K/mm3 (4.0-10.0)
[2023-01-08 08:12] LABS: POTASSIUM 4.3 mmol/L (3.5-5.1)
[2023-01-08 08:14] LABS: CALCIUM 8.8 mg/dL (8.5-10.1)
[2023-01-08 08:16] LABS: ALBUMIN 2.7 g/dl (3.4-5.0); BLOOD UREA NITROGEN 61.2 mg/dL (7-18); MAGNESIUM 2.4 mg/dL (1.8-2.4)
[2023-01-08 08:19] LABS: CREATININE 3.4 mg/dL (0.55-1.3)
[2023-01-08 08:21] LABS: BILIRUBIN,TOTAL 0.6 mg/dL (0.2-1)
[2023-01-08] MEDS: AMINO ACIDS/PROTEIN HYDROLYS 30 ML LIQUID.PKT PO SCH ×2 (09:03→17:16)
[2023-01-08] MEDS: ASPIRIN COATED 81 MG TABLET.EC PO SCH (11:25)
[2023-01-08] MEDS: levETIRAcetam 500 MG TABLET (FP) PO SCH ×2 (11:25→22:44)
[2023-01-08] MEDS: PANTOPRAZOLE 40 MG TABLET PO SCH (11:26)
[2023-01-08] MEDS: MULTIVIT-MINERALS ORAL LIQUID PO SCH (11:26)
[2023-01-08] MEDS: METOPROLOL TARTRATE 25 MG TABLET (FP) PO SCH ×2 (11:26→22:46)
[2023-01-08] MEDS: COLLAGENASE CLOSTRIDIUM HIST. 30 GRAMS TUBE TP SCH (11:26)
[2023-01-08] MEDS: LIDOCAINE 5% TOPICAL PATCH TP SCH ×2 (11:27)
[2023-01-08] MEDS: METHYL SALICYLATE/MENTHOL OINT 30 GM TUBE TP SCH (11:27)
[2023-01-08] MEDS: GABAPENTIN 100 MG CAPSULE PO SCH (22:43)
[2023-01-08] MEDS: ATORVASTATIN CA 40 MG TABLET (FP) PO SCH (22:44)
[2023-01-08] MEDS: AUSTEDO 24 MG PO SCH (22:44)
[2023-01-08] MEDS: LIDOCAINE PATCH REMOVAL MC SCH ×2 (22:45)
[2023-01-09] MEDS: HEPARIN NA (PORCINE) 5,000 UNITS/ML 1ML VIAL SQ SCH ×3 (06:57→22:09)
[2023-01-09] MEDS: ALBUTEROL SO4 2.5/IPRATROPIUM 0.5 INH SOL 3 ML VIAL.NEB. NEB SCH ×4 (09:08→20:25)
[2023-01-09 09:56] LABS: HEMATOCRIT 23.8 % (32.4-45.2); HEMOGLOBIN 7.2 GM/dL (10.7-15.3); MCH 30.9 pg (25.7-33.7); MCHC 30.2 g/dl (32.0-36.0); MEAN CELL VOLUME 102.1 fl (80-96); MEAN PLT VOLUME 9.2 fl (7.5-11.1); PLATELET COUNT 245 10^3/uL (134-434); RBC 2.33 M/mm3 (3.60-5.2); RDW 23.2 % (11.6-15.6); WHITE BLOOD COUNT 7.3 K/mm3 (4.0-10.0)
[2023-01-09 10:11] LABS: POTASSIUM 4.1 mmol/L (3.5-5.1)
[2023-01-09 10:17] LABS: CALCIUM 8.8 mg/dL (8.5-10.1)
[2023-01-09 10:19] LABS: ALBUMIN 2.7 g/dl (3.4-5.0); MAGNESIUM 2.3 mg/dL (1.8-2.4)
[2023-01-09 10:22] LABS: CREATININE 3.6 mg/dL (0.55-1.3); PHOSPHOROUS 7.1 mg/dL (2.5-4.9)
[2023-01-09 10:23] LABS: BILIRUBIN,TOTAL 0.6 mg/dL (0.2-1)
[2023-01-09] MEDS: METOPROLOL TARTRATE 25 MG TABLET (FP) PO SCH ×2 (10:46→22:08)
[2023-01-09] MEDS: MULTIVIT-MINERALS ORAL LIQUID PO SCH (10:46)
[2023-01-09] MEDS: levETIRAcetam 500 MG TABLET (FP) PO SCH ×2 (10:46→22:07)
[2023-01-09] MEDS: METHYL SALICYLATE/MENTHOL OINT 30 GM TUBE TP SCH (10:47)
[2023-01-09] MEDS: PANTOPRAZOLE 40 MG TABLET PO SCH (10:47)
[2023-01-09] MEDS: ASPIRIN COATED 81 MG TABLET.EC PO SCH (10:47)
[2023-01-09] MEDS: AMINO ACIDS/PROTEIN HYDROLYS 30 ML LIQUID.PKT PO SCH ×2 (10:47→18:31)
[2023-01-09] MEDS: COLLAGENASE CLOSTRIDIUM HIST. 30 GRAMS TUBE TP SCH (10:48)
[2023-01-09] MEDS: LIDOCAINE 5% TOPICAL PATCH TP SCH ×2 (10:48)
[2023-01-09] MEDS: ACETAMINOPHEN 325 MG TABLET (FP) PO PRN (22:05)
[2023-01-09] MEDS: ATORVASTATIN CA 40 MG TABLET (FP) PO SCH (22:06)
[2023-01-09] MEDS: GABAPENTIN 100 MG CAPSULE PO SCH (22:07)
[2023-01-09] MEDS: POLYETHYLENE GLYCOL (HEALTHYLAX) 3350 17 GM PACKET PO SCH (22:09)
[2023-01-09] MEDS: LIDOCAINE PATCH REMOVAL MC SCH ×2 (22:09)
[2023-01-09] MEDS: AUSTEDO 24 MG PO SCH (22:57)
[2023-01-10] MEDS: HEPARIN NA (PORCINE) 5,000 UNITS/ML 1ML VIAL SQ SCH ×3 (05:22→21:03)
[2023-01-10] MEDS: ALBUTEROL SO4 2.5/IPRATROPIUM 0.5 INH SOL 3 ML VIAL.NEB. NEB SCH ×4 (09:31→20:14)
[2023-01-10] MEDS: METHYL SALICYLATE/MENTHOL OINT 30 GM TUBE TP SCH (10:12)
[2023-01-10] MEDS: POLYETHYLENE GLYCOL (HEALTHYLAX) 3350 17 GM PACKET PO SCH ×2 (10:12→21:05)
[2023-01-10] MEDS: MULTIVIT-MINERALS ORAL LIQUID PO SCH (10:14)
[2023-01-10] MEDS: levETIRAcetam 500 MG TABLET (FP) PO SCH ×2 (10:14→21:02)
[2023-01-10] MEDS: METOPROLOL TARTRATE 25 MG TABLET (FP) PO SCH ×2 (10:14→21:59)
[2023-01-10] MEDS: PANTOPRAZOLE 40 MG TABLET PO SCH (10:14)
[2023-01-10] MEDS: ASPIRIN COATED 81 MG TABLET.EC PO SCH (10:14)
[2023-01-10] MEDS: AMINO ACIDS/PROTEIN HYDROLYS 30 ML LIQUID.PKT PO SCH ×3 (10:15→18:28)
[2023-01-10] MEDS: LIDOCAINE 5% TOPICAL PATCH TP SCH ×4 (10:15→17:34)
[2023-01-10] MEDS: COLLAGENASE CLOSTRIDIUM HIST. 30 GRAMS TUBE TP SCH (10:16)
[2023-01-10 12:05] LABS: POTASSIUM 3.9 mmol/L (3.5-5.1)
[2023-01-10 12:07] LABS: ALBUMIN 2.8 g/dl (3.4-5.0); CALCIUM 8.6 mg/dL (8.5-10.1)
[2023-01-10 12:09] LABS: BLOOD UREA NITROGEN 70.8 mg/dL (7-18)
[2023-01-10 12:12] LABS: BILIRUBIN,TOTAL 0.7 mg/dL (0.2-1)
[2023-01-10 14:51] LABS: ARTERIAL BLD GAS O2 SATURATION 95.1 % (95-98); ARTERIAL BLOOD GAS PO2 85.8 mmHg (80-100); ARTERIAL BLOOD GAS pH 7.274 (7.350-7.450)
[2023-01-10 14:52] LABS: ALLENS TEST POSITIVE
[2023-01-10 17:44] LABS: HEMATOCRIT 26.7 % (32.4-45.2); HEMOGLOBIN 8.2 GM/dL (10.7-15.3); MCH 31.7 pg (25.7-33.7); MCHC 30.6 g/dl (32.0-36.0); MEAN CELL VOLUME 103.5 fl (80-96); MEAN PLT VOLUME 8.7 fl (7.5-11.1); PLATELET COUNT 258 10^3/uL (134-434); RBC 2.58 M/mm3 (3.60-5.2); WHITE BLOOD COUNT 7.1 K/mm3 (4.0-10.0)
[2023-01-10] MEDS: GABAPENTIN 100 MG CAPSULE PO SCH (21:01)
[2023-01-10] MEDS: ATORVASTATIN CA 40 MG TABLET (FP) PO SCH (21:02)
[2023-01-10] MEDS: ACETAMINOPHEN 325 MG TABLET (FP) PO PRN (21:03)
[2023-01-10] MEDS: AUSTEDO 24 MG PO SCH (21:05)
[2023-01-10] MEDS: LIDOCAINE PATCH REMOVAL MC SCH ×2 (21:06)
[2023-01-11] MEDS: HEPARIN NA (PORCINE) 5,000 UNITS/ML 1ML VIAL SQ SCH ×3 (05:11→22:07)
[2023-01-11] MEDS: ALBUTEROL SO4 2.5/IPRATROPIUM 0.5 INH SOL 3 ML VIAL.NEB. NEB SCH ×4 (07:20→20:31)
[2023-01-11] MEDS: AMINO ACIDS/PROTEIN HYDROLYS 30 ML LIQUID.PKT PO SCH ×2 (10:28→17:46)
[2023-01-11] MEDS: METHYL SALICYLATE/MENTHOL OINT 30 GM TUBE TP SCH (10:28)
[2023-01-11] MEDS: METOPROLOL TARTRATE 25 MG TABLET (FP) PO SCH ×3 (10:29→22:07)
[2023-01-11] MEDS: ASPIRIN COATED 81 MG TABLET.EC PO SCH (10:29)
[2023-01-11] MEDS: MULTIVIT-MINERALS ORAL LIQUID PO SCH (10:29)
[2023-01-11] MEDS: levETIRAcetam 500 MG TABLET (FP) PO SCH ×2 (10:29→22:07)
[2023-01-11] MEDS: PANTOPRAZOLE 40 MG TABLET PO SCH (10:29)
[2023-01-11 10:31] LABS: HEMATOCRIT 25.3 % (32.4-45.2); HEMOGLOBIN 7.8 GM/dL (10.7-15.3); MCH 31.4 pg (25.7-33.7); MEAN CELL VOLUME 101.5 fl (80-96); MEAN PLT VOLUME 8.3 fl (7.5-11.1); PLATELET COUNT 249 10^3/uL (134-434); RBC 2.49 M/mm3 (3.60-5.2); RDW 24.5 % (11.6-15.6); WHITE BLOOD COUNT 6.7 K/mm3 (4.0-10.0)
[2023-01-11] MEDS: LIDOCAINE 5% TOPICAL PATCH TP SCH ×2 (10:32)
[2023-01-11] MEDS: POLYETHYLENE GLYCOL (HEALTHYLAX) 3350 17 GM PACKET PO SCH ×2 (10:32→22:10)
[2023-01-11] MEDS: COLLAGENASE CLOSTRIDIUM HIST. 30 GRAMS TUBE TP SCH (10:32)
[2023-01-11 10:50] LABS: POTASSIUM 4.1 mmol/L (3.5-5.1)
[2023-01-11 10:54] LABS: ALBUMIN 2.8 g/dl (3.4-5.0); BLOOD UREA NITROGEN 72.6 mg/dL (7-18); MAGNESIUM 2.5 mg/dL (1.8-2.4)
[2023-01-11 10:56] LABS: CREATININE 4.1 mg/dL (0.55-1.3); PHOSPHOROUS 7.1 mg/dL (2.5-4.9)
[2023-01-11 10:58] LABS: BILIRUBIN,TOTAL 0.7 mg/dL (0.2-1); TOT PROT 6.4 g/dl (6.4-8.2)
[2023-01-11] MEDS: ALBUTEROL SO4 0.083% IH SOL 2.5 MG/3 ML VIAL.NEB. NEB PRN (11:42)
[2023-01-11] MEDS ORDERED: SODIUM CHLORIDE 0.45% 1,000 ML IV SCH (12:15)
[2023-01-11 21:37] LABS: HIV INTERPRETATION NEGATIVE (NEGATIVE)
[2023-01-11] MEDS: ATORVASTATIN CA 40 MG TABLET (FP) PO SCH (22:07)
[2023-01-11] MEDS: LIDOCAINE PATCH REMOVAL MC SCH ×2 (22:08)
[2023-01-11] MEDS: GABAPENTIN 100 MG CAPSULE PO SCH (22:08)
[2023-01-11] MEDS: AUSTEDO 24 MG PO SCH (22:10)
[2023-01-12] MEDS: HEPARIN NA (PORCINE) 5,000 UNITS/ML 1ML VIAL SQ SCH ×3 (05:19→21:12)
[2023-01-12 06:08] LABS: ARTERIAL BLD GAS O2 SATURATION 95.3 % (95-98); ARTERIAL BLOOD GAS BASE EXCESS -2.9 mmol/L (-2-2); ARTERIAL BLOOD GAS PO2 88.2 mmHg (80-100); ARTERIAL BLOOD GAS pH 7.265 (7.350-7.450)
[2023-01-12 06:09] LABS: ALLENS TEST POSITIVE
[2023-01-12] MEDS ORDERED: FUROSEMIDE 40 MG/4 ML INJECTABLE VIAL IVPUSH ONE ×2 (07:15→16:07)
[2023-01-12] MEDS: ALBUTEROL SO4 2.5/IPRATROPIUM 0.5 INH SOL 3 ML VIAL.NEB. NEB SCH ×4 (08:10→20:04)
[2023-01-12 08:19] LABS: HEMATOCRIT 24.4 % (32.4-45.2); HEMOGLOBIN 7.6 GM/dL (10.7-15.3); MCH 32.1 pg (25.7-33.7); MCHC 31.1 g/dl (32.0-36.0); MEAN CELL VOLUME 103.1 fl (80-96); PLATELET COUNT 223 10^3/uL (134-434); RBC 2.36 M/mm3 (3.60-5.2); RDW 24.1 % (11.6-15.6); WHITE BLOOD COUNT 7.4 K/mm3 (4.0-10.0)
[2023-01-12 08:22] LABS: POTASSIUM 4.1 mmol/L (3.5-5.1)
[2023-01-12 08:24] LABS: ALBUMIN 2.8 g/dl (3.4-5.0); CALCIUM 8.6 mg/dL (8.5-10.1); MAGNESIUM 2.5 mg/dL (1.8-2.4)
[2023-01-12 08:25] LABS: BLOOD UREA NITROGEN 74.5 mg/dL (7-18)
[2023-01-12 08:27] LABS: CREATININE 4.1 mg/dL (0.55-1.3)
[2023-01-12 08:29] LABS: BILIRUBIN,TOTAL 0.8 mg/dL (0.2-1); TOT PROT 6.1 g/dl (6.4-8.2)
[2023-01-12] MEDS: METHYL SALICYLATE/MENTHOL OINT 30 GM TUBE TP SCH (10:57)
[2023-01-12] MEDS: ASPIRIN COATED 81 MG TABLET.EC PO SCH (10:58)
[2023-01-12] MEDS: PANTOPRAZOLE 40 MG TABLET PO SCH (10:59)
[2023-01-12] MEDS: LIDOCAINE 5% TOPICAL PATCH TP SCH ×2 (10:59)
[2023-01-12] MEDS: COLLAGENASE CLOSTRIDIUM HIST. 30 GRAMS TUBE TP SCH (10:59)
[2023-01-12] MEDS: AMINO ACIDS/PROTEIN HYDROLYS 30 ML LIQUID.PKT PO SCH ×2 (11:00→17:50)
[2023-01-12] MEDS: MULTIVIT-MINERALS ORAL LIQUID PO SCH (11:00)
[2023-01-12] MEDS: POLYETHYLENE GLYCOL (HEALTHYLAX) 3350 17 GM PACKET PO SCH ×2 (11:00→21:36)
[2023-01-12] MEDS: METOPROLOL TARTRATE 25 MG TABLET (FP) PO SCH ×2 (11:01→21:09)
[2023-01-12] MEDS: levETIRAcetam 500 MG TABLET (FP) PO SCH ×2 (11:01→21:10)
[2023-01-12] MEDS ORDERED: SODIUM CHLORIDE 1,000 ML IV SCH (13:30)
[2023-01-12 17:27] LABS: HIV INTERPRETATION NEGATIVE (NEGATIVE)
[2023-01-12] MEDS: GABAPENTIN 100 MG CAPSULE PO SCH (21:10)
[2023-01-12] MEDS: AUSTEDO 24 MG PO SCH (21:11)
[2023-01-12] MEDS: ATORVASTATIN CA 40 MG TABLET (FP) PO SCH (21:11)
[2023-01-12] MEDS: LIDOCAINE PATCH REMOVAL MC SCH ×2 (21:36)
[2023-01-13] MEDS: HEPARIN NA (PORCINE) 5,000 UNITS/ML 1ML VIAL SQ SCH ×3 (05:51→21:55)
[2023-01-13] MEDS: ALBUTEROL SO4 2.5/IPRATROPIUM 0.5 INH SOL 3 ML VIAL.NEB. NEB SCH ×4 (07:50→20:21)
[2023-01-13 08:46] LABS: HEMATOCRIT 24.2 % (32.4-45.2); HEMOGLOBIN 7.4 GM/dL (10.7-15.3); MCH 31.3 pg (25.7-33.7); MCHC 30.8 g/dl (32.0-36.0); MEAN CELL VOLUME 101.5 fl (80-96); MEAN PLT VOLUME 8.6 fl (7.5-11.1); PLATELET COUNT 233 10^3/uL (134-434); RBC 2.38 M/mm3 (3.60-5.2); RDW 24.1 % (11.6-15.6); WHITE BLOOD COUNT 7.4 K/mm3 (4.0-10.0)
[2023-01-13 09:04] LABS: POTASSIUM 4.5 mmol/L (3.5-5.1)
[2023-01-13 09:11] LABS: ALBUMIN 2.8 g/dl (3.4-5.0); BLOOD UREA NITROGEN 75.8 mg/dL (7-18); CALCIUM 8.5 mg/dL (8.5-10.1); MAGNESIUM 2.4 mg/dL (1.8-2.4)
[2023-01-13 09:14] LABS: CREATININE 4.3 mg/dL (0.55-1.3); PHOSPHOROUS 7.3 mg/dL (2.5-4.9)
[2023-01-13 09:15] LABS: BILIRUBIN,TOTAL 0.7 mg/dL (0.2-1); TOT PROT 6.1 g/dl (6.4-8.2)
[2023-01-13] MEDS: METHYL SALICYLATE/MENTHOL OINT 30 GM TUBE TP SCH (09:57)
[2023-01-13] MEDS: POLYETHYLENE GLYCOL (HEALTHYLAX) 3350 17 GM PACKET PO SCH ×2 (09:58→21:51)
[2023-01-13] MEDS: LIDOCAINE 5% TOPICAL PATCH TP SCH ×2 (09:58→09:59)
[2023-01-13] MEDS: PANTOPRAZOLE SODIUM 40 MG VIAL IVPUSH SCH (10:06)
[2023-01-13] MEDS: MULTIVIT-MINERALS ORAL LIQUID PO SCH (10:06)
[2023-01-13] MEDS: AMINO ACIDS/PROTEIN HYDROLYS 30 ML LIQUID.PKT PO SCH ×3 (10:06→18:22)
[2023-01-13] MEDS: ASPIRIN 81 MG CHEWABLE TABLETS PO SCH (10:07)
[2023-01-13] MEDS: METOPROLOL TARTRATE 25 MG TABLET (FP) PO SCH ×2 (10:07→21:52)
[2023-01-13] MEDS: levETIRAcetam 500 MG TABLET (FP) PO SCH ×2 (10:07→21:57)
[2023-01-13] MEDS: COLLAGENASE CLOSTRIDIUM HIST. 30 GRAMS TUBE TP SCH (11:20)
[2023-01-13] MEDS: FUROSEMIDE 40 MG/4 ML INJECTABLE VIAL IVPB SCH (12:09)
[2023-01-13] MEDS: LIDOCAINE PATCH REMOVAL MC SCH ×2 (21:51)
[2023-01-13] MEDS: ATORVASTATIN CA 40 MG TABLET (FP) PO SCH (21:57)
[2023-01-13] MEDS: AUSTEDO 24 MG PO SCH (21:57)
[2023-01-13] MEDS: GABAPENTIN 100 MG CAPSULE PO SCH (21:58)
[2023-01-14] MEDS: HEPARIN NA (PORCINE) 5,000 UNITS/ML 1ML VIAL SQ SCH ×3 (05:42→22:44)
[2023-01-14 06:55] LABS: HEMATOCRIT 27.2 % (32.4-45.2); HEMOGLOBIN 8.1 GM/dL (10.7-15.3); MCH 31.1 pg (25.7-33.7); MCHC 29.7 g/dl (32.0-36.0); MEAN CELL VOLUME 104.9 fl (80-96); MEAN PLT VOLUME 9.2 fl (7.5-11.1); PLATELET COUNT 259 10^3/uL (134-434); RBC 2.59 M/mm3 (3.60-5.2); RDW 24.3 % (11.6-15.6); WHITE BLOOD COUNT 6.9 K/mm3 (4.0-10.0)
[2023-01-14 07:08] LABS: POTASSIUM 4.3 mmol/L (3.5-5.1)
[2023-01-14 07:10] LABS: BLOOD UREA NITROGEN 78.4 mg/dL (7-18); CALCIUM 8.6 mg/dL (8.5-10.1)
[2023-01-14 07:13] LABS: CREATININE 4.6 mg/dL (0.55-1.3)
[2023-01-14 07:15] LABS: BILIRUBIN,TOTAL 0.8 mg/dL (0.2-1); TOT PROT 6.5 g/dl (6.4-8.2)
[2023-01-14] MEDS: ALBUTEROL SO4 2.5/IPRATROPIUM 0.5 INH SOL 3 ML VIAL.NEB. NEB SCH ×4 (09:00→20:00)
[2023-01-14] MEDS: POLYETHYLENE GLYCOL (HEALTHYLAX) 3350 17 GM PACKET PO SCH ×2 (10:19→22:41)
[2023-01-14] MEDS: levETIRAcetam 500 MG TABLET (FP) PO SCH ×2 (10:20→22:44)
[2023-01-14] MEDS: ASPIRIN 81 MG CHEWABLE TABLETS PO SCH (10:20)
[2023-01-14] MEDS: AMINO ACIDS/PROTEIN HYDROLYS 30 ML LIQUID.PKT PO SCH ×2 (10:20→17:03)
[2023-01-14] MEDS: FUROSEMIDE 40 MG/4 ML INJECTABLE VIAL IVPB SCH ×2 (10:20→17:05)
[2023-01-14] MEDS: MULTIVIT-MINERALS ORAL LIQUID PO SCH (10:20)
[2023-01-14] MEDS: METHYL SALICYLATE/MENTHOL OINT 30 GM TUBE TP SCH (10:20)
[2023-01-14] MEDS: METOPROLOL TARTRATE 25 MG TABLET (FP) PO SCH ×2 (10:21→22:44)
[2023-01-14] MEDS: PANTOPRAZOLE SODIUM 40 MG VIAL IVPUSH SCH (10:21)
[2023-01-14] MEDS: LIDOCAINE 5% TOPICAL PATCH TP SCH ×2 (10:22)
[2023-01-14 21:11] LABS: ANTIGLOMERULAR BASEMENT MEN.AB <0.2 units (0.0-0.9)
[2023-01-14] MEDS: LIDOCAINE PATCH REMOVAL MC SCH ×2 (22:43)
[2023-01-14] MEDS: GABAPENTIN 100 MG CAPSULE PO SCH (22:44)
[2023-01-14] MEDS: ATORVASTATIN CA 40 MG TABLET (FP) PO SCH (22:44)
[2023-01-14] MEDS: AUSTEDO 24 MG PO SCH (22:45)
[2023-01-15] MEDS: HEPARIN NA (PORCINE) 5,000 UNITS/ML 1ML VIAL SQ SCH ×3 (05:38→21:53)
[2023-01-15] MEDS: FUROSEMIDE 40 MG/4 ML INJECTABLE VIAL IVPB SCH ×2 (05:39→17:08)
[2023-01-15 07:08] LABS: HEMATOCRIT 27.4 % (32.4-45.2); HEMOGLOBIN 8.3 GM/dL (10.7-15.3); MCH 31.5 pg (25.7-33.7); MCHC 30.2 g/dl (32.0-36.0); MEAN CELL VOLUME 104.3 fl (80-96); MEAN PLT VOLUME 9.3 fl (7.5-11.1); PLATELET COUNT 232 10^3/uL (134-434); RBC 2.63 M/mm3 (3.60-5.2); RDW 23.7 % (11.6-15.6); WHITE BLOOD COUNT 7.8 K/mm3 (4.0-10.0)
[2023-01-15] MEDS: ALBUTEROL SO4 2.5/IPRATROPIUM 0.5 INH SOL 3 ML VIAL.NEB. NEB SCH ×4 (07:20→20:30)
[2023-01-15 07:53] LABS: CHLORIDE 104 mmol/L (98-107); POTASSIUM 4.5 mmol/L (3.5-5.1); SODIUM 141 mmol/L (136-145)
[2023-01-15 08:18] LABS: CALCIUM 8.8 mg/dL (8.5-10.1); PHOSPHOROUS 7.5 mg/dL (2.5-4.9); SGPT/ALT 17 U/L (13-61)
[2023-01-15 08:19] LABS: BLOOD UREA NITROGEN 81.7 mg/dL (7-18)
[2023-01-15 08:20] LABS: BILIRUBIN,TOTAL 0.8 mg/dL (0.2-1); TOT PROT 6.4 g/dl (6.4-8.2)
[2023-01-15 08:36] LABS: CO2 24 mmol/L (21-32); CREATININE 4.8 mg/dL (0.55-1.3)
[2023-01-15 08:37] LABS: ALK PHOS 96 U/L (45-117); GLUCOSE,RANDOM 85 mg/dL (74-106); MAGNESIUM 2.4 mg/dL (1.8-2.4); SGOT/AST 16 U/L (15-37)
[2023-01-15 09:46] LABS: ARTERIAL BLD GAS O2 SATURATION 43.1 % (95-98); ARTERIAL BLOOD GAS BASE EXCESS -2.3 mmol/L (-2-2); ARTERIAL BLOOD GAS pH 7.237 (7.350-7.450)
[2023-01-15 09:49] LABS: ALLENS TEST POSITIVE; VENT MODE ST; VENT RATE 12
[2023-01-15 09:51] LABS: ARTERIAL BLOOD GAS PO2 28.7 mmHg (80-100)
[2023-01-15] MEDS: levETIRAcetam 500 MG TABLET (FP) PO SCH ×2 (10:20→21:53)
[2023-01-15] MEDS: ASPIRIN 81 MG CHEWABLE TABLETS PO SCH (10:20)
[2023-01-15] MEDS: METOPROLOL TARTRATE 25 MG TABLET (FP) PO SCH ×2 (10:20→21:52)
[2023-01-15] MEDS: AMINO ACIDS/PROTEIN HYDROLYS 30 ML LIQUID.PKT PO SCH ×2 (10:20→17:08)
[2023-01-15] MEDS: LIDOCAINE 5% TOPICAL PATCH TP SCH ×2 (10:21→10:22)
[2023-01-15] MEDS: MULTIVIT-MINERALS ORAL LIQUID PO SCH (10:21)
[2023-01-15] MEDS: METHYL SALICYLATE/MENTHOL OINT 30 GM TUBE TP SCH (10:21)
[2023-01-15] MEDS: POLYETHYLENE GLYCOL (HEALTHYLAX) 3350 17 GM PACKET PO SCH ×2 (10:21→21:54)
[2023-01-15] MEDS: PANTOPRAZOLE SODIUM 40 MG VIAL IVPUSH SCH (10:22)
[2023-01-15] MEDS: ACETAMINOPHEN 325 MG TABLET (FP) PO PRN (11:42)
[2023-01-15] MEDS ORDERED: METOLAZONE 5 MG TABLET PO ONE (15:22)
[2023-01-15] MEDS: ATORVASTATIN CA 40 MG TABLET (FP) PO SCH (21:53)
[2023-01-15] MEDS: GABAPENTIN 100 MG CAPSULE PO SCH (21:53)
[2023-01-15] MEDS: AUSTEDO 24 MG PO SCH (21:54)
[2023-01-15] MEDS: LIDOCAINE PATCH REMOVAL MC SCH ×2 (21:55)
[2023-01-16] MEDS: HEPARIN NA (PORCINE) 5,000 UNITS/ML 1ML VIAL SQ SCH ×3 (06:14→21:12)
[2023-01-16] MEDS: FUROSEMIDE 40 MG/4 ML INJECTABLE VIAL IVPB SCH ×2 (06:41→17:16)
[2023-01-16] MEDS: ALBUTEROL SO4 2.5/IPRATROPIUM 0.5 INH SOL 3 ML VIAL.NEB. NEB SCH ×4 (07:20→20:50)
[2023-01-16 09:31] LABS: POTASSIUM 5.1 mmol/L (3.5-5.1)
[2023-01-16 09:34] LABS: ALBUMIN 2.9 g/dl (3.4-5.0); CALCIUM 8.6 mg/dL (8.5-10.1)
[2023-01-16 09:35] LABS: MAGNESIUM 2.5 mg/dL (1.8-2.4)
[2023-01-16 09:37] LABS: PHOSPHOROUS 8.1 mg/dL (2.5-4.9)
[2023-01-16 09:39] LABS: BILIRUBIN,TOTAL 0.6 mg/dL (0.2-1); TOT PROT 6.2 g/dl (6.4-8.2)
[2023-01-16] MEDS: AMINO ACIDS/PROTEIN HYDROLYS 30 ML LIQUID.PKT PO SCH ×2 (10:33→17:16)
[2023-01-16] MEDS: levETIRAcetam 500 MG TABLET (FP) PO SCH ×2 (10:33→21:12)
[2023-01-16] MEDS: ASPIRIN 81 MG CHEWABLE TABLETS PO SCH (10:33)
[2023-01-16] MEDS: PANTOPRAZOLE SODIUM 40 MG VIAL IVPUSH SCH (10:33)
[2023-01-16] MEDS: MULTIVIT-MINERALS ORAL LIQUID PO SCH (10:34)
[2023-01-16] MEDS: POLYETHYLENE GLYCOL (HEALTHYLAX) 3350 17 GM PACKET PO SCH ×2 (10:34→21:28)
[2023-01-16] MEDS: LIDOCAINE 5% TOPICAL PATCH TP SCH ×2 (10:34)
[2023-01-16] MEDS: METHYL SALICYLATE/MENTHOL OINT 30 GM TUBE TP SCH (10:34)
[2023-01-16] MEDS: METOPROLOL TARTRATE 25 MG TABLET (FP) PO SCH ×2 (10:35→21:12)
[2023-01-16 11:05] LABS: HEMATOCRIT 24.8 % (32.4-45.2); HEMOGLOBIN 7.6 GM/dL (10.7-15.3); MCHC 30.7 g/dl (32.0-36.0); MEAN CELL VOLUME 104.2 fl (80-96); MEAN PLT VOLUME 9.3 fl (7.5-11.1); PLATELET COUNT 207 10^3/uL (134-434); RBC 2.38 M/mm3 (3.60-5.2); RDW 23.5 % (11.6-15.6); WHITE BLOOD COUNT 5.7 K/mm3 (4.0-10.0)
[2023-01-16] MEDS ORDERED: SODIUM ZIRCONIUM CYCLOSILICATE (LOKELMA) 5 GM PACKET PO SCH (12:15)
[2023-01-16] MEDS ORDERED: METOLAZONE 5 MG TABLET PO ONE (12:45)
[2023-01-16] MEDS: ATORVASTATIN CA 40 MG TABLET (FP) PO SCH (21:12)
[2023-01-16] MEDS: AUSTEDO 24 MG PO SCH (21:13)
[2023-01-16] MEDS: GABAPENTIN 100 MG CAPSULE PO SCH (21:13)
[2023-01-16] MEDS: LIDOCAINE PATCH REMOVAL MC SCH ×2 (21:27→21:28)
[2023-01-17] MEDS: FUROSEMIDE 40 MG/4 ML INJECTABLE VIAL IVPB SCH (06:22)
[2023-01-17] MEDS: HEPARIN NA (PORCINE) 5,000 UNITS/ML 1ML VIAL SQ SCH ×3 (06:23→21:05)
[2023-01-17] MEDS: ALBUTEROL SO4 2.5/IPRATROPIUM 0.5 INH SOL 3 ML VIAL.NEB. NEB SCH ×4 (07:54→20:21)
[2023-01-17 09:51] LABS: HEMATOCRIT 26.7 % (32.4-45.2); HEMOGLOBIN 8.1 GM/dL (10.7-15.3); MCH 31.2 pg (25.7-33.7); MCHC 30.3 g/dl (32.0-36.0); MEAN CELL VOLUME 103.2 fl (80-96); MEAN PLT VOLUME 9.1 fl (7.5-11.1); PLATELET COUNT 242 10^3/uL (134-434); RBC 2.59 M/mm3 (3.60-5.2); RDW 23.2 % (11.6-15.6); WHITE BLOOD COUNT 6.9 K/mm3 (4.0-10.0)
[2023-01-17 10:19] LABS: CALCIUM 8.7 mg/dL (8.5-10.1)
[2023-01-17 10:20] LABS: BLOOD UREA NITROGEN 88.5 mg/dL (7-18); MAGNESIUM 2.6 mg/dL (1.8-2.4)
[2023-01-17 10:22] LABS: CREATININE 5.3 mg/dL (0.55-1.3)
[2023-01-17 10:23] LABS: PHOSPHOROUS 8.3 mg/dL (2.5-4.9)
[2023-01-17 10:24] LABS: BILIRUBIN,TOTAL 0.9 mg/dL (0.2-1); TOT PROT 6.4 g/dl (6.4-8.2)
[2023-01-17] MEDS: LIDOCAINE 5% TOPICAL PATCH TP SCH ×2 (10:56→11:02)
[2023-01-17] MEDS: AMINO ACIDS/PROTEIN HYDROLYS 30 ML LIQUID.PKT PO SCH ×2 (10:57→17:35)
[2023-01-17] MEDS: ASPIRIN 81 MG CHEWABLE TABLETS PO SCH (10:57)
[2023-01-17] MEDS: METOPROLOL TARTRATE 25 MG TABLET (FP) PO SCH ×2 (10:58→21:05)
[2023-01-17] MEDS: MULTIVIT-MINERALS ORAL LIQUID PO SCH (10:59)
[2023-01-17] MEDS: POLYETHYLENE GLYCOL (HEALTHYLAX) 3350 17 GM PACKET PO SCH ×2 (11:00→21:06)
[2023-01-17] MEDS: levETIRAcetam 500 MG TABLET (FP) PO SCH ×2 (11:01→21:04)
[2023-01-17] MEDS: PANTOPRAZOLE SODIUM 40 MG VIAL IVPUSH SCH (11:01)
[2023-01-17] MEDS: METHYL SALICYLATE/MENTHOL OINT 30 GM TUBE TP SCH (11:02)
[2023-01-17] MEDS ORDERED: METOLAZONE 5 MG TABLET PO ONE (13:00)
[2023-01-17] MEDS ORDERED: FUROSEMIDE INJECTION 100 MG in DEXTROSE 5%-WATER - 40 ML IVPB SCH (13:00)
[2023-01-17] MEDS: FUROSEMIDE INJECTION 100 MG in DEXTROSE 5%-WATER - 40 ML IVPB SCH (13:20)
[2023-01-17] MEDS: ATORVASTATIN CA 40 MG TABLET (FP) PO SCH (21:04)
[2023-01-17] MEDS: LIDOCAINE PATCH REMOVAL MC SCH ×3 (21:05→22:05)
[2023-01-17] MEDS: GABAPENTIN 100 MG CAPSULE PO SCH (21:05)
[2023-01-17] MEDS: AUSTEDO 24 MG PO SCH (21:06)
[2023-01-18] MEDS: HEPARIN NA (PORCINE) 5,000 UNITS/ML 1ML VIAL SQ SCH ×3 (05:59→21:49)
[2023-01-18] MEDS: ALBUTEROL SO4 2.5/IPRATROPIUM 0.5 INH SOL 3 ML VIAL.NEB. NEB SCH ×4 (07:54→19:57)
[2023-01-18 09:11] LABS: HEMATOCRIT 24.6 % (32.4-45.2); HEMOGLOBIN 7.5 GM/dL (10.7-15.3); MCH 31.5 pg (25.7-33.7); MCHC 30.7 g/dl (32.0-36.0); MEAN CELL VOLUME 102.6 fl (80-96); MEAN PLT VOLUME 9.5 fl (7.5-11.1); PLATELET COUNT 210 10^3/uL (134-434); RDW 22.6 % (11.6-15.6); WHITE BLOOD COUNT 6.9 K/mm3 (4.0-10.0)
[2023-01-18 09:29] LABS: POTASSIUM 4.9 mmol/L (3.5-5.1)
[2023-01-18 09:34] LABS: BLOOD UREA NITROGEN 98.9 mg/dL (7-18)
[2023-01-18 09:35] LABS: ALBUMIN 2.8 g/dl (3.4-5.0); CALCIUM 8.9 mg/dL (8.5-10.1); MAGNESIUM 2.6 mg/dL (1.8-2.4)
[2023-01-18 09:38] LABS: CREATININE 5.5 mg/dL (0.55-1.3)
[2023-01-18 09:39] LABS: PHOSPHOROUS 8.5 mg/dL (2.5-4.9)
[2023-01-18 09:40] LABS: BILIRUBIN,TOTAL 0.7 mg/dL (0.2-1); TOT PROT 6.2 g/dl (6.4-8.2)
[2023-01-18] MEDS: LIDOCAINE 5% TOPICAL PATCH TP SCH ×2 (10:14→10:21)
[2023-01-18] MEDS: METHYL SALICYLATE/MENTHOL OINT 30 GM TUBE TP SCH (10:18)
[2023-01-18] MEDS: MULTIVIT-MINERALS ORAL LIQUID PO SCH (10:18)
[2023-01-18] MEDS: PANTOPRAZOLE SODIUM 40 MG VIAL IVPUSH SCH (10:18)
[2023-01-18] MEDS: ASPIRIN 81 MG CHEWABLE TABLETS PO SCH (10:18)
[2023-01-18] MEDS: AMINO ACIDS/PROTEIN HYDROLYS 30 ML LIQUID.PKT PO SCH ×2 (10:18→17:12)
[2023-01-18] MEDS: levETIRAcetam 500 MG TABLET (FP) PO SCH ×2 (10:18→21:49)
[2023-01-18] MEDS: POLYETHYLENE GLYCOL (HEALTHYLAX) 3350 17 GM PACKET PO SCH ×2 (10:19→21:49)
[2023-01-18] MEDS: METOPROLOL TARTRATE 25 MG TABLET (FP) PO SCH ×2 (10:22→21:52)
[2023-01-18] MEDS ORDERED: METOLAZONE 2.5 MG TABLET (FP) PO ONE (12:00)
[2023-01-18] MEDS: FUROSEMIDE INJECTION 100 MG in DEXTROSE 5%-WATER - 40 ML IVPB SCH (17:12)
[2023-01-18] MEDS: ACETAMINOPHEN 325 MG TABLET (FP) PO PRN (20:12)
[2023-01-18] MEDS: ATORVASTATIN CA 40 MG TABLET (FP) PO SCH (21:49)
[2023-01-18] MEDS: GABAPENTIN 100 MG CAPSULE PO SCH (21:50)
[2023-01-18] MEDS: LIDOCAINE PATCH REMOVAL MC SCH ×2 (21:52)
[2023-01-18] MEDS: AUSTEDO 24 MG PO SCH (21:52)
[2023-01-19] MEDS: FUROSEMIDE INJECTION 100 MG in DEXTROSE 5%-WATER - 40 ML IVPB SCH ×3 (02:49→15:11)
[2023-01-19] MEDS: HEPARIN NA (PORCINE) 5,000 UNITS/ML 1ML VIAL SQ SCH ×3 (05:09→22:46)
[2023-01-19] MEDS: ALBUTEROL SO4 2.5/IPRATROPIUM 0.5 INH SOL 3 ML VIAL.NEB. NEB SCH ×4 (07:12→20:38)
[2023-01-19 08:15] LABS: CHLORIDE 105 mmol/L (98-107); POTASSIUM 4.7 mmol/L (3.5-5.1); SODIUM 143 mmol/L (136-145)
[2023-01-19 08:30] LABS: HEMATOCRIT 25.6 % (32.4-45.2); HEMOGLOBIN 7.8 GM/dL (10.7-15.3); MCH 31.2 pg (25.7-33.7); MCHC 30.3 g/dl (32.0-36.0); MEAN CELL VOLUME 102.9 fl (80-96); MEAN PLT VOLUME 9.3 fl (7.5-11.1); PLATELET COUNT 193 10^3/uL (134-434); RBC 2.49 M/mm3 (3.60-5.2); RDW 22.1 % (11.6-15.6); WHITE BLOOD COUNT 6.6 K/mm3 (4.0-10.0)
[2023-01-19 08:39] LABS: ANION GAP 14 MMOL/L (8-16); CO2 24 mmol/L (21-32); GLUCOSE,RANDOM 91 mg/dL (74-106); MAGNESIUM 2.7 mg/dL (1.8-2.4)
[2023-01-19 08:43] LABS: CREATININE 5.6 mg/dL (0.55-1.3)
[2023-01-19 08:54] LABS: BLOOD UREA NITROGEN 106.4 mg/dL (7-18)
[2023-01-19] MEDS: POLYETHYLENE GLYCOL (HEALTHYLAX) 3350 17 GM PACKET PO SCH ×2 (10:46→22:46)
[2023-01-19] MEDS: ASPIRIN 81 MG CHEWABLE TABLETS PO SCH (10:46)
[2023-01-19] MEDS: VITAMIN B COMP W-C 1 EA TABLET (NEPHRO-VITE) PO SCH (10:46)
[2023-01-19] MEDS: METHYL SALICYLATE/MENTHOL OINT 30 GM TUBE TP SCH (10:46)
[2023-01-19] MEDS: levETIRAcetam 500 MG TABLET (FP) PO SCH ×2 (10:46→22:50)
[2023-01-19] MEDS: PANTOPRAZOLE SODIUM 40 MG VIAL IVPUSH SCH (10:47)
[2023-01-19] MEDS: LIDOCAINE 5% TOPICAL PATCH TP SCH ×2 (10:47)
[2023-01-19] MEDS: AMINO ACIDS/PROTEIN HYDROLYS 30 ML LIQUID.PKT PO SCH ×2 (10:47→17:41)
[2023-01-19] MEDS: METOPROLOL TARTRATE 25 MG TABLET (FP) PO SCH ×2 (10:47→23:05)
[2023-01-19] MEDS ORDERED: METOLAZONE 2.5 MG TABLET (FP) PO ONE (11:45)
[2023-01-19 16:07] LABS: ATYPICAL pANCA <1:20 titer (Neg:<1:20); C-ANCA <1:20 titer (Neg:<1:20)
[2023-01-19] MEDS: AUSTEDO 24 MG PO SCH (22:46)
[2023-01-19] MEDS: ACETAMINOPHEN 325 MG TABLET (FP) PO PRN (22:47)
[2023-01-19] MEDS: ATORVASTATIN CA 40 MG TABLET (FP) PO SCH (22:49)
[2023-01-19] MEDS: GABAPENTIN 100 MG CAPSULE PO SCH (22:49)
[2023-01-19] MEDS: LIDOCAINE PATCH REMOVAL MC SCH ×2 (22:50)
[2023-01-20] MEDS: FUROSEMIDE INJECTION 100 MG in DEXTROSE 5%-WATER - 40 ML IVPB SCH ×2 (03:30→16:58)
[2023-01-20] MEDS: HEPARIN NA (PORCINE) 5,000 UNITS/ML 1ML VIAL SQ SCH ×3 (05:23→22:54)
[2023-01-20] MEDS: ALBUTEROL SO4 2.5/IPRATROPIUM 0.5 INH SOL 3 ML VIAL.NEB. NEB SCH ×4 (07:30→20:05)
[2023-01-20 08:31] LABS: HEMATOCRIT 25.1 % (32.4-45.2); HEMOGLOBIN 7.6 GM/dL (10.7-15.3); MCHC 30.5 g/dl (32.0-36.0); MEAN CELL VOLUME 101.9 fl (80-96); MEAN PLT VOLUME 8.9 fl (7.5-11.1); PLATELET COUNT 194 10^3/uL (134-434); RBC 2.46 M/mm3 (3.60-5.2); RDW 21.9 % (11.6-15.6); WHITE BLOOD COUNT 6.4 K/mm3 (4.0-10.0)
[2023-01-20 08:48] LABS: CHLORIDE 105 mmol/L (98-107); POTASSIUM 4.5 mmol/L (3.5-5.1); SODIUM 146 mmol/L (136-145)
[2023-01-20 08:50] LABS: ALBUMIN 2.7 g/dl (3.4-5.0); ANION GAP 13 MMOL/L (8-16); CALCIUM 8.6 mg/dL (8.5-10.1); CO2 28 mmol/L (21-32); GLUCOSE,RANDOM 82 mg/dL (74-106); MAGNESIUM 2.5 mg/dL (1.8-2.4)
[2023-01-20 08:53] LABS: PHOSPHOROUS 8.8 mg/dL (2.5-4.9); SGPT/ALT 20 U/L (13-61)
[2023-01-20 08:54] LABS: CREATININE 5.8 mg/dL (0.55-1.3); SGOT/AST 22 U/L (15-37)
[2023-01-20 08:55] LABS: BILIRUBIN,TOTAL 0.8 mg/dL (0.2-1); TOT PROT 6.1 g/dl (6.4-8.2)
[2023-01-20 08:56] LABS: ALK PHOS 88 U/L (45-117)
[2023-01-20 09:00] LABS: BLOOD UREA NITROGEN 113.6 mg/dL (7-18)
[2023-01-20] MEDS: PANTOPRAZOLE SODIUM 40 MG VIAL IVPUSH SCH (10:28)
[2023-01-20] MEDS: AMINO ACIDS/PROTEIN HYDROLYS 30 ML LIQUID.PKT PO SCH ×2 (10:28→16:57)
[2023-01-20] MEDS: LIDOCAINE 5% TOPICAL PATCH TP SCH ×2 (10:28→10:30)
[2023-01-20] MEDS: METOPROLOL TARTRATE 25 MG TABLET (FP) PO SCH ×2 (10:28→22:55)
[2023-01-20] MEDS: METHYL SALICYLATE/MENTHOL OINT 30 GM TUBE TP SCH (10:29)
[2023-01-20] MEDS: levETIRAcetam 500 MG TABLET (FP) PO SCH ×2 (10:29→22:54)
[2023-01-20] MEDS: POLYETHYLENE GLYCOL (HEALTHYLAX) 3350 17 GM PACKET PO SCH ×2 (10:30→22:41)
[2023-01-20] MEDS: VITAMIN B COMP W-C 1 EA TABLET (NEPHRO-VITE) PO SCH (10:31)
[2023-01-20] MEDS: ASPIRIN 81 MG CHEWABLE TABLETS PO SCH (10:32)
[2023-01-20] MEDS: AUSTEDO 24 MG PO SCH (22:43)
[2023-01-20] MEDS: ATORVASTATIN CA 40 MG TABLET (FP) PO SCH (22:54)
[2023-01-20] MEDS: GABAPENTIN 100 MG CAPSULE PO SCH (22:55)
[2023-01-20] MEDS: LIDOCAINE PATCH REMOVAL MC SCH ×2 (22:55)
[2023-01-21] MEDS: HEPARIN NA (PORCINE) 5,000 UNITS/ML 1ML VIAL SQ SCH ×3 (06:03→21:20)
[2023-01-21] MEDS: ALBUTEROL SO4 2.5/IPRATROPIUM 0.5 INH SOL 3 ML VIAL.NEB. NEB SCH ×4 (07:55→20:05)
[2023-01-21 08:13] LABS: HEMATOCRIT 23.8 % (32.4-45.2); HEMOGLOBIN 7.4 GM/dL (10.7-15.3); MCH 31.7 pg (25.7-33.7); MCHC 31.3 g/dl (32.0-36.0); MEAN CELL VOLUME 101.5 fl (80-96); MEAN PLT VOLUME 8.5 fl (7.5-11.1); PLATELET COUNT 176 10^3/uL (134-434); RBC 2.35 M/mm3 (3.60-5.2); RDW 21.7 % (11.6-15.6); WHITE BLOOD COUNT 6.2 K/mm3 (4.0-10.0)
[2023-01-21 08:33] LABS: CHLORIDE 106 mmol/L (98-107); POTASSIUM 4.4 mmol/L (3.5-5.1); SODIUM 146 mmol/L (136-145)
[2023-01-21 08:38] LABS: CALCIUM 8.4 mg/dL (8.5-10.1)
[2023-01-21 08:39] LABS: ALBUMIN 2.6 g/dl (3.4-5.0); ANION GAP 11 MMOL/L (8-16); CO2 28 mmol/L (21-32); GLUCOSE,RANDOM 91 mg/dL (74-106); MAGNESIUM 2.4 mg/dL (1.8-2.4)
[2023-01-21 08:42] LABS: CREATININE 5.9 mg/dL (0.55-1.3); PHOSPHOROUS 8.7 mg/dL (2.5-4.9); SGOT/AST 21 U/L (15-37); SGPT/ALT 20 U/L (13-61)
[2023-01-21 08:43] LABS: BILIRUBIN,TOTAL 0.8 mg/dL (0.2-1); TOT PROT 5.8 g/dl (6.4-8.2)
[2023-01-21 08:44] LABS: ALK PHOS 81 U/L (45-117)
[2023-01-21 08:45] LABS: BLOOD UREA NITROGEN 118.7 mg/dL (7-18)
[2023-01-21] MEDS ORDERED: ACETAMINOPHEN 325 MG TABLET (FP) PO ONE (09:58)
[2023-01-21] MEDS: METOPROLOL TARTRATE 25 MG TABLET (FP) PO SCH ×2 (11:37→21:19)
[2023-01-21] MEDS: POLYETHYLENE GLYCOL (HEALTHYLAX) 3350 17 GM PACKET PO SCH ×2 (11:38→21:18)
[2023-01-21] MEDS: PANTOPRAZOLE SODIUM 40 MG VIAL IVPUSH SCH ×2 (11:38→11:41)
[2023-01-21] MEDS: VITAMIN B COMP W-C 1 EA TABLET (NEPHRO-VITE) PO SCH (11:38)
[2023-01-21] MEDS: METHYL SALICYLATE/MENTHOL OINT 30 GM TUBE TP SCH (11:38)
[2023-01-21] MEDS: levETIRAcetam 500 MG TABLET (FP) PO SCH ×2 (11:38→21:19)
[2023-01-21] MEDS: LIDOCAINE 5% TOPICAL PATCH TP SCH ×2 (11:38→11:39)
[2023-01-21] MEDS: ASPIRIN 81 MG CHEWABLE TABLETS PO SCH (11:38)
[2023-01-21] MEDS: AMINO ACIDS/PROTEIN HYDROLYS 30 ML LIQUID.PKT PO SCH ×2 (11:39→16:34)
[2023-01-21] MEDS: FUROSEMIDE INJECTION 100 MG in DEXTROSE 5%-WATER - 40 ML IVPB SCH (16:25)
[2023-01-21] MEDS: AUSTEDO 24 MG PO SCH (21:18)
[2023-01-21] MEDS: GABAPENTIN 100 MG CAPSULE PO SCH (21:19)
[2023-01-21] MEDS: ATORVASTATIN CA 40 MG TABLET (FP) PO SCH (21:19)
[2023-01-21] MEDS: LIDOCAINE PATCH REMOVAL MC SCH ×2 (22:29)
[2023-01-22] MEDS: HEPARIN NA (PORCINE) 5,000 UNITS/ML 1ML VIAL SQ SCH ×3 (05:29→22:27)
[2023-01-22] MEDS: ALBUTEROL SO4 2.5/IPRATROPIUM 0.5 INH SOL 3 ML VIAL.NEB. NEB SCH ×4 (07:48→20:47)
[2023-01-22] MEDS: LIDOCAINE 5% TOPICAL PATCH TP SCH ×2 (10:27)
[2023-01-22] MEDS: PANTOPRAZOLE SODIUM 40 MG VIAL IVPUSH SCH (10:28)
[2023-01-22] MEDS: POLYETHYLENE GLYCOL (HEALTHYLAX) 3350 17 GM PACKET PO SCH ×2 (10:28→22:27)
[2023-01-22] MEDS: METOPROLOL TARTRATE 25 MG TABLET (FP) PO SCH ×2 (10:29→23:17)
[2023-01-22] MEDS: ASPIRIN 81 MG CHEWABLE TABLETS PO SCH (10:29)
[2023-01-22] MEDS: levETIRAcetam 500 MG TABLET (FP) PO SCH ×2 (10:29→22:27)
[2023-01-22] MEDS: VITAMIN B COMP W-C 1 EA TABLET (NEPHRO-VITE) PO SCH (10:29)
[2023-01-22] MEDS: AMINO ACIDS/PROTEIN HYDROLYS 30 ML LIQUID.PKT PO SCH ×2 (10:29→16:59)
[2023-01-22] MEDS: METHYL SALICYLATE/MENTHOL OINT 30 GM TUBE TP SCH (10:36)
[2023-01-22 14:29] LABS: HEMATOCRIT 27.6 % (32.4-45.2); HEMOGLOBIN 8.2 GM/dL (10.7-15.3); MCH 30.5 pg (25.7-33.7); MCHC 29.9 g/dl (32.0-36.0); MEAN PLT VOLUME 9.2 fl (7.5-11.1); PLATELET COUNT 191 10^3/uL (134-434); RDW 21.9 % (11.6-15.6); WHITE BLOOD COUNT 8.4 K/mm3 (4.0-10.0)
[2023-01-22 14:50] LABS: CHLORIDE 105 mmol/L (98-107); POTASSIUM 4.5 mmol/L (3.5-5.1); SODIUM 144 mmol/L (136-145)
[2023-01-22 15:05] LABS: CALCIUM 8.4 mg/dL (8.5-10.1)
[2023-01-22 15:06] LABS: ALBUMIN 2.8 g/dl (3.4-5.0); ANION GAP 14 MMOL/L (8-16); CO2 25 mmol/L (21-32); GLUCOSE,RANDOM 128 mg/dL (74-106); MAGNESIUM 2.6 mg/dL (1.8-2.4)
[2023-01-22 15:07] LABS: CREATININE 5.9 mg/dL (0.55-1.3)
[2023-01-22 15:09] LABS: BILIRUBIN,TOTAL 0.7 mg/dL (0.2-1); PHOSPHOROUS 8.6 mg/dL (2.5-4.9); SGOT/AST 23 U/L (15-37); SGPT/ALT 24 U/L (13-61); TOT PROT 6.2 g/dl (6.4-8.2)
[2023-01-22 15:10] LABS: ALK PHOS 89 U/L (45-117)
[2023-01-22 15:45] LABS: BLOOD UREA NITROGEN 118.7 mg/dL (7-18)
[2023-01-22] MEDS: FUROSEMIDE INJECTION 100 MG in DEXTROSE 5%-WATER - 40 ML IVPB SCH (16:59)
[2023-01-22] MEDS: GABAPENTIN 100 MG CAPSULE PO SCH (22:27)
[2023-01-22] MEDS: ATORVASTATIN CA 40 MG TABLET (FP) PO SCH (22:28)
[2023-01-22] MEDS: AUSTEDO 24 MG PO SCH (22:29)
[2023-01-22] MEDS: LIDOCAINE PATCH REMOVAL MC SCH ×2 (22:29)
[2023-01-23] MEDS: HEPARIN NA (PORCINE) 5,000 UNITS/ML 1ML VIAL SQ SCH ×3 (06:07→21:34)
[2023-01-23] MEDS: ALBUTEROL SO4 2.5/IPRATROPIUM 0.5 INH SOL 3 ML VIAL.NEB. NEB SCH ×4 (07:58→20:05)
[2023-01-23 08:29] LABS: HEMATOCRIT 25.9 % (32.4-45.2); HEMOGLOBIN 8.1 GM/dL (10.7-15.3); MCH 31.2 pg (25.7-33.7); MCHC 31.1 g/dl (32.0-36.0); MEAN CELL VOLUME 100.2 fl (80-96); MEAN PLT VOLUME 9.5 fl (7.5-11.1); PLATELET COUNT 186 10^3/uL (134-434); RBC 2.58 M/mm3 (3.60-5.2)
[2023-01-23 08:38] LABS: CHLORIDE 104 mmol/L (98-107); POTASSIUM 4.3 mmol/L (3.5-5.1); SODIUM 144 mmol/L (136-145)
[2023-01-23 08:44] LABS: ALBUMIN 2.7 g/dl (3.4-5.0); ANION GAP 13 MMOL/L (8-16); CALCIUM 8.7 mg/dL (8.5-10.1); CO2 28 mmol/L (21-32)
[2023-01-23 08:45] LABS: GLUCOSE,RANDOM 93 mg/dL (74-106); MAGNESIUM 2.4 mg/dL (1.8-2.4)
[2023-01-23 08:47] LABS: PHOSPHOROUS 8.2 mg/dL (2.5-4.9); SGPT/ALT 22 U/L (13-61)
[2023-01-23 08:48] LABS: ALK PHOS 86 U/L (45-117); CREATININE 5.8 mg/dL (0.55-1.3); SGOT/AST 21 U/L (15-37)
[2023-01-23 08:49] LABS: BILIRUBIN,TOTAL 0.9 mg/dL (0.2-1); TOT PROT 6.1 g/dl (6.4-8.2)
[2023-01-23] MEDS: AMINO ACIDS/PROTEIN HYDROLYS 30 ML LIQUID.PKT PO SCH ×2 (08:52→18:02)
[2023-01-23] MEDS: METOPROLOL TARTRATE 25 MG TABLET (FP) PO SCH ×2 (09:11→21:35)
[2023-01-23] MEDS: levETIRAcetam 500 MG TABLET (FP) PO SCH ×2 (09:11→21:34)
[2023-01-23] MEDS: ASPIRIN 81 MG CHEWABLE TABLETS PO SCH (09:12)
[2023-01-23] MEDS: METHYL SALICYLATE/MENTHOL OINT 30 GM TUBE TP SCH (09:12)
[2023-01-23] MEDS: VITAMIN B COMP W-C 1 EA TABLET (NEPHRO-VITE) PO SCH (09:12)
[2023-01-23] MEDS: POLYETHYLENE GLYCOL (HEALTHYLAX) 3350 17 GM PACKET PO SCH ×2 (09:12→21:34)
[2023-01-23] MEDS: LIDOCAINE 5% TOPICAL PATCH TP SCH ×2 (09:13)
[2023-01-23] MEDS: PANTOPRAZOLE SODIUM 40 MG VIAL IVPUSH SCH (09:21)
[2023-01-23] MEDS: FUROSEMIDE INJECTION 100 MG in DEXTROSE 5%-WATER - 40 ML IVPB SCH (14:32)
[2023-01-23] MEDS: AUSTEDO 24 MG PO SCH (21:33)
[2023-01-23] MEDS: ATORVASTATIN CA 40 MG TABLET (FP) PO SCH (21:34)
[2023-01-23] MEDS: LIDOCAINE PATCH REMOVAL MC SCH ×2 (21:34)
[2023-01-23] MEDS: GABAPENTIN 100 MG CAPSULE PO SCH (21:35)
[2023-01-24] MEDS: HEPARIN NA (PORCINE) 5,000 UNITS/ML 1ML VIAL SQ SCH ×3 (05:53→21:28)
[2023-01-24] MEDS: ALBUTEROL SO4 2.5/IPRATROPIUM 0.5 INH SOL 3 ML VIAL.NEB. NEB SCH ×4 (09:09→20:09)
[2023-01-24] MEDS: AMINO ACIDS/PROTEIN HYDROLYS 30 ML LIQUID.PKT PO SCH ×2 (10:59→18:27)
[2023-01-24] MEDS: POLYETHYLENE GLYCOL (HEALTHYLAX) 3350 17 GM PACKET PO SCH ×2 (10:59→21:28)
[2023-01-24] MEDS: levETIRAcetam 500 MG TABLET (FP) PO SCH ×2 (10:59→21:28)
[2023-01-24] MEDS: VITAMIN B COMP W-C 1 EA TABLET (NEPHRO-VITE) PO SCH (10:59)
[2023-01-24] MEDS: ASPIRIN 81 MG CHEWABLE TABLETS PO SCH (10:59)
[2023-01-24] MEDS: PANTOPRAZOLE SODIUM 40 MG VIAL IVPUSH SCH (10:59)
[2023-01-24] MEDS: METOPROLOL TARTRATE 25 MG TABLET (FP) PO SCH ×2 (10:59→21:28)
[2023-01-24] MEDS: LIDOCAINE 5% TOPICAL PATCH TP SCH ×2 (11:00)
[2023-01-24] MEDS: METHYL SALICYLATE/MENTHOL OINT 30 GM TUBE TP SCH (11:00)
[2023-01-24] MEDS: FUROSEMIDE INJECTION 100 MG in DEXTROSE 5%-WATER - 40 ML IVPB SCH (15:23)
[2023-01-24] MEDS: GABAPENTIN 100 MG CAPSULE PO SCH (21:27)
[2023-01-24] MEDS: ATORVASTATIN CA 40 MG TABLET (FP) PO SCH (21:27)
[2023-01-24] MEDS: LIDOCAINE PATCH REMOVAL MC SCH ×2 (21:29→21:30)
[2023-01-24] MEDS: AUSTEDO 24 MG PO SCH (21:29)
[2023-01-25] MEDS: HEPARIN NA (PORCINE) 5,000 UNITS/ML 1ML VIAL SQ SCH ×3 (05:30→22:56)
[2023-01-25] MEDS: ALBUTEROL SO4 2.5/IPRATROPIUM 0.5 INH SOL 3 ML VIAL.NEB. NEB SCH ×4 (07:45→20:30)
[2023-01-25 09:42] LABS: CHLORIDE 103 mmol/L (98-107); POTASSIUM 3.9 mmol/L (3.5-5.1); SODIUM 144 mmol/L (136-145)
[2023-01-25 09:44] LABS: ANION GAP 13 MMOL/L (8-16); CALCIUM 8.5 mg/dL (8.5-10.1); CO2 28 mmol/L (21-32); GLUCOSE,RANDOM 102 mg/dL (74-106); MAGNESIUM 2.2 mg/dL (1.8-2.4)
[2023-01-25 09:47] LABS: CREATININE 5.9 mg/dL (0.55-1.3)
[2023-01-25 09:48] LABS: BLOOD UREA NITROGEN 126.7 mg/dL (7-18)
[2023-01-25] MEDS: AMINO ACIDS/PROTEIN HYDROLYS 30 ML LIQUID.PKT PO SCH ×2 (10:26→18:36)
[2023-01-25] MEDS: POLYETHYLENE GLYCOL (HEALTHYLAX) 3350 17 GM PACKET PO SCH ×2 (10:26→23:01)
[2023-01-25] MEDS: VITAMIN B COMP W-C 1 EA TABLET (NEPHRO-VITE) PO SCH (10:27)
[2023-01-25] MEDS: LIDOCAINE 5% TOPICAL PATCH TP SCH ×2 (10:27→11:12)
[2023-01-25] MEDS: METOPROLOL TARTRATE 25 MG TABLET (FP) PO SCH ×2 (10:27→23:00)
[2023-01-25] MEDS: levETIRAcetam 500 MG TABLET (FP) PO SCH ×2 (10:27→22:56)
[2023-01-25] MEDS: PANTOPRAZOLE SODIUM 40 MG VIAL IVPUSH SCH (10:27)
[2023-01-25] MEDS ORDERED: SODIUM CHLORIDE 250 ML IV PRN ×2 (10:54→18:28)
[2023-01-25] MEDS: ASPIRIN 81 MG CHEWABLE TABLETS PO SCH (11:10)
[2023-01-25] MEDS: METHYL SALICYLATE/MENTHOL OINT 30 GM TUBE TP SCH (11:11)
[2023-01-25] MEDS ORDERED: LIDOCAINE HCL 1%, 10 MG/ML (20ML VIAL) ONE (16:23)
[2023-01-25] MEDS ORDERED: SODIUM CHLORIDE 1,000 ML IV SCH (16:30)
[2023-01-25] MEDS ORDERED: DEXMEDETOMIDINE HCL 200 MCG/2 ML IVPB ONE (16:39)
[2023-01-25] MEDS ORDERED: MIDAZOLAM HCL 2 MG/2 ML SINGLE DOSE VIAL ONE (16:40)
[2023-01-25] MEDS ORDERED: PROPOFOL 20 ML ONE (17:46)
[2023-01-25] MEDS ORDERED: ceFAZolin SODIUM 1 GM VIAL IVPB ONE (17:54)
[2023-01-25] MEDS ORDERED: LIDOCAINE HCL 1%, 10 MG/ML (20ML VIAL) INF ONE ×2 (18:00)
[2023-01-25] MEDS ORDERED: BENZOCAINE 28 GM HEMORRHOIDAL OINTMENT RC PRN (18:28)
[2023-01-25] MEDS ORDERED: LIDOCAINE PATCH REMOVAL MC SCH (18:28)
[2023-01-25] MEDS: ATORVASTATIN CA 40 MG TABLET (FP) PO SCH (22:55)
[2023-01-25] MEDS: GABAPENTIN 100 MG CAPSULE PO SCH (22:55)
[2023-01-25] MEDS: DEUTETRABENAZINE 24 MG PO SCH (23:00)
[2023-01-25] MEDS: LIDOCAINE PATCH REMOVAL MC SCH ×2 (23:02)
[2023-01-26] MEDS: HEPARIN NA (PORCINE) 5,000 UNITS/ML 1ML VIAL SQ SCH ×3 (06:52→21:25)
[2023-01-26] MEDS: ALBUMIN HUMAN 25% 12.5 GM/50 ML VIAL IV SCH ×5 (08:20→12:06)
[2023-01-26] MEDS: ALBUTEROL SO4 2.5/IPRATROPIUM 0.5 INH SOL 3 ML VIAL.NEB. NEB SCH ×4 (08:40→19:52)
[2023-01-26] MEDS: SODIUM CHLORIDE 1,000 ML IV SCH (08:58)
[2023-01-26] MEDS: AMINO ACIDS/PROTEIN HYDROLYS 30 ML LIQUID.PKT PO SCH ×2 (08:59→17:00)
[2023-01-26 09:27] LABS: HEMATOCRIT 23.5 % (32.4-45.2); HEMOGLOBIN 7.5 GM/dL (10.7-15.3); MCH 31.2 pg (25.7-33.7); MCHC 31.7 g/dl (32.0-36.0); MEAN CELL VOLUME 98.3 fl (80-96); MEAN PLT VOLUME 9.2 fl (7.5-11.1); PLATELET COUNT 170 10^3/uL (134-434); RBC 2.39 M/mm3 (3.60-5.2); WHITE BLOOD COUNT 7.2 K/mm3 (4.0-10.0)
[2023-01-26 09:47] LABS: CHLORIDE 105 mmol/L (98-107); POTASSIUM 4.1 mmol/L (3.5-5.1); SODIUM 147 mmol/L (136-145)
[2023-01-26 09:50] LABS: CALCIUM 8.6 mg/dL (8.5-10.1)
[2023-01-26 09:51] LABS: ANION GAP 12 MMOL/L (8-16); CO2 30 mmol/L (21-32); GLUCOSE,RANDOM 95 mg/dL (74-106)
[2023-01-26 09:53] LABS: ALBUMIN 2.5 g/dl (3.4-5.0)
[2023-01-26 09:54] LABS: PHOSPHOROUS 8.6 mg/dL (2.5-4.9)
[2023-01-26 09:55] LABS: BILIRUBIN,TOTAL 0.6 mg/dL (0.2-1); MAGNESIUM 2.2 mg/dL (1.8-2.4)
[2023-01-26 09:56] LABS: SGOT/AST 19 U/L (15-37)
[2023-01-26 09:57] LABS: ALK PHOS 80 U/L (45-117); SGPT/ALT 21 U/L (13-61)
[2023-01-26 09:58] LABS: TOT PROT 6.3 g/dl (6.4-8.2)
[2023-01-26] MEDS: levETIRAcetam 500 MG TABLET (FP) PO SCH ×2 (10:48→21:26)
[2023-01-26] MEDS: ASPIRIN 81 MG CHEWABLE TABLETS PO SCH (10:48)
[2023-01-26] MEDS: VITAMIN B COMP W-C 1 EA TABLET (NEPHRO-VITE) PO SCH (10:49)
[2023-01-26] MEDS: POLYETHYLENE GLYCOL (HEALTHYLAX) 3350 17 GM PACKET PO SCH ×2 (10:50→21:27)
[2023-01-26] MEDS: PANTOPRAZOLE SODIUM 40 MG VIAL IVPUSH SCH (10:50)
[2023-01-26] MEDS: METOPROLOL TARTRATE 25 MG TABLET (FP) PO SCH ×2 (10:50→21:26)
[2023-01-26] MEDS: METHYL SALICYLATE/MENTHOL OINT 30 GM TUBE TP SCH (10:51)
[2023-01-26] MEDS: LIDOCAINE 5% TOPICAL PATCH TP SCH ×2 (10:52→10:53)
[2023-01-26] MEDS: GABAPENTIN 100 MG CAPSULE PO SCH (21:26)
[2023-01-26] MEDS: ATORVASTATIN CA 40 MG TABLET (FP) PO SCH (21:26)
[2023-01-26] MEDS: LIDOCAINE PATCH REMOVAL MC SCH ×2 (21:27→21:28)
[2023-01-26] MEDS: DEUTETRABENAZINE 24 MG PO SCH (21:27)
[2023-01-27] MEDS: HEPARIN NA (PORCINE) 5,000 UNITS/ML 1ML VIAL SQ SCH ×3 (05:21→21:59)
[2023-01-27 06:12] LABS: ARTERIAL BLD GAS O2 SATURATION 93.7 % (95-98); ARTERIAL BLOOD GAS BASE EXCESS 0.9 mmol/L (-2-2); ARTERIAL BLOOD GAS PO2 72.5 mmHg (80-100); ARTERIAL BLOOD GAS pH 7.347 (7.350-7.450)
[2023-01-27 06:25] LABS: ALLENS TEST POSITIVE
[2023-01-27] MEDS ORDERED: HEPARIN NA (PORCINE) 5,000 UNITS/ML 1ML VIAL IVPUSH ONE (07:15)
[2023-01-27] MEDS: ALBUMIN HUMAN 25% 12.5 GM/50 ML VIAL IV SCH ×4 (07:35→09:05)
[2023-01-27] MEDS ORDERED: SODIUM CHLORIDE 250 ML IV PRN (08:00)
[2023-01-27] MEDS ORDERED: EPOETIN ALFA-EPBX 10,000 UNIT/ML VIAL SQ ONE (08:00)
[2023-01-27] MEDS: ALBUTEROL SO4 2.5/IPRATROPIUM 0.5 INH SOL 3 ML VIAL.NEB. NEB SCH ×4 (08:50→21:25)
[2023-01-27 09:06] LABS: HEMATOCRIT 23.2 % (32.4-45.2); HEMOGLOBIN 7.2 GM/dL (10.7-15.3); MCH 31.3 pg (25.7-33.7); MCHC 30.9 g/dl (32.0-36.0); MEAN CELL VOLUME 101.3 fl (80-96); MEAN PLT VOLUME 10.1 fl (7.5-11.1); PLATELET COUNT 157 10^3/uL (134-434); RBC 2.29 M/mm3 (3.60-5.2); RDW 19.7 % (11.6-15.6); WHITE BLOOD COUNT 8.8 K/mm3 (4.0-10.0)
[2023-01-27] MEDS: AMINO ACIDS/PROTEIN HYDROLYS 30 ML LIQUID.PKT PO SCH ×2 (09:23→17:48)
[2023-01-27 09:39] LABS: POTASSIUM 4.5 mmol/L (3.5-5.1)
[2023-01-27 09:45] LABS: ALBUMIN 2.8 g/dl (3.4-5.0); CALCIUM 8.6 mg/dL (8.5-10.1); MAGNESIUM 2.1 mg/dL (1.8-2.4)
[2023-01-27 09:49] LABS: CREATININE 4.9 mg/dL (0.55-1.3); PHOSPHOROUS 6.1 mg/dL (2.5-4.9)
[2023-01-27 09:51] LABS: BILIRUBIN,TOTAL 0.8 mg/dL (0.2-1)
[2023-01-27 09:53] LABS: BLOOD UREA NITROGEN 90.3 mg/dL (7-18)
[2023-01-27] MEDS: POLYETHYLENE GLYCOL (HEALTHYLAX) 3350 17 GM PACKET PO SCH ×2 (10:35→22:00)
[2023-01-27] MEDS: METHYL SALICYLATE/MENTHOL OINT 30 GM TUBE TP SCH (10:36)
[2023-01-27] MEDS: ASPIRIN 81 MG CHEWABLE TABLETS PO SCH (10:36)
[2023-01-27] MEDS: VITAMIN B COMP W-C 1 EA TABLET (NEPHRO-VITE) PO SCH (10:36)
[2023-01-27] MEDS: levETIRAcetam 500 MG TABLET (FP) PO SCH ×2 (10:36→21:59)
[2023-01-27] MEDS: METOPROLOL TARTRATE 25 MG TABLET (FP) PO SCH ×2 (10:40→22:00)
[2023-01-27] MEDS: LIDOCAINE 5% TOPICAL PATCH TP SCH ×2 (10:42)
[2023-01-27] MEDS: PANTOPRAZOLE SODIUM 40 MG VIAL IVPUSH SCH (10:43)
[2023-01-27] MEDS: SODIUM CHLORIDE 1,000 ML IV SCH (11:04)
[2023-01-27] MEDS: LIDOCAINE PATCH REMOVAL MC SCH ×2 (21:43)
[2023-01-27] MEDS: GABAPENTIN 100 MG CAPSULE PO SCH (21:59)
[2023-01-27] MEDS: ATORVASTATIN CA 40 MG TABLET (FP) PO SCH (21:59)
[2023-01-27] MEDS: DEUTETRABENAZINE 24 MG PO SCH (22:00)
[2023-01-28] MEDS: HEPARIN NA (PORCINE) 5,000 UNITS/ML 1ML VIAL SQ SCH ×3 (05:37→23:40)
[2023-01-28 08:03] LABS: HEMATOCRIT 20.8 % (32.4-45.2); MCH 31.5 pg (25.7-33.7); MCHC 31.7 g/dl (32.0-36.0); MEAN CELL VOLUME 99.3 fl (80-96); MEAN PLT VOLUME 9.3 fl (7.5-11.1); PLATELET COUNT 111 10^3/uL (134-434); RBC 2.09 M/mm3 (3.60-5.2); RDW 19.2 % (11.6-15.6); WHITE BLOOD COUNT 7.5 K/mm3 (4.0-10.0)
[2023-01-28 08:07] LABS: HEMOGLOBIN 6.6 GM/dL (10.7-15.3)
[2023-01-28 08:16] LABS: POTASSIUM 3.8 mmol/L (3.5-5.1)
[2023-01-28 08:21] LABS: ALBUMIN 2.5 g/dl (3.4-5.0); CALCIUM 8.5 mg/dL (8.5-10.1); MAGNESIUM 1.8 mg/dL (1.8-2.4)
[2023-01-28 08:25] LABS: CREATININE 3.6 mg/dL (0.55-1.3)
[2023-01-28 08:27] LABS: BILIRUBIN,TOTAL 0.8 mg/dL (0.2-1); TOT PROT 5.6 g/dl (6.4-8.2)
[2023-01-28 08:30] LABS: BLOOD UREA NITROGEN 53.7 mg/dL (7-18)
[2023-01-28] MEDS: ALBUTEROL SO4 2.5/IPRATROPIUM 0.5 INH SOL 3 ML VIAL.NEB. NEB SCH ×4 (08:40→20:35)
[2023-01-28] MEDS ORDERED: FUROSEMIDE 40 MG/4 ML INJECTABLE VIAL IVPUSH ONE (10:00)
[2023-01-28] MEDS: VITAMIN B COMP W-C 1 EA TABLET (NEPHRO-VITE) PO SCH (10:04)
[2023-01-28] MEDS: LIDOCAINE 5% TOPICAL PATCH TP SCH ×2 (10:04→10:06)
[2023-01-28] MEDS: PANTOPRAZOLE SODIUM 40 MG VIAL IVPUSH SCH (10:04)
[2023-01-28] MEDS: AMINO ACIDS/PROTEIN HYDROLYS 30 ML LIQUID.PKT PO SCH ×2 (10:04→18:21)
[2023-01-28] MEDS: METOPROLOL TARTRATE 25 MG TABLET (FP) PO SCH ×2 (10:04→23:32)
[2023-01-28] MEDS: levETIRAcetam 500 MG TABLET (FP) PO SCH ×2 (10:05→22:31)
[2023-01-28] MEDS: POLYETHYLENE GLYCOL (HEALTHYLAX) 3350 17 GM PACKET PO SCH ×2 (10:06→22:43)
[2023-01-28] MEDS: ASPIRIN 81 MG CHEWABLE TABLETS PO SCH (10:07)
[2023-01-28] MEDS: METHYL SALICYLATE/MENTHOL OINT 30 GM TUBE TP SCH (11:11)
[2023-01-28] MEDS: ATORVASTATIN CA 40 MG TABLET (FP) PO SCH (22:31)
[2023-01-28] MEDS: DEUTETRABENAZINE 24 MG PO SCH (22:41)
[2023-01-28] MEDS: GABAPENTIN 100 MG CAPSULE PO SCH (23:31)
[2023-01-28] MEDS: LIDOCAINE PATCH REMOVAL MC SCH ×2 (23:36→23:39)
[2023-01-29] MEDS: HEPARIN NA (PORCINE) 5,000 UNITS/ML 1ML VIAL SQ SCH ×3 (06:25→21:55)
[2023-01-29] MEDS ORDERED: SODIUM CHLORIDE 250 ML IV PRN (07:29)
[2023-01-29] MEDS: ALBUTEROL SO4 2.5/IPRATROPIUM 0.5 INH SOL 3 ML VIAL.NEB. NEB SCH ×4 (08:05→20:21)
[2023-01-29] MEDS: ALBUMIN HUMAN 25% 12.5 GM/50 ML VIAL IV SCH ×5 (08:45→18:35)
[2023-01-29] MEDS ORDERED: EPOETIN ALFA-EPBX 10,000 UNIT/ML VIAL IVPUSH ONE (09:00)
[2023-01-29 09:14] LABS: HEMOGLOBIN 8.1 GM/dL (10.7-15.3); MCH 31.7 pg (25.7-33.7); MCHC 32.5 g/dl (32.0-36.0); MEAN CELL VOLUME 97.3 fl (80-96); MEAN PLT VOLUME 9.5 fl (7.5-11.1); PLATELET COUNT 132 10^3/uL (134-434); RBC 2.57 M/mm3 (3.60-5.2); RDW 20.8 % (11.6-15.6); WHITE BLOOD COUNT 9.1 K/mm3 (4.0-10.0)
[2023-01-29 09:33] LABS: POTASSIUM 4.1 mmol/L (3.5-5.1)
[2023-01-29 09:36] LABS: ALBUMIN 2.8 g/dl (3.4-5.0); BLOOD UREA NITROGEN 58.1 mg/dL (7-18); CALCIUM 8.7 mg/dL (8.5-10.1)
[2023-01-29 09:39] LABS: CREATININE 4.1 mg/dL (0.55-1.3); PHOSPHOROUS 4.7 mg/dL (2.5-4.9)
[2023-01-29] MEDS: AMINO ACIDS/PROTEIN HYDROLYS 30 ML LIQUID.PKT PO SCH ×2 (11:26→18:35)
[2023-01-29] MEDS: VITAMIN B COMP W-C 1 EA TABLET (NEPHRO-VITE) PO SCH (11:27)
[2023-01-29] MEDS: METOPROLOL TARTRATE 25 MG TABLET (FP) PO SCH ×2 (11:30→21:57)
[2023-01-29] MEDS: levETIRAcetam 500 MG TABLET (FP) PO SCH ×2 (11:30→21:55)
[2023-01-29] MEDS: PANTOPRAZOLE 40 MG TABLET PO SCH (11:30)
[2023-01-29] MEDS: ASPIRIN 81 MG CHEWABLE TABLETS PO SCH (11:31)
[2023-01-29] MEDS: POLYETHYLENE GLYCOL (HEALTHYLAX) 3350 17 GM PACKET PO SCH ×2 (11:32→21:54)
[2023-01-29] MEDS: METHYL SALICYLATE/MENTHOL OINT 30 GM TUBE TP SCH (11:32)
[2023-01-29] MEDS: LIDOCAINE 5% TOPICAL PATCH TP SCH ×2 (11:33→11:41)
[2023-01-29] MEDS: SODIUM CHLORIDE 1,000 ML IV SCH ×3 (18:36→18:38)
[2023-01-29] MEDS: DEUTETRABENAZINE 24 MG PO SCH (21:53)
[2023-01-29] MEDS: LIDOCAINE PATCH REMOVAL MC SCH ×2 (21:56→21:57)
[2023-01-29] MEDS: ATORVASTATIN CA 40 MG TABLET (FP) PO SCH (21:57)
[2023-01-29] MEDS: GABAPENTIN 100 MG CAPSULE PO SCH (21:59)
[2023-01-30] MEDS: HEPARIN NA (PORCINE) 5,000 UNITS/ML 1ML VIAL SQ SCH ×3 (05:35→21:49)
[2023-01-30] MEDS: ALBUTEROL SO4 2.5/IPRATROPIUM 0.5 INH SOL 3 ML VIAL.NEB. NEB SCH ×3 (07:50→15:25)
[2023-01-30 08:35] LABS: HEMATOCRIT 23.6 % (32.4-45.2); HEMOGLOBIN 7.5 GM/dL (10.7-15.3); MCH 31.3 pg (25.7-33.7); MCHC 31.7 g/dl (32.0-36.0); MEAN CELL VOLUME 98.7 fl (80-96); PLATELET COUNT 108 10^3/uL (134-434); RBC 2.39 M/mm3 (3.60-5.2); RDW 20.2 % (11.6-15.6); WHITE BLOOD COUNT 11.4 K/mm3 (4.0-10.0)
[2023-01-30 08:50] LABS: ALBUMIN 3.2 g/dl (3.4-5.0); CALCIUM 8.5 mg/dL (8.5-10.1)
[2023-01-30 08:51] LABS: BLOOD UREA NITROGEN 37.7 mg/dL (7-18); MAGNESIUM 1.7 mg/dL (1.8-2.4)
[2023-01-30 08:53] LABS: CREATININE 3.3 mg/dL (0.55-1.3)
[2023-01-30 08:54] LABS: PHOSPHOROUS 2.6 mg/dL (2.5-4.9)
[2023-01-30 08:55] LABS: BILIRUBIN,TOTAL 1.6 mg/dL (0.2-1); TOT PROT 5.9 g/dl (6.4-8.2)
[2023-01-30] MEDS: ASPIRIN 81 MG CHEWABLE TABLETS PO SCH (09:42)
[2023-01-30] MEDS: AMINO ACIDS/PROTEIN HYDROLYS 30 ML LIQUID.PKT PO SCH ×2 (09:42→17:06)
[2023-01-30] MEDS: METHYL SALICYLATE/MENTHOL OINT 30 GM TUBE TP SCH (09:42)
[2023-01-30] MEDS: levETIRAcetam 500 MG TABLET (FP) PO SCH ×2 (09:43→21:48)
[2023-01-30] MEDS: VITAMIN B COMP W-C 1 EA TABLET (NEPHRO-VITE) PO SCH (09:43)
[2023-01-30] MEDS: METOPROLOL TARTRATE 25 MG TABLET (FP) PO SCH ×2 (09:43→21:47)
[2023-01-30] MEDS: LIDOCAINE 5% TOPICAL PATCH TP SCH ×2 (09:43→09:44)
[2023-01-30] MEDS: PANTOPRAZOLE 40 MG TABLET PO SCH (09:43)
[2023-01-30] MEDS: POLYETHYLENE GLYCOL (HEALTHYLAX) 3350 17 GM PACKET PO SCH ×2 (09:45→21:49)
[2023-01-30] MEDS: FUROSEMIDE 100 MG/10 ML INJECTABLE VIAL IVPB SCH (09:55)
[2023-01-30] MEDS ORDERED: MAGNESIUM SULF 50% (8.12 MEQ/2 ML-1 GM VIAL) IVPB ONE (10:39)
[2023-01-30] MEDS ORDERED: IRON SUCROSE INJECTION 200 MG in SODIUM CHLORIDE 90 ML IVPB ONE (11:15)
[2023-01-30] MEDS: SODIUM CHLORIDE 1,000 ML IV SCH (19:00)
[2023-01-30] MEDS: GABAPENTIN 100 MG CAPSULE PO SCH (21:47)
[2023-01-30] MEDS: ATORVASTATIN CA 40 MG TABLET (FP) PO SCH (21:48)
[2023-01-30] MEDS: DEUTETRABENAZINE 24 MG PO SCH (22:01)
[2023-01-30] MEDS: LIDOCAINE PATCH REMOVAL MC SCH ×2 (22:02→22:03)
[2023-01-31] MEDS: HEPARIN NA (PORCINE) 5,000 UNITS/ML 1ML VIAL SQ SCH ×3 (05:38→22:26)
[2023-01-31] MEDS ORDERED: ALBUTEROL SO4 2.5/IPRATROPIUM 0.5 INH SOL 3 ML VIAL.NEB. NEB ONE (07:30)
[2023-01-31 07:35] LABS: POTASSIUM 4.1 mmol/L (3.5-5.1)
[2023-01-31 07:40] LABS: CALCIUM 8.8 mg/dL (8.5-10.1)
[2023-01-31 07:41] LABS: BLOOD UREA NITROGEN 43.7 mg/dL (7-18); MAGNESIUM 1.8 mg/dL (1.8-2.4)
[2023-01-31 07:43] LABS: CREATININE 3.9 mg/dL (0.55-1.3)
[2023-01-31 07:45] LABS: BILIRUBIN,TOTAL 1.4 mg/dL (0.2-1); TOT PROT 5.9 g/dl (6.4-8.2)
[2023-01-31] MEDS: AMINO ACIDS/PROTEIN HYDROLYS 30 ML LIQUID.PKT PO SCH ×2 (08:18→16:34)
[2023-01-31 08:34] LABS: BASO % 0.5 % (0-2.0); EOS % 5.3 % (0-4.5); HEMATOCRIT 23.4 % (32.4-45.2); HEMOGLOBIN 7.5 GM/dL (10.7-15.3); LYMPH % 8.4 % (8-40); MCH 31.5 pg (25.7-33.7); MCHC 31.9 g/dl (32.0-36.0); MEAN CELL VOLUME 98.8 fl (80-96); MEAN PLT VOLUME 10.1 fl (7.5-11.1); MONO % 7.7 % (3.8-10.2); NEUT % 78.1 % (42.8-82.8); PLATELET COUNT 120 10^3/uL (134-434); RBC 2.37 M/mm3 (3.60-5.2); RDW 20.8 % (11.6-15.6)
[2023-01-31] MEDS ORDERED: EPOETIN ALFA-EPBX 4,000 UNIT/ML VIAL IVPUSH ONE (09:49)
[2023-01-31] MEDS: ASPIRIN 81 MG CHEWABLE TABLETS PO SCH (10:08)
[2023-01-31] MEDS: POLYETHYLENE GLYCOL (HEALTHYLAX) 3350 17 GM PACKET PO SCH ×3 (10:09→22:10)
[2023-01-31] MEDS: levETIRAcetam 500 MG/5 ML ORAL SOLUTION (UNIT-DOSE CUPS) PO SCH ×2 (10:09→22:20)
[2023-01-31] MEDS: FUROSEMIDE 100 MG/10 ML INJECTABLE VIAL IVPB SCH (10:09)
[2023-01-31] MEDS: VITAMIN B COMP W-C 1 EA TABLET (NEPHRO-VITE) PO SCH (10:09)
[2023-01-31] MEDS: LIDOCAINE 5% TOPICAL PATCH TP SCH ×4 (10:13→10:30)
[2023-01-31] MEDS: METOPROLOL TARTRATE 25 MG TABLET (FP) PO SCH ×2 (10:17→22:25)
[2023-01-31 10:19] LABS: ANISOCYTOSIS 2+; MACROCYTOSIS 1+
[2023-01-31] MEDS: PANTOPRAZOLE SODIUM 40 MG VIAL IVPUSH SCH (10:19)
[2023-01-31] MEDS: METHYL SALICYLATE/MENTHOL OINT 30 GM TUBE TP SCH ×2 (11:07→11:37)
[2023-01-31] MEDS: SODIUM CHLORIDE 1,000 ML IV SCH (19:01)
[2023-01-31] MEDS: ALBUTEROL SO4 2.5/IPRATROPIUM 0.5 INH SOL 3 ML VIAL.NEB. NEB PRN (21:17)
[2023-01-31] MEDS: DEUTETRABENAZINE 24 MG PO SCH (22:09)
[2023-01-31] MEDS: ATORVASTATIN CA 40 MG TABLET (FP) PO SCH (22:20)
[2023-01-31] MEDS: GABAPENTIN 100 MG CAPSULE PO SCH (22:26)
[2023-01-31] MEDS: LIDOCAINE PATCH REMOVAL MC SCH ×2 (22:27)
[2023-02-01] MEDS: HEPARIN NA (PORCINE) 5,000 UNITS/ML 1ML VIAL SQ SCH ×3 (05:00→21:34)
[2023-02-01] MEDS ORDERED: SODIUM CHLORIDE 250 ML IV PRN (07:20)
[2023-02-01 07:47] LABS: HEMATOCRIT 25.1 % (32.4-45.2); HEMOGLOBIN 7.9 GM/dL (10.7-15.3); MCH 31.6 pg (25.7-33.7); MCHC 31.5 g/dl (32.0-36.0); MEAN CELL VOLUME 100.3 fl (80-96); MEAN PLT VOLUME 10.3 fl (7.5-11.1); PLATELET COUNT 131 10^3/uL (134-434); RDW 20.1 % (11.6-15.6); WHITE BLOOD COUNT 9.1 K/mm3 (4.0-10.0)
[2023-02-01] MEDS: AMINO ACIDS/PROTEIN HYDROLYS 30 ML LIQUID.PKT PO SCH ×2 (08:00→16:32)
[2023-02-01 08:08] LABS: POTASSIUM 4.1 mmol/L (3.5-5.1)
[2023-02-01 08:10] LABS: BLOOD UREA NITROGEN 54.7 mg/dL (7-18); CALCIUM 8.8 mg/dL (8.5-10.1)
[2023-02-01 08:13] LABS: CREATININE 4.3 mg/dL (0.55-1.3); PHOSPHOROUS 3.5 mg/dL (2.5-4.9)
[2023-02-01 08:15] LABS: BILIRUBIN,TOTAL 1.2 mg/dL (0.2-1)
[2023-02-01] MEDS ORDERED: EPOETIN ALFA-EPBX 4,000 UNIT/ML VIAL IVPUSH ONE (08:30)
[2023-02-01] MEDS ORDERED: ALBUMIN HUMAN 25% 12.5 GM/50 ML VIAL IV PRN (09:30)
[2023-02-01] MEDS: ALBUMIN HUMAN 25% 12.5 GM/50 ML VIAL IV SCH ×3 (10:10→11:00)
[2023-02-01] MEDS: LIDOCAINE 5% TOPICAL PATCH TP SCH ×2 (11:21)
[2023-02-01] MEDS: PANTOPRAZOLE SODIUM 40 MG VIAL IVPUSH SCH (11:22)
[2023-02-01] MEDS: VITAMIN B COMP W-C 1 EA TABLET (NEPHRO-VITE) PO SCH (11:22)
[2023-02-01] MEDS: ASPIRIN 81 MG CHEWABLE TABLETS PO SCH (11:22)
[2023-02-01] MEDS: levETIRAcetam 500 MG/5 ML ORAL SOLUTION (UNIT-DOSE CUPS) PO SCH ×2 (11:25→21:34)
[2023-02-01] MEDS: METHYL SALICYLATE/MENTHOL OINT 30 GM TUBE TP SCH (11:37)
[2023-02-01] MEDS: METOPROLOL TARTRATE 25 MG TABLET (FP) PO SCH ×2 (11:37→21:36)
[2023-02-01] MEDS: POLYETHYLENE GLYCOL (HEALTHYLAX) 3350 17 GM PACKET PO SCH ×2 (11:37→21:38)
[2023-02-01] MEDS: ALBUTEROL SO4 2.5/IPRATROPIUM 0.5 INH SOL 3 ML VIAL.NEB. NEB PRN ×2 (18:37→22:01)
[2023-02-01] MEDS: GABAPENTIN 100 MG CAPSULE PO SCH (21:35)
[2023-02-01] MEDS: ATORVASTATIN CA 40 MG TABLET (FP) PO SCH (21:35)
[2023-02-01] MEDS: DEUTETRABENAZINE 24 MG PO SCH (21:37)
[2023-02-01] MEDS: LIDOCAINE PATCH REMOVAL MC SCH ×2 (22:21→22:22)
[2023-02-02] MEDS: HEPARIN NA (PORCINE) 5,000 UNITS/ML 1ML VIAL SQ SCH ×2 (05:29→13:37)
[2023-02-02 08:37] LABS: HEMATOCRIT 24.5 % (32.4-45.2); HEMOGLOBIN 7.6 GM/dL (10.7-15.3); MCH 31.5 pg (25.7-33.7); MCHC 31.1 g/dl (32.0-36.0); MEAN CELL VOLUME 101.4 fl (80-96); MEAN PLT VOLUME 9.8 fl (7.5-11.1); PLATELET COUNT 126 10^3/uL (134-434); RBC 2.41 M/mm3 (3.60-5.2); RDW 20.3 % (11.6-15.6); WHITE BLOOD COUNT 8.5 K/mm3 (4.0-10.0)
[2023-02-02 09:10] LABS: POTASSIUM 3.7 mmol/L (3.5-5.1)
[2023-02-02 09:15] LABS: CALCIUM 8.9 mg/dL (8.5-10.1)
[2023-02-02 09:16] LABS: BLOOD UREA NITROGEN 34.8 mg/dL (7-18); MAGNESIUM 1.9 mg/dL (1.8-2.4)
[2023-02-02 09:19] LABS: CREATININE 3.3 mg/dL (0.55-1.3)
[2023-02-02 09:21] LABS: TOT PROT 6.7 g/dl (6.4-8.2)
[2023-02-02] MEDS: POLYETHYLENE GLYCOL (HEALTHYLAX) 3350 17 GM PACKET PO SCH ×3 (09:52→21:56)
[2023-02-02] MEDS: levETIRAcetam 500 MG/5 ML ORAL SOLUTION (UNIT-DOSE CUPS) PO SCH ×2 (09:52→21:46)
[2023-02-02] MEDS: AMINO ACIDS/PROTEIN HYDROLYS 30 ML LIQUID.PKT PO SCH ×2 (09:52→17:16)
[2023-02-02] MEDS: VITAMIN B COMP W-C 1 EA TABLET (NEPHRO-VITE) PO SCH (09:53)
[2023-02-02] MEDS: METOPROLOL TARTRATE 25 MG TABLET (FP) PO SCH ×2 (09:53→21:43)
[2023-02-02] MEDS: ASPIRIN COATED 81 MG TABLET.EC PO SCH (09:53)
[2023-02-02] MEDS: METHYL SALICYLATE/MENTHOL OINT 30 GM TUBE TP SCH (09:54)
[2023-02-02] MEDS: LIDOCAINE 5% TOPICAL PATCH TP SCH ×2 (09:54)
[2023-02-02] MEDS: PANTOPRAZOLE SODIUM 40 MG VIAL IVPUSH SCH (09:54)
[2023-02-02] MEDS ORDERED: SODIUM CHLORIDE 250 ML IV PRN (11:43)
[2023-02-02] MEDS ORDERED: FUROSEMIDE 100 MG/10 ML INJECTABLE VIAL IVPB ONE (12:01)
[2023-02-02 15:24] LABS: BILIRUBIN,DIRECT 0.9 mg/dL (0.0-0.2)
[2023-02-02 20:10] LABS: RETICULOCYTES 5.32 % (0.5-1.5)
[2023-02-02 20:55] LABS: ANISOCYTOSIS 2+; MACROCYTOSIS 1+; OVALOCYTE 1+
[2023-02-02] MEDS: GABAPENTIN 100 MG CAPSULE PO SCH (21:43)
[2023-02-02] MEDS: ATORVASTATIN CA 40 MG TABLET (FP) PO SCH (21:51)
[2023-02-02] MEDS: DEUTETRABENAZINE 24 MG PO SCH (21:55)
[2023-02-02] MEDS: LIDOCAINE PATCH REMOVAL MC SCH ×2 (21:57)
[2023-02-03] MEDS: ACETAMINOPHEN 325 MG TABLET (FP) PO PRN ×2 (05:52→23:01)
[2023-02-03 08:12] LABS: BASO % 0.8 % (0-2.0); EOS % 3.7 % (0-4.5); HEMATOCRIT 25.1 % (32.4-45.2); HEMOGLOBIN 7.8 GM/dL (10.7-15.3); LYMPH % 7.6 % (8-40); MCH 31.9 pg (25.7-33.7); MCHC 31.2 g/dl (32.0-36.0); MEAN CELL VOLUME 102.1 fl (80-96); MEAN PLT VOLUME 9.8 fl (7.5-11.1); MONO % 8.1 % (3.8-10.2); NEUT % 79.8 % (42.8-82.8); PLATELET COUNT 138 10^3/uL (134-434); RBC 2.46 M/mm3 (3.60-5.2); RDW 20.9 % (11.6-15.6); WHITE BLOOD COUNT 9.2 K/mm3 (4.0-10.0)
[2023-02-03 08:55] LABS: POTASSIUM 3.7 mmol/L (3.5-5.1)
[2023-02-03] MEDS ORDERED: EPOETIN ALFA-EPBX 10,000 UNIT/ML VIAL IVPUSH ONE (09:00)
[2023-02-03 09:09] LABS: CALCIUM 9.1 mg/dL (8.5-10.1)
[2023-02-03 09:10] LABS: ALBUMIN 3.7 g/dl (3.4-5.0); BLOOD UREA NITROGEN 43.6 mg/dL (7-18); MAGNESIUM 1.9 mg/dL (1.8-2.4)
[2023-02-03] MEDS: AMINO ACIDS/PROTEIN HYDROLYS 30 ML LIQUID.PKT PO SCH ×2 (09:10→18:09)
[2023-02-03 09:13] LABS: BILIRUBIN,TOTAL 1.5 mg/dL (0.2-1); CREATININE 3.9 mg/dL (0.55-1.3); PHOSPHOROUS 3.5 mg/dL (2.5-4.9); TOT PROT 6.6 g/dl (6.4-8.2)
[2023-02-03] MEDS: ALBUMIN HUMAN 25% 12.5 GM/50 ML VIAL IV SCH ×3 (09:15→11:57)
[2023-02-03 10:33] LABS: ANISOCYTOSIS 2+; MACROCYTOSIS 1+
[2023-02-03] MEDS: PANTOPRAZOLE SODIUM 40 MG VIAL IVPUSH SCH (12:32)
[2023-02-03] MEDS: VITAMIN B COMP W-C 1 EA TABLET (NEPHRO-VITE) PO SCH (12:35)
[2023-02-03] MEDS: ASPIRIN COATED 81 MG TABLET.EC PO SCH (12:35)
[2023-02-03] MEDS: POLYETHYLENE GLYCOL (HEALTHYLAX) 3350 17 GM PACKET PO SCH ×2 (12:36→21:33)
[2023-02-03] MEDS: levETIRAcetam 500 MG/5 ML ORAL SOLUTION (UNIT-DOSE CUPS) PO SCH ×2 (12:36→21:33)
[2023-02-03] MEDS: METOPROLOL TARTRATE 25 MG TABLET (FP) PO SCH ×2 (12:37→21:34)
[2023-02-03] MEDS: METHYL SALICYLATE/MENTHOL OINT 30 GM TUBE TP SCH (12:37)
[2023-02-03] MEDS: LIDOCAINE 5% TOPICAL PATCH TP SCH ×2 (12:38)
[2023-02-03] MEDS: DEUTETRABENAZINE 24 MG PO SCH (21:31)
[2023-02-03] MEDS: ATORVASTATIN CA 40 MG TABLET (FP) PO SCH (21:34)
[2023-02-03] MEDS: LIDOCAINE PATCH REMOVAL MC SCH ×2 (21:34)
[2023-02-03] MEDS: GABAPENTIN 100 MG CAPSULE PO SCH (21:35)
[2023-02-04 08:19] LABS: HEMATOCRIT 24.8 % (32.4-45.2); HEMOGLOBIN 7.8 GM/dL (10.7-15.3); MCH 31.9 pg (25.7-33.7); MCHC 31.2 g/dl (32.0-36.0); MEAN CELL VOLUME 102.1 fl (80-96); MEAN PLT VOLUME 10.1 fl (7.5-11.1); PLATELET COUNT 139 10^3/uL (134-434); RBC 2.43 M/mm3 (3.60-5.2); RDW 22.7 % (11.6-15.6); WHITE BLOOD COUNT 8.6 K/mm3 (4.0-10.0)
[2023-02-04 08:55] LABS: POTASSIUM 3.7 mmol/L (3.5-5.1)
[2023-02-04 08:58] LABS: CALCIUM 8.8 mg/dL (8.5-10.1)
[2023-02-04 08:59] LABS: ALBUMIN 3.8 g/dl (3.4-5.0); BLOOD UREA NITROGEN 26.1 mg/dL (7-18)
[2023-02-04 09:01] LABS: PHOSPHOROUS 2.5 mg/dL (2.5-4.9)
[2023-02-04 09:03] LABS: BILIRUBIN,TOTAL 1.6 mg/dL (0.2-1)
[2023-02-04 09:06] LABS: TOT PROT 6.6 g/dl (6.4-8.2)
[2023-02-04 09:23] LABS: MAGNESIUM 1.7 mg/dL (1.8-2.4)
[2023-02-04] MEDS: levETIRAcetam 500 MG/5 ML ORAL SOLUTION (UNIT-DOSE CUPS) PO SCH ×2 (09:55→22:23)
[2023-02-04] MEDS: AMINO ACIDS/PROTEIN HYDROLYS 30 ML LIQUID.PKT PO SCH ×2 (09:55→16:32)
[2023-02-04] MEDS: VITAMIN B COMP W-C 1 EA TABLET (NEPHRO-VITE) PO SCH (09:55)
[2023-02-04] MEDS: LIDOCAINE 5% TOPICAL PATCH TP SCH ×2 (09:55→09:57)
[2023-02-04] MEDS: ASPIRIN COATED 81 MG TABLET.EC PO SCH (09:55)
[2023-02-04] MEDS: METHYL SALICYLATE/MENTHOL OINT 30 GM TUBE TP SCH (09:56)
[2023-02-04] MEDS: POLYETHYLENE GLYCOL (HEALTHYLAX) 3350 17 GM PACKET PO SCH ×2 (09:57→22:22)
[2023-02-04] MEDS: PANTOPRAZOLE SODIUM 40 MG VIAL IVPUSH SCH (09:57)
[2023-02-04] MEDS: METOPROLOL TARTRATE 25 MG TABLET (FP) PO SCH ×2 (10:34→22:22)
[2023-02-04] MEDS ORDERED: MAGNESIUM 1GM/D5W 100ML - 100 ML IVPB IVPB ONE (15:32)
[2023-02-04] MEDS: ATORVASTATIN CA 40 MG TABLET (FP) PO SCH (22:22)
[2023-02-04] MEDS: DEUTETRABENAZINE 24 MG PO SCH (22:22)
[2023-02-04] MEDS: MAGNESIUM OXIDE 400 MG TABLET (FP) PO SCH (22:22)
[2023-02-04] MEDS: GABAPENTIN 100 MG CAPSULE PO SCH (22:22)
[2023-02-04] MEDS: LIDOCAINE PATCH REMOVAL MC SCH ×2 (22:23)
[2023-02-05] MEDS: ACETAMINOPHEN 325 MG TABLET (FP) PO PRN (01:39)
[2023-02-05 08:09] LABS: MAGNESIUM 2.1 mg/dL (1.8-2.4)
[2023-02-05 08:13] LABS: PHOSPHOROUS 2.8 mg/dL (2.5-4.9)
[2023-02-05 08:39] LABS: N-TERMINAL BNP > 35000.0 pg/ml (5-450)
[2023-02-05] MEDS: AMINO ACIDS/PROTEIN HYDROLYS 30 ML LIQUID.PKT PO SCH ×2 (09:45→17:03)
[2023-02-05 10:09] LABS: HEMATOCRIT 24.8 % (32.4-45.2); HEMOGLOBIN 7.8 GM/dL (10.7-15.3); MCH 31.8 pg (25.7-33.7); MCHC 31.5 g/dl (32.0-36.0); MEAN CELL VOLUME 101.2 fl (80-96); MEAN PLT VOLUME 9.7 fl (7.5-11.1); PLATELET COUNT 165 10^3/uL (134-434); RBC 2.45 M/mm3 (3.60-5.2); RDW 22.5 % (11.6-15.6); WHITE BLOOD COUNT 8.1 K/mm3 (4.0-10.0)
[2023-02-05 10:38] LABS: POTASSIUM 3.7 mmol/L (3.5-5.1)
[2023-02-05 10:41] LABS: ALBUMIN 3.6 g/dl (3.4-5.0); BLOOD UREA NITROGEN 32.3 mg/dL (7-18)
[2023-02-05 10:44] LABS: CREATININE 3.7 mg/dL (0.55-1.3)
[2023-02-05 10:46] LABS: TOT PROT 6.5 g/dl (6.4-8.2)
[2023-02-05] MEDS ORDERED: SODIUM CHLORIDE 250 ML IV PRN (11:00)
[2023-02-05] MEDS ORDERED: EPOETIN ALFA-EPBX 10,000 UNIT/ML VIAL SQ ONE ×2 (11:15→14:11)
[2023-02-05] MEDS: ALBUMIN HUMAN 25% 12.5 GM/50 ML VIAL IV SCH ×3 (12:35→12:47)
[2023-02-05] MEDS: METHYL SALICYLATE/MENTHOL OINT 30 GM TUBE TP SCH (13:11)
[2023-02-05] MEDS: POLYETHYLENE GLYCOL (HEALTHYLAX) 3350 17 GM PACKET PO SCH ×2 (13:11→22:00)
[2023-02-05] MEDS: LIDOCAINE 5% TOPICAL PATCH TP SCH ×2 (13:11)
[2023-02-05] MEDS: METOPROLOL TARTRATE 25 MG TABLET (FP) PO SCH ×2 (13:12→22:01)
[2023-02-05] MEDS: VITAMIN B COMP W-C 1 EA TABLET (NEPHRO-VITE) PO SCH (13:16)
[2023-02-05] MEDS: levETIRAcetam 500 MG/5 ML ORAL SOLUTION (UNIT-DOSE CUPS) PO SCH ×2 (13:16→22:01)
[2023-02-05] MEDS: ASPIRIN COATED 81 MG TABLET.EC PO SCH (13:17)
[2023-02-05] MEDS: PANTOPRAZOLE SODIUM 40 MG VIAL IVPUSH SCH (13:17)
[2023-02-05] MEDS: MAGNESIUM OXIDE 400 MG TABLET (FP) PO SCH (13:34)
[2023-02-05] MEDS ORDERED: ACETAMINOPHEN 1000 MG/100 ML BAG IVPB ONE (14:08)
[2023-02-05] MEDS ORDERED: ALBUMIN HUMAN 25% 12.5 GM/50 ML VIAL IV SCH (14:15)
[2023-02-05] MEDS: DEUTETRABENAZINE 24 MG PO SCH (22:01)
[2023-02-05] MEDS: LIDOCAINE PATCH REMOVAL MC SCH ×2 (22:01)
[2023-02-05] MEDS: ATORVASTATIN CA 40 MG TABLET (FP) PO SCH (22:01)
[2023-02-05] MEDS: GABAPENTIN 100 MG CAPSULE PO SCH (22:01)
[2023-02-06 08:51] LABS: POTASSIUM 3.7 mmol/L (3.5-5.1)
[2023-02-06 08:55] LABS: ALBUMIN 3.5 g/dl (3.4-5.0); CALCIUM 9.1 mg/dL (8.5-10.1)
[2023-02-06 08:56] LABS: BLOOD UREA NITROGEN 17.2 mg/dL (7-18); MAGNESIUM 1.9 mg/dL (1.8-2.4)
[2023-02-06 08:59] LABS: CREATININE 2.8 mg/dL (0.55-1.3); PHOSPHOROUS 1.9 mg/dL (2.5-4.9)
[2023-02-06 09:00] LABS: BILIRUBIN,TOTAL 1.2 mg/dL (0.2-1)
[2023-02-06 09:01] LABS: TOT PROT 6.4 g/dl (6.4-8.2)
[2023-02-06] MEDS: levETIRAcetam 500 MG/5 ML ORAL SOLUTION (UNIT-DOSE CUPS) PO SCH ×2 (09:36→21:21)
[2023-02-06] MEDS: AMINO ACIDS/PROTEIN HYDROLYS 30 ML LIQUID.PKT PO SCH ×2 (09:36→17:15)
[2023-02-06] MEDS: PANTOPRAZOLE 40 MG TABLET PO SCH (09:36)
[2023-02-06] MEDS: VITAMIN B COMP W-C 1 EA TABLET (NEPHRO-VITE) PO SCH (09:36)
[2023-02-06] MEDS: ASPIRIN COATED 81 MG TABLET.EC PO SCH (09:36)
[2023-02-06] MEDS: METOPROLOL TARTRATE 25 MG TABLET (FP) PO SCH ×3 (09:37→21:21)
[2023-02-06] MEDS: METHYL SALICYLATE/MENTHOL OINT 30 GM TUBE TP SCH (09:37)
[2023-02-06] MEDS: POLYETHYLENE GLYCOL (HEALTHYLAX) 3350 17 GM PACKET PO SCH ×2 (09:37→21:21)
[2023-02-06] MEDS: LIDOCAINE 5% TOPICAL PATCH TP SCH ×2 (09:37)
[2023-02-06] MEDS ORDERED: NAPH,MB-DB/K PH,MBDB POWDER PACKET PO ONE (12:02)
[2023-02-06] MEDS: FUROSEMIDE 40 MG TABLET (FP) PO SCH (13:56)
[2023-02-06] MEDS: DEUTETRABENAZINE 24 MG PO SCH (21:21)
[2023-02-06] MEDS: ATORVASTATIN CA 40 MG TABLET (FP) PO SCH (21:21)
[2023-02-06] MEDS: GABAPENTIN 100 MG CAPSULE PO SCH (21:21)
[2023-02-06] MEDS: LIDOCAINE PATCH REMOVAL MC SCH ×2 (21:22)
[2023-02-07 07:36] LABS: POTASSIUM 3.5 mmol/L (3.5-5.1)
[2023-02-07 07:43] LABS: CALCIUM 8.7 mg/dL (8.5-10.1)
[2023-02-07 07:44] LABS: ALBUMIN 3.3 g/dl (3.4-5.0); BLOOD UREA NITROGEN 28.2 mg/dL (7-18); MAGNESIUM 1.8 mg/dL (1.8-2.4)
[2023-02-07 07:47] LABS: CREATININE 3.5 mg/dL (0.55-1.3); PHOSPHOROUS 2.7 mg/dL (2.5-4.9)
[2023-02-07 07:48] LABS: BILIRUBIN,TOTAL 1.2 mg/dL (0.2-1); TOT PROT 6.2 g/dl (6.4-8.2)
[2023-02-07] MEDS: AMINO ACIDS/PROTEIN HYDROLYS 30 ML LIQUID.PKT PO SCH ×2 (08:44→18:20)
[2023-02-07] MEDS: ASPIRIN COATED 81 MG TABLET.EC PO SCH (10:44)
[2023-02-07] MEDS: METOPROLOL TARTRATE 25 MG TABLET (FP) PO SCH ×2 (10:44→23:05)
[2023-02-07] MEDS: PANTOPRAZOLE 40 MG TABLET PO SCH (10:44)
[2023-02-07] MEDS: levETIRAcetam 500 MG/5 ML ORAL SOLUTION (UNIT-DOSE CUPS) PO SCH ×2 (10:44→23:05)
[2023-02-07] MEDS: LIDOCAINE 5% TOPICAL PATCH TP SCH ×2 (10:45→10:46)
[2023-02-07] MEDS: POLYETHYLENE GLYCOL (HEALTHYLAX) 3350 17 GM PACKET PO SCH ×2 (10:45→22:46)
[2023-02-07] MEDS: METHYL SALICYLATE/MENTHOL OINT 30 GM TUBE TP SCH (10:45)
[2023-02-07] MEDS: VITAMIN B COMP W-C 1 EA TABLET (NEPHRO-VITE) PO SCH (10:45)
[2023-02-07] MEDS: FUROSEMIDE 40 MG TABLET (FP) PO SCH (10:45)
[2023-02-07] MEDS: ATORVASTATIN CA 40 MG TABLET (FP) PO SCH (23:05)
[2023-02-07] MEDS: GABAPENTIN 100 MG CAPSULE PO SCH (23:05)
[2023-02-07] MEDS: DEUTETRABENAZINE 24 MG PO SCH (23:13)
[2023-02-07] MEDS: LIDOCAINE PATCH REMOVAL MC SCH ×2 (23:17)
[2023-02-08] MEDS ORDERED: SODIUM CHLORIDE 250 ML IV PRN (07:20)
[2023-02-08] MEDS ORDERED: EPOETIN ALFA-EPBX 10,000 UNIT/ML VIAL IVPUSH ONE (09:00)
[2023-02-08 09:46] LABS: HEMATOCRIT 23.8 % (32.4-45.2); HEMOGLOBIN 7.4 GM/dL (10.7-15.3); MCH 31.3 pg (25.7-33.7); MCHC 30.9 g/dl (32.0-36.0); MEAN CELL VOLUME 101.5 fl (80-96); MEAN PLT VOLUME 9.3 fl (7.5-11.1); PLATELET COUNT 188 10^3/uL (134-434); RBC 2.35 M/mm3 (3.60-5.2); RDW 21.7 % (11.6-15.6); WHITE BLOOD COUNT 7.5 K/mm3 (4.0-10.0)
[2023-02-08 10:03] LABS: POTASSIUM 3.5 mmol/L (3.5-5.1)
[2023-02-08 10:05] LABS: CALCIUM 8.7 mg/dL (8.5-10.1)
[2023-02-08 10:06] LABS: ALBUMIN 3.2 g/dl (3.4-5.0); BLOOD UREA NITROGEN 33.8 mg/dL (7-18)
[2023-02-08 10:09] LABS: CREATININE 3.8 mg/dL (0.55-1.3)
[2023-02-08 10:11] LABS: TOT PROT 6.1 g/dl (6.4-8.2)
[2023-02-08] MEDS: POLYETHYLENE GLYCOL (HEALTHYLAX) 3350 17 GM PACKET PO SCH ×2 (10:52→21:02)
[2023-02-08] MEDS: LIDOCAINE 5% TOPICAL PATCH TP SCH ×2 (10:52)
[2023-02-08] MEDS: METHYL SALICYLATE/MENTHOL OINT 30 GM TUBE TP SCH (10:52)
[2023-02-08] MEDS: AMINO ACIDS/PROTEIN HYDROLYS 30 ML LIQUID.PKT PO SCH ×2 (10:52→17:08)
[2023-02-08] MEDS: METOPROLOL TARTRATE 25 MG TABLET (FP) PO SCH ×2 (10:53→21:02)
[2023-02-08] MEDS: levETIRAcetam 500 MG/5 ML ORAL SOLUTION (UNIT-DOSE CUPS) PO SCH ×2 (12:25→21:01)
[2023-02-08] MEDS: VITAMIN B COMP W-C 1 EA TABLET (NEPHRO-VITE) PO SCH (12:26)
[2023-02-08] MEDS: PANTOPRAZOLE 40 MG TABLET PO SCH (12:26)
[2023-02-08] MEDS: ASPIRIN COATED 81 MG TABLET.EC PO SCH (12:26)
[2023-02-08] MEDS: ACETAMINOPHEN 325 MG TABLET (FP) PO PRN (20:14)
[2023-02-08] MEDS: ALBUTEROL SO4 2.5/IPRATROPIUM 0.5 INH SOL 3 ML VIAL.NEB. NEB PRN (20:33)
[2023-02-08] MEDS: ATORVASTATIN CA 40 MG TABLET (FP) PO SCH (21:01)
[2023-02-08] MEDS: GABAPENTIN 100 MG CAPSULE PO SCH (21:01)
[2023-02-08] MEDS: DEUTETRABENAZINE 24 MG PO SCH (21:02)
[2023-02-08] MEDS: LIDOCAINE PATCH REMOVAL MC SCH ×2 (21:03)
[2023-02-09 08:45] LABS: HEMATOCRIT 26.1 % (32.4-45.2); MCH 31.5 pg (25.7-33.7); MCHC 30.8 g/dl (32.0-36.0); MEAN CELL VOLUME 102.3 fl (80-96); MEAN PLT VOLUME 9.1 fl (7.5-11.1); PLATELET COUNT 203 10^3/uL (134-434); RBC 2.55 M/mm3 (3.60-5.2); RDW 21.5 % (11.6-15.6); WHITE BLOOD COUNT 6.7 K/mm3 (4.0-10.0)
[2023-02-09 09:14] LABS: POTASSIUM 3.5 mmol/L (3.5-5.1)
[2023-02-09 09:16] LABS: CALCIUM 8.8 mg/dL (8.5-10.1)
[2023-02-09 09:17] LABS: ALBUMIN 3.4 g/dl (3.4-5.0); BLOOD UREA NITROGEN 17.6 mg/dL (7-18); MAGNESIUM 1.7 mg/dL (1.8-2.4)
[2023-02-09 09:20] LABS: CREATININE 2.9 mg/dL (0.55-1.3); PHOSPHOROUS 2.7 mg/dL (2.5-4.9)
[2023-02-09 09:22] LABS: TOT PROT 6.4 g/dl (6.4-8.2)
[2023-02-09] MEDS ORDERED: MAGNESIUM OXIDE 400 MG TABLET (FP) PO ONE (09:45)
[2023-02-09] MEDS: LIDOCAINE 5% TOPICAL PATCH TP SCH ×2 (10:13→10:16)
[2023-02-09] MEDS: AMINO ACIDS/PROTEIN HYDROLYS 30 ML LIQUID.PKT PO SCH ×2 (10:15→18:49)
[2023-02-09] MEDS: VITAMIN B COMP W-C 1 EA TABLET (NEPHRO-VITE) PO SCH (10:15)
[2023-02-09] MEDS: METOPROLOL TARTRATE 25 MG TABLET (FP) PO SCH ×2 (10:15→21:07)
[2023-02-09] MEDS: ASPIRIN COATED 81 MG TABLET.EC PO SCH (10:15)
[2023-02-09] MEDS: PANTOPRAZOLE 40 MG TABLET PO SCH (10:15)
[2023-02-09] MEDS: levETIRAcetam 500 MG/5 ML ORAL SOLUTION (UNIT-DOSE CUPS) PO SCH ×2 (10:15→21:07)
[2023-02-09] MEDS: METHYL SALICYLATE/MENTHOL OINT 30 GM TUBE TP SCH (10:24)
[2023-02-09] MEDS: POLYETHYLENE GLYCOL (HEALTHYLAX) 3350 17 GM PACKET PO SCH ×3 (10:25→21:18)
[2023-02-09] MEDS: DEUTETRABENAZINE 24 MG PO SCH (21:07)
[2023-02-09] MEDS: ATORVASTATIN CA 40 MG TABLET (FP) PO SCH (21:07)
[2023-02-09] MEDS: GABAPENTIN 100 MG CAPSULE PO SCH (21:07)
[2023-02-09] MEDS: LIDOCAINE PATCH REMOVAL MC SCH ×2 (21:08)
[2023-02-10] MEDS ORDERED: SODIUM CHLORIDE 250 ML IV PRN (08:16)
[2023-02-10] MEDS: ALBUMIN HUMAN 25% 12.5 GM/50 ML VIAL IV SCH ×4 (08:45→10:15)
[2023-02-10] MEDS ORDERED: EPOETIN ALFA-EPBX 10,000 UNIT/ML VIAL SQ ONE (09:00)
[2023-02-10 09:24] LABS: HEMATOCRIT 27.1 % (32.4-45.2); HEMOGLOBIN 8.5 GM/dL (10.7-15.3); MCH 31.2 pg (25.7-33.7); MCHC 31.4 g/dl (32.0-36.0); MEAN CELL VOLUME 99.5 fl (80-96); MEAN PLT VOLUME 8.8 fl (7.5-11.1); PLATELET COUNT 245 10^3/uL (134-434); RBC 2.72 M/mm3 (3.60-5.2); RDW 21.7 % (11.6-15.6); WHITE BLOOD COUNT 9.7 K/mm3 (4.0-10.0)
[2023-02-10 09:44] LABS: POTASSIUM 3.9 mmol/L (3.5-5.1)
[2023-02-10] MEDS: AMINO ACIDS/PROTEIN HYDROLYS 30 ML LIQUID.PKT PO SCH ×2 (10:18→17:16)
[2023-02-10 10:22] LABS: ALBUMIN 3.3 g/dl (3.4-5.0); CALCIUM 9.1 mg/dL (8.5-10.1)
[2023-02-10 10:23] LABS: BLOOD UREA NITROGEN 26.1 mg/dL (7-18)
[2023-02-10 10:24] LABS: MAGNESIUM 1.9 mg/dL (1.8-2.4)
[2023-02-10 10:26] LABS: CREATININE 3.5 mg/dL (0.55-1.3); PHOSPHOROUS 2.6 mg/dL (2.5-4.9)
[2023-02-10 10:28] LABS: TOT PROT 6.4 g/dl (6.4-8.2)
[2023-02-10] MEDS: METOPROLOL TARTRATE 25 MG TABLET (FP) PO SCH ×2 (12:26→21:51)
[2023-02-10] MEDS: VITAMIN B COMP W-C 1 EA TABLET (NEPHRO-VITE) PO SCH (12:26)
[2023-02-10] MEDS: levETIRAcetam 500 MG/5 ML ORAL SOLUTION (UNIT-DOSE CUPS) PO SCH ×2 (12:27→21:51)
[2023-02-10] MEDS: ASPIRIN COATED 81 MG TABLET.EC PO SCH (12:27)
[2023-02-10] MEDS: PANTOPRAZOLE 40 MG TABLET PO SCH (12:27)
[2023-02-10] MEDS: POLYETHYLENE GLYCOL (HEALTHYLAX) 3350 17 GM PACKET PO SCH ×2 (12:28→21:52)
[2023-02-10] MEDS: METHYL SALICYLATE/MENTHOL OINT 30 GM TUBE TP SCH (12:28)
[2023-02-10] MEDS: LIDOCAINE 5% TOPICAL PATCH TP SCH ×2 (12:28→12:29)
[2023-02-10] MEDS: ACETAMINOPHEN 325 MG TABLET (FP) PO PRN ×2 (15:44→21:51)
[2023-02-10] MEDS: ATORVASTATIN CA 40 MG TABLET (FP) PO SCH (21:51)
[2023-02-10] MEDS: DEUTETRABENAZINE 24 MG PO SCH (21:52)
[2023-02-10] MEDS: LIDOCAINE PATCH REMOVAL MC SCH ×2 (21:52)
[2023-02-10] MEDS: GABAPENTIN 100 MG CAPSULE PO SCH (21:52)
[2023-02-11] MEDS: levETIRAcetam 500 MG/5 ML ORAL SOLUTION (UNIT-DOSE CUPS) PO SCH ×2 (11:15→21:46)
[2023-02-11] MEDS: VITAMIN B COMP W-C 1 EA TABLET (NEPHRO-VITE) PO SCH (11:15)
[2023-02-11] MEDS: ASPIRIN COATED 81 MG TABLET.EC PO SCH (11:15)
[2023-02-11] MEDS: AMINO ACIDS/PROTEIN HYDROLYS 30 ML LIQUID.PKT PO SCH ×2 (11:16→17:34)
[2023-02-11] MEDS: PANTOPRAZOLE 40 MG TABLET PO SCH (11:16)
[2023-02-11] MEDS: METHYL SALICYLATE/MENTHOL OINT 30 GM TUBE TP SCH (11:16)
[2023-02-11] MEDS: POLYETHYLENE GLYCOL (HEALTHYLAX) 3350 17 GM PACKET PO SCH ×2 (11:17→21:44)
[2023-02-11] MEDS: LIDOCAINE 5% TOPICAL PATCH TP SCH ×2 (11:24)
[2023-02-11] MEDS: METOPROLOL TARTRATE 25 MG TABLET (FP) PO SCH ×2 (11:25→21:45)
[2023-02-11] MEDS: DEUTETRABENAZINE 24 MG PO SCH (21:44)
[2023-02-11] MEDS: ACETAMINOPHEN 325 MG TABLET (FP) PO PRN (21:44)
[2023-02-11] MEDS: ATORVASTATIN CA 40 MG TABLET (FP) PO SCH (21:45)
[2023-02-11] MEDS: LIDOCAINE PATCH REMOVAL MC SCH ×2 (21:45)
[2023-02-11] MEDS: GABAPENTIN 100 MG CAPSULE PO SCH (21:45)
[2023-02-12 08:16] LABS: BASO % 0.9 % (0-2.0); EOS % 4.8 % (0-4.5); HEMATOCRIT 27.8 % (32.4-45.2); HEMOGLOBIN 8.5 GM/dL (10.7-15.3); LYMPH % 11.1 % (8-40); MCH 30.9 pg (25.7-33.7); MCHC 30.6 g/dl (32.0-36.0); MEAN CELL VOLUME 101.1 fl (80-96); MEAN PLT VOLUME 8.9 fl (7.5-11.1); MONO % 7.1 % (3.8-10.2); NEUT % 76.1 % (42.8-82.8); PLATELET COUNT 240 10^3/uL (134-434); RBC 2.76 M/mm3 (3.60-5.2); RDW 21.3 % (11.6-15.6); WHITE BLOOD COUNT 8.1 K/mm3 (4.0-10.0)
[2023-02-12 08:44] LABS: PHOSPHOROUS 2.6 mg/dL (2.5-4.9)
[2023-02-12] MEDS ORDERED: SODIUM CHLORIDE 250 ML IV PRN (08:51)
[2023-02-12] MEDS ORDERED: EPOETIN ALFA-EPBX 10,000 UNIT/ML VIAL IVPUSH ONE (09:00)
[2023-02-12 10:06] LABS: HEMOGLOBIN 8.5 GM/dL (10.7-15.3); MCH 31.5 pg (25.7-33.7); MCHC 31.4 g/dl (32.0-36.0); MEAN CELL VOLUME 100.1 fl (80-96); MEAN PLT VOLUME 8.9 fl (7.5-11.1); PLATELET COUNT 246 10^3/uL (134-434); WHITE BLOOD COUNT 8.8 K/mm3 (4.0-10.0)
[2023-02-12 10:21] LABS: POTASSIUM 3.8 mmol/L (3.5-5.1)
[2023-02-12 10:23] LABS: BLOOD UREA NITROGEN 28.8 mg/dL (7-18); CALCIUM 9.3 mg/dL (8.5-10.1)
[2023-02-12 10:26] LABS: CREATININE 3.5 mg/dL (0.55-1.3)
[2023-02-12 11:53] LABS: ANISOCYTOSIS 2+; MACROCYTOSIS 2+; OVALOCYTE 2+; TARGET CELLS 1+
[2023-02-12] MEDS: AMINO ACIDS/PROTEIN HYDROLYS 30 ML LIQUID.PKT PO SCH ×2 (13:04→17:07)
[2023-02-12] MEDS: VITAMIN B COMP W-C 1 EA TABLET (NEPHRO-VITE) PO SCH (13:04)
[2023-02-12] MEDS: ASPIRIN COATED 81 MG TABLET.EC PO SCH (13:05)
[2023-02-12] MEDS: METHYL SALICYLATE/MENTHOL OINT 30 GM TUBE TP SCH (13:06)
[2023-02-12] MEDS: levETIRAcetam 500 MG/5 ML ORAL SOLUTION (UNIT-DOSE CUPS) PO SCH ×2 (13:06→22:10)
[2023-02-12] MEDS: POLYETHYLENE GLYCOL (HEALTHYLAX) 3350 17 GM PACKET PO SCH ×2 (13:06→22:12)
[2023-02-12] MEDS: LIDOCAINE 5% TOPICAL PATCH TP SCH ×4 (13:07→13:20)
[2023-02-12] MEDS: PANTOPRAZOLE 40 MG TABLET PO SCH (13:08)
[2023-02-12] MEDS: METOPROLOL TARTRATE 25 MG TABLET (FP) PO SCH ×3 (13:12→22:11)
[2023-02-12] MEDS: ATORVASTATIN CA 40 MG TABLET (FP) PO SCH (22:10)
[2023-02-12] MEDS: GABAPENTIN 100 MG CAPSULE PO SCH (22:10)
[2023-02-12] MEDS: DEUTETRABENAZINE 24 MG PO SCH (22:12)
[2023-02-12] MEDS: LIDOCAINE PATCH REMOVAL MC SCH ×2 (22:13)
[2023-02-13] MEDS: AMINO ACIDS/PROTEIN HYDROLYS 30 ML LIQUID.PKT PO SCH ×2 (08:42→16:39)
[2023-02-13] MEDS: PANTOPRAZOLE 40 MG TABLET PO SCH (09:41)
[2023-02-13] MEDS: levETIRAcetam 500 MG/5 ML ORAL SOLUTION (UNIT-DOSE CUPS) PO SCH ×2 (09:41→22:01)
[2023-02-13] MEDS: METOPROLOL TARTRATE 25 MG TABLET (FP) PO SCH ×2 (09:41→22:03)
[2023-02-13] MEDS: ASPIRIN COATED 81 MG TABLET.EC PO SCH (09:41)
[2023-02-13] MEDS: METHYL SALICYLATE/MENTHOL OINT 30 GM TUBE TP SCH (09:42)
[2023-02-13] MEDS: POLYETHYLENE GLYCOL (HEALTHYLAX) 3350 17 GM PACKET PO SCH ×2 (09:42→22:01)
[2023-02-13] MEDS: VITAMIN B COMP W-C 1 EA TABLET (NEPHRO-VITE) PO SCH (09:42)
[2023-02-13] MEDS: LIDOCAINE 5% TOPICAL PATCH TP SCH ×2 (09:42)
[2023-02-13] MEDS: ACETAMINOPHEN 325 MG TABLET (FP) PO PRN (18:00)
[2023-02-13] MEDS: MIDODRINE HCL 5 MG TABLET PO SCH (22:00)
[2023-02-13] MEDS: LIDOCAINE PATCH REMOVAL MC SCH ×2 (22:01)
[2023-02-13] MEDS: ATORVASTATIN CA 40 MG TABLET (FP) PO SCH (22:01)
[2023-02-13] MEDS: GABAPENTIN 100 MG CAPSULE PO SCH (22:01)
[2023-02-13] MEDS: DEUTETRABENAZINE 24 MG PO SCH (22:01)
[2023-02-14] MEDS: AMINO ACIDS/PROTEIN HYDROLYS 30 ML LIQUID.PKT PO SCH ×2 (09:09→17:19)
[2023-02-14] MEDS: levETIRAcetam 500 MG/5 ML ORAL SOLUTION (UNIT-DOSE CUPS) PO SCH ×2 (09:09→21:32)
[2023-02-14] MEDS: PANTOPRAZOLE 40 MG TABLET PO SCH (09:09)
[2023-02-14] MEDS: MIDODRINE HCL 5 MG TABLET PO SCH ×3 (09:09→17:19)
[2023-02-14] MEDS: METHYL SALICYLATE/MENTHOL OINT 30 GM TUBE TP SCH (09:10)
[2023-02-14] MEDS: ASPIRIN COATED 81 MG TABLET.EC PO SCH (09:10)
[2023-02-14] MEDS: VITAMIN B COMP W-C 1 EA TABLET (NEPHRO-VITE) PO SCH (09:10)
[2023-02-14] MEDS: METOPROLOL TARTRATE 25 MG TABLET (FP) PO SCH ×2 (09:10→21:44)
[2023-02-14] MEDS: POLYETHYLENE GLYCOL (HEALTHYLAX) 3350 17 GM PACKET PO SCH ×2 (09:10→21:31)
[2023-02-14] MEDS: LIDOCAINE 5% TOPICAL PATCH TP SCH ×2 (09:11)
[2023-02-14] MEDS ORDERED: SODIUM CHLORIDE 250 ML IV PRN (19:00)
[2023-02-14] MEDS: ATORVASTATIN CA 40 MG TABLET (FP) PO SCH (21:31)
[2023-02-14] MEDS: GABAPENTIN 100 MG CAPSULE PO SCH (21:31)
[2023-02-14] MEDS: DEUTETRABENAZINE 24 MG PO SCH (21:31)
[2023-02-14] MEDS: LIDOCAINE PATCH REMOVAL MC SCH ×2 (21:32)
[2023-02-15] MEDS: METHYL SALICYLATE/MENTHOL OINT 30 GM TUBE TP SCH (11:21)
[2023-02-15] MEDS: POLYETHYLENE GLYCOL (HEALTHYLAX) 3350 17 GM PACKET PO SCH ×2 (11:23→22:08)
[2023-02-15] MEDS: LIDOCAINE 5% TOPICAL PATCH TP SCH ×2 (11:28→11:29)
[2023-02-15] MEDS: METOPROLOL TARTRATE 25 MG TABLET (FP) PO SCH ×2 (11:30→22:04)
[2023-02-15] MEDS: levETIRAcetam 500 MG/5 ML ORAL SOLUTION (UNIT-DOSE CUPS) PO SCH ×2 (11:32→22:04)
[2023-02-15] MEDS: MIDODRINE HCL 5 MG TABLET PO SCH ×3 (11:33→18:27)
[2023-02-15] MEDS: AMINO ACIDS/PROTEIN HYDROLYS 30 ML LIQUID.PKT PO SCH ×2 (13:14→18:26)
[2023-02-15] MEDS: VITAMIN B COMP W-C 1 EA TABLET (NEPHRO-VITE) PO SCH (13:14)
[2023-02-15] MEDS: PANTOPRAZOLE 40 MG TABLET PO SCH (13:15)
[2023-02-15] MEDS: ASPIRIN COATED 81 MG TABLET.EC PO SCH (13:15)
[2023-02-15] MEDS: ACETAMINOPHEN 325 MG TABLET (FP) PO PRN ×2 (14:55→22:05)
[2023-02-15] MEDS: ATORVASTATIN CA 40 MG TABLET (FP) PO SCH (22:04)
[2023-02-15] MEDS: GABAPENTIN 100 MG CAPSULE PO SCH (22:04)
[2023-02-15] MEDS: LIDOCAINE PATCH REMOVAL MC SCH ×2 (22:05→22:08)
[2023-02-15] MEDS: DEUTETRABENAZINE 24 MG PO SCH (22:08)
[2023-02-16] MEDS: AMINO ACIDS/PROTEIN HYDROLYS 30 ML LIQUID.PKT PO SCH ×2 (10:35→17:35)
[2023-02-16] MEDS: PANTOPRAZOLE 40 MG TABLET PO SCH (10:35)
[2023-02-16] MEDS: levETIRAcetam 500 MG/5 ML ORAL SOLUTION (UNIT-DOSE CUPS) PO SCH ×2 (10:35→22:08)
[2023-02-16] MEDS: ASPIRIN COATED 81 MG TABLET.EC PO SCH (10:35)
[2023-02-16] MEDS: VITAMIN B COMP W-C 1 EA TABLET (NEPHRO-VITE) PO SCH (10:35)
[2023-02-16] MEDS: MIDODRINE HCL 5 MG TABLET PO SCH ×3 (10:35→17:35)
[2023-02-16] MEDS: METHYL SALICYLATE/MENTHOL OINT 30 GM TUBE TP SCH (10:36)
[2023-02-16] MEDS: POLYETHYLENE GLYCOL (HEALTHYLAX) 3350 17 GM PACKET PO SCH ×2 (10:36→22:09)
[2023-02-16] MEDS: METOPROLOL TARTRATE 25 MG TABLET (FP) PO SCH ×2 (11:37→22:08)
[2023-02-16] MEDS: LIDOCAINE 5% TOPICAL PATCH TP SCH ×2 (11:40→11:41)
[2023-02-16] MEDS: GABAPENTIN 100 MG CAPSULE PO SCH (22:08)
[2023-02-16] MEDS: ATORVASTATIN CA 40 MG TABLET (FP) PO SCH (22:08)
[2023-02-16] MEDS: DEUTETRABENAZINE 24 MG PO SCH (22:09)
[2023-02-16] MEDS: LIDOCAINE PATCH REMOVAL MC SCH ×2 (22:09)
[2023-02-16] MEDS: ACETAMINOPHEN 325 MG TABLET (FP) PO PRN (22:51)
[2023-02-17] MEDS ORDERED: SODIUM CHLORIDE 250 ML IV PRN (10:19)
[2023-02-17] MEDS ORDERED: EPOETIN ALFA-EPBX 10,000 UNIT/ML VIAL IVPUSH ONE (11:00)
[2023-02-17 11:17] LABS: CALCIUM 9.3 mg/dL (8.5-10.1)
[2023-02-17 11:19] LABS: ALBUMIN 3.2 g/dl (3.4-5.0); BLOOD UREA NITROGEN 31.7 mg/dL (7-18)
[2023-02-17 11:22] LABS: BILIRUBIN,TOTAL 0.9 mg/dL (0.2-1); CREATININE 3.8 mg/dL (0.55-1.3); TOT PROT 6.5 g/dl (6.4-8.2)
[2023-02-17] MEDS: AMINO ACIDS/PROTEIN HYDROLYS 30 ML LIQUID.PKT PO SCH ×2 (13:03→18:18)
[2023-02-17] MEDS: METOPROLOL TARTRATE 25 MG TABLET (FP) PO SCH ×2 (13:08→22:08)
[2023-02-17] MEDS: ASPIRIN COATED 81 MG TABLET.EC PO SCH (13:08)
[2023-02-17] MEDS: levETIRAcetam 500 MG/5 ML ORAL SOLUTION (UNIT-DOSE CUPS) PO SCH ×2 (13:08→22:07)
[2023-02-17] MEDS: LIDOCAINE 5% TOPICAL PATCH TP SCH ×2 (13:09)
[2023-02-17] MEDS: POLYETHYLENE GLYCOL (HEALTHYLAX) 3350 17 GM PACKET PO SCH ×2 (13:09→22:12)
[2023-02-17] MEDS: MIDODRINE HCL 5 MG TABLET PO SCH ×3 (13:09→18:33)
[2023-02-17] MEDS: VITAMIN B COMP W-C 1 EA TABLET (NEPHRO-VITE) PO SCH (13:09)
[2023-02-17] MEDS: METHYL SALICYLATE/MENTHOL OINT 30 GM TUBE TP SCH (13:09)
[2023-02-17] MEDS: PANTOPRAZOLE 40 MG TABLET PO SCH (13:09)
[2023-02-17] MEDS: GABAPENTIN 100 MG CAPSULE PO SCH (22:06)
[2023-02-17] MEDS: DEUTETRABENAZINE 24 MG PO SCH (22:06)
[2023-02-17] MEDS: ATORVASTATIN CA 40 MG TABLET (FP) PO SCH (22:07)
[2023-02-17] MEDS: ACETAMINOPHEN 325 MG TABLET (FP) PO PRN (22:07)
[2023-02-17] MEDS: LIDOCAINE PATCH REMOVAL MC SCH ×2 (22:13)
[2023-02-18 09:31] LABS: BASO % 1.1 % (0-2.0); EOS % 4.4 % (0-4.5); HEMATOCRIT 29.6 % (32.4-45.2); HEMOGLOBIN 9.5 GM/dL (10.7-15.3); MCH 31.4 pg (25.7-33.7); MCHC 32.1 g/dl (32.0-36.0); MEAN CELL VOLUME 97.8 fl (80-96); MEAN PLT VOLUME 8.7 fl (7.5-11.1); MONO % 10.2 % (3.8-10.2); NEUT % 69.3 % (42.8-82.8); PLATELET COUNT 211 10^3/uL (134-434); RBC 3.02 M/mm3 (3.60-5.2); WHITE BLOOD COUNT 6.8 K/mm3 (4.0-10.0)
[2023-02-18 10:00] LABS: POTASSIUM 3.8 mmol/L (3.5-5.1)
[2023-02-18 10:04] LABS: ALBUMIN 3.2 g/dl (3.4-5.0); BLOOD UREA NITROGEN 17.5 mg/dL (7-18); CALCIUM 9.2 mg/dL (8.5-10.1)
[2023-02-18 10:07] LABS: CREATININE 2.7 mg/dL (0.55-1.3)
[2023-02-18 10:09] LABS: BILIRUBIN,TOTAL 1.1 mg/dL (0.2-1); TOT PROT 6.4 g/dl (6.4-8.2)
[2023-02-18] MEDS: VITAMIN B COMP W-C 1 EA TABLET (NEPHRO-VITE) PO SCH (10:24)
[2023-02-18] MEDS: METOPROLOL TARTRATE 25 MG TABLET (FP) PO SCH ×2 (10:24→21:02)
[2023-02-18] MEDS: levETIRAcetam 500 MG/5 ML ORAL SOLUTION (UNIT-DOSE CUPS) PO SCH ×2 (10:24→21:02)
[2023-02-18] MEDS: PANTOPRAZOLE 40 MG TABLET PO SCH (10:25)
[2023-02-18] MEDS: MIDODRINE HCL 5 MG TABLET PO SCH ×3 (10:26→18:32)
[2023-02-18] MEDS: ASPIRIN COATED 81 MG TABLET.EC PO SCH (10:26)
[2023-02-18] MEDS: LIDOCAINE 5% TOPICAL PATCH TP SCH ×2 (10:26→10:27)
[2023-02-18] MEDS: AMINO ACIDS/PROTEIN HYDROLYS 30 ML LIQUID.PKT PO SCH ×2 (10:33→18:32)
[2023-02-18] MEDS: METHYL SALICYLATE/MENTHOL OINT 30 GM TUBE TP SCH (10:33)
[2023-02-18] MEDS: POLYETHYLENE GLYCOL (HEALTHYLAX) 3350 17 GM PACKET PO SCH ×2 (10:33→21:03)
[2023-02-18] MEDS ORDERED: SODIUM CHLORIDE 250 ML IV PRN (15:56)
[2023-02-18] MEDS: ATORVASTATIN CA 40 MG TABLET (FP) PO SCH (21:02)
[2023-02-18] MEDS: GABAPENTIN 100 MG CAPSULE PO SCH (21:02)
[2023-02-18] MEDS: ACETAMINOPHEN 325 MG TABLET (FP) PO PRN (21:03)
[2023-02-18] MEDS: DEUTETRABENAZINE 24 MG PO SCH (21:03)
[2023-02-18] MEDS: LIDOCAINE PATCH REMOVAL MC SCH ×2 (21:04)
[2023-02-19] MEDS: AMINO ACIDS/PROTEIN HYDROLYS 30 ML LIQUID.PKT PO SCH ×3 (08:19→16:48)
[2023-02-19] MEDS: ACETAMINOPHEN 325 MG TABLET (FP) PO PRN (08:19)
[2023-02-19] MEDS ORDERED: EPOETIN ALFA-EPBX 10,000 UNIT/ML VIAL IVPUSH ONE (08:30)
[2023-02-19 08:48] LABS: BASO % 1.3 % (0-2.0); EOS % 4.3 % (0-4.5); HEMATOCRIT 30.6 % (32.4-45.2); HEMOGLOBIN 9.3 GM/dL (10.7-15.3); LYMPH % 16.8 % (8-40); MCH 30.2 pg (25.7-33.7); MCHC 30.4 g/dl (32.0-36.0); MEAN CELL VOLUME 99.1 fl (80-96); MEAN PLT VOLUME 8.4 fl (7.5-11.1); MONO % 8.2 % (3.8-10.2); NEUT % 69.4 % (42.8-82.8); PLATELET COUNT 238 10^3/uL (134-434); RBC 3.09 M/mm3 (3.60-5.2); RDW 20.1 % (11.6-15.6); WHITE BLOOD COUNT 7.6 K/mm3 (4.0-10.0)
[2023-02-19 09:09] LABS: POTASSIUM 4.2 mmol/L (3.5-5.1)
[2023-02-19 09:11] LABS: CALCIUM 9.1 mg/dL (8.5-10.1)
[2023-02-19 09:12] LABS: ALBUMIN 3.2 g/dl (3.4-5.0)
[2023-02-19 09:14] LABS: CREATININE 3.8 mg/dL (0.55-1.3)
[2023-02-19 09:16] LABS: BILIRUBIN,TOTAL 0.9 mg/dL (0.2-1); TOT PROT 6.5 g/dl (6.4-8.2)
[2023-02-19] MEDS: MIDODRINE HCL 5 MG TABLET PO SCH ×4 (11:00→17:07)
[2023-02-19] MEDS: LIDOCAINE 5% TOPICAL PATCH TP SCH ×2 (13:06→13:07)
[2023-02-19] MEDS: POLYETHYLENE GLYCOL (HEALTHYLAX) 3350 17 GM PACKET PO SCH (13:06)
[2023-02-19] MEDS: METHYL SALICYLATE/MENTHOL OINT 30 GM TUBE TP SCH (13:06)
[2023-02-19] MEDS: ASPIRIN COATED 81 MG TABLET.EC PO SCH (13:11)
[2023-02-19] MEDS: PANTOPRAZOLE 40 MG TABLET PO SCH (13:12)
[2023-02-19] MEDS: VITAMIN B COMP W-C 1 EA TABLET (NEPHRO-VITE) PO SCH (13:12)
[2023-02-19] MEDS: METOPROLOL TARTRATE 25 MG TABLET (FP) PO SCH ×2 (13:13→22:59)
[2023-02-19] MEDS: levETIRAcetam 500 MG/5 ML ORAL SOLUTION (UNIT-DOSE CUPS) PO SCH ×3 (13:13→22:59)
[2023-02-19] MEDS: ATORVASTATIN CA 40 MG TABLET (FP) PO SCH (22:59)
[2023-02-19] MEDS: GABAPENTIN 100 MG CAPSULE PO SCH (23:00)
[2023-02-19] MEDS: DEUTETRABENAZINE 24 MG PO SCH (23:00)
[2023-02-19] MEDS: LIDOCAINE PATCH REMOVAL MC SCH ×2 (23:01)
[2023-02-20 08:12] LABS: POTASSIUM 3.6 mmol/L (3.5-5.1)
[2023-02-20 08:16] LABS: ALBUMIN 3.1 g/dl (3.4-5.0)
[2023-02-20 08:17] LABS: MAGNESIUM 1.8 mg/dL (1.8-2.4)
[2023-02-20 08:19] LABS: CREATININE 2.6 mg/dL (0.55-1.3); PHOSPHOROUS 1.8 mg/dL (2.5-4.9)
[2023-02-20 08:21] LABS: BILIRUBIN,TOTAL 0.9 mg/dL (0.2-1); TOT PROT 6.6 g/dl (6.4-8.2)
[2023-02-20 08:36] LABS: HEMATOCRIT 31.5 % (32.4-45.2); HEMOGLOBIN 9.5 GM/dL (10.7-15.3); MCH 30.2 pg (25.7-33.7); MCHC 30.3 g/dl (32.0-36.0); MEAN CELL VOLUME 99.9 fl (80-96); MEAN PLT VOLUME 9.1 fl (7.5-11.1); PLATELET COUNT 215 10^3/uL (134-434); RBC 3.15 M/mm3 (3.60-5.2); RDW 20.1 % (11.6-15.6); WHITE BLOOD COUNT 10.2 K/mm3 (4.0-10.0)
[2023-02-20] MEDS: LIDOCAINE 5% TOPICAL PATCH TP SCH ×2 (10:05→10:06)
[2023-02-20] MEDS: METHYL SALICYLATE/MENTHOL OINT 30 GM TUBE TP SCH (10:05)
[2023-02-20] MEDS: AMINO ACIDS/PROTEIN HYDROLYS 30 ML LIQUID.PKT PO SCH ×3 (10:05→17:12)
[2023-02-20] MEDS: VITAMIN B COMP W-C 1 EA TABLET (NEPHRO-VITE) PO SCH (10:06)
[2023-02-20] MEDS: METOPROLOL TARTRATE 25 MG TABLET (FP) PO SCH ×2 (10:06→21:52)
[2023-02-20] MEDS: PANTOPRAZOLE 40 MG TABLET PO SCH (10:06)
[2023-02-20] MEDS: MIDODRINE HCL 5 MG TABLET PO SCH ×3 (10:06→17:12)
[2023-02-20] MEDS: ASPIRIN COATED 81 MG TABLET.EC PO SCH (10:06)
[2023-02-20] MEDS: levETIRAcetam 500 MG/5 ML ORAL SOLUTION (UNIT-DOSE CUPS) PO SCH ×2 (10:06→21:53)
[2023-02-20] MEDS: DEUTETRABENAZINE 24 MG PO SCH (21:53)
[2023-02-20] MEDS: GABAPENTIN 100 MG CAPSULE PO SCH (21:53)
[2023-02-20] MEDS: ATORVASTATIN CA 40 MG TABLET (FP) PO SCH (21:53)
[2023-02-20] MEDS: LIDOCAINE PATCH REMOVAL MC SCH ×2 (21:54)
[2023-02-20] MEDS ORDERED: ALBUTEROL SO4 0.083% IH SOL 2.5 MG/3 ML VIAL.NEB. NEB ONE (22:28)
[2023-02-21 07:30] LABS: HEMATOCRIT 32.6 % (32.4-45.2); MCH 30.4 pg (25.7-33.7); MCHC 30.8 g/dl (32.0-36.0); MEAN CELL VOLUME 98.8 fl (80-96); MEAN PLT VOLUME 9.1 fl (7.5-11.1); PLATELET COUNT 232 10^3/uL (134-434); RDW 20.2 % (11.6-15.6); WHITE BLOOD COUNT 9.1 K/mm3 (4.0-10.0)
[2023-02-21 07:58] LABS: POTASSIUM 4.3 mmol/L (3.5-5.1)
[2023-02-21 08:00] LABS: BLOOD UREA NITROGEN 19.2 mg/dL (7-18); MAGNESIUM 1.7 mg/dL (1.8-2.4)
[2023-02-21 08:03] LABS: CREATININE 3.5 mg/dL (0.55-1.3); PHOSPHOROUS 2.3 mg/dL (2.5-4.9)
[2023-02-21] MEDS: AMINO ACIDS/PROTEIN HYDROLYS 30 ML LIQUID.PKT PO SCH ×2 (10:11→17:02)
[2023-02-21] MEDS: PANTOPRAZOLE 40 MG TABLET PO SCH (10:32)
[2023-02-21] MEDS: METOPROLOL TARTRATE 25 MG TABLET (FP) PO SCH ×2 (10:32→21:50)
[2023-02-21] MEDS: VITAMIN B COMP W-C 1 EA TABLET (NEPHRO-VITE) PO SCH (10:32)
[2023-02-21] MEDS: METHYL SALICYLATE/MENTHOL OINT 30 GM TUBE TP SCH (10:33)
[2023-02-21] MEDS: levETIRAcetam 500 MG/5 ML ORAL SOLUTION (UNIT-DOSE CUPS) PO SCH ×2 (10:33→21:50)
[2023-02-21] MEDS: MIDODRINE HCL 5 MG TABLET PO SCH ×3 (10:33→17:02)
[2023-02-21] MEDS: ASPIRIN COATED 81 MG TABLET.EC PO SCH (10:33)
[2023-02-21] MEDS: LIDOCAINE 5% TOPICAL PATCH TP SCH ×2 (10:35)
[2023-02-21] MEDS: ACETAMINOPHEN 325 MG TABLET (FP) PO PRN (17:00)
[2023-02-21] MEDS: DEUTETRABENAZINE 24 MG PO SCH (21:49)
[2023-02-21] MEDS: ATORVASTATIN CA 40 MG TABLET (FP) PO SCH (21:50)
[2023-02-21] MEDS: GABAPENTIN 100 MG CAPSULE PO SCH (21:50)
[2023-02-21] MEDS: LIDOCAINE PATCH REMOVAL MC SCH ×2 (21:50)
[2023-02-22] MEDS: ACETAMINOPHEN 325 MG TABLET (FP) PO PRN (02:24)
[2023-02-22] MEDS: METHYL SALICYLATE/MENTHOL OINT 30 GM TUBE TP SCH (11:05)
[2023-02-22] MEDS: AMINO ACIDS/PROTEIN HYDROLYS 30 ML LIQUID.PKT PO SCH ×2 (11:05→18:04)
[2023-02-22] MEDS: VITAMIN B COMP W-C 1 EA TABLET (NEPHRO-VITE) PO SCH (13:15)
[2023-02-22] MEDS: ASPIRIN COATED 81 MG TABLET.EC PO SCH (13:15)
[2023-02-22] MEDS: PANTOPRAZOLE 40 MG TABLET PO SCH (13:15)
[2023-02-22] MEDS: MIDODRINE HCL 5 MG TABLET PO SCH ×3 (13:16→18:05)
[2023-02-22] MEDS: levETIRAcetam 500 MG/5 ML ORAL SOLUTION (UNIT-DOSE CUPS) PO SCH ×2 (13:17→22:56)
[2023-02-22] MEDS: METOPROLOL TARTRATE 25 MG TABLET (FP) PO SCH ×2 (13:21→22:56)
[2023-02-22] MEDS ORDERED: MAGNESIUM SULF 50% (8.12 MEQ/2 ML-1 GM VIAL) IVPB ONE (16:33)
[2023-02-22] MEDS ORDERED: NAPH,MB-DB/K PH,MBDB POWDER PACKET PO ONE (16:35)
[2023-02-22] MEDS: ATORVASTATIN CA 40 MG TABLET (FP) PO SCH (22:56)
[2023-02-22] MEDS: GABAPENTIN 100 MG CAPSULE PO SCH (22:56)
[2023-02-22] MEDS: LIDOCAINE PATCH REMOVAL MC SCH ×2 (22:57→22:58)
[2023-02-22] MEDS: DEUTETRABENAZINE 24 MG PO SCH (22:58)
[2023-02-23 08:59] LABS: HEMATOCRIT 30.6 % (32.4-45.2); HEMOGLOBIN 9.3 GM/dL (10.7-15.3); MCH 30.1 pg (25.7-33.7); MCHC 30.4 g/dl (32.0-36.0); MEAN CELL VOLUME 98.9 fl (80-96); MEAN PLT VOLUME 9.1 fl (7.5-11.1); PLATELET COUNT 212 10^3/uL (134-434); RBC 3.09 M/mm3 (3.60-5.2); RDW 20.4 % (11.6-15.6); WHITE BLOOD COUNT 7.6 K/mm3 (4.0-10.0)
[2023-02-23 09:19] LABS: POTASSIUM 3.9 mmol/L (3.5-5.1)
[2023-02-23 09:25] LABS: CALCIUM 8.7 mg/dL (8.5-10.1)
[2023-02-23 09:27] LABS: BLOOD UREA NITROGEN 13.6 mg/dL (7-18); MAGNESIUM 1.8 mg/dL (1.8-2.4)
[2023-02-23 09:28] LABS: ALBUMIN 2.8 g/dl (3.4-5.0)
[2023-02-23 09:30] LABS: CREATININE 2.7 mg/dL (0.55-1.3); PHOSPHOROUS 2.7 mg/dL (2.5-4.9)
[2023-02-23 09:31] LABS: TOT PROT 6.2 g/dl (6.4-8.2)
[2023-02-23 09:32] LABS: BILIRUBIN,TOTAL 0.9 mg/dL (0.2-1)
[2023-02-23] MEDS: MIDODRINE HCL 5 MG TABLET PO SCH ×3 (09:43→17:24)
[2023-02-23] MEDS: VITAMIN B COMP W-C 1 EA TABLET (NEPHRO-VITE) PO SCH (09:43)
[2023-02-23] MEDS: levETIRAcetam 500 MG/5 ML ORAL SOLUTION (UNIT-DOSE CUPS) PO SCH ×2 (09:43→21:57)
[2023-02-23] MEDS: AMINO ACIDS/PROTEIN HYDROLYS 30 ML LIQUID.PKT PO SCH ×3 (09:43→17:54)
[2023-02-23] MEDS: METOPROLOL TARTRATE 25 MG TABLET (FP) PO SCH ×2 (09:44→21:58)
[2023-02-23] MEDS: METHYL SALICYLATE/MENTHOL OINT 30 GM TUBE TP SCH (09:44)
[2023-02-23] MEDS: PANTOPRAZOLE 40 MG TABLET PO SCH (09:44)
[2023-02-23] MEDS: ASPIRIN COATED 81 MG TABLET.EC PO SCH (09:44)
[2023-02-23] MEDS ORDERED: SODIUM CHLORIDE 250 ML IV PRN (13:38)
[2023-02-23] MEDS: GABAPENTIN 100 MG CAPSULE PO SCH (21:58)
[2023-02-23] MEDS: ATORVASTATIN CA 40 MG TABLET (FP) PO SCH (21:58)
[2023-02-23] MEDS: DEUTETRABENAZINE 24 MG PO SCH (21:59)
[2023-02-23] MEDS: LIDOCAINE PATCH REMOVAL MC SCH ×2 (21:59)
[2023-02-24] MEDS: ACETAMINOPHEN 325 MG TABLET (FP) PO PRN (08:13)
[2023-02-24 08:28] LABS: HEMATOCRIT 31.1 % (32.4-45.2); HEMOGLOBIN 9.7 GM/dL (10.7-15.3); MCH 30.5 pg (25.7-33.7); MCHC 31.1 g/dl (32.0-36.0); MEAN CELL VOLUME 98.1 fl (80-96); PLATELET COUNT 222 10^3/uL (134-434); RBC 3.17 M/mm3 (3.60-5.2); RDW 19.5 % (11.6-15.6); WHITE BLOOD COUNT 8.1 K/mm3 (4.0-10.0)
[2023-02-24 08:45] LABS: POTASSIUM 4.1 mmol/L (3.5-5.1)
[2023-02-24] MEDS ORDERED: SODIUM CHLORIDE 250 ML IV PRN (08:45)
[2023-02-24 08:49] LABS: MAGNESIUM 1.9 mg/dL (1.8-2.4)
[2023-02-24 08:50] LABS: BLOOD UREA NITROGEN 19.2 mg/dL (7-18); CALCIUM 8.9 mg/dL (8.5-10.1)
[2023-02-24 08:51] LABS: ALBUMIN 2.9 g/dl (3.4-5.0)
[2023-02-24 08:53] LABS: PHOSPHOROUS 3.5 mg/dL (2.5-4.9)
[2023-02-24 08:54] LABS: CREATININE 3.2 mg/dL (0.55-1.3)
[2023-02-24 08:55] LABS: BILIRUBIN,TOTAL 0.9 mg/dL (0.2-1); TOT PROT 6.5 g/dl (6.4-8.2)
[2023-02-24] MEDS ORDERED: EPOETIN ALFA-EPBX 10,000 UNIT/ML VIAL IVPUSH ONE (09:00)
[2023-02-24] MEDS: AMINO ACIDS/PROTEIN HYDROLYS 30 ML LIQUID.PKT PO SCH ×2 (09:03→17:38)
[2023-02-24] MEDS: METOPROLOL TARTRATE 25 MG TABLET (FP) PO SCH ×2 (11:46→21:41)
[2023-02-24] MEDS: levETIRAcetam 500 MG/5 ML ORAL SOLUTION (UNIT-DOSE CUPS) PO SCH ×2 (11:46→21:41)
[2023-02-24] MEDS: METHYL SALICYLATE/MENTHOL OINT 30 GM TUBE TP SCH (11:47)
[2023-02-24] MEDS: MIDODRINE HCL 5 MG TABLET PO SCH ×3 (11:47→17:38)
[2023-02-24] MEDS: PANTOPRAZOLE 40 MG TABLET PO SCH (11:47)
[2023-02-24] MEDS: ASPIRIN COATED 81 MG TABLET.EC PO SCH (11:47)
[2023-02-24] MEDS: VITAMIN B COMP W-C 1 EA TABLET (NEPHRO-VITE) PO SCH (11:47)
[2023-02-24] MEDS: ATORVASTATIN CA 40 MG TABLET (FP) PO SCH (21:42)
[2023-02-24] MEDS: GABAPENTIN 100 MG CAPSULE PO SCH (21:42)
[2023-02-24] MEDS: LIDOCAINE PATCH REMOVAL MC SCH ×2 (21:43)
[2023-02-24] MEDS: DEUTETRABENAZINE 24 MG PO SCH (21:44)
[2023-02-25] MEDS: ACETAMINOPHEN 325 MG TABLET (FP) PO PRN (07:10)
[2023-02-25] MEDS: AMINO ACIDS/PROTEIN HYDROLYS 30 ML LIQUID.PKT PO SCH ×2 (07:12→18:39)
[2023-02-25] MEDS: levETIRAcetam 500 MG/5 ML ORAL SOLUTION (UNIT-DOSE CUPS) PO SCH ×2 (10:40→22:53)
[2023-02-25] MEDS: METOPROLOL TARTRATE 25 MG TABLET (FP) PO SCH ×2 (10:40→22:54)
[2023-02-25] MEDS: MIDODRINE HCL 5 MG TABLET PO SCH ×3 (10:40→17:49)
[2023-02-25] MEDS: VITAMIN B COMP W-C 1 EA TABLET (NEPHRO-VITE) PO SCH (10:40)
[2023-02-25] MEDS: PANTOPRAZOLE 40 MG TABLET PO SCH (10:40)
[2023-02-25] MEDS: ASPIRIN COATED 81 MG TABLET.EC PO SCH (10:40)
[2023-02-25] MEDS: METHYL SALICYLATE/MENTHOL OINT 30 GM TUBE TP SCH (11:06)
[2023-02-25] MEDS: ATORVASTATIN CA 40 MG TABLET (FP) PO SCH (22:53)
[2023-02-25] MEDS: DEUTETRABENAZINE 24 MG PO SCH (22:53)
[2023-02-25] MEDS: GABAPENTIN 100 MG CAPSULE PO SCH (22:53)
[2023-02-25] MEDS: LIDOCAINE PATCH REMOVAL MC SCH ×2 (22:54)
[2023-02-26] MEDS ORDERED: SODIUM CHLORIDE 250 ML IV PRN (08:39)
[2023-02-26] MEDS ORDERED: EPOETIN ALFA-EPBX 10,000 UNIT/ML VIAL SQ ONE (09:00)
[2023-02-26 09:23] LABS: CALCIUM 9.1 mg/dL (8.5-10.1)
[2023-02-26 09:25] LABS: BLOOD UREA NITROGEN 16.6 mg/dL (7-18)
[2023-02-26 09:27] LABS: CREATININE 3.1 mg/dL (0.55-1.3)
[2023-02-26 09:29] LABS: BILIRUBIN,TOTAL 1.1 mg/dL (0.2-1); TOT PROT 6.2 g/dl (6.4-8.2)
[2023-02-26] MEDS: AMINO ACIDS/PROTEIN HYDROLYS 30 ML LIQUID.PKT PO SCH ×3 (12:11→18:08)
[2023-02-26] MEDS: ASPIRIN COATED 81 MG TABLET.EC PO SCH (12:11)
[2023-02-26] MEDS: METHYL SALICYLATE/MENTHOL OINT 30 GM TUBE TP SCH (12:11)
[2023-02-26] MEDS: levETIRAcetam 500 MG/5 ML ORAL SOLUTION (UNIT-DOSE CUPS) PO SCH ×2 (12:11→22:33)
[2023-02-26] MEDS: VITAMIN B COMP W-C 1 EA TABLET (NEPHRO-VITE) PO SCH (12:12)
[2023-02-26] MEDS: METOPROLOL TARTRATE 25 MG TABLET (FP) PO SCH ×2 (12:12→22:38)
[2023-02-26] MEDS: MIDODRINE HCL 5 MG TABLET PO SCH ×3 (12:13→18:57)
[2023-02-26] MEDS: PANTOPRAZOLE 40 MG TABLET PO SCH (12:13)
[2023-02-26] MEDS: ACETAMINOPHEN 325 MG TABLET (FP) PO PRN (18:57)
[2023-02-26] MEDS: GABAPENTIN 100 MG CAPSULE PO SCH (22:33)
[2023-02-26] MEDS: ATORVASTATIN CA 40 MG TABLET (FP) PO SCH (22:33)
[2023-02-26] MEDS: DEUTETRABENAZINE 24 MG PO SCH (22:37)
[2023-02-26] MEDS: LIDOCAINE PATCH REMOVAL MC SCH ×2 (22:37)
[2023-02-27] MEDS: METOPROLOL TARTRATE 25 MG TABLET (FP) PO SCH ×2 (09:50→22:36)
[2023-02-27] MEDS: levETIRAcetam 500 MG/5 ML ORAL SOLUTION (UNIT-DOSE CUPS) PO SCH ×2 (09:50→22:35)
[2023-02-27] MEDS: ASPIRIN COATED 81 MG TABLET.EC PO SCH (09:50)
[2023-02-27] MEDS: AMINO ACIDS/PROTEIN HYDROLYS 30 ML LIQUID.PKT PO SCH ×2 (09:50→17:41)
[2023-02-27] MEDS: METHYL SALICYLATE/MENTHOL OINT 30 GM TUBE TP SCH (09:50)
[2023-02-27] MEDS: MIDODRINE HCL 5 MG TABLET PO SCH ×3 (09:51→17:40)
[2023-02-27] MEDS: VITAMIN B COMP W-C 1 EA TABLET (NEPHRO-VITE) PO SCH (09:51)
[2023-02-27] MEDS: PANTOPRAZOLE 40 MG TABLET PO SCH (09:52)
[2023-02-27] MEDS: LIDOCAINE PATCH REMOVAL MC SCH ×2 (22:35→22:36)
[2023-02-27] MEDS: DEUTETRABENAZINE 24 MG PO SCH (22:35)
[2023-02-27] MEDS: ATORVASTATIN CA 40 MG TABLET (FP) PO SCH (22:36)
[2023-02-27] MEDS: GABAPENTIN 100 MG CAPSULE PO SCH (22:36)
[2023-02-28] MEDS: ACETAMINOPHEN 325 MG TABLET (FP) PO PRN ×2 (06:59→13:38)
[2023-02-28 07:57] LABS: BASO % 1.3 % (0-2.0); EOS % 5.3 % (0-4.5); HEMATOCRIT 30.4 % (32.4-45.2); HEMOGLOBIN 9.6 GM/dL (10.7-15.3); LYMPH % 13.4 % (8-40); MCH 30.9 pg (25.7-33.7); MCHC 31.5 g/dl (32.0-36.0); MEAN CELL VOLUME 98.1 fl (80-96); MEAN PLT VOLUME 9.2 fl (7.5-11.1); MONO % 7.3 % (3.8-10.2); NEUT % 72.7 % (42.8-82.8); PLATELET COUNT 213 10^3/uL (134-434); RDW 19.7 % (11.6-15.6)
[2023-02-28 08:19] LABS: POTASSIUM 4.4 mmol/L (3.5-5.1)
[2023-02-28 08:24] LABS: ALBUMIN 2.9 g/dl (3.4-5.0); BLOOD UREA NITROGEN 17.3 mg/dL (7-18); CALCIUM 9.1 mg/dL (8.5-10.1)
[2023-02-28 08:27] LABS: CREATININE 3.3 mg/dL (0.55-1.3)
[2023-02-28 08:30] LABS: BILIRUBIN,TOTAL 0.9 mg/dL (0.2-1); TOT PROT 6.3 g/dl (6.4-8.2)
[2023-02-28] MEDS: AMINO ACIDS/PROTEIN HYDROLYS 30 ML LIQUID.PKT PO SCH ×2 (08:47→17:35)
[2023-02-28] MEDS: METHYL SALICYLATE/MENTHOL OINT 30 GM TUBE TP SCH (09:54)
[2023-02-28] MEDS: MIDODRINE HCL 5 MG TABLET PO SCH ×3 (09:55→17:43)
[2023-02-28] MEDS: VITAMIN B COMP W-C 1 EA TABLET (NEPHRO-VITE) PO SCH (09:55)
[2023-02-28] MEDS: levETIRAcetam 500 MG/5 ML ORAL SOLUTION (UNIT-DOSE CUPS) PO SCH ×2 (09:55→22:56)
[2023-02-28] MEDS: METOPROLOL TARTRATE 25 MG TABLET (FP) PO SCH ×2 (09:55→22:56)
[2023-02-28] MEDS: PANTOPRAZOLE 40 MG TABLET PO SCH (09:55)
[2023-02-28] MEDS: ASPIRIN COATED 81 MG TABLET.EC PO SCH (09:55)
[2023-02-28] MEDS: GABAPENTIN 100 MG CAPSULE PO SCH (22:56)
[2023-02-28] MEDS: ATORVASTATIN CA 40 MG TABLET (FP) PO SCH (22:57)
[2023-02-28] MEDS: LIDOCAINE PATCH REMOVAL MC SCH ×2 (23:03→23:04)
[2023-02-28] MEDS: DEUTETRABENAZINE 24 MG PO SCH (23:04)
[2023-03-01 07:14] VITALS: RESP 18
[2023-03-01] MEDS: levETIRAcetam 500 MG/5 ML ORAL SOLUTION (UNIT-DOSE CUPS) PO SCH (09:44)
[2023-03-01] MEDS: PANTOPRAZOLE 40 MG TABLET PO SCH (09:44)
[2023-03-01] MEDS: MIDODRINE HCL 5 MG TABLET PO SCH ×3 (09:44→18:09)
[2023-03-01] MEDS: METOPROLOL TARTRATE 25 MG TABLET (FP) PO SCH (09:44)
[2023-03-01] MEDS: VITAMIN B COMP W-C 1 EA TABLET (NEPHRO-VITE) PO SCH (09:44)
[2023-03-01] MEDS: ASPIRIN COATED 81 MG TABLET.EC PO SCH (09:48)
[2023-03-01] MEDS: METHYL SALICYLATE/MENTHOL OINT 30 GM TUBE TP SCH (09:48)
[2023-03-01] MEDS: AMINO ACIDS/PROTEIN HYDROLYS 30 ML LIQUID.PKT PO SCH ×2 (09:48→18:04)
[2023-03-01 19:03] VITALS: BP 139/77; PULSE 91; TEMP 97.3
== END 2023-03-01 20:19 | disposition home or self-care (01) | DRG 291 ==
LOC: JER 10:16 → JERBED 15:46 → J4S 16:52 → J8W 01-22 16:21 → J4S 01-22 16:51
PROVIDERS: ADMIT Internal Medicine; ATTEND Internal Medicine
PROC: 30233N1 Transfusion of Nonautologous Red Blood Cells into Peripheral Vein, Percutaneous Approach (ICD-10-PCS; 2023-01-01)
PROC: 02H633Z Insertion of Infusion Device into Right Atrium, Percutaneous Approach (ICD-10-PCS; principal; 2023-01-25 17:00)
PROC: 5A1D70Z Performance of Urinary Filtration, Intermittent, Less than 6 Hours Per Day (ICD-10-PCS; 2023-02-01)
DX: I13.2 Hypertensive heart and chronic kidney disease with heart failure and with stage 5 chronic kidney disease, or end stage renal disease (principal); G93.41 Metabolic encephalopathy; I50.33 Acute on chronic diastolic (congestive) heart failure; J96.21 Acute and chronic respiratory failure with hypoxia; J96.22 Acute and chronic respiratory failure with hypercapnia; N18.6 End stage renal disease; I24.89 Other forms of acute ischemic heart disease; J44.1 Chronic obstructive pulmonary disease with (acute) exacerbation; I69.351 Hemiplegia and hemiparesis following cerebral infarction affecting right dominant side; N39.0 Urinary tract infection, site not specified; E87.20 Acidosis, unspecified; N17.9 Acute kidney failure, unspecified; K92.2 Gastrointestinal hemorrhage, unspecified; M12.811 Other specific arthropathies, not elsewhere classified, right shoulder; D50.9 Iron deficiency anemia, unspecified; G24.01 Drug induced subacute dyskinesia; L89.152 Pressure ulcer of sacral region, stage 2; E87.70 Fluid overload, unspecified; I25.119 Atherosclerotic heart disease of native coronary artery with unspecified angina pectoris; D69.6 Thrombocytopenia, unspecified; E83.39 Other disorders of phosphorus metabolism; E78.5 Hyperlipidemia, unspecified; Z75.1 Person awaiting admission to adequate facility elsewhere; R33.9 Retention of urine, unspecified; R91.1 Solitary pulmonary nodule; E66.9 Obesity, unspecified; Z68.33 Body mass index [BMI] 33.0-33.9, adult; I48.91 Unspecified atrial fibrillation; E87.6 Hypokalemia; E83.42 Hypomagnesemia
CPT/HCPCS: 0241U-QW; 36415; 36430; 36600; 70450-TC; 71045-TC-FY; 73030-TC-LT-FY; 73030-TC-RT-FY; 76000-TC-FY; 76604-TC; 76775-TC; 76856-TC; 80048; 80053; 81003; 82140; 82248; 82272; 82436; 82533; 82550; 82553; 82570; 82607; 82728; 82746; 82803; 82962; 83010; 83516; 83520; 83540; 83550; 83605; 83735; 83880; 84100; 84133; 84300; 84484; 85025; 85027; 85045; 85610; 85651; 85730; 86038; 86225; 86256; 86704; 86705; 86706; 86803; 86850; 86900; 86901; 86922; 87040; 87081; 87086; 87186; 87340; 87389; 87517; 87635; 87899; 93005; 93010; 93306-TC; 93970-TC; 93971; 94640; 94660; 94760; 97161-GP; 99291; C1750; J1644; J1756; P9047; P9058; Q5106

== ENCOUNTER 2023-03-02 17:55 | Inpatient (IN) | payer OTHER ==
[2023-03-02 20:46] LABS: VENOUS PCO2 66.5 mmHg (38-52); VENOUS PH 7.224 (7.310-7.410)
[2023-03-02 21:02] LABS: BASO % 0.9 % (0-2.0); EOS % 3.6 % (0-4.5); HEMATOCRIT 38.1 % (32.4-45.2); HEMOGLOBIN 12.1 GM/dL (10.7-15.3); LYMPH % 13.7 % (8-40); MCH 30.7 pg (25.7-33.7); MCHC 31.7 g/dl (32.0-36.0); MEAN CELL VOLUME 96.7 fl (80-96); MEAN PLT VOLUME 8.7 fl (7.5-11.1); MONO % 3.4 % (3.8-10.2); NEUT % 78.4 % (42.8-82.8); PLATELET COUNT 294 10^3/uL (134-434); RBC 3.94 M/mm3 (3.60-5.2); RDW 20.2 % (11.6-15.6)
[2023-03-02 21:06] LABS: POTASSIUM 5.2 mmol/L (3.5-5.1)
[2023-03-02 21:08] LABS: CALCIUM 10.1 mg/dL (8.5-10.1)
[2023-03-02 21:09] LABS: BLOOD UREA NITROGEN 29.1 mg/dL (7-18); MAGNESIUM 1.8 mg/dL (1.8-2.4)
[2023-03-02 21:12] LABS: CREATININE 4.4 mg/dL (0.55-1.3); PHOSPHOROUS 4.4 mg/dL (2.5-4.9)
[2023-03-02 21:13] LABS: BILIRUBIN,TOTAL 0.9 mg/dL (0.2-1); TOT PROT 8.3 g/dl (6.4-8.2)
[2023-03-02 21:15] LABS: ALBUMIN 3.7 g/dl (3.4-5.0)
[2023-03-02 21:41] LABS: LACTIC ACID 2.2 mmol/L (0.4-2.0)
[2023-03-02] MEDS ORDERED: ACETAMINOPHEN 1000 MG/100 ML BAG IVPB ONE (23:18)
[2023-03-03] MEDS ORDERED: ACETAMINOPHEN INJECTION 100 ML IVPB ONE (00:10)
[2023-03-03] MEDS ORDERED: ALBUTEROL SO4 2.5/IPRATROPIUM 0.5 INH SOL 3 ML VIAL.NEB. NEB PRN (01:42)
[2023-03-03] MEDS ORDERED: levETIRAcetam 500 MG TABLET (FP) PO ONE ×3 (02:48→22:36)
[2023-03-03] MEDS: levETIRAcetam 500 MG TABLET (FP) PO SCH ×3 (02:56→22:42)
[2023-03-03 07:34] LABS: HEMATOCRIT 29.3 % (32.4-45.2); HEMOGLOBIN 9.1 GM/dL (10.7-15.3); MCH 30.1 pg (25.7-33.7); MCHC 30.9 g/dl (32.0-36.0); MEAN CELL VOLUME 97.4 fl (80-96); MEAN PLT VOLUME 8.7 fl (7.5-11.1); PLATELET COUNT 227 10^3/uL (134-434); RBC 3.01 M/mm3 (3.60-5.2); RDW 19.5 % (11.6-15.6); WHITE BLOOD COUNT 8.9 K/mm3 (4.0-10.0)
[2023-03-03 07:52] LABS: POTASSIUM 4.8 mmol/L (3.5-5.1)
[2023-03-03 07:55] LABS: BLOOD UREA NITROGEN 35.9 mg/dL (7-18); CALCIUM 8.9 mg/dL (8.5-10.1); MAGNESIUM 1.7 mg/dL (1.8-2.4)
[2023-03-03 07:58] LABS: CREATININE 4.5 mg/dL (0.55-1.3); PHOSPHOROUS 4.5 mg/dL (2.5-4.9)
[2023-03-03 08:00] LABS: BILIRUBIN,TOTAL 0.8 mg/dL (0.2-1); TOT PROT 6.4 g/dl (6.4-8.2)
[2023-03-03 08:17] LABS: ALBUMIN 2.9 g/dl (3.4-5.0)
[2023-03-03] MEDS ORDERED: ASPIRIN COATED 81 MG TABLET.EC ONE (09:25)
[2023-03-03] MEDS: ASPIRIN COATED 81 MG TABLET.EC PO SCH (09:31)
[2023-03-03] MEDS: LIDOCAINE 5% TOPICAL PATCH TP SCH (09:31)
[2023-03-03] MEDS: GABAPENTIN 400 MG CAPSULE PO SCH (09:32)
[2023-03-03] MEDS: MIDODRINE HCL 5 MG TABLET PO SCH ×4 (09:32→18:32)
[2023-03-03] MEDS ORDERED: PANTOPRAZOLE 40 MG TABLET PO SCH (10:00)
[2023-03-03] MEDS ORDERED: SODIUM CHLORIDE 250 ML IV PRN (15:00)
[2023-03-03] MEDS ORDERED: EPOETIN ALFA-EPBX 10,000 UNIT/ML VIAL IVPUSH ONE (15:30)
[2023-03-03] MEDS ORDERED: ATORVASTATIN CA 40 MG TABLET (FP) ONE (22:35)
[2023-03-03] MEDS: LIDOCAINE PATCH REMOVAL MC SCH (22:42)
[2023-03-03] MEDS: ATORVASTATIN CA 40 MG TABLET (FP) PO SCH (22:42)
[2023-03-04] MEDS ORDERED: ACETAMINOPHEN 500 MG TABLET (FP) PO ONE (00:17)
[2023-03-04] MEDS ORDERED: ACETAMINOPHEN 325 MG TABLET (FP) ONE (00:30)
[2023-03-04 09:02] LABS: BASO % 1.3 % (0-2.0); EOS % 5.5 % (0-4.5); HEMATOCRIT 28.7 % (32.4-45.2); LYMPH % 13.5 % (8-40); MCH 30.3 pg (25.7-33.7); MCHC 31.4 g/dl (32.0-36.0); MEAN CELL VOLUME 96.4 fl (80-96); MEAN PLT VOLUME 8.8 fl (7.5-11.1); MONO % 7.3 % (3.8-10.2); NEUT % 72.4 % (42.8-82.8); PLATELET COUNT 204 10^3/uL (134-434); RBC 2.98 M/mm3 (3.60-5.2); RDW 18.9 % (11.6-15.6); WHITE BLOOD COUNT 9.6 K/mm3 (4.0-10.0)
[2023-03-04 09:20] LABS: POTASSIUM 3.9 mmol/L (3.5-5.1)
[2023-03-04 09:24] LABS: CALCIUM 8.7 mg/dL (8.5-10.1)
[2023-03-04 09:27] LABS: BLOOD UREA NITROGEN 18.4 mg/dL (7-18)
[2023-03-04 09:28] LABS: CREATININE 2.8 mg/dL (0.55-1.3)
[2023-03-04 09:29] LABS: TOT PROT 6.5 g/dl (6.4-8.2)
[2023-03-04 09:30] LABS: BILIRUBIN,TOTAL 0.8 mg/dL (0.2-1)
[2023-03-04] MEDS ORDERED: ASPIRIN COATED 81 MG TABLET.EC ONE (11:56)
[2023-03-04] MEDS ORDERED: PANTOPRAZOLE 40 MG TABLET PO ONE (11:56)
[2023-03-04] MEDS ORDERED: levETIRAcetam 500 MG TABLET (FP) PO ONE (11:57)
[2023-03-04] MEDS ORDERED: GABAPENTIN 400 MG CAPSULE ONE (11:58)
[2023-03-04] MEDS: PANTOPRAZOLE 40 MG TABLET PO SCH (12:16)
[2023-03-04] MEDS: levETIRAcetam 500 MG TABLET (FP) PO SCH ×2 (12:16→21:17)
[2023-03-04] MEDS: ASPIRIN COATED 81 MG TABLET.EC PO SCH (12:16)
[2023-03-04] MEDS: MIDODRINE HCL 5 MG TABLET PO SCH ×3 (12:17→19:27)
[2023-03-04] MEDS: GABAPENTIN 400 MG CAPSULE PO SCH (12:17)
[2023-03-04] MEDS: LIDOCAINE 5% TOPICAL PATCH TP SCH (12:17)
[2023-03-04] MEDS ORDERED: SODIUM CHLORIDE 250 ML IV PRN (14:25)
[2023-03-04] MEDS ORDERED: MIDODRINE HCL 5 MG TABLET ONE (19:22)
[2023-03-04] MEDS: ATORVASTATIN CA 40 MG TABLET (FP) PO SCH (21:17)
[2023-03-04] MEDS: LIDOCAINE PATCH REMOVAL MC SCH (21:17)
[2023-03-05 07:22] LABS: HEMATOCRIT 29.3 % (32.4-45.2); HEMOGLOBIN 9.2 GM/dL (10.7-15.3); MCH 30.2 pg (25.7-33.7); MCHC 31.3 g/dl (32.0-36.0); MEAN CELL VOLUME 96.3 fl (80-96); MEAN PLT VOLUME 8.5 fl (7.5-11.1); PLATELET COUNT 223 10^3/uL (134-434); RBC 3.04 M/mm3 (3.60-5.2); RDW 18.9 % (11.6-15.6); WHITE BLOOD COUNT 8.7 K/mm3 (4.0-10.0)
[2023-03-05 07:37] LABS: POTASSIUM 3.8 mmol/L (3.5-5.1)
[2023-03-05] MEDS ORDERED: PANTOPRAZOLE 40 MG TABLET PO ONE (07:39)
[2023-03-05 07:40] LABS: CALCIUM 9.1 mg/dL (8.5-10.1)
[2023-03-05 07:41] LABS: BLOOD UREA NITROGEN 22.7 mg/dL (7-18)
[2023-03-05 07:44] LABS: CREATININE 3.4 mg/dL (0.55-1.3)
[2023-03-05 07:45] LABS: BILIRUBIN,TOTAL 0.8 mg/dL (0.2-1); TOT PROT 6.7 g/dl (6.4-8.2)
[2023-03-05] MEDS: PANTOPRAZOLE 40 MG TABLET PO SCH (07:50)
[2023-03-05] MEDS ORDERED: EPOETIN ALFA-EPBX 10,000 UNIT/ML VIAL IVPUSH ONE (08:30)
[2023-03-05] MEDS ORDERED: ASPIRIN COATED 81 MG TABLET.EC ONE (12:39)
[2023-03-05] MEDS ORDERED: LIDOCAINE 4% PATCH TP ONE (12:40)
[2023-03-05] MEDS ORDERED: GABAPENTIN 400 MG CAPSULE ONE (12:40)
[2023-03-05] MEDS ORDERED: MIDODRINE HCL 5 MG TABLET ONE (12:40)
[2023-03-05] MEDS: GABAPENTIN 400 MG CAPSULE PO SCH (12:50)
[2023-03-05] MEDS: levETIRAcetam 500 MG TABLET (FP) PO SCH ×2 (12:50→22:20)
[2023-03-05] MEDS: MIDODRINE HCL 5 MG TABLET PO SCH ×3 (12:50→18:03)
[2023-03-05] MEDS: ASPIRIN COATED 81 MG TABLET.EC PO SCH (12:50)
[2023-03-05] MEDS: LIDOCAINE 4% PATCH TP SCH (12:52)
[2023-03-05] MEDS: ATORVASTATIN CA 40 MG TABLET (FP) PO SCH (22:20)
[2023-03-05] MEDS: LIDOCAINE PATCH REMOVAL MC SCH (22:20)
[2023-03-06] MEDS: PANTOPRAZOLE 40 MG TABLET PO SCH (06:11)
[2023-03-06] MEDS: LIDOCAINE 4% PATCH TP SCH (10:12)
[2023-03-06] MEDS: ASPIRIN COATED 81 MG TABLET.EC PO SCH (10:12)
[2023-03-06] MEDS: GABAPENTIN 400 MG CAPSULE PO SCH (10:12)
[2023-03-06] MEDS: MIDODRINE HCL 5 MG TABLET PO SCH ×3 (10:13→17:17)
[2023-03-06] MEDS: levETIRAcetam 500 MG TABLET (FP) PO SCH ×2 (10:13→21:05)
[2023-03-06] MEDS: ACETAMINOPHEN 325 MG TABLET (FP) PO PRN ×2 (10:13→23:45)
[2023-03-06] MEDS: ATORVASTATIN CA 40 MG TABLET (FP) PO SCH (21:05)
[2023-03-06] MEDS: LIDOCAINE PATCH REMOVAL MC SCH (21:07)
[2023-03-07] MEDS: PANTOPRAZOLE 40 MG TABLET PO SCH (06:15)
[2023-03-07] MEDS: ACETAMINOPHEN 325 MG TABLET (FP) PO PRN (06:59)
[2023-03-07] MEDS: GABAPENTIN 400 MG CAPSULE PO SCH (10:03)
[2023-03-07] MEDS: ASPIRIN COATED 81 MG TABLET.EC PO SCH (10:03)
[2023-03-07] MEDS: levETIRAcetam 500 MG TABLET (FP) PO SCH ×2 (10:03→21:16)
[2023-03-07] MEDS: MIDODRINE HCL 5 MG TABLET PO SCH ×3 (10:03→17:14)
[2023-03-07] MEDS: LIDOCAINE 4% PATCH TP SCH (10:13)
[2023-03-07] MEDS ORDERED: SODIUM CHLORIDE 250 ML IV PRN (17:24)
[2023-03-07] MEDS: ATORVASTATIN CA 40 MG TABLET (FP) PO SCH (21:16)
[2023-03-07] MEDS: LIDOCAINE PATCH REMOVAL MC SCH (21:17)
[2023-03-08] MEDS: PANTOPRAZOLE 40 MG TABLET PO SCH (06:22)
[2023-03-08] MEDS: MIDODRINE HCL 5 MG TABLET PO SCH ×3 (09:01→17:55)
[2023-03-08] MEDS: ASPIRIN COATED 81 MG TABLET.EC PO SCH (09:01)
[2023-03-08] MEDS: levETIRAcetam 500 MG TABLET (FP) PO SCH ×2 (09:01→21:40)
[2023-03-08] MEDS: GABAPENTIN 400 MG CAPSULE PO SCH (09:01)
[2023-03-08] MEDS: ACETAMINOPHEN 325 MG TABLET (FP) PO PRN (09:01)
[2023-03-08] MEDS: LIDOCAINE 4% PATCH TP SCH (09:02)
[2023-03-08 11:11] LABS: HEMATOCRIT 27.2 % (32.4-45.2); MCH 31.2 pg (25.7-33.7); MEAN CELL VOLUME 94.7 fl (80-96); MEAN PLT VOLUME 8.4 fl (7.5-11.1); PLATELET COUNT 236 10^3/uL (134-434); RBC 2.87 M/mm3 (3.60-5.2); RDW 18.7 % (11.6-15.6); WHITE BLOOD COUNT 8.3 K/mm3 (4.0-10.0)
[2023-03-08 11:32] LABS: POTASSIUM 4.2 mmol/L (3.5-5.1)
[2023-03-08 11:37] LABS: BLOOD UREA NITROGEN 21.7 mg/dL (7-18); CALCIUM 8.8 mg/dL (8.5-10.1); MAGNESIUM 1.5 mg/dL (1.8-2.4)
[2023-03-08 11:40] LABS: CREATININE 3.4 mg/dL (0.55-1.3); PHOSPHOROUS 3.6 mg/dL (2.5-4.9)
[2023-03-08] MEDS ORDERED: MAGNESIUM SULF 50% (8.12 MEQ/2 ML-1 GM VIAL) IVPB ONE (15:11)
[2023-03-08] MEDS: SENNOSIDES 8.8 MG/5 ML SYRUP PO SCH (21:40)
[2023-03-08] MEDS: POLYETHYLENE GLYCOL (HEALTHYLAX) 3350 17 GM PACKET PO SCH (21:40)
[2023-03-08] MEDS: MAGNESIUM OXIDE 400 MG TABLET (FP) PO SCH (21:40)
[2023-03-08] MEDS: ATORVASTATIN CA 40 MG TABLET (FP) PO SCH (21:40)
[2023-03-08] MEDS: LIDOCAINE PATCH REMOVAL MC SCH (21:45)
[2023-03-08] MEDS ORDERED: METOPROLOL TARTRATE 25 MG TABLET (FP) PO SCH ×2 (22:00)
[2023-03-09] MEDS: ACETAMINOPHEN 325 MG TABLET (FP) PO PRN (04:22)
[2023-03-09] MEDS: PANTOPRAZOLE 40 MG TABLET PO SCH (06:40)
[2023-03-09 09:03] LABS: HEMOGLOBIN 9.6 GM/dL (10.7-15.3); MCH 30.6 pg (25.7-33.7); MEAN CELL VOLUME 95.5 fl (80-96); MEAN PLT VOLUME 8.5 fl (7.5-11.1); PLATELET COUNT 241 10^3/uL (134-434); RBC 3.14 M/mm3 (3.60-5.2); RDW 18.8 % (11.6-15.6); WHITE BLOOD COUNT 8.7 K/mm3 (4.0-10.0)
[2023-03-09 09:04] LABS: POTASSIUM 4.1 mmol/L (3.5-5.1)
[2023-03-09 09:09] LABS: CALCIUM 8.9 mg/dL (8.5-10.1)
[2023-03-09 09:10] LABS: ALBUMIN 2.8 g/dl (3.4-5.0); BLOOD UREA NITROGEN 13.8 mg/dL (7-18); MAGNESIUM 1.5 mg/dL (1.8-2.4)
[2023-03-09 09:12] LABS: PHOSPHOROUS 2.2 mg/dL (2.5-4.9)
[2023-03-09 09:13] LABS: CREATININE 2.2 mg/dL (0.55-1.3)
[2023-03-09 09:14] LABS: BILIRUBIN,TOTAL 1.1 mg/dL (0.2-1); TOT PROT 6.5 g/dl (6.4-8.2)
[2023-03-09] MEDS ORDERED: DEUTETRABENAZINE 12 MG PO SCH (10:00)
[2023-03-09] MEDS: levETIRAcetam 500 MG TABLET (FP) PO SCH ×2 (10:15→22:12)
[2023-03-09] MEDS: MAGNESIUM OXIDE 400 MG TABLET (FP) PO SCH ×2 (10:15→22:12)
[2023-03-09] MEDS: GABAPENTIN 400 MG CAPSULE PO SCH (10:15)
[2023-03-09] MEDS: MIDODRINE HCL 5 MG TABLET PO SCH ×3 (10:15→17:20)
[2023-03-09] MEDS: POLYETHYLENE GLYCOL (HEALTHYLAX) 3350 17 GM PACKET PO SCH ×2 (10:16→22:12)
[2023-03-09] MEDS: ASPIRIN COATED 81 MG TABLET.EC PO SCH (10:16)
[2023-03-09] MEDS: METOPROLOL TARTRATE 25 MG TABLET (FP) PO SCH ×2 (10:24→22:12)
[2023-03-09] MEDS: LIDOCAINE 4% PATCH TP SCH (10:32)
[2023-03-09] MEDS ORDERED: ALBUTEROL SO4 2.5/IPRATROPIUM 0.5 INH SOL 3 ML VIAL.NEB. NEB ONE (21:45)
[2023-03-09] MEDS: guaiFENesin 200 MG/10 ML 10 ML UNIT-DOSE CUPS PO ONE ×2 (21:45→22:11)
[2023-03-09] MEDS: ATORVASTATIN CA 40 MG TABLET (FP) PO SCH (22:14)
[2023-03-09] MEDS: SENNOSIDES 8.8 MG/5 ML SYRUP PO SCH (22:17)
[2023-03-09] MEDS: LIDOCAINE PATCH REMOVAL MC SCH (22:17)
[2023-03-10] MEDS: PANTOPRAZOLE 40 MG TABLET PO SCH (06:10)
[2023-03-10] MEDS: ACETAMINOPHEN 325 MG TABLET (FP) PO PRN ×2 (06:44→16:34)
[2023-03-10] MEDS ORDERED: SODIUM CHLORIDE 250 ML IV PRN (08:38)
[2023-03-10] MEDS ORDERED: EPOETIN ALFA-EPBX 10,000 UNIT/ML VIAL IVPUSH ONE (08:45)
[2023-03-10] MEDS: LIDOCAINE 4% PATCH TP SCH ×2 (10:36→12:07)
[2023-03-10] MEDS: ASPIRIN COATED 81 MG TABLET.EC PO SCH ×2 (10:37→12:07)
[2023-03-10] MEDS: POLYETHYLENE GLYCOL (HEALTHYLAX) 3350 17 GM PACKET PO SCH ×2 (10:38→21:05)
[2023-03-10] MEDS: levETIRAcetam 500 MG TABLET (FP) PO SCH ×3 (10:38→21:06)
[2023-03-10] MEDS: METOPROLOL TARTRATE 25 MG TABLET (FP) PO SCH ×2 (10:39→21:05)
[2023-03-10] MEDS: MAGNESIUM OXIDE 400 MG TABLET (FP) PO SCH ×2 (10:40→21:05)
[2023-03-10] MEDS: GABAPENTIN 400 MG CAPSULE PO SCH ×2 (10:40→12:07)
[2023-03-10] MEDS: MIDODRINE HCL 5 MG TABLET PO SCH ×3 (10:40→18:19)
[2023-03-10] MEDS: SENNOSIDES 8.8 MG/5 ML SYRUP PO SCH (21:06)
[2023-03-10] MEDS: ATORVASTATIN CA 40 MG TABLET (FP) PO SCH (21:06)
[2023-03-10] MEDS: LIDOCAINE PATCH REMOVAL MC SCH (21:14)
[2023-03-11] MEDS: PANTOPRAZOLE 40 MG TABLET PO SCH (06:12)
[2023-03-11 08:57] LABS: HEMATOCRIT 31.7 % (32.4-45.2); HEMOGLOBIN 9.7 GM/dL (10.7-15.3); MCH 30.1 pg (25.7-33.7); MCHC 30.7 g/dl (32.0-36.0); MEAN CELL VOLUME 97.9 fl (80-96); MEAN PLT VOLUME 8.6 fl (7.5-11.1); PLATELET COUNT 212 10^3/uL (134-434); RBC 3.24 M/mm3 (3.60-5.2); RDW 19.4 % (11.6-15.6); WHITE BLOOD COUNT 8.6 K/mm3 (4.0-10.0)
[2023-03-11 09:33] LABS: CALCIUM 9.3 mg/dL (8.5-10.1)
[2023-03-11 09:34] LABS: ALBUMIN 2.9 g/dl (3.4-5.0)
[2023-03-11 09:37] LABS: CREATININE 2.2 mg/dL (0.55-1.3)
[2023-03-11 09:39] LABS: BILIRUBIN,TOTAL 0.8 mg/dL (0.2-1); TOT PROT 6.6 g/dl (6.4-8.2)
[2023-03-11] MEDS: LIDOCAINE 4% PATCH TP SCH (09:57)
[2023-03-11] MEDS: MIDODRINE HCL 5 MG TABLET PO SCH ×3 (09:57→17:24)
[2023-03-11] MEDS: POLYETHYLENE GLYCOL (HEALTHYLAX) 3350 17 GM PACKET PO SCH ×2 (09:57→21:35)
[2023-03-11] MEDS: METOPROLOL TARTRATE 25 MG TABLET (FP) PO SCH ×2 (09:57→21:36)
[2023-03-11] MEDS: levETIRAcetam 500 MG TABLET (FP) PO SCH ×2 (09:58→21:35)
[2023-03-11] MEDS: GABAPENTIN 400 MG CAPSULE PO SCH (09:58)
[2023-03-11] MEDS: MAGNESIUM OXIDE 400 MG TABLET (FP) PO SCH ×2 (09:58→21:35)
[2023-03-11] MEDS: ASPIRIN COATED 81 MG TABLET.EC PO SCH (09:58)
[2023-03-11] MEDS: ACETAMINOPHEN 325 MG TABLET (FP) PO PRN (13:53)
[2023-03-11] MEDS: SENNOSIDES 8.8 MG/5 ML SYRUP PO SCH (21:35)
[2023-03-11] MEDS: ATORVASTATIN CA 40 MG TABLET (FP) PO SCH (21:36)
[2023-03-11] MEDS: LIDOCAINE PATCH REMOVAL MC SCH (22:15)
[2023-03-12] MEDS ORDERED: MAGNESIUM OXIDE 400 MG TABLET (FP) PO ONE ×2 (00:14→08:00)
[2023-03-12] MEDS: PANTOPRAZOLE 40 MG TABLET PO SCH (06:07)
[2023-03-12] MEDS ORDERED: SODIUM CHLORIDE 250 ML IV PRN (07:40)
[2023-03-12] MEDS ORDERED: EPOETIN ALFA-EPBX 10,000 UNIT/ML VIAL IVPUSH ONE (09:00)
[2023-03-12] MEDS: MIDODRINE HCL 5 MG TABLET PO SCH ×3 (09:05→17:25)
[2023-03-12 09:19] LABS: HEMATOCRIT 29.9 % (32.4-45.2); HEMOGLOBIN 9.2 GM/dL (10.7-15.3); MCH 29.9 pg (25.7-33.7); MCHC 30.7 g/dl (32.0-36.0); MEAN CELL VOLUME 97.4 fl (80-96); MEAN PLT VOLUME 8.4 fl (7.5-11.1); PLATELET COUNT 228 10^3/uL (134-434); RBC 3.07 M/mm3 (3.60-5.2); RDW 19.3 % (11.6-15.6); WHITE BLOOD COUNT 10.5 K/mm3 (4.0-10.0)
[2023-03-12 09:44] LABS: POTASSIUM 4.7 mmol/L (3.5-5.1)
[2023-03-12 09:47] LABS: ALBUMIN 2.8 g/dl (3.4-5.0); BLOOD UREA NITROGEN 18.4 mg/dL (7-18); CALCIUM 9.4 mg/dL (8.5-10.1)
[2023-03-12 09:52] LABS: BILIRUBIN,TOTAL 0.6 mg/dL (0.2-1); TOT PROT 6.6 g/dl (6.4-8.2)
[2023-03-12] MEDS: METOPROLOL TARTRATE 25 MG TABLET (FP) PO SCH ×2 (11:43→22:01)
[2023-03-12] MEDS: MAGNESIUM OXIDE 400 MG TABLET (FP) PO SCH ×2 (11:43→21:43)
[2023-03-12] MEDS: GABAPENTIN 400 MG CAPSULE PO SCH (11:43)
[2023-03-12] MEDS: ASPIRIN COATED 81 MG TABLET.EC PO SCH (11:44)
[2023-03-12] MEDS: LIDOCAINE 4% PATCH TP SCH (11:44)
[2023-03-12] MEDS: POLYETHYLENE GLYCOL (HEALTHYLAX) 3350 17 GM PACKET PO SCH ×2 (11:44→21:43)
[2023-03-12] MEDS: levETIRAcetam 500 MG TABLET (FP) PO SCH ×2 (11:44→21:43)
[2023-03-12] MEDS: ACETAMINOPHEN 325 MG TABLET (FP) PO PRN (18:47)
[2023-03-12] MEDS: SENNOSIDES 8.8 MG/5 ML SYRUP PO SCH (21:43)
[2023-03-12] MEDS: LIDOCAINE PATCH REMOVAL MC SCH (21:43)
[2023-03-12] MEDS: ATORVASTATIN CA 40 MG TABLET (FP) PO SCH (21:43)
[2023-03-13 04:41] VITALS: RESP 18
[2023-03-13] MEDS: PANTOPRAZOLE 40 MG TABLET PO SCH (06:16)
[2023-03-13] MEDS: MIDODRINE HCL 5 MG TABLET PO SCH ×3 (10:34→17:16)
[2023-03-13] MEDS: METOPROLOL TARTRATE 25 MG TABLET (FP) PO SCH ×3 (10:35→23:20)
[2023-03-13] MEDS: GABAPENTIN 400 MG CAPSULE PO SCH (10:35)
[2023-03-13] MEDS: MAGNESIUM OXIDE 400 MG TABLET (FP) PO SCH ×2 (10:35→23:12)
[2023-03-13] MEDS: LIDOCAINE 4% PATCH TP SCH (10:36)
[2023-03-13] MEDS: levETIRAcetam 500 MG TABLET (FP) PO SCH ×2 (10:36→23:12)
[2023-03-13] MEDS: POLYETHYLENE GLYCOL (HEALTHYLAX) 3350 17 GM PACKET PO SCH ×3 (10:36→23:18)
[2023-03-13] MEDS: ASPIRIN COATED 81 MG TABLET.EC PO SCH (10:36)
[2023-03-13] MEDS: ACETAMINOPHEN 325 MG TABLET (FP) PO PRN ×2 (11:32→23:12)
[2023-03-13] MEDS: ATORVASTATIN CA 40 MG TABLET (FP) PO SCH (23:12)
[2023-03-13] MEDS: SENNOSIDES 8.8 MG/5 ML SYRUP PO SCH ×2 (23:12→23:19)
[2023-03-13] MEDS: LIDOCAINE PATCH REMOVAL MC SCH (23:18)
[2023-03-14] MEDS: PANTOPRAZOLE 40 MG TABLET PO SCH (06:51)
[2023-03-14] MEDS: POLYETHYLENE GLYCOL (HEALTHYLAX) 3350 17 GM PACKET PO SCH (09:20)
[2023-03-14] MEDS: LIDOCAINE 4% PATCH TP SCH (09:20)
[2023-03-14] MEDS: MIDODRINE HCL 5 MG TABLET PO SCH ×2 (09:21→13:39)
[2023-03-14] MEDS: GABAPENTIN 400 MG CAPSULE PO SCH (09:21)
[2023-03-14] MEDS: ASPIRIN COATED 81 MG TABLET.EC PO SCH (09:23)
[2023-03-14] MEDS: MAGNESIUM OXIDE 400 MG TABLET (FP) PO SCH (09:23)
[2023-03-14] MEDS: levETIRAcetam 500 MG TABLET (FP) PO SCH (09:23)
[2023-03-14] MEDS: METOPROLOL TARTRATE 25 MG TABLET (FP) PO SCH (09:23)
[2023-03-14 12:30] VITALS: BP 114/62; PULSE 70; TEMP 97.9
[2023-03-14 15:17] VITALS: BMI 31.0
== END 2023-03-14 16:56 | disposition home or self-care (01) | DRG 189 ==
LOC: JER 17:55 → UNDOADMOB 22:31 → INTOOBSV 22:31 → JERBED 22:31 → J6S 03-05 14:28 → OBSVTOIN 03-07 13:04
PROVIDERS: ADMIT Internal Medicine; ATTEND Internal Medicine
PROC: 5A1D70Z Performance of Urinary Filtration, Intermittent, Less than 6 Hours Per Day (ICD-10-PCS; principal; 2023-03-10)
DX: J81.0 Acute pulmonary edema (principal); N18.6 End stage renal disease; J96.12 Chronic respiratory failure with hypercapnia; I13.2 Hypertensive heart and chronic kidney disease with heart failure and with stage 5 chronic kidney disease, or end stage renal disease; J96.11 Chronic respiratory failure with hypoxia; I69.351 Hemiplegia and hemiparesis following cerebral infarction affecting right dominant side; I50.32 Chronic diastolic (congestive) heart failure; I48.0 Paroxysmal atrial fibrillation; E87.70 Fluid overload, unspecified; I25.10 Atherosclerotic heart disease of native coronary artery without angina pectoris; K21.9 Gastro-esophageal reflux disease without esophagitis; Z99.2 Dependence on renal dialysis
CPT/HCPCS: 36415; 71045-TC-FY; 80048; 80053; 82803; 83605; 83735; 84100; 84484; 85025; 85027; 86803; 87340; 93005; 93010; 94640; 94660; 97162-GP; 99285-25; G0378; Q5106

== ENCOUNTER 2023-07-09 12:29 | Inpatient (IN) | payer OTHER ==
[2023-07-09 12:59] VITALS: BMI 32.8
[2023-07-09] MEDS ORDERED: ALBUTEROL SO4 2.5/IPRATROPIUM 0.5 INH SOL 3 ML VIAL.NEB. NEB ONE (13:22)
[2023-07-09] MEDS ORDERED: ACETAMINOPHEN INJECTION 100 ML IVPB ONE (13:22)
[2023-07-09] MEDS: ACETAMINOPHEN 1000 MG/100 ML BAG IVPB ONE (13:48)
[2023-07-09] MEDS: ALBUTEROL SO4 2.5/IPRATROPIUM 0.5 INH SOL 3 ML VIAL.NEB. NEB SCH (13:49)
[2023-07-09 13:50] LABS: VENOUS BASE EXCESS 0.6 mmol/L (-2-2); VENOUS PCO2 48.6 mmHg (38-52); VENOUS PH 7.357 (7.310-7.410)
[2023-07-09 13:53] LABS: INR 1.17 (0.83-1.09); PROTHROMBIN TIME (PATIENT) 13.5 SEC (9.7-13.0)
[2023-07-09 13:54] LABS: HEMATOCRIT 35.4 % (32.4-45.2); HEMOGLOBIN 11.4 GM/dL (10.7-15.3); MCHC 32.1 g/dl (32.0-36.0); MEAN CELL VOLUME 96.6 fl (80-96); MEAN PLT VOLUME 8.5 fl (7.5-11.1); PLATELET COUNT 220 10^3/uL (134-434); RBC 3.67 M/mm3 (3.60-5.2); RDW 14.5 % (11.6-15.6); WHITE BLOOD COUNT 24.3 K/mm3 (4.0-10.0)
[2023-07-09 13:56] LABS: ACTIVATED PTT 29.2 SECONDS (25.2-36.5)
[2023-07-09 14:10] LABS: POTASSIUM 3.9 mmol/L (3.5-5.1)
[2023-07-09 14:12] LABS: ALBUMIN 3.2 g/dl (3.4-5.0); BLOOD UREA NITROGEN 49.7 mg/dL (7-18); CALCIUM 9.4 mg/dL (8.5-10.1)
[2023-07-09 14:16] LABS: CREATININE 4.6 mg/dL (0.55-1.3)
[2023-07-09 14:18] LABS: BILIRUBIN,TOTAL 0.6 mg/dL (0.2-1); TOT PROT 7.9 g/dl (6.4-8.2)
[2023-07-09] MEDS ORDERED: AZITHROMYCIN IVPB 500 MG/250 ML BAG IVPB ONE (14:38)
[2023-07-09] MEDS ORDERED: CEFTRIAXONE 1 GM/50 ML BAG ONE (14:38)
[2023-07-09 14:45] LABS: ANISOCYTOSIS 0; HELMET CELLS 0; HOWELL-JOLLY BODIES 0; MACROCYTOSIS 0; OVALOCYTE 0; ROULEAU 0; SICKELED CELLS 0; TARGET CELLS 0; TEAR DROP CELLS 0; TOXIC GRANULATION 0
[2023-07-09] MEDS: CEFTRIAXONE 1 GM in DEXTROSE 5%-WATER - 50 ML IVPB ONE (14:52)
[2023-07-09] MEDS: AZITHROMYCIN IVPB 500 MG in DEXTROSE 5%-WATER - 250 ML IVPB ONE (15:13)
[2023-07-09] MEDS ORDERED: SODIUM CHLORIDE 250 ML IV PRN (16:21)
[2023-07-09] MEDS ORDERED: FUROSEMIDE 40 MG/4 ML INJECTABLE VIAL ONE (16:39)
[2023-07-09] MEDS: FUROSEMIDE 40 MG/4 ML INJECTABLE VIAL IVPUSH ONE ×3 (18:08→22:25)
[2023-07-09 18:29] LABS: EPI CELLS >36 /uL (0-25.1); HYALINE CASTS 5 /uL (0-3.1); URINE APPEARANCE TURBID; URINE BACTERIA >9,000 /uL (0-1359); URINE BILIRUBIN NEGATIVE (NEGATIVE); URINE COLOR YELLOW; URINE GLUCOSE (UA) NEGATIVE (NEGATIVE); URINE KETONE TRACE (NEGATIVE); URINE LEUK ESTERASE 3+ (NEGATIVE); URINE NITRITE NEGATIVE (NEGATIVE); URINE PROTEIN 1+ (NEGATIVE); URINE RBC 185 /uL (0-23.9); URINE UROBILINOGEN 0.2 mg/dL (0.2-1.0); URINE WBC 9810 /uL (0-25.8)
[2023-07-09] MEDS: DAPTOMYCIN 300 MG in SODIUM CHLORIDE 50 ML IVPB ONE (22:25)
[2023-07-09] MEDS: METOPROLOL TARTRATE 25 MG TABLET (FP) PO SCH (22:25)
[2023-07-09] MEDS: ALBUTEROL SULFATE 0.021% (0.63 MG/3 ML) VIAL.NEB NEB SCH (22:46)
[2023-07-10] MEDS: MIDODRINE HCL 5 MG TABLET PO SCH ×2 (09:21→18:06)
[2023-07-10] MEDS: ALBUMIN HUMAN 25% 12.5 GM/50 ML VIAL IV SCH (10:25)
[2023-07-10 10:34] LABS: HEMATOCRIT 27.7 % (32.4-45.2); HEMOGLOBIN 8.8 GM/dL (10.7-15.3); MCH 31.1 pg (25.7-33.7); MCHC 31.7 g/dl (32.0-36.0); MEAN CELL VOLUME 98.2 fl (80-96); MEAN PLT VOLUME 8.8 fl (7.5-11.1); PLATELET COUNT 181 10^3/uL (134-434); RBC 2.82 M/mm3 (3.60-5.2); RDW 14.4 % (11.6-15.6)
[2023-07-10 10:45] LABS: POTASSIUM 4.1 mmol/L (3.5-5.1)
[2023-07-10 10:46] LABS: BLOOD UREA NITROGEN 64.8 mg/dL (7-18)
[2023-07-10 10:49] LABS: CREATININE 5.5 mg/dL (0.55-1.3)
[2023-07-10 11:07] LABS: WHITE BLOOD COUNT 30.2 K/mm3 (4.0-10.0)
[2023-07-10 12:53] LABS: MAGNESIUM 1.9 mg/dL (1.8-2.4)
[2023-07-10 12:57] LABS: PHOSPHOROUS 6.4 mg/dL (2.5-4.9)
[2023-07-10] MEDS: levETIRAcetam 500 MG TABLET (FP) PO SCH (13:56)
[2023-07-10] MEDS: MEROPENEM 500 MG in DEXTROSE 5%-WATER 100 ML IVPB ONE (13:56)
[2023-07-10] MEDS: CEFTRIAXONE 1 GM in DEXTROSE 5%-WATER - 50 ML IVPB SCH (14:20)
[2023-07-10] MEDS: HEPARIN NA (PORCINE) 5,000 UNITS/ML 1ML VIAL SQ SCH (15:51)
[2023-07-10] MEDS: ACETAMINOPHEN 650 MG/20.3 ML ORAL SOLUTION (CUPS) GT PRN (22:15)
[2023-07-10] MEDS: ATORVASTATIN CA 40 MG TABLET (FP) PO SCH (22:16)
[2023-07-10] MEDS: METOPROLOL TARTRATE 25 MG TABLET (FP) PO SCH (22:18)
[2023-07-11] MEDS: DAPTOMYCIN 300 MG in SODIUM CHLORIDE 50 ML IVPB SCH (01:32)
[2023-07-11 06:51] LABS: HEMATOCRIT 30.7 % (32.4-45.2); HEMOGLOBIN 9.8 GM/dL (10.7-15.3); MCH 31.2 pg (25.7-33.7); MCHC 31.9 g/dl (32.0-36.0); MEAN CELL VOLUME 97.9 fl (80-96); MEAN PLT VOLUME 8.5 fl (7.5-11.1); PLATELET COUNT 189 10^3/uL (134-434); RBC 3.13 M/mm3 (3.60-5.2); RDW 14.5 % (11.6-15.6); WHITE BLOOD COUNT 27.3 K/mm3 (4.0-10.0)
[2023-07-11 08:34] LABS: BILIRUBIN,TOTAL 0.7 mg/dL (0.2-1); BLOOD UREA NITROGEN 33.2 mg/dL (7-18); CALCIUM 9.8 mg/dL (8.5-10.1); CREATININE 3.9 mg/dL (0.55-1.3); MAGNESIUM 1.9 mg/dL (1.8-2.4); PHOSPHOROUS 3.1 mg/dL (2.5-4.9); POTASSIUM 3.7 mmol/L (3.5-5.1); TOT PROT 7.2 g/dl (6.4-8.2)
[2023-07-11] MEDS ORDERED: DEUTETRABENAZINE 12 MG PO SCH (10:00)
[2023-07-11] MEDS: PANTOPRAZOLE 40 MG TABLET PO SCH (13:28)
[2023-07-11] MEDS: GABAPENTIN 400 MG CAPSULE PO SCH (13:28)
[2023-07-11] MEDS: PIPERACILLIN/TAZOB 2.25 GM 2.25 GM in DEXTROSE 5%-WATER - 50 ML IVPB SCH (16:15)
[2023-07-11] MEDS: MEROPENEM 500 MG in DEXTROSE 5%-WATER 100 ML IVPB SCH (16:17)
[2023-07-11] MEDS: MIDODRINE HCL 5 MG TABLET PO SCH (18:07)
[2023-07-11] MEDS: SODIUM CHLORIDE 0.9% 250 ML INFUS.BAG IV ONE (18:18)
[2023-07-12] MEDS: METOPROLOL TARTRATE 25 MG TABLET (FP) PO SCH (01:53)
[2023-07-12 07:19] LABS: BASO % 0.2 % (0-2.0); EOS % 7.1 % (0-4.5); HEMATOCRIT 29.7 % (32.4-45.2); HEMOGLOBIN 9.6 GM/dL (10.7-15.3); LYMPH % 6.2 % (8-40); MCHC 32.4 g/dl (32.0-36.0); MEAN CELL VOLUME 98.8 fl (80-96); MEAN PLT VOLUME 8.6 fl (7.5-11.1); MONO % 5.5 % (3.8-10.2); PLATELET COUNT 196 10^3/uL (134-434); WHITE BLOOD COUNT 17.7 K/mm3 (4.0-10.0)
[2023-07-12 07:29] LABS: POTASSIUM 4.2 mmol/L (3.5-5.1)
[2023-07-12 07:32] LABS: BLOOD UREA NITROGEN 44.7 mg/dL (7-18); CALCIUM 9.3 mg/dL (8.5-10.1)
[2023-07-12 07:36] LABS: CREATININE 5.2 mg/dL (0.55-1.3)
[2023-07-12] MEDS ORDERED: SODIUM CHLORIDE 250 ML IV PRN (14:41)
[2023-07-12] MEDS: FUROSEMIDE 40 MG/4 ML INJECTABLE VIAL IVPUSH ONE (15:57)
[2023-07-12] MEDS ORDERED: ALBUTEROL SO4 0.083% IH SOL 2.5 MG/3 ML VIAL.NEB. NEB ONE (19:59)
[2023-07-12] MEDS: ALBUTEROL SO4 0.5 % INH SOLN 2.5 MG/0.5 ML VIAL.NEB. NEB PRN (20:05)
[2023-07-13 07:40] LABS: BASO % 0.7 % (0-2.0); EOS % 14.8 % (0-4.5); HEMATOCRIT 30.2 % (32.4-45.2); LYMPH % 11.2 % (8-40); MCH 32.5 pg (25.7-33.7); MEAN CELL VOLUME 98.4 fl (80-96); MEAN PLT VOLUME 8.5 fl (7.5-11.1); MONO % 8.3 % (3.8-10.2); PLATELET COUNT 220 10^3/uL (134-434); RBC 3.07 M/mm3 (3.60-5.2); RDW 14.8 % (11.6-15.6)
[2023-07-13 08:02] LABS: CALCIUM 9.6 mg/dL (8.5-10.1); POTASSIUM 4.5 mmol/L (3.5-5.1)
[2023-07-13] MEDS: EPOETIN ALFA-EPBX 10,000 UNIT/ML VIAL IVPUSH ONE (10:12)
[2023-07-14] MEDS ORDERED: FUROSEMIDE 40 MG TABLET (FP) PO SCH (06:00)
[2023-07-14 07:22] LABS: BASO % 0.8 % (0-2.0); EOS % 8.3 % (0-4.5); HEMATOCRIT 32.4 % (32.4-45.2); HEMOGLOBIN 10.3 GM/dL (10.7-15.3); LYMPH % 9.4 % (8-40); MCH 31.7 pg (25.7-33.7); MCHC 31.9 g/dl (32.0-36.0); MEAN CELL VOLUME 99.3 fl (80-96); MEAN PLT VOLUME 8.5 fl (7.5-11.1); MONO % 11.2 % (3.8-10.2); NEUT % 70.3 % (42.8-82.8); PLATELET COUNT 242 10^3/uL (134-434); RBC 3.27 M/mm3 (3.60-5.2); RDW 14.5 % (11.6-15.6); WHITE BLOOD COUNT 11.1 K/mm3 (4.0-10.0)
[2023-07-14 07:41] LABS: POTASSIUM 4.1 mmol/L (3.5-5.1)
[2023-07-14 07:50] LABS: CALCIUM 10.1 mg/dL (8.5-10.1)
[2023-07-14 07:54] LABS: CREATININE 3.8 mg/dL (0.55-1.3)
[2023-07-14 07:59] LABS: BLOOD UREA NITROGEN 24.3 mg/dL (7-18)
[2023-07-14] MEDS: AMOX TR/POTASSIUM CLAVULANATE 250 MG/5 ML BOTTLE PO SCH (16:38)
[2023-07-15 09:09] LABS: HEMATOCRIT 30.1 % (32.4-45.2); HEMOGLOBIN 10.1 GM/dL (10.7-15.3); MCH 32.9 pg (25.7-33.7); MCHC 33.4 g/dl (32.0-36.0); MEAN CELL VOLUME 98.6 fl (80-96); MEAN PLT VOLUME 8.1 fl (7.5-11.1); PLATELET COUNT 251 10^3/uL (134-434); RBC 3.05 M/mm3 (3.60-5.2); RDW 14.7 % (11.6-15.6); WHITE BLOOD COUNT 9.8 K/mm3 (4.0-10.0)
[2023-07-15 09:30] LABS: POTASSIUM 4.2 mmol/L (3.5-5.1)
[2023-07-15 09:39] LABS: ALBUMIN 2.8 g/dl (3.4-5.0); CALCIUM 9.3 mg/dL (8.5-10.1); MAGNESIUM 1.9 mg/dL (1.8-2.4)
[2023-07-15 09:42] LABS: CREATININE 5.4 mg/dL (0.55-1.3)
[2023-07-15 09:44] LABS: BILIRUBIN,TOTAL 0.5 mg/dL (0.2-1); TOT PROT 7.2 g/dl (6.4-8.2)
[2023-07-15 10:48] LABS: ANISOCYTOSIS 1+; MACROCYTOSIS 0
[2023-07-15] MEDS ORDERED: SODIUM CHLORIDE 250 ML IV PRN (11:29)
[2023-07-15] MEDS: EPOETIN ALFA-EPBX 10,000 UNIT/ML VIAL SQ ONE (12:21)
[2023-07-16 07:57] LABS: HEMATOCRIT 34.5 % (32.4-45.2); MCH 31.6 pg (25.7-33.7); MCHC 31.9 g/dl (32.0-36.0); MEAN CELL VOLUME 99.1 fl (80-96); MEAN PLT VOLUME 8.4 fl (7.5-11.1); PLATELET COUNT 285 10^3/uL (134-434); RBC 3.48 M/mm3 (3.60-5.2); RDW 14.8 % (11.6-15.6); WHITE BLOOD COUNT 10.2 K/mm3 (4.0-10.0)
[2023-07-16 08:21] LABS: POTASSIUM 3.5 mmol/L (3.5-5.1)
[2023-07-16 08:28] LABS: ALBUMIN 3.2 g/dl (3.4-5.0); CALCIUM 9.4 mg/dL (8.5-10.1)
[2023-07-16 08:29] LABS: BLOOD UREA NITROGEN 16.8 mg/dL (7-18); MAGNESIUM 1.8 mg/dL (1.8-2.4)
[2023-07-16 08:33] LABS: BILIRUBIN,TOTAL 0.6 mg/dL (0.2-1); TOT PROT 7.9 g/dl (6.4-8.2)
[2023-07-16 08:37] LABS: CREATININE 3.7 mg/dL (0.55-1.3)
[2023-07-16 08:48] LABS: ANISOCYTOSIS 0; MACROCYTOSIS 0
[2023-07-16 09:08] VITALS: RESP 18
[2023-07-16] MEDS: metoPROLOL SUCCINATE 25 MG TAB.SR.24H (FP) PO SCH (10:13)
[2023-07-16 15:03] VITALS: BP 118/47; PULSE 63; TEMP 97.5
== END 2023-07-16 14:40 | disposition home or self-care (01) | DRG 871 ==
LOC: JER 12:29 → JERBED 15:26 → J4S 20:19
PROVIDERS: ADMIT Internal Medicine; ATTEND Internal Medicine
PROC: 5A1D70Z Performance of Urinary Filtration, Intermittent, Less than 6 Hours Per Day (ICD-10-PCS; principal; 2023-07-15)
DX: A41.59 Other Gram-negative sepsis (principal); J18.9 Pneumonia, unspecified organism; N18.6 End stage renal disease; N39.0 Urinary tract infection, site not specified; I13.2 Hypertensive heart and chronic kidney disease with heart failure and with stage 5 chronic kidney disease, or end stage renal disease; I50.32 Chronic diastolic (congestive) heart failure; G81.93 Hemiplegia, unspecified affecting right nondominant side; I48.91 Unspecified atrial fibrillation; F20.9 Schizophrenia, unspecified; G24.01 Drug induced subacute dyskinesia; G40.909 Epilepsy, unspecified, not intractable, without status epilepticus; I25.10 Atherosclerotic heart disease of native coronary artery without angina pectoris; J44.9 Chronic obstructive pulmonary disease, unspecified; E87.70 Fluid overload, unspecified; N93.9 Abnormal uterine and vaginal bleeding, unspecified; Z99.2 Dependence on renal dialysis
CPT/HCPCS: 0241U-QW; 36415; 71045-TC-FY; 72195-TC; 74176-TC; 76830-TC; 80048; 80053; 81003; 82550; 82553; 82803; 83605; 83735; 84100; 84439; 84443; 84484; 85025; 85027; 85610; 85730; 86704; 86803; 86850; 86900; 86901; 87040; 87086; 87186; 87340; 87517; 93005; 93010; 94640; 99285-25; J0131; J0878; J1644; P9047; Q5106

== ENCOUNTER 2023-09-03 03:32 | Observation (INO) | payer OTHER ==
[2023-09-03 03:53] VITALS: BMI 32.5
[2023-09-03] MEDS ORDERED: ACETAMINOPHEN INJECTION 100 ML IVPB ONE ×2 (04:53→19:39)
[2023-09-03 04:54] LABS: BASO % 1.1 % (0-2.0); EOS % 10.5 % (0-4.5); HEMATOCRIT 38.3 % (32.4-45.2); HEMOGLOBIN 12.5 GM/dL (10.7-15.3); LYMPH % 21.3 % (8-40); MCHC 32.5 g/dl (32.0-36.0); MEAN CELL VOLUME 101.5 fl (80-96); MEAN PLT VOLUME 8.5 fl (7.5-11.1); MONO % 10.6 % (3.8-10.2); NEUT % 56.5 % (42.8-82.8); PLATELET COUNT 179 10^3/uL (134-434); RBC 3.78 M/mm3 (3.60-5.2); RDW 15.8 % (11.6-15.6); WHITE BLOOD COUNT 7.7 K/mm3 (4.0-10.0)
[2023-09-03] MEDS: ACETAMINOPHEN 1000 MG/100 ML BAG IVPB ONE ×3 (05:07→19:58)
[2023-09-03 05:20] LABS: POTASSIUM 3.7 mmol/L (3.5-5.1)
[2023-09-03 05:22] LABS: ALBUMIN 3.5 g/dl (3.4-5.0); BLOOD UREA NITROGEN 40.1 mg/dL (7-18); CALCIUM 9.6 mg/dL (8.5-10.1)
[2023-09-03 05:26] LABS: CREATININE 5.4 mg/dL (0.55-1.3)
[2023-09-03 05:27] LABS: TOT PROT 7.8 g/dl (6.4-8.2)
[2023-09-03 05:28] LABS: BILIRUBIN,TOTAL 0.3 mg/dL (0.2-1)
[2023-09-03 06:41] LABS: INR 1.03 (0.83-1.09); PROTHROMBIN TIME (PATIENT) 11.9 SEC (9.7-13.0)
[2023-09-03 06:44] LABS: ACTIVATED PTT 30.9 SECONDS (25.2-36.5)
[2023-09-03] MEDS: levETIRAcetam 500 MG TABLET (FP) PO SCH ×2 (13:51→21:52)
[2023-09-03] MEDS: MIDODRINE HCL 5 MG TABLET PO SCH (13:51)
[2023-09-03] MEDS: PANTOPRAZOLE 40 MG TABLET PO SCH (13:56)
[2023-09-03] MEDS ORDERED: LIDOCAINE HCL 1%, 10 MG/ML (20ML VIAL) ONE (15:26)
[2023-09-03] MEDS ORDERED: HEPARIN NA (PORCINE) 5,000 UNITS/ML 1ML VIAL ONE (15:26)
[2023-09-03] MEDS ORDERED: SODIUM CHLORIDE 250 ML IV PRN (16:49)
[2023-09-03] MEDS ORDERED: MIDAZOLAM HCL 2 MG/2 ML SINGLE DOSE VIAL ONE (17:48)
[2023-09-03] MEDS ORDERED: SODIUM CHLORIDE 1,000 ML IV SCH (18:00)
[2023-09-03] MEDS: ceFAZolin SODIUM 1 GM VIAL IVPB ONE ×2 (18:42→18:45)
[2023-09-03] MEDS: LIDOCAINE 1% P/F 10 MG/ML VIAL INF ONE (18:57)
[2023-09-03] MEDS: SODIUM CHLORIDE 1,000 ML IV SCH (19:30)
[2023-09-03] MEDS: ATORVASTATIN CA 40 MG TABLET (FP) PO SCH (21:52)
[2023-09-03] MEDS: METOPROLOL TARTRATE 25 MG TABLET (FP) PO SCH (21:52)
[2023-09-03] MEDS ORDERED: ATORVASTATIN CA 40 MG TABLET (FP) PO SCH (22:00)
[2023-09-03] MEDS ORDERED: METOPROLOL TARTRATE 25 MG TABLET (FP) PO SCH (22:00)
[2023-09-03 22:29] VITALS: RESP 18
[2023-09-03] MEDS: ACETAMINOPHEN 325 MG TABLET (FP) PO PRN (23:42)
[2023-09-04] MEDS: ACETAMINOPHEN 1000 MG/100 ML BAG IVPB ONE (07:54)
[2023-09-04 08:56] LABS: HEMATOCRIT 33.7 % (32.4-45.2); HEMOGLOBIN 10.7 GM/dL (10.7-15.3); MCH 32.4 pg (25.7-33.7); MCHC 31.8 g/dl (32.0-36.0); PLATELET COUNT 165 10^3/uL (134-434); RDW 15.1 % (11.6-15.6); WHITE BLOOD COUNT 6.5 K/mm3 (4.0-10.0)
[2023-09-04 09:13] LABS: POTASSIUM 4.2 mmol/L (3.5-5.1)
[2023-09-04 09:19] LABS: ALBUMIN 3.1 g/dl (3.4-5.0); BLOOD UREA NITROGEN 52.5 mg/dL (7-18); CALCIUM 8.9 mg/dL (8.5-10.1); MAGNESIUM 2.2 mg/dL (1.8-2.4)
[2023-09-04 09:22] LABS: CREATININE 6.1 mg/dL (0.55-1.3); PHOSPHOROUS 5.6 mg/dL (2.5-4.9)
[2023-09-04 09:24] LABS: BILIRUBIN,TOTAL 0.6 mg/dL (0.2-1); TOT PROT 6.7 g/dl (6.4-8.2)
[2023-09-04] MEDS: GABAPENTIN 400 MG CAPSULE PO SCH (09:27)
[2023-09-04] MEDS: MIDODRINE HCL 5 MG TABLET PO SCH (09:27)
[2023-09-04] MEDS: ASPIRIN COATED 81 MG TABLET.EC PO SCH (09:27)
[2023-09-04] MEDS: PANTOPRAZOLE 40 MG TABLET PO SCH (09:27)
[2023-09-04] MEDS ORDERED: GABAPENTIN 400 MG CAPSULE PO SCH (10:00)
[2023-09-04] MEDS ORDERED: ASPIRIN COATED 81 MG TABLET.EC PO SCH (10:00)
[2023-09-04] MEDS: HEPARIN NA (PORCINE) 5,000 UNITS/ML 1ML VIAL IVPUSH ONE (13:00)
[2023-09-04] MEDS ORDERED: SODIUM CHLORIDE 250 ML IV PRN (14:00)
[2023-09-04] MEDS ORDERED: HEPARIN NA (PORCINE) 5,000 UNITS/ML 1ML VIAL IVPUSH ONE (16:49)
[2023-09-04 18:23] VITALS: BP 97/55; PULSE 63; TEMP 98.4
== END 2023-09-04 19:00 | disposition home or self-care (01) ==
LOC: JER 03:32 → JERBED 06:28 → UNDOADMOB 06:28 → OBSVTOIN 07:13 → INTOOBSV 07:13 → JERBED 09:17 → J7W 09:17 → JERBED 10:59
PROVIDERS: ADMIT Student in an Organized Health Care Education/Training Program; ATTEND Internal Medicine
PROC: 3E033NZ Introduction of Analgesics, Hypnotics, Sedatives into Peripheral Vein, Percutaneous Approach (ICD-10-PCS; 2023-09-03)
PROC: 3E033GC Introduction of Other Therapeutic Substance into Peripheral Vein, Percutaneous Approach (ICD-10-PCS; 2023-09-03)
PROC: 3E0337Z Introduction of Electrolytic and Water Balance Substance into Peripheral Vein, Percutaneous Approach (ICD-10-PCS; 2023-09-03)
PROC: 02PA03Z Removal of Infusion Device from Heart, Open Approach (ICD-10-PCS; principal; 2023-09-03 16:30)
DX: Z45.2 Encounter for adjustment and management of vascular access device (principal); I12.0 Hypertensive chronic kidney disease with stage 5 chronic kidney disease or end stage renal disease; N18.6 End stage renal disease; Z99.2 Dependence on renal dialysis; I50.9 Heart failure, unspecified; I11.9 Hypertensive heart disease without heart failure; G24.01 Drug induced subacute dyskinesia; J44.9 Chronic obstructive pulmonary disease, unspecified; I48.91 Unspecified atrial fibrillation; Z88.8 Allergy status to other drugs, medicaments and biological substances; F25.9 Schizoaffective disorder, unspecified
CPT/HCPCS: 36415; 71045-TC-FY; 76000-TC-FY; 80048; 80053; 83735; 84100; 85025; 85027; 85610; 85730; 86704; 86803; 86850; 86900; 86901; 87340; 87517; 93005; 93010; 94760; 96361; 96374; 96375; 99285-25; C1750; G0378; J0131; J1644

== ENCOUNTER 2023-09-06 13:56 | Observation (INO) | payer OTHER ==
[2023-09-06 14:10] VITALS: BMI 33.5
[2023-09-06 15:35] LABS: BASO % 0.5 % (0-2.0); EOS % 7.8 % (0-4.5); HEMOGLOBIN 10.9 GM/dL (10.7-15.3); LYMPH % 13.6 % (8-40); MCH 33.4 pg (25.7-33.7); MEAN CELL VOLUME 101.1 fl (80-96); MEAN PLT VOLUME 9.2 fl (7.5-11.1); MONO % 9.3 % (3.8-10.2); NEUT % 68.8 % (42.8-82.8); PLATELET COUNT 179 10^3/uL (134-434); RBC 3.26 M/mm3 (3.60-5.2); RDW 15.6 % (11.6-15.6); WHITE BLOOD COUNT 8.8 K/mm3 (4.0-10.0)
[2023-09-06 15:54] LABS: CHLORIDE 104 mmol/L (98-107); SODIUM 134 mmol/L (136-145)
[2023-09-06 15:56] LABS: ALBUMIN 3.3 g/dl (3.4-5.0); BLOOD UREA NITROGEN 41.2 mg/dL (7-18); CO2 30 mmol/L (21-32); GLUCOSE,RANDOM 78 mg/dL (74-106); MAGNESIUM 2.2 mg/dL (1.8-2.4)
[2023-09-06 15:59] LABS: CREATININE 5.5 mg/dL (0.55-1.3); PHOSPHOROUS 4.4 mg/dL (2.5-4.9)
[2023-09-06 16:01] LABS: BILIRUBIN,TOTAL 0.4 mg/dL (0.2-1); TOT PROT 7.8 g/dl (6.4-8.2)
[2023-09-06 16:02] LABS: ALK PHOS 109 U/L (45-117)
[2023-09-06 16:10] LABS: ANION GAP 0 mmol/L (4-13); POTASSIUM 8.2 mmol/L (3.5-5.1); SGOT/AST 97 U/L (15-37); SGPT/ALT 19 U/L (13-61)
[2023-09-06 18:11] LABS: POTASSIUM 4.4 mmol/L (3.5-5.1)
[2023-09-06 18:13] LABS: BLOOD UREA NITROGEN 42.9 mg/dL (7-18); CALCIUM 9.6 mg/dL (8.5-10.1)
[2023-09-06 18:16] LABS: CREATININE 5.6 mg/dL (0.55-1.3)
[2023-09-06] MEDS: DEXTROSE 50%-WATER - 25 GM/50 ML VIAL IVPUSH ONE (18:22)
[2023-09-06] MEDS: INSULIN REGULAR HUMAN 100 UNITS/ML *VIAL IVPUSH ONE (18:22)
[2023-09-06] MEDS: SODIUM BICARBONATE 4.2% 5 MEQ/10 ML DISP.SYRIN IVPUSH ONE (18:23)
[2023-09-06] MEDS ORDERED: ACETAMINOPHEN 650 MG/20.3 ML ORAL SOLUTION (CUPS) GT PRN (19:32)
[2023-09-06] MEDS ORDERED: levETIRAcetam 500 MG TABLET (FP) PO ONE (21:38)
[2023-09-06] MEDS ORDERED: ATORVASTATIN CA 40 MG TABLET (FP) ONE (21:38)
[2023-09-06] MEDS ORDERED: METOPROLOL TARTRATE 25 MG TABLET (FP) ONE (21:40)
[2023-09-06] MEDS: levETIRAcetam 500 MG TABLET (FP) PO SCH (21:47)
[2023-09-06] MEDS: METOPROLOL TARTRATE 25 MG TABLET (FP) PO SCH (21:47)
[2023-09-06] MEDS: ATORVASTATIN CA 40 MG TABLET (FP) PO SCH (21:47)
[2023-09-06] MEDS: LIDOCAINE PATCH REMOVAL MC SCH (21:47)
[2023-09-06] MEDS ORDERED: METOPROLOL TARTRATE 25 MG TABLET (FP) PO SCH (22:00)
[2023-09-06] MEDS ORDERED: ACETAMINOPHEN 650 MG/20.3 ML ORAL SOLUTION (CUPS) PO PRN (23:37)
[2023-09-07] MEDS: ACETAMINOPHEN 325 MG TABLET (FP) PO PRN ×2 (00:08→15:58)
[2023-09-07] MEDS: FUROSEMIDE 40 MG TABLET (FP) PO SCH (06:14)
[2023-09-07] MEDS ORDERED: FUROSEMIDE 40 MG TABLET (FP) ONE (06:15)
[2023-09-07] MEDS ORDERED: SODIUM CHLORIDE 250 ML IV PRN ×2 (09:46→15:09)
[2023-09-07] MEDS ORDERED: DEUTETRABENAZINE 12 MG PO SCH (10:00)
[2023-09-07] MEDS: MIDODRINE HCL 5 MG TABLET PO SCH (10:15)
[2023-09-07] MEDS: ASPIRIN COATED 81 MG TABLET.EC PO SCH (10:15)
[2023-09-07] MEDS: LIDOCAINE 4% PATCH TP SCH (10:15)
[2023-09-07] MEDS: PANTOPRAZOLE 40 MG TABLET PO SCH (10:15)
[2023-09-07] MEDS: GABAPENTIN 400 MG CAPSULE PO SCH (10:15)
[2023-09-07] MEDS ORDERED: MIDODRINE HCL 5 MG TABLET ONE (15:28)
[2023-09-07] MEDS ORDERED: ACETAMINOPHEN 325 MG TABLET (FP) ONE (15:54)
[2023-09-07 16:54] VITALS: BP 122/65; PULSE 74; RESP 17; TEMP 96.5
== END 2023-09-07 16:56 | disposition home or self-care (01) ==
LOC: JER 13:56 → JERBED 17:52
PROVIDERS: ADMIT Internal Medicine; ATTEND Internal Medicine
DX: Z45.2 Encounter for adjustment and management of vascular access device (principal); I48.91 Unspecified atrial fibrillation; N18.6 End stage renal disease; Z99.2 Dependence on renal dialysis; Z87.891 Personal history of nicotine dependence; I25.10 Atherosclerotic heart disease of native coronary artery without angina pectoris; I10 Essential (primary) hypertension; D64.9 Anemia, unspecified; F25.9 Schizoaffective disorder, unspecified; T14.8XXA Other injury of unspecified body region, initial encounter; X58.XXXA Exposure to other specified factors, initial encounter
CPT/HCPCS: 36415; 71046-TC-FY; 80048; 80053; 83735; 84100; 85025; 93005; 93010; 99285-25; G0378

== ENCOUNTER 2023-10-27 18:18 | Inpatient (IN) | payer OTHER ==
[2023-10-27 18:35] VITALS: BMI 24.0
[2023-10-27 20:44] LABS: BASO % 0.8 % (0-2.0); EOS % 7.7 % (0-4.5); HEMATOCRIT 36.5 % (32.4-45.2); HEMOGLOBIN 12.1 GM/dL (10.7-15.3); LYMPH % 21.4 % (8-40); MCH 33.5 pg (25.7-33.7); MCHC 33.2 g/dl (32.0-36.0); MEAN CELL VOLUME 100.7 fl (80-96); MEAN PLT VOLUME 8.2 fl (7.5-11.1); MONO % 10.1 % (3.8-10.2); PLATELET COUNT 215 10^3/uL (134-434); RBC 3.63 M/mm3 (3.60-5.2); RDW 14.1 % (11.6-15.6); WHITE BLOOD COUNT 8.6 K/mm3 (4.0-10.0)
[2023-10-27 21:03] LABS: CHLORIDE 98 mmol/L (98-107); POTASSIUM 4.1 mmol/L (3.5-5.1); SODIUM 137 mmol/L (136-145)
[2023-10-27 21:06] LABS: CALCIUM 9.4 mg/dL (8.5-10.1)
[2023-10-27 21:07] LABS: ALBUMIN 3.7 g/dl (3.4-5.0); ANION GAP 14 mmol/L (4-13); BLOOD UREA NITROGEN 93.7 mg/dL (7-18); CO2 26 mmol/L (21-32); GLUCOSE,RANDOM 113 mg/dL (74-106); MAGNESIUM 2.5 mg/dL (1.8-2.4)
[2023-10-27 21:10] LABS: PHOSPHOROUS 7.6 mg/dL (2.5-4.9); SGOT/AST 10 U/L (15-37); SGPT/ALT 13 U/L (13-61)
[2023-10-27 21:12] LABS: BILIRUBIN,TOTAL 0.5 mg/dL (0.2-1); TOT PROT 7.9 g/dl (6.4-8.2)
[2023-10-27 21:13] LABS: ALK PHOS 118 U/L (45-117); CREATININE 11.5 mg/dL (0.55-1.3)
[2023-10-28] MEDS: levETIRAcetam 500 MG TABLET (FP) PO SCH (00:29)
[2023-10-28] MEDS ORDERED: MELATONIN 5 MG TABLETS ONE (00:34)
[2023-10-28] MEDS: MELATONIN 5 MG TABLETS PO ONE (00:36)
[2023-10-28] MEDS ORDERED: ACETAMINOPHEN 1000 MG/100 ML BAG IVPB PRN (01:39)
[2023-10-28] MEDS: ACETAMINOPHEN 1000 MG/100 ML BAG IVPB ONE (01:56)
[2023-10-28] MEDS ORDERED: LIDOCAINE 4% PATCH TP ONE (01:58)
[2023-10-28] MEDS ORDERED: ACETAMINOPHEN 500 MG TABLET (FP) ONE (01:58)
[2023-10-28] MEDS: LIDOCAINE 5% TOPICAL PATCH TP ONE (02:03)
[2023-10-28] MEDS: ACETAMINOPHEN 500 MG TABLET (FP) PO ONE (02:03)
[2023-10-28] MEDS: FUROSEMIDE 40 MG/4 ML INJECTABLE VIAL IVPUSH ONE (02:58)
[2023-10-28] MEDS ORDERED: MIDODRINE HCL 5 MG TABLET ONE ×2 (03:04→08:56)
[2023-10-28] MEDS: MIDODRINE HCL 5 MG TABLET PO ONE (03:10)
[2023-10-28 07:18] LABS: PROTHROMBIN TIME (PATIENT) 11.5 SEC (9.7-13.0)
[2023-10-28 07:24] LABS: HEMOGLOBIN 11.5 GM/dL (10.7-15.3); MCHC 33.7 g/dl (32.0-36.0); MEAN CELL VOLUME 100.9 fl (80-96); MEAN PLT VOLUME 8.8 fl (7.5-11.1); PLATELET COUNT 195 10^3/uL (134-434); RBC 3.37 M/mm3 (3.60-5.2); RDW 13.9 % (11.6-15.6); WHITE BLOOD COUNT 8.7 K/mm3 (4.0-10.0)
[2023-10-28 07:30] LABS: CHLORIDE 99 mmol/L (98-107); POTASSIUM 3.9 mmol/L (3.5-5.1); SODIUM 141 mmol/L (136-145)
[2023-10-28 07:37] LABS: ALBUMIN 3.3 g/dl (3.4-5.0); ANION GAP 16 mmol/L (4-13); CALCIUM 9.1 mg/dL (8.5-10.1); CO2 26 mmol/L (21-32); GLUCOSE,RANDOM 123 mg/dL (74-106); MAGNESIUM 2.4 mg/dL (1.8-2.4)
[2023-10-28 07:40] LABS: PHOSPHOROUS 8.4 mg/dL (2.5-4.9)
[2023-10-28 07:41] LABS: SGOT/AST 9 U/L (15-37)
[2023-10-28 07:42] LABS: BILIRUBIN,TOTAL 0.5 mg/dL (0.2-1); SGPT/ALT 11 U/L (13-61); TOT PROT 7.3 g/dl (6.4-8.2)
[2023-10-28 07:43] LABS: ALK PHOS 102 U/L (45-117)
[2023-10-28 07:44] LABS: CREATININE 11.8 mg/dL (0.55-1.3)
[2023-10-28] MEDS ORDERED: levETIRAcetam 500 MG TABLET (FP) PO ONE (08:55)
[2023-10-28] MEDS ORDERED: ASPIRIN 81 MG CHEWABLE TABLETS ONE (08:55)
[2023-10-28] MEDS ORDERED: GABAPENTIN 400 MG CAPSULE ONE (08:55)
[2023-10-28] MEDS: ASPIRIN COATED 81 MG TABLET.EC PO SCH (09:08)
[2023-10-28] MEDS: MIDODRINE HCL 5 MG TABLET PO SCH (09:08)
[2023-10-28] MEDS: GABAPENTIN 400 MG CAPSULE PO SCH (09:08)
[2023-10-28] MEDS ORDERED: DEUTETRABENAZINE 12 MG PO SCH (10:00)
[2023-10-28] MEDS ORDERED: MIDODRINE HCL 5 MG TABLET PO SCH (10:00)
[2023-10-28] MEDS: ACETAMINOPHEN 500 MG TABLET (FP) PO PRN (17:19)
[2023-10-28] MEDS ORDERED: SODIUM CHLORIDE 250 ML IV PRN (17:52)
[2023-10-28] MEDS: LIDOCAINE PATCH REMOVAL MC SCH (22:57)
[2023-10-28] MEDS: ATORVASTATIN CA 40 MG TABLET (FP) PO SCH (22:57)
[2023-10-28] MEDS: PHENYLEPHRINE HCL/COCOA BUTTER 1 EACH SUPP.RECT RC ONE (22:57)
[2023-10-29] MEDS: MELATONIN 5 MG TABLETS PO SCH (00:01)
[2023-10-29 04:13] LABS: EPI CELLS >36 /uL (0-25.1); HYALINE CASTS 72 /uL (0-3.1); PH,URINE 5.5 (5.0-8.0); URINE APPEARANCE TURBID; URINE BILIRUBIN NEGATIVE (NEGATIVE); URINE COLOR YELLOW; URINE GLUCOSE (UA) NEGATIVE (NEGATIVE); URINE KETONE TRACE (NEGATIVE); URINE LEUK ESTERASE 3+ (NEGATIVE); URINE NITRITE NEGATIVE (NEGATIVE); URINE PROTEIN 2+ (NEGATIVE); URINE RBC 6096 /uL (0-23.9); URINE UROBILINOGEN 0.2 mg/dL (0.2-1.0); URINE WBC 19289 /uL (0-25.8)
[2023-10-29 05:52] LABS: URINE BACTERIA REVIEW /uL (0-1359)
[2023-10-29 05:56] LABS: URINE CRYSTALS REVIEW /hpf
[2023-10-29] MEDS ORDERED: POLYETHYLENE GLYCOL (HEALTHYLAX) 3350 17 GM PACKET PO PRN (10:00)
[2023-10-29] MEDS ORDERED: HEPARIN NA (PORCINE) 5,000 UNITS/ML 1ML VIAL ONE (12:41)
[2023-10-29] MEDS ORDERED: SODIUM CHLORIDE 250 ML IV PRN (17:21)
[2023-10-29] MEDS: HEPARIN NA (PORCINE) 5,000 UNITS/ML 1ML VIAL IVPUSH ONE ×2 (17:54→17:55)
[2023-10-30 11:40] LABS: HEMATOCRIT 31.1 % (32.4-45.2); HEMOGLOBIN 10.4 GM/dL (10.7-15.3); MCH 33.8 pg (25.7-33.7); MCHC 33.6 g/dl (32.0-36.0); MEAN CELL VOLUME 100.6 fl (80-96); MEAN PLT VOLUME 8.9 fl (7.5-11.1); PLATELET COUNT 186 10^3/uL (134-434); RBC 3.09 M/mm3 (3.60-5.2); RDW 13.8 % (11.6-15.6); WHITE BLOOD COUNT 7.5 K/mm3 (4.0-10.0)
[2023-10-30 11:58] LABS: POTASSIUM 3.7 mmol/L (3.5-5.1)
[2023-10-30 11:59] LABS: CALCIUM 8.6 mg/dL (8.5-10.1)
[2023-10-30 12:03] LABS: CREATININE 6.3 mg/dL (0.55-1.3)
[2023-10-30 12:27] LABS: BLOOD UREA NITROGEN 46.9 mg/dL (7-18)
[2023-10-30 15:24] VITALS: RESP 20; TEMP 98.2
[2023-10-30 17:12] VITALS: BP 116/56; PULSE 69
== END 2023-10-30 23:42 | disposition home or self-care (01) | DRG 314 ==
LOC: JER 18:18 → JERBED 20:46 → J8W 10-28 12:54
PROVIDERS: ADMIT Internal Medicine; ATTEND Internal Medicine
PROC: 02H633Z Insertion of Infusion Device into Right Atrium, Percutaneous Approach (ICD-10-PCS; principal; 2023-10-29)
PROC: B518ZZA Fluoroscopy of Superior Vena Cava, Guidance (ICD-10-PCS; 2023-10-29)
PROC: 5A1D70Z Performance of Urinary Filtration, Intermittent, Less than 6 Hours Per Day (ICD-10-PCS; 2023-10-30)
DX: T82.510A Breakdown (mechanical) of surgically created arteriovenous fistula, initial encounter (principal); N18.6 End stage renal disease; I13.2 Hypertensive heart and chronic kidney disease with heart failure and with stage 5 chronic kidney disease, or end stage renal disease; I50.32 Chronic diastolic (congestive) heart failure; I69.351 Hemiplegia and hemiparesis following cerebral infarction affecting right dominant side; J44.9 Chronic obstructive pulmonary disease, unspecified; Z99.2 Dependence on renal dialysis; Y83.9 Surgical procedure, unspecified as the cause of abnormal reaction of the patient, or of later complication, without mention of misadventure at the time of the procedure
CPT/HCPCS: 36415; 36558; 71045-TC-FY; 80048; 80053; 81003; 83735; 84100; 85025; 85027; 85610; 86705; 87081; 87340; 93005; 93010; 99285-25

== ENCOUNTER 2024-03-08 18:37 | Inpatient (IN) | payer OTHER ==
[2024-03-08] MEDS: ACETAMINOPHEN 1000 MG/100 ML BAG IVPB ONE (20:14)
[2024-03-08 21:14] LABS: BASO % 0.5 % (0-2.0); EOS % 6.8 % (0-4.5); HEMATOCRIT 31.9 % (32.4-45.2); HEMOGLOBIN 10.4 GM/dL (10.7-15.3); LYMPH % 12.8 % (8-40); MCH 33.5 pg (25.7-33.7); MCHC 32.7 g/dl (32.0-36.0); MEAN CELL VOLUME 102.3 fl (80-96); MEAN PLT VOLUME 8.6 fl (7.5-11.1); MONO % 11.3 % (3.8-10.2); NEUT % 68.6 % (42.8-82.8); PLATELET COUNT 204 10^3/uL (134-434); RBC 3.11 M/mm3 (3.60-5.2); RDW 13.6 % (11.6-15.6); WHITE BLOOD COUNT 9.3 K/mm3 (4.0-10.0)
[2024-03-08 21:15] LABS: VENOUS PCO2 52.8 mmHg (38-52); VENOUS PH 7.215 (7.310-7.410)
[2024-03-08 21:26] LABS: ACTIVATED PTT 31.1 SECONDS (25.2-36.5)
[2024-03-08 21:32] LABS: CHLORIDE 102 mmol/L (98-107); SODIUM 139 mmol/L (136-145)
[2024-03-08 21:33] LABS: CALCIUM 8.7 mg/dL (8.5-10.1)
[2024-03-08 21:34] LABS: ALBUMIN 3.2 g/dl (3.4-5.0); ANION GAP 16 mmol/L (4-13); CO2 22 mmol/L (21-32)
[2024-03-08 21:35] LABS: GLUCOSE,RANDOM 52 mg/dL (74-106)
[2024-03-08 21:37] LABS: SGOT/AST 12 U/L (15-37); SGPT/ALT 14 U/L (13-61)
[2024-03-08 21:39] LABS: BILIRUBIN,TOTAL 0.7 mg/dL (0.2-1); CREATININE 10.9 mg/dL (0.55-1.3); TOT PROT 7.2 g/dl (6.4-8.2)
[2024-03-08 21:40] LABS: ALK PHOS 136 U/L (45-117)
[2024-03-08 21:46] LABS: MAGNESIUM 2.1 mg/dL (1.8-2.4)
[2024-03-08 21:50] LABS: PHOSPHOROUS 7.9 mg/dL (2.5-4.9)
[2024-03-08 21:52] LABS: INR 1.02 (0.83-1.09); PROTHROMBIN TIME (PATIENT) 11.7 SEC (9.7-13.0)
[2024-03-08] MEDS: FUROSEMIDE 40 MG/4 ML INJECTABLE VIAL IVPUSH ONE (22:15)
[2024-03-08] MEDS ORDERED: ACETAMINOPHEN INJECTION 100 ML ONE (22:54)
[2024-03-08] MEDS ORDERED: FUROSEMIDE 40 MG/4 ML INJECTABLE VIAL ONE (22:55)
[2024-03-09] MEDS ORDERED: ALBUTEROL SO4 0.083% IH SOL 2.5 MG/3 ML VIAL.NEB. NEB PRN (00:59)
[2024-03-09 08:23] LABS: HEMATOCRIT 29.4 % (32.4-45.2); HEMOGLOBIN 9.7 GM/dL (10.7-15.3); MCH 33.8 pg (25.7-33.7); MCHC 33.2 g/dl (32.0-36.0); MEAN CELL VOLUME 101.8 fl (80-96); MEAN PLT VOLUME 8.8 fl (7.5-11.1); PLATELET COUNT 200 10^3/uL (134-434); RBC 2.88 M/mm3 (3.60-5.2); RDW 13.5 % (11.6-15.6); WHITE BLOOD COUNT 10.2 K/mm3 (4.0-10.0)
[2024-03-09] MEDS ORDERED: SODIUM CHLORIDE 250 ML IV PRN (08:36)
[2024-03-09 08:54] LABS: CHLORIDE 102 mmol/L (98-107); POTASSIUM 4.2 mmol/L (3.5-5.1); SODIUM 139 mmol/L (136-145)
[2024-03-09 08:56] LABS: CALCIUM 8.8 mg/dL (8.5-10.1)
[2024-03-09 08:57] LABS: ANION GAP 17 mmol/L (4-13); BLOOD UREA NITROGEN 87.1 mg/dL (7-18); CO2 20 mmol/L (21-32); GLUCOSE,RANDOM 88 mg/dL (74-106); MAGNESIUM 2.1 mg/dL (1.8-2.4)
[2024-03-09 09:00] LABS: SGOT/AST 11 U/L (15-37); SGPT/ALT 13 U/L (13-61)
[2024-03-09 09:01] LABS: BILIRUBIN,TOTAL 0.7 mg/dL (0.2-1); CREATININE 10.9 mg/dL (0.55-1.3); TOT PROT 6.6 g/dl (6.4-8.2)
[2024-03-09 09:03] LABS: ALK PHOS 127 U/L (45-117)
[2024-03-09 09:43] LABS: PHOSPHOROUS 8.9 mg/dL (2.5-4.9)
[2024-03-09] MEDS: LEVALBUTEROL HCL 0.63 MG/3 ML VIAL.NEB. IH SCH (10:02)
[2024-03-09] MEDS: levETIRAcetam 500 MG TABLET (FP) PO SCH (10:03)
[2024-03-09] MEDS: ASPIRIN COATED 81 MG TABLET.EC PO SCH (10:03)
[2024-03-09] MEDS: GABAPENTIN 400 MG CAPSULE PO SCH (10:03)
[2024-03-09] MEDS: MIDODRINE HCL 5 MG TABLET PO SCH (10:03)
[2024-03-09] MEDS: methylPREDNISolone NA SUCC 40 MG/1 ML VIAL IVPUSH SCH (10:04)
[2024-03-09 10:53] LABS: EPI CELLS >36 /uL (0-25.1); HYALINE CASTS 0 /uL (0-3.1); URINE APPEARANCE CLOUDY; URINE BACTERIA 8247 /uL (0-1359); URINE BILIRUBIN NEGATIVE (NEGATIVE); URINE COLOR YELLOW; URINE GLUCOSE (UA) NEGATIVE (NEGATIVE); URINE KETONE NEGATIVE (NEGATIVE); URINE LEUK ESTERASE 2+ (NEGATIVE); URINE NITRITE NEGATIVE (NEGATIVE); URINE PROTEIN 1+ (NEGATIVE); URINE UROBILINOGEN 0.2 mg/dL (0.2-1.0); URINE WBC 78 /uL (0-25.8)
[2024-03-09 11:50] LABS: URINE CRYSTALS CA OXALATE FEW /hpf; URINE RBC 41.8 /uL (0-23.9)
[2024-03-09] MEDS ORDERED: DEUTETRABENAZINE 24 MG PO SCH (18:00)
[2024-03-09] MEDS: BUDESONIDE/FORMETEROL FUMARATE 160/4.5 mcg INHALER IH SCH (19:29)
[2024-03-09] MEDS: DEUTETRABENAZINE 12 MG PO SCH ×2 (19:30→22:20)
[2024-03-09] MEDS: ATORVASTATIN CA 40 MG TABLET (FP) PO SCH (22:03)
[2024-03-09] MEDS: metoPROLOL SUCCINATE 25 MG TAB.SR.24H (FP) PO SCH (22:03)
[2024-03-09] MEDS: HEPARIN NA (PORCINE) 5,000 UNITS/ML 1ML VIAL SQ SCH (22:04)
[2024-03-10] MEDS: MELATONIN 5 MG TABLETS PO PRN (00:04)
[2024-03-10] MEDS: ACETAMINOPHEN 1000 MG/100 ML BAG IVPB PRN (00:04)
[2024-03-10] MEDS: DEUTETRABENAZINE 12 MG PO SCH (20:59)
[2024-03-11 08:48] LABS: MAGNESIUM 1.9 mg/dL (1.8-2.4)
[2024-03-11 08:51] LABS: PHOSPHOROUS 6.1 mg/dL (2.5-4.9)
[2024-03-11 09:22] LABS: CHLORIDE 101 mmol/L (98-107); POTASSIUM 4.5 mmol/L (3.5-5.1); SODIUM 139 mmol/L (136-145)
[2024-03-11 09:23] LABS: ANION GAP 12 mmol/L (4-13); CALCIUM 9.1 mg/dL (8.5-10.1); CO2 26 mmol/L (21-32)
[2024-03-11 09:25] LABS: BLOOD UREA NITROGEN 75.2 mg/dL (7-18); GLUCOSE,RANDOM 134 mg/dL (74-106)
[2024-03-11 09:27] LABS: SGOT/AST 14 U/L (15-37); SGPT/ALT 15 U/L (13-61)
[2024-03-11 09:29] LABS: BILIRUBIN,TOTAL 0.4 mg/dL (0.2-1); TOT PROT 6.7 g/dl (6.4-8.2)
[2024-03-11 09:30] LABS: ALK PHOS 117 U/L (45-117); CREATININE 7.8 mg/dL (0.55-1.3)
[2024-03-11] MEDS ORDERED: SODIUM CHLORIDE 250 ML IV PRN (09:44)
[2024-03-11 10:09] LABS: HEMOGLOBIN 9.4 GM/dL (10.7-15.3); MCH 33.3 pg (25.7-33.7); MCHC 32.3 g/dl (32.0-36.0); MEAN PLT VOLUME 8.8 fl (7.5-11.1); PLATELET COUNT 242 10^3/uL (134-434); RBC 2.82 M/mm3 (3.60-5.2); RDW 13.4 % (11.6-15.6); WHITE BLOOD COUNT 12.9 K/mm3 (4.0-10.0)
[2024-03-11] MEDS: EPOETIN ALFA-EPBX 4,000 UNIT/ML VIAL IVPUSH ONE (10:33)
[2024-03-11] MEDS: ACETAMINOPHEN 325 MG TABLET (FP) PO PRN (17:24)
[2024-03-12] MEDS ORDERED: SODIUM CHLORIDE 250 ML IV PRN (13:43)
[2024-03-13] MEDS: guaiFENesin 200 MG/10 ML 10 ML UNIT-DOSE CUPS PO PRN (02:29)
[2024-03-13 09:30] LABS: BASO % 0.3 % (0-2.0); EOS % 0.1 % (0-4.5); HEMATOCRIT 31.4 % (32.4-45.2); HEMOGLOBIN 10.4 GM/dL (10.7-15.3); LYMPH % 11.8 % (8-40); MCH 33.8 pg (25.7-33.7); MEAN CELL VOLUME 102.2 fl (80-96); MEAN PLT VOLUME 8.7 fl (7.5-11.1); MONO % 7.6 % (3.8-10.2); NEUT % 80.2 % (42.8-82.8); PLATELET COUNT 287 10^3/uL (134-434); RBC 3.07 M/mm3 (3.60-5.2); RDW 13.7 % (11.6-15.6); WHITE BLOOD COUNT 16.4 K/mm3 (4.0-10.0)
[2024-03-13 10:27] LABS: HEMOGLOBIN 9.9 GM/dL (10.7-15.3); MCH 33.7 pg (25.7-33.7); MCHC 32.9 g/dl (32.0-36.0); MEAN CELL VOLUME 102.3 fl (80-96); MEAN PLT VOLUME 8.7 fl (7.5-11.1); PLATELET COUNT 287 10^3/uL (134-434); RBC 2.94 M/mm3 (3.60-5.2); RDW 13.5 % (11.6-15.6); WHITE BLOOD COUNT 15.4 K/mm3 (4.0-10.0)
[2024-03-13 10:47] LABS: POTASSIUM 4.7 mmol/L (3.5-5.1)
[2024-03-13 10:50] LABS: ALBUMIN 3.1 g/dl (3.4-5.0); BLOOD UREA NITROGEN 62.4 mg/dL (7-18)
[2024-03-13 10:54] LABS: CREATININE 6.3 mg/dL (0.55-1.3)
[2024-03-13 10:55] LABS: BILIRUBIN,TOTAL 0.5 mg/dL (0.2-1); TOT PROT 6.6 g/dl (6.4-8.2)
[2024-03-13 14:35] VITALS: BMI 35.3
[2024-03-14 11:08] LABS: HEMATOCRIT 32.3 % (32.4-45.2); HEMOGLOBIN 10.3 GM/dL (10.7-15.3); MCH 32.6 pg (25.7-33.7); MCHC 31.9 g/dl (32.0-36.0); MEAN PLT VOLUME 8.7 fl (7.5-11.1); PLATELET COUNT 311 10^3/uL (134-434); RBC 3.16 M/mm3 (3.60-5.2); RDW 13.6 % (11.6-15.6); WHITE BLOOD COUNT 17.3 K/mm3 (4.0-10.0)
[2024-03-14 11:28] LABS: POTASSIUM 4.5 mmol/L (3.5-5.1)
[2024-03-14 11:29] LABS: BLOOD UREA NITROGEN 50.7 mg/dL (7-18); CALCIUM 9.5 mg/dL (8.5-10.1)
[2024-03-14 11:33] LABS: CREATININE 4.7 mg/dL (0.55-1.3)
[2024-03-14 12:06] LABS: ANISOCYTOSIS 1+; MACROCYTOSIS 1+
[2024-03-14] MEDS: CEFUROXIME AXETIL 250 MG TABLET PO SCH (14:18)
[2024-03-14] MEDS ORDERED: SODIUM CHLORIDE 250 ML IV PRN (14:30)
[2024-03-15 08:33] LABS: MAGNESIUM 1.8 mg/dL (1.8-2.4)
[2024-03-15 08:37] LABS: PHOSPHOROUS 6.9 mg/dL (2.5-4.9)
[2024-03-15] MEDS: HEPARIN NA (PORCINE) 5,000 UNITS/ML 1ML VIAL IVPUSH ONE (09:15)
[2024-03-15 10:03] LABS: HEMATOCRIT 29.1 % (32.4-45.2); HEMOGLOBIN 9.4 GM/dL (10.7-15.3); MCH 33.5 pg (25.7-33.7); MCHC 32.4 g/dl (32.0-36.0); MEAN CELL VOLUME 103.6 fl (80-96); MEAN PLT VOLUME 8.6 fl (7.5-11.1); PLATELET COUNT 311 10^3/uL (134-434); RBC 2.81 M/mm3 (3.60-5.2); RDW 13.4 % (11.6-15.6); WHITE BLOOD COUNT 13.9 K/mm3 (4.0-10.0)
[2024-03-15 10:18] LABS: POTASSIUM 4.5 mmol/L (3.5-5.1)
[2024-03-15 10:23] VITALS: RESP 18
[2024-03-15 10:25] LABS: BLOOD UREA NITROGEN 73.6 mg/dL (7-18)
[2024-03-15 10:28] LABS: CREATININE 5.8 mg/dL (0.55-1.3)
[2024-03-15 15:02] VITALS: TEMP 98.2
[2024-03-15 19:04] VITALS: BP 107/45; PULSE 68
== END 2024-03-15 20:50 | disposition home or self-care (01) | DRG 291 ==
LOC: JER 18:37 → JERBED 22:29 → J4W 03-09 18:17 → J4S 03-09 23:26
PROVIDERS: ADMIT Internal Medicine; ATTEND Internal Medicine
PROC: 5A1D70Z Performance of Urinary Filtration, Intermittent, Less than 6 Hours Per Day (ICD-10-PCS; principal; 2024-03-09)
DX: I13.2 Hypertensive heart and chronic kidney disease with heart failure and with stage 5 chronic kidney disease, or end stage renal disease (principal); I50.33 Acute on chronic diastolic (congestive) heart failure; N18.6 End stage renal disease; I69.351 Hemiplegia and hemiparesis following cerebral infarction affecting right dominant side; J96.11 Chronic respiratory failure with hypoxia; I24.89 Other forms of acute ischemic heart disease; J44.1 Chronic obstructive pulmonary disease with (acute) exacerbation; I48.21 Permanent atrial fibrillation; J44.9 Chronic obstructive pulmonary disease, unspecified; Z99.81 Dependence on supplemental oxygen; Z99.2 Dependence on renal dialysis; F20.9 Schizophrenia, unspecified; D64.9 Anemia, unspecified; G40.909 Epilepsy, unspecified, not intractable, without status epilepticus; I25.10 Atherosclerotic heart disease of native coronary artery without angina pectoris; R91.8 Other nonspecific abnormal finding of lung field
CPT/HCPCS: 0241U-QW; 36415; 71045-TC-FY; 71250-TC; 80048; 80053; 81003; 82607; 82728; 82746; 82803; 82962; 83540; 83550; 83735; 83880; 84100; 84484; 85025; 85027; 85610; 85730; 86803; 86850; 86900; 86901; 87070; 87086; 87186; 87205; 87340; 87517; 87899; 93005; 93010; 93306-TC; 99285-25; J0131; J1644; Q5106

== ENCOUNTER 2024-08-27 15:11 | Observation (INO) | payer OTHER ==
[2024-08-27 18:05] LABS: ABSOLUTE IMMATURE GRANULOCYTES 0.03 x10^3/uL (0.0-0.031); BASOPHILS # 0.06 x10^3/uL (0.01-0.08); EOSINOPHIL % 8.6 % (0.7-5.8); EOSINOPHILS # 0.78 x10^3/uL (0.04-0.36); HEMATOCRIT 38.1 % (34.1-44.9); HEMOGLOBIN 11.7 g/dL (11.2-15.7); MCHC 30.7 g/dl (32.2-35.5); MEAN CELL VOLUME 103.3 fl (79.4-94.8); MEAN PLT VOLUME 10.2 fl (9.4-12.3); MONOCYTE # 0.98 x10^3/uL (0.24-0.86); MONOCYTE % 10.9 % (4.7-12.5); PLATELET COUNT 246 x10^3/uL (182-369); RDW 13.5 % (12.4-16.6)
[2024-08-27 18:22] LABS: CHLORIDE 102 mmol/L (98-107); POTASSIUM 4.3 mmol/L (3.5-5.1); SODIUM 138 mmol/L (136-145)
[2024-08-27 18:24] LABS: ALBUMIN 3.3 g/dl (3.4-5.0); ANION GAP 14 mmol/L (4-13); BLOOD UREA NITROGEN 80.4 mg/dL (7-18); CALCIUM 9.4 mg/dL (8.5-10.1); CO2 23 mmol/L (21-32); GLUCOSE,RANDOM 97 mg/dL (74-106); MAGNESIUM 2.2 mg/dL (1.8-2.4)
[2024-08-27 18:27] LABS: SGOT/AST 13 U/L (15-37); SGPT/ALT 18 U/L (13-61)
[2024-08-27 18:29] LABS: BILIRUBIN,TOTAL 0.6 mg/dL (0.2-1)
[2024-08-27 18:30] LABS: ALK PHOS 109 U/L (45-117)
[2024-08-27 19:19] LABS: CREATININE 9.9 mg/dL (0.55-1.3); PHOSPHOROUS 8.8 mg/dL (2.5-4.9)
[2024-08-27] MEDS ORDERED: ALBUTEROL SO4 0.083% IH SOL 2.5 MG/3 ML VIAL.NEB. NEB PRN (20:28)
[2024-08-27] MEDS ORDERED: SEVELAMER CARBONATE 0.8 GM POWDER PACKET PO SCH (21:30)
[2024-08-27] MEDS ORDERED: DEUTETRABENAZINE 12 MG PO SCH (22:00)
[2024-08-27] MEDS: metoPROLOL SUCCINATE 25 MG TAB.SR.24H (FP) PO SCH (23:23)
[2024-08-27] MEDS: ATORVASTATIN CA 40 MG TABLET (FP) PO SCH (23:23)
[2024-08-27] MEDS: levETIRAcetam 500 MG TABLET (FP) PO SCH (23:23)
[2024-08-27] MEDS: HEPARIN NA (PORCINE) 5,000 UNITS/ML 1ML VIAL SQ SCH (23:24)
[2024-08-27] MEDS: FUROSEMIDE 40 MG TABLET (FP) PO SCH (23:55)
[2024-08-28] MEDS: ACETAMINOPHEN 1000 MG/100 ML BAG IVPB PRN (00:07)
[2024-08-28] MEDS: GABAPENTIN 300 MG CAPSULE PO ONE (00:15)
[2024-08-28] MEDS: SEVELAMER CARBONATE 0.8 GM POWDER PACKET PO ONE (00:15)
[2024-08-28 01:33] VITALS: BMI 35.6
[2024-08-28 08:22] LABS: HEMATOCRIT 39.2 % (34.1-44.9); MCHC 30.6 g/dl (32.2-35.5); MEAN CELL VOLUME 104.5 fl (79.4-94.8); MEAN PLT VOLUME 10.7 fl (9.4-12.3); PLATELET COUNT 252 x10^3/uL (182-369); RDW 13.7 % (12.4-16.6)
[2024-08-28 08:46] LABS: CHLORIDE 98 mmol/L (98-107); POTASSIUM 4.2 mmol/L (3.5-5.1); SODIUM 136 mmol/L (136-145)
[2024-08-28 08:55] LABS: ALBUMIN 3.2 g/dl (3.4-5.0); ANION GAP 17 mmol/L (4-13); BLOOD UREA NITROGEN 82.8 mg/dL (7-18); CALCIUM 9.1 mg/dL (8.5-10.1); CO2 21 mmol/L (21-32); GLUCOSE,RANDOM 85 mg/dL (74-106); MAGNESIUM 2.3 mg/dL (1.8-2.4); SGPT/ALT 14 U/L (13-61)
[2024-08-28 08:58] LABS: SGOT/AST 19 U/L (15-37)
[2024-08-28 09:00] LABS: BILIRUBIN,TOTAL 0.5 mg/dL (0.2-1); TOT PROT 7.1 g/dl (6.4-8.2)
[2024-08-28 09:01] LABS: ALK PHOS 116 U/L (45-117)
[2024-08-28 09:37] LABS: CREATININE 10.6 mg/dL (0.55-1.3)
[2024-08-28 09:38] LABS: PHOSPHOROUS 9.8 mg/dL (2.5-4.9)
[2024-08-28] MEDS ORDERED: FUROSEMIDE 40 MG TABLET (FP) PO SCH (10:00)
[2024-08-28] MEDS ORDERED: GABAPENTIN 300 MG CAPSULE PO SCH ×2 (10:00→22:00)
[2024-08-28] MEDS: ASPIRIN COATED 81 MG TABLET.EC PO SCH (10:07)
[2024-08-28] MEDS: MIDODRINE HCL 5 MG TABLET PO SCH (10:07)
[2024-08-28] MEDS: SEVELAMER CARBONATE 0.8 GM POWDER PACKET PO SCH (10:08)
[2024-08-28 12:49] LABS: HCV DIAGNOSTIC IN-HOUSE W/RFLX NON-REACTIVE (NONREACTIVE)
[2024-08-28] MEDS: HEPARIN NA (PORCINE) 5,000 UNITS/ML 1ML VIAL IVPUSH ONE ×2 (13:40→15:42)
[2024-08-28] MEDS ORDERED: SODIUM CHLORIDE 250 ML IV PRN (15:00)
[2024-08-28 16:53] VITALS: BP 115/50; PULSE 53; TEMP 97.9
[2024-08-28 17:39] VITALS: RESP 18
== END 2024-08-28 19:05 | disposition home or self-care (01) ==
LOC: JER 15:11 → JERBED 19:18 → J6S 22:49
PROVIDERS: ADMIT Internal Medicine; ATTEND Internal Medicine
PROC: 3E033NZ Introduction of Analgesics, Hypnotics, Sedatives into Peripheral Vein, Percutaneous Approach (ICD-10-PCS; principal; 2024-08-27)
PROC: 3E033GC Introduction of Other Therapeutic Substance into Peripheral Vein, Percutaneous Approach (ICD-10-PCS; 2024-08-27)
DX: N18.6 End stage renal disease (principal); Z99.2 Dependence on renal dialysis; R13.10 Dysphagia, unspecified; E87.6 Hypokalemia; G24.01 Drug induced subacute dyskinesia; R91.1 Solitary pulmonary nodule; R91.8 Other nonspecific abnormal finding of lung field; E78.5 Hyperlipidemia, unspecified; I50.33 Acute on chronic diastolic (congestive) heart failure; I48.0 Paroxysmal atrial fibrillation; F20.9 Schizophrenia, unspecified; D50.9 Iron deficiency anemia, unspecified; Z88.8 Allergy status to other drugs, medicaments and biological substances
CPT/HCPCS: 36415; 80053; 82306; 83735; 84100; 85025; 85027; 86704; 86803; 87340; 87517; 93005; 93010; 94660; 96374; 96375; 99285-25; G0378; J0131; J1644

== ENCOUNTER 2024-12-21 10:33 | Observation (INO) | payer OTHER ==
[2024-12-21 10:48] VITALS: BMI 34.0
[2024-12-21] MEDS ORDERED: ALBUTEROL SO4 2.5/IPRATROPIUM 0.5 INH SOL 3 ML VIAL.NEB. NEB ONE (11:09)
[2024-12-21] MEDS: ALBUTEROL SO4 2.5/IPRATROPIUM 0.5 INH SOL 3 ML VIAL.NEB. NEB ONE (11:17)
[2024-12-21 11:47] LABS: ABSOLUTE IMMATURE GRANULOCYTES 0.05 x10^3/uL (0.0-0.031); BASOPHILS # 0.10 x10^3/uL (0.01-0.08); EOSINOPHIL % 10.5 % (0.7-5.8); EOSINOPHILS # 1.02 x10^3/uL (0.04-0.36); MCHC 30.7 g/dl (32.2-35.5); MEAN CELL VOLUME 106.5 fl (79.4-94.8); MEAN PLT VOLUME 9.9 fl (9.4-12.3); MONOCYTE # 0.76 x10^3/uL (0.24-0.86); MONOCYTE % 7.8 % (4.7-12.5); RDW 13.5 % (12.4-16.6)
[2024-12-21 11:55] LABS: INR 1.09 (0.83-1.09); PROTHROMBIN TIME (PATIENT) 11.9 SEC (9.7-13.0)
[2024-12-21 11:58] LABS: ACTIVATED PTT 28.9 SECONDS (25.2-36.5)
[2024-12-21 12:22] LABS: CO2 31.0 mmol/L (21-32); GLUCOSE,RANDOM 106.0 mg/dL (74-106)
[2024-12-21 12:25] LABS: CREATININE 6.8 mg/dL (0.55-1.3); SGOT/AST 8.0 U/L (15-37); SGPT/ALT 11.0 U/L (13-61)
[2024-12-21 12:27] LABS: TOT PROT 7.6 g/dl (6.4-8.2)
[2024-12-21 12:28] LABS: ALK PHOS 107.0 U/L (45-117)
[2024-12-21 12:36] LABS: BG HCT 37.0 % (32.4-45.2); VENOUS BASE EXCESS -1.6 mmol/L (-2-2); VENOUS O2 SATURATION 18.8 % (70-80); VENOUS PCO2 63.2 mmHg (38-52); VENOUS PH 7.246 (7.310-7.410)
[2024-12-21 12:58] LABS: URINE APPEARANCE TURBID; URINE BILIRUBIN NEGATIVE (NEGATIVE); URINE COLOR YELLOW; URINE GLUCOSE (UA) NEGATIVE (NEGATIVE); URINE KETONE TRACE (NEGATIVE); URINE LEUK ESTERASE 3+ (NEGATIVE); URINE NITRITE NEGATIVE (NEGATIVE); URINE PROTEIN 2+ (NEGATIVE); URINE UROBILINOGEN 1.0 mg/dL (0.2-1.0)
[2024-12-21 13:04] LABS: EPI CELLS 219.7 /uL (0-25.1); URINE RBC 795 /uL (0-23.9); URINE WBC 1530.5 /uL (0-25.8)
[2024-12-21 13:05] LABS: HYALINE CASTS 2.95 /uL (0-3.1); URINE BACTERIA 842.2 /uL (0-1359)
[2024-12-21] MEDS ORDERED: SODIUM CHLORIDE 250 ML IV PRN (13:14)
[2024-12-21] MEDS: MIDODRINE HCL 5 MG TABLET PO PRN (16:02)
[2024-12-21] MEDS: ATORVASTATIN CA 40 MG TABLET (FP) PO SCH (21:19)
[2024-12-21] MEDS: POLYETHYLENE GLYCOL (HEALTHYLAX) 3350 17 GM PACKET PO ONE (21:19)
[2024-12-21] MEDS: levETIRAcetam 500 MG TABLET (FP) PO SCH (21:19)
[2024-12-21] MEDS: SEVELAMER CARBONATE 800 MG TAB (FP) PO SCH (21:59)
[2024-12-21] MEDS: ACETAMINOPHEN 1000 MG/100 ML BAG IVPB ONE (22:07)
[2024-12-21] MEDS: MELATONIN 5 MG TABLETS PO ONE (22:07)
[2024-12-22] MEDS: GABAPENTIN 400 MG CAPSULE PO ONE (01:28)
[2024-12-22] MEDS: SEVELAMER CARBONATE 800 MG TAB (FP) PO SCH (08:33)
[2024-12-22] MEDS: GABAPENTIN 400 MG CAPSULE PO SCH (09:54)
[2024-12-22] MEDS: PANTOPRAZOLE SODIUM 40 MG VIAL IVPUSH SCH (09:54)
[2024-12-22 09:59] LABS: CO2 30.0 mmol/L (21-32)
[2024-12-22 10:00] LABS: GLUCOSE,RANDOM 132.0 mg/dL (74-106)
[2024-12-22 10:03] LABS: CREATININE 4.3 mg/dL (0.55-1.3)
[2024-12-22] MEDS: POTASSIUM CHLORIDE ORAL LIQUID 20 MEQ/15 ML PO ONE (11:50)
[2024-12-22] MEDS: ACETAMINOPHEN 325 MG TABLET (FP) PO PRN (20:48)
[2024-12-22] MEDS: ALBUTEROL SO4 0.083% IH SOL 2.5 MG/3 ML VIAL.NEB. NEB PRN (22:10)
[2024-12-23] MEDS: MELATONIN 5 MG TABLETS PO PRN (00:41)
[2024-12-23] MEDS ORDERED: SODIUM CHLORIDE 250 ML IV PRN (10:29)
[2024-12-23] MEDS: MIDODRINE HCL 5 MG TABLET PO ONE (16:44)
[2024-12-24] MEDS: LIDOCAINE 4% PATCH TP SCH (09:43)
[2024-12-24] MEDS: guaiFENesin/D-METHORPHAN HB 10 ML UNIT-DOSE CUPS PO ONE (21:20)
[2024-12-24] MEDS: LIDOCAINE PATCH REMOVAL MC SCH (23:04)
[2024-12-25] MEDS: MIDODRINE HCL 5 MG TABLET PO ONE (09:44)
[2024-12-25] MEDS ORDERED: ONDANSETRON 4 MG/2 ML VIAL IVPUSH PRN (10:11)
[2024-12-25] MEDS: levETIRAcetam 500 MG/5 ML INJECTION VIAL IVPB SCH (10:40)
[2024-12-25 11:01] LABS: ABSOLUTE IMMATURE GRANULOCYTES 0.04 x10^3/uL (0.0-0.031); BASOPHILS # 0.07 x10^3/uL (0.01-0.08); EOSINOPHIL % 11.1 % (0.7-5.8); EOSINOPHILS # 1.05 x10^3/uL (0.04-0.36); MCHC 30.9 g/dl (32.2-35.5); MEAN CELL VOLUME 107.1 fl (79.4-94.8); MEAN PLT VOLUME 10.5 fl (9.4-12.3); MONOCYTE # 0.80 x10^3/uL (0.24-0.86); MONOCYTE % 8.4 % (4.7-12.5); RDW 13.3 % (12.4-16.6)
[2024-12-25 11:48] LABS: CO2 26 mmol/L (21-32); GLUCOSE,RANDOM 102 mg/dL (74-106)
[2024-12-25 11:51] LABS: SGOT/AST 7 U/L (15-37); SGPT/ALT 11 U/L (13-61); TOT PROT 7.0 g/dl (6.4-8.2)
[2024-12-25 11:53] LABS: ALK PHOS 94 U/L (45-117); CREATININE 8.56 mg/dL (0.55-1.3)
[2024-12-25] MEDS: MIDODRINE HCL 5 MG TABLET PO SCH (14:30)
[2024-12-26] MEDS ORDERED: guaiFENesin 200 MG/10 ML 10 ML UNIT-DOSE CUPS PO PRN (08:01)
[2024-12-26] MEDS: levETIRAcetam 500 MG TABLET (FP) PO SCH (11:44)
[2024-12-26] MEDS: PANTOPRAZOLE 40 MG TABLET PO SCH (11:49)
[2024-12-26] MEDS: BENZONATATE 200 MG CAPSULE PO PRN (14:33)
[2024-12-27 08:57] VITALS: BP 107/53; PULSE 78; RESP 17; TEMP 97.4
== END 2024-12-27 10:41 | disposition home or self-care (01) ==
LOC: JER 10:33 → JERBED 12:34 → J5S 14:28
PROVIDERS: ADMIT Internal Medicine
PROC: 3E033NZ Introduction of Analgesics, Hypnotics, Sedatives into Peripheral Vein, Percutaneous Approach (ICD-10-PCS; principal; 2024-12-21)
PROC: 3E0F7GC Introduction of Other Therapeutic Substance into Respiratory Tract, Via Natural or Artificial Opening (ICD-10-PCS; 2024-12-21)
PROC: 3E0337Z Introduction of Electrolytic and Water Balance Substance into Peripheral Vein, Percutaneous Approach (ICD-10-PCS; 2024-12-21)
DX: J96.01 Acute respiratory failure with hypoxia (principal); N18.6 End stage renal disease; I11.0 Hypertensive heart disease with heart failure; F20.9 Schizophrenia, unspecified; I48.91 Unspecified atrial fibrillation; R91.8 Other nonspecific abnormal finding of lung field; I69.351 Hemiplegia and hemiparesis following cerebral infarction affecting right dominant side; J44.9 Chronic obstructive pulmonary disease, unspecified; R82.81 Pyuria; E88.A Wasting disease (syndrome) due to underlying condition; Z91.158 Patient's noncompliance with renal dialysis for other reason; G47.33 Obstructive sleep apnea (adult) (pediatric); I25.10 Atherosclerotic heart disease of native coronary artery without angina pectoris; Z99.2 Dependence on renal dialysis; E78.00 Pure hypercholesterolemia, unspecified
CPT/HCPCS: 36415; 71045-TC-FY; 80048; 80053; 81003; 82803; 83735; 84100; 84484; 85025; 85610; 85730; 86850; 86900; 86901; 87086; 87340; 93005; 93010; 94640; 96374; 99285-25; G0378